=== PATIENT | male | born 1955 | race Caucasian/White ===

== ENCOUNTER → 2017-10-16 08:36 | Outpatient (CLI) | payer OTHER, SELFPAY ==
[2017-10-16 10:51] LABS: AST(SGOT) 18 U/L (15-37); Alanine Aminotransfer ALT/SGPT 38 U/L (16-61); Albumin, Serum 4.3 g/dL (3.2-5.0); Alkaline Phosphatase 69 U/L (45-117); Anion Gap 7 (5-15); BUN 21 mg/dL (7-18); BUN/Creat Ratio 19.6 RATIO (10-20); Bilirubin, Direct 0.14 mg/dL (0.00-0.30); Calcium,Total 9.3 mg/dL (8.5-10.1); Chloride 102 mmol/L (98-107); Cholesterol 148 mg/dL (200); Creatinine, Serum 1.07 mg/dL (0.70-1.30); EST Glomerular Filtration Rate 75 mL/min (>60); Est Glom Filt Rate - Afr Amer 90 mL/min (>60); Globulin 2.9 g/dL (2.2-4.2); Glucose 101 mg/dL (74-106); High Density Lipoprotein 40 mg/dL; Potassium 4.2 mmol/L (3.5-5.1); Protein, Total 7.2 g/dL (6.4-8.2); Sodium Level 139 mmol/L (136-145); Triglycerides 102 mg/dL; Very Low Density Lipoprotein 20 mg/dL (5-40)
== END ==
PROVIDERS: Family Provider Family Medicine; PCP Family Medicine; Visit Provider Family Medicine
DX: E78.5 Hyperlipidemia, unspecified (principal); I10 Essential (primary) hypertension
CPT/HCPCS: 36415; 80048; 80061; 80076

== ENCOUNTER → 2018-02-13 08:30 | Outpatient (CLI) | payer OTHER, SELFPAY ==
[2018-02-13 10:48] LABS: Cholesterol 166 mg/dL (200); Glucose 101 mg/dL (74-106); High Density Lipoprotein 39 mg/dL; Triglycerides 121 mg/dL; Very Low Density Lipoprotein 24 mg/dL (5-40)
== END ==
PROVIDERS: Family Provider Family Medicine; PCP Family Medicine; Visit Provider Family Medicine
DX: E78.5 Hyperlipidemia, unspecified (principal)
CPT/HCPCS: 36415; 80061; 82947

== ENCOUNTER 2018-07-17 07:29 | Observation (INO) | payer OTHER, SELFPAY ==
[2018-07-17] VITALS (9 sets, daily range): BP systolic 146–168; BP diastolic 81–101; PULSE 86–116; RESP 17–18; TEMP 36.6–36.8; O2SAT 96–99; BMI 29.0; BMI 29.2; BMI 29.3
--- NOTE | 2018-07-17 07:47 | CT_ITS ---
STUDY: CT ABDOMEN AND PELVIS WITH CONTRAST REASON FOR EXAM: Male, 63 years old. One week history of worsening right-sided abdominal pain. RADIATION DOSAGE (If Supplied By Facility): CTDIvol = ( 18.99 ) mGy, DLP = ( 2502.01 ) mGycm TECHNIQUE: Transaxial images were obtained from the dome of the diaphragm to the symphysis pubis with oral contrast. 75 ml of Isovue 300 contrast was administered. Sagittal and coronal images were reconstructed. Individualized dose optimization techniques were used for this CT. COMPARISON: None. FINDINGS: The visualized lung bases are unremarkable. The visualized portions of the heart are within normal limits. There are multiple small hypodense nodules scattered throughout the liver suggestive of small cysts. There is also evidence of a 2.5 cm x 2.5 cm inhomogeneously enhancing nodule in the medial aspect of the right lobe of the liver. This most likely represents an hemangioma. The smaller similar-appearing nodules also seen in the posterior dome of the right lobe of the liver. There are multiple small gallstones in the neck of the gallbladder. Normal spleen. Normal pancreas. Normal bilateral adrenal glands. Moderate degree of right hydronephrosis and mild right perinephric stranding. There is also evidence of a hydroureter on the right side down to the level of the bladder. Mild to moderate degree of left hydronephrosis and hydroureter down to the level of the bladder. Normal visualized stomach. Normal small intestine. Normal colon. The appendix is visualized and appears normal. There is diffuse atherosclerotic calcification of the abdominal aorta and its major visceral branches, without a demonstrated aneurysm. Normal inferior vena cava. There is borderline retroperitoneal lymphadenopathy with enlarged nodes no greater than 10mm in the short axis diameter. There is a marked distention of the urinary bladder. Findings suggestive of a 3.6 cm x 2.9 cm left-sided bladder diverticulum. The prostate is markedly enlarged measuring 9.2 cm x 6.5 cm x 5.9 cm. There is evidence of a 4.1 cm x 3.1 cm soft tissue density within the posterior aspect of the urinary bladder. This may represent either protrusion of the prostate into the base of the bladder versus a bladder polypoid mass. Correlation with cystoscopy is recommended. There is a small umbilical hernia containing fat. Normal osseous structures. CT/Abdomen/Pelvis WITH Contrast IMPRESSION: Findings suggestive of multiple hepatic cysts with possibly 2 small hemangiomas in the right lobe of the liver. Moderate degree of bilateral hydronephrosis and hydroureter down to the urinary bladder. Markedly distended urinary bladder. Marked enlargement of the prostate gland with indentation and protrusion into the bladder. A mass at the base of the bladder cannot be excluded. Findings suggestive of a left bladder diverticulum. Multiple small gallstones are seen within the neck of the gallbladder. Electronically Signed: Alfonso Kathleen MD at 10:07 EST Tel [phone], Service support ,
[2018-07-17 08:11] LABS: Bacteria 0 SEEN /hpf (None Seen); Mucous, Urine 0 SEEN /hpf (<or=2+); Squamous Epithelial Cells - UA 0 SEEN /hpf (0-5)
[2018-07-17 08:14] LABS: Color, Urine Yellow (Yellow); Glucose, Dipstick Normal (Normal); Ketone-Dipstick Negative (Negative); Leukocyte Esterase-Dipstick Negative /ul (Negative); Nitrite-Dipstick Negative (Negative); Occult Blood-Urine Negative /ul (Negative); Protein-Dipstick Negative (Negative); Specific Gravity, Urine 1.005 (1.002-1.030); Urine Bilirubin Dipstick Negative (Negative); Urine Clarity Clear (Clear); Urine Urobilinogen Normal (Normal); Urine pH 6.5 (5.0 - 8.0)
[2018-07-17] MEDS: 0.9% Normal Saline 1,000 ML 1000 ML IV (08:14)
[2018-07-17 08:18] LABS: Absolute Neutrophil Count 7.1 X10^3/uL (2.0-7.7); Basophil# 0.01 X10^3/uL; Basophil% 0.1 % (0-1); Eosinophil# 0.02 X10^3/uL; Eosinophils% 0.2 % (0-5); Hematocrit 41.7 % (40-54); Mean Corpuscular Hgb 31.1 pg (27.0-32.0); Mean Corpuscular Volume 86.5 fL (80-94); Monocyte# 0.89 X10^3/uL; Monocyte% 9.7 % (0-10); Neutrophil # 7.07 X10^3/uL (2.7-7.7); Neutrophil % 76.7 % (47-70); Platelet Count 201 K/mm3 (150-450); RBC Distribution Width CV 12.6 % (11.6-14.6); RBC Distribution Width SD 39.3 fl (35.1-43.9); Red Blood Count 4.82 M/mm3 (4.6-6.2); White Blood Count 9.2 K/mm3 (4.4-11.0)
[2018-07-17 08:19] LABS: POSITIVE COUNT NO; POSITIVE DIFFERENTIAL NO; POSITIVE MORPHOLOGY NO
--- NOTE | 2018-07-17 08:25 | ED.VISSUMM ---
- ER Visit Summary Date of Service: 07/17/18 Chief Complaint: Abdominal pain History of Present Illness: The patient is a 63 M with abdominal pain. The pain is in his right lower quadrant and does not migrate or radiate. He has had this intermittently over the past week. He came in today because it was constant over the last 24 hours. He said he had a lot of pain last night, worse when laying down. He has decreased appetite, decreased bowel movements, and last weekend he had nausea and vomiting. Denies any urinary symptoms or history of urinary pathology. Denies any bleeding. Denies any abdominal surgeries. He had a colonoscopy about 10 years ago which showed a polyp but was otherwise unremarkable. He has a history of GERD and gastric ulcer. Also history of hypertension and hyperlipidemia. Physical Examination: Blood pressure 168/101 and heart rate 116. Otherwise vital signs unremarkable. Afebrile. Alert and oriented. No acute distress. Heart regular. Lungs clear in all melgar. Abdomen is tender in the right lower quadrant. No guarding or rebound. Back is nontender. Skin appears normal. Test Results: Laboratory studies, urinalysis, and CT abdomen/pelvis pending. Emergency Department Course and Treatment: Patient was treated with IV fluids while awaiting results. He declined pain and nausea medicine. CT showed multiple gallstones but no sign of infection. His hepatic testing and lipase were normal. White count normal. He also has hepatic cysts, possibly hemangiomas. He has no right upper quadrant pain and liver testing normal. He has an enlarged prostate with bilateral hydronephrosis and hydroureter as well as distention of his bladder. His urine testing was unremarkable. Patient has a history of prostate but no history of cancer or prostatitis. He denies any pain to that area. Denies any urinary symptoms. Potassium was 2.9 and creatinine was 1.81. These are new findings for this patient. He was treated with fluids, potassium. He was also complaining of increasing pain and received a dose of morphine. Because of his potassium, I did order a monitor technician. I spoke with the hospitalist and he will be for further care. Treatment Plan: As above Disposition: Admission Impression: 1. Enlarged prostate with obstructive uropathy 2. Hypokalemia 3. Acute kidney injury This note was generated with [employer]comation software. It may contain incorrect words, spelling, and punctuation that were not noted in review of the chart prior to signing ED Disposition - Plan for ED Patient: Chief Complaint: Abd Pain Referrals: Govind Lerma MD [Primary Care Provider] -
[2018-07-17 08:31] LABS: Red Blood Cells-Urine 0-5 SEEN /hpf (0-5); White Blood Cells 0-5 SEEN /hpf (0-5)
[2018-07-17 08:32] LABS: ALB/GLOB Ratio 1.1 RATIO (0.9-2.4); AST(SGOT) 15 U/L (15-37); Alanine Aminotransfer ALT/SGPT 26 U/L (16-61); Albumin, Serum 3.9 g/dL (3.2-5.0); Alkaline Phosphatase 77 U/L (45-117); Anion Gap 10 (5-15); BUN 17 mg/dL (7-18); BUN/Creat Ratio 9.4 RATIO (10-20); Chloride 103 mmol/L (98-107); Creatinine, Serum 1.81 mg/dL (0.70-1.30); EST Glomerular Filtration Rate 41 mL/min (>60); Est Glom Filt Rate - Afr Amer 49 mL/min (>60); Estimated Creatinine Clearance 47.82 ml/min; Globulin 3.4 g/dL (2.2-4.2); Glucose 110 mg/dL (74-106); Lipase 93 U/L (73-393); Potassium 2.9 mmol/L (3.5-5.1); Protein, Total 7.3 g/dL (6.4-8.2); Sodium Level 141 mmol/L (136-145)
--- NOTE | 2018-07-17 10:36 | NURSING ---
MED SURG ACUTE KIDNEY INJURY, HYPOKALEMIA, ENLARGED PROSTATE PAINTSIL
--- NOTE | 2018-07-17 10:40 | HP.PCM_ITS ---
Problem List (1) Bladder mass Status: Acute (2) Abdominal pain Status: Acute Qualifiers: Abdominal location: right lower quadrant Qualified Code(s): R10.31 - Right lower quadrant pain (3) Hypokalemia Status: Acute (4) Hypertension Status: Chronic Qualifiers: Hypertension type: essential hypertension Qualified Code(s): I10 - Essential (primary) hypertension (5) Hyperlipidemia Status: Chronic Qualifiers: Hyperlipidemia type: unspecified Qualified Code(s): E78.5 - Hyperlipidemia, unspecified (6) GERD (gastroesophageal reflux disease) Status: Chronic Qualifiers: Esophagitis presence: esophagitis presence not specified Qualified Code(s): K21.9 - Gastro-esophageal reflux disease without esophagitis History of Present Illness Date of Admission: 07/17/18 Chief Complaint: Right lower quadrant pain The patient is a 63 year old M medical history of hypertension, hyperlipidemia, GERD, history of peptic ulcer presents with complaints of right lower quadrant pain ongoing for 1 week. Patient admits to having flulike symptoms ongoing for about 1 week. He had associated nausea and vomiting. He has had some diarrhea after he took some stool softeners. He admits to intermittent right lower quadrant stabbing pain that comes on with no aggravating or relieving factors. Seems to come on and off. No associated symptoms of fever or chills or dizziness or dysuria or bloody stool or bloody urine. He admits to some anorexia but no weight loss or night sweats. He could not sleep last night and decided to come to the ED. his vitals in the ED showed temperature of 90 8F, heart rate 116, blood pressure 168/101, respiratory rate 18, SPO2 90% on room air. Admitting blood work showed WBC count of 9.2, hemoglobin 15.2, platelet count 201, sodium was 141, potassium 2.9, chloride 103, bicarbonate 28, BUN 17, creatinine 1.81. Previous creatinine was 1.07. UA was unremarkable with 0-5 RBC, 0-[address]BC[address] pelvic [address] scan showed multiple small hypodense nodules scattered throughout the liver suggestive of small cysts, possible hemangioma, moderate right hydronephrosis with mild right perinephric stranding, hydroureter on the right side down to the level of the bladder, mild to moderate left hydr onephrosis and hydroureter ureter down to the level of the bladder. Urinary bladder was distended with 3.6 cm x 2.9 cm left-sided diverticula with also markedly enlarged prostate and a 4.1 cm x 3.1 cm soft tissue density within the posterior aspect of the urinary bladder. Past Medical History Past Medical History (Chronic Problems): Chronic Problems Hypertension (Chronic) Hyperlipidemia (Chronic) GERD (gastroesophageal reflux disease) (Chronic) Allergies No Known Allergies Allergy (Verified 07/17/18 07:31) Home Medications: Ambulatory Orders Medication Instructions Recorded Losartan/Hydrochlorothiazide 100 mg PO DAILY 07/17/18 [Losartan-Hctz 100-25 mg Tab] Mag-Ox 400 400 mg PO DAILY 07/17/18 Multiple Vitamins 1 cap PO DAILY 07/17/18 Simvastatin [Zocor] 20 mg PO DAILY 07/17/18 Surgical History: no surgical history Lives: Spouse/ Significant Other Smoking Status: Never smoker Tobacco Use: Non-smoker Alcohol: Occasional Drugs: None - *Family History Maternal History Items: No pertinent history Paternal History Items: Heart Disease Review of Systems Constitutional: Reports: Anorexia, Malaise, Weakness. Denies: Chills, Fever, Night Sweats, Weight Change Eyes: Denies: Blurred vision, Cataracts, Conjunctivae Inflammation, Pain, Redness HEENT: Denies: Difficulty Hearing, Difficulty Swallowing, Dysphasia, Head Aches, Hearing Changes, Nasal bleeding, Sinus Congestion, Sinus Drainage Cardiovascular: Denies: Chest Pain, Claudication, Chest Pressure, Chest Tightness, Orthopnea, Palpitations, Paroxysmal Noc. Dyspnea Respiratory: Denies: Cough, Hemoptysis, Pleuritic Pain, Shortness of breath at rest, Shortness of breath upon exertion, Sputum production Gastrointestinal: Reports: Diarrhea, Nausea, Vomiting. Denies: Abdominal Pain, Constipation, Hematemesis, Hematochezia Genitourinary: Denies: Dysuria, Frequency, Incontinence, Nocturia Musculoskeletal: Denies: Joint Pain, Joint stiffness, Joint swelling, Joint Tenderness Skin: Denies: Pruritis, Rash, Wounds Neurological: Denies: Difficulty swallowing, Focal weakness, Numbness, Tingling Psychiatric: Denies: Anxiety, Depression, Homicidal Ideations, Suicidal Ideation s Hematologic/ Lymphatic: Denies: Easy Bruising, Easy Bleeding VTE Information - Inpt Only VTE Present on Admission: No VTE Pharm Prophylaxis ordered?: Yes Patient Problems: Active and Suspected Problems Bladder mass (Acute) Abdominal pain (Acute) Hypokalemia (Acute) - Physical Exam General: Alert, Oriented x3, Cooperative, No apparent distress HEENT: Atraumatic, PERRLA, EOMI, Normocephalic Oral: Moist Mucosa Neck: Supple, No JVD, Negative Carotid Bruits Lungs: Clear to auscultation, Normal air movement Cardiovascular: Regular rate, Regular Rhythm, Normal S1, Normal S2, No murmurs Abdomen: Bowel Sounds Present, Soft, Non-Distended, No Hepato-splenomegaly, Tender - mild right lower quadrant tenderness, no guarding or RBT Extremities: No edema Skin: No rashes, No breakdown Musculoskeletal: No Tenderness to Palpation of Joints or Extremities Lymphatic: No Cervical, Supraclavicular, or Inguinal Adenopathy Neurological: Cranial nerves II-XII grossly intact, Neuro grossly intact Psych/Mental Status: Normal Affect, Appropriate Vital Signs Temp Pulse Resp BP Pulse Ox 98 F 116 H 18 168/101 H 98 07/17/18 07:29 07/17/18 07:29 07/17/18 07:29 07/17/18 07:29 07/17/18 07:29 Oxygen Delivery Method Room Air Weight: 99.79 kg Body Mass Index (BMI) 29.0 Laboratory Tests Past 24 Hrs 07/17/18 07/17/18 07/17/18 08:00 08:00 08:00 WBC 9.2 RBC 4.82 Hgb 15.0 Hct 41.7 MCV 86.5 MCH 31.1 MCHC 36.0 RDW 12.6 RDW Differential 39.3 Plt Count 201 MPV 10.0 Immature Gran % (Auto) 0.300 Neut % (Auto) 76.7 H Lymph % (Auto) 13.0 L [place] % (Auto) 9.7 Eos % (Auto) 0.2 Baso % (Auto) 0.1 Absolute Neuts (auto) 7.1 Absolute Lymphs (auto) 1.20 Total Counted Not Reportable Sodium 141 Potassium 2.9 L Chloride 103 Carbon Dioxide 28.0 Anion Gap 10 BUN 17 Creatinine 1.81 H Estim Creat Clear Calc 47.82 Est GFR (MDRD) Af Amer 49 L Est GFR (MDRD) Non-Af 41 L BUN/Creatinine Ratio 9.4 L Glucose 110 H Calcium 9.0 Total Bilirubin 0.80 AST 15 ALT 26 Alkaline Phosphatase 77 Total Protein 7.3 Albumin 3.9 Globulin 3.4 Albumin/Globulin Ratio 1.1 Lipase 93 Urine Color Yellow Urine Clarity Clear Urine pH 6.5 Ur Specific [place] 1.005 Urine Protein Negative Urine Glucose (UA) Normal Urine Ketones Negative Urine Occult Blood Negative Urine Nitrite Negative Urine Bilirubin Negative Urine Urobilinogen Normal Ur Leukocyte Esterase Negative Urine RBC 0-5 SEEN Urine WBC 0-5 SEEN Ur Squamous Epith Cells 0 SEEN Urine Bacteria 0 SEEN Urine Mucus 0 SEEN Assessment/Plan All Active Problems Bladder mass (Acute) Abdominal pain (Acute) Hypokalemia (Acute) 63 year old M with medical history of hypertension, hyperlipidemia, GERD, history of peptic ulcer presents with complaints of right lower quadrant pain ongoing for 1 week. Patient admits to having flulike symptoms ongoing for about 1 week. 1. Acute right lower quadrant pain, unclear etiology for now, could be related to right hydroureter/nephrosis/possible bladder mass Plan: Admit patient, monitor on telemetry, pain control with morphine prn 2. Hypokalemia, severe, related to vomiting and diarrhea, will replace IV, recheck at 5 PM and in a.m. 3. Hypomagnesemia, related to hypoglycemia, related to vomiting and diarrhea, replace, recheck in a.m. 4. ELINOR, likely prerenal and postrenal secondary to vomiting and diarrhea as well as bilateral hydronephrosis, will continue on IV fluids NS100 mls/hr, will check bladder scan, if high, will Place Hui catheter, urology consulted 5. Possible bladder mass, no history of weight loss, fever, night sweats, hematuria, urinalysis on admission is benign will get ultrasound of the bladder and kidneys stat, urology consulted Will start on ceftriaxone IV 1 g in anticipation of possible instrumentation by urology 6. Recent flulike illness, for about a week, improving, will treat symptomat icallru 7. Hypertension, uncontrolled, has missed his medication for 2 days, would prescribe losartan 100 mg p.o. daily, hold off hydrochlorothiazide for now 8. Hyperlipidemia, on statin 9. GERD, history of peptic ulcer, not on PPI, will add famotidine 20 twice daily 10. DVT PPx- Heparin SC Code Visit Inpatient E&M: 02744 Init Hosp L3
[2018-07-17] MEDS: Morphine 4 MG/ML Syringe IV (11:00)
[2018-07-17 12:16] LABS: Magnesium 1.9 mg/dL (1.6-2.6)
[2018-07-17] MEDS: Ceftriaxone 1 GM/50 ML BAG IV (13:04)
--- NOTE | 2018-07-17 13:31 | US_ITS ---
STUDY: RENAL ULTRASOUND - COMPLETE REASON FOR EXAM: Male, [address] scan. Bladder mass. TECHNIQUE: Ultrasound evaluation of the kidneys was performed with real-time and static cavazos-scale imaging. COMPARISON: Comparison is made with prior CT scan of abdomen done earlier today. FINDINGS: RIGHT KIDNEY: Normal location of the right kidney, which is normal in size. The right kidney measures 11.2 cm x 5.4 cm x 6.9 cm. There is a normal cortex of the right kidney. The renal cortex measures 1.7 cm. There is no right renal mass or cyst. There are no right renal calculi. There is moderate hydronephrosis of the right kidney. DISTAL RIGHT URETER: There is mild hydroureter of the distal right ureter. There is no demonstrated right ureterovesical junction calculus. There is no demonstrated right ureteral jet. LEFT KIDNEY: Normal location of the left kidney, which is normal in size. The left kidney measures 13.8 cm x 5.4 cm x 7.3 cm. There is a normal cortex of the left kidney. The renal cortex measures 2.6 cm. There is no left renal mass or cyst. There are no left renal calculi. There is moderate hydronephrosis of the left kidney. DISTAL LEFT URETER: There is mild hydroureter of the distal left ureter. There is no demonstrated left ureterovesical junction calculus. There is a visualized left ureteral jet. BLADDER: The distended urinary bladder has a volume of 1130 ml. There is a normal wall thickness of the distended urinary bladder. There is a 4.2 cm x 4.8 cm x 4.8 cm mass within the base of the urinary bladder most likely representing extension from an enlarged prostate. There are no demonstrated bladder calculi. US/Kidney and Bladder IMPRESSION: Bilateral hydronephrosis. Enlarged prostate with soft tissue mass at the base of the bladder most likely representing extension of the bladder. A bladder mass cannot be excluded. Correlation with endoscopy is recommended. Electronically Signed: Alfonso Kathleen MD at 16:00 EST Tel [phone], Service support ,
[2018-07-17] MEDS: 0.9% NaCl Peripheral Flush Adult/Peds IV (14:37)
[2018-07-17] MEDS: Morphine 2 MG/ML Syringe 1 MG IV (14:37)
[2018-07-17] MEDS: Losartan Potassium 100 MG Tablet PO (16:55)
[2018-07-17] MEDS: Magnesium Sulfate 1 GM in 0.9% Normal Saline 100 ML IV (18:08)
[2018-07-17 18:33] LABS: Anion Gap 8 (5-15); BUN 14 mg/dL (7-18); BUN/Creat Ratio 8.9 RATIO (10-20); Calcium,Total 8.2 mg/dL (8.5-10.1); Chloride 106 mmol/L (98-107); Creatinine, Serum 1.57 mg/dL (0.70-1.30); EST Glomerular Filtration Rate 48 mL/min (>60); Est Glom Filt Rate - Afr Amer 58 mL/min (>60); Estimated Creatinine Clearance 55.13 ml/min; Glucose 122 mg/dL (74-106); Sodium Level 140 mmol/L (136-145)
[2018-07-17] MEDS: Atorvastatin Calcium 10 MG Tablet PO (21:41)
[2018-07-17] MEDS: Famotidine 20 MG Tablet PO (21:41)
[2018-07-17] MEDS: Acetaminophen 325 MG Tablet 650 MG PO (21:41)
[2018-07-17] MEDS: Heparin Injection (Vial) 5,000 UNIT/ML VIAL 5000 UNIT SC (21:42)
[2018-07-17] MEDS: 0.9% Normal Saline 1,000 ML 100 ML IV (22:25)
[2018-07-18 03:59] VITALS: PULSE 80
[2018-07-18 04:44] VITALS: BP 142/93; PULSE 81; RESP 18; TEMP 36.7; O2SAT 97
[2018-07-18 06:27] LABS: Absolute Lymphocyte Count 1.19 X10^3/ul (0.83-4.51); Absolute Neutrophil Count 6.1 X10^3/uL (2.0-7.7); Basophil# 0.01 X10^3/uL; Basophil% 0.1 % (0-1); Eosinophil# 0.07 X10^3/uL; Eosinophils% 0.9 % (0-5); Hematocrit 37.2 % (40-54); Hemoglobin 13.3 g/dl (13.0-16.5); Lymphocyte # 1.19 X10^3/ul (4.0); Lymphocyte % 14.6 % (19-41); Mean Corp Hgb Conc 35.8 g/gl (32-36); Mean Corpuscular Hgb 31.2 pg (27.0-32.0); Mean Corpuscular Volume 87.3 fL (80-94); Mean Platelet Vol. 9.9 fl (6.2-12.0); Monocyte# 0.76 X10^3/uL; Monocyte% 9.3 % (0-10); Neutrophil # 6.09 X10^3/uL (2.7-7.7); Platelet Count 165 K/mm3 (150-450); RBC Distribution Width CV 12.8 % (11.6-14.6); RBC Distribution Width SD 40.9 fl (35.1-43.9); Red Blood Count 4.26 M/mm3 (4.6-6.2); White Blood Count 8.1 K/mm3 (4.4-11.0)
[2018-07-18 06:34] LABS: POSITIVE COUNT NO; POSITIVE DIFFERENTIAL NO; POSITIVE MORPHOLOGY NO
[2018-07-18 06:41] LABS: Anion Gap 9 (5-15); BUN 12 mg/dL (7-18); BUN/Creat Ratio 9.2 RATIO (10-20); Calcium,Total 8.1 mg/dL (8.5-10.1); Chloride 110 mmol/L (98-107); Creatinine, Serum 1.31 mg/dL (0.70-1.30); EST Glomerular Filtration Rate 59 mL/min (>60); Est Glom Filt Rate - Afr Amer 71 mL/min (>60); Estimated Creatinine Clearance 66.08 ml/min; Glucose 92 mg/dL (74-106); Potassium 3.7 mmol/L (3.5-5.1); Sodium Level 144 mmol/L (136-145)
[2018-07-18 07:59] VITALS: PULSE 90
--- NOTE | 2018-07-18 08:17 | PCM.PN.HOSP ---
Patient Problems: Active and Suspected Problems Bladder mass (Acute) Abdominal pain (Acute) Hypokalemia (Acute) Subjective: Patient was seen and examined. He feels improved. He was found on bladder scan yesterday to have urine retention. Insertion of Hui was difficult, hematuria was subsequently found overnight. His right lower quadrant pain is absent since Hui insertion. Denies any fever or chills. No nausea or diarrhea Objective: Physical exam: General: Alert, Oriented x3, Cooperative HEENT: Atraumatic, PERRLA, EOMI, Normocephalic Oral: Dry Mucosa Neck: Supple, No JVD, Negative Carotid Bruits Lungs: Clear to auscultation, Normal air movement, No rhonchi, No wheeze, No rales Cardiovascular: Regular rate, Regular Rhythm, Normal S1, Normal S2, No murmurs Abdomen: Bowel Sounds Present, Soft, Non-Distended, No Hepato-splenomegaly, no abdominal tenderness on palpation, Hui catheter in situ, hematuria(light pink) Extremities: No edema Skin: No rashes, No breakdown Musculoskeletal: No Tenderness to Palpation of Joints or Extremities Lymphatic: No Cervical, Supraclavicular, or Inguinal Adenopathy Neurological: Cranial nerves II-XII grossly intact, Neuro grossly intact, Motor Exam 5/5 strength throughout Psych/Mental Status: Normal Affect, Appropriate, Alert and oriented to time, place, person, mood and affect Vitals/I&O's: Vital Signs Temp Pulse Resp BP Pulse Ox 98.0 F 81 18 142/93 H 97 07/18/18 04:44 07/18/18 04:44 07/18/18 04:44 07/18/18 04:44 07/18/18 04:44 Oxygen Delivery Method Room Air Weight: 100.6 kg Body Mass Index (BMI) 29.2 Intake and Output for Last 24 Hours 07/16/18 07/17/18 07/18/18 23:59 23:59 23:59 Intake Total 3376 / 3376 1240 / 1240 Output Total 3350 / 3350 1150 / 1150 Balance 90 / 90 Laboratory Results 07/17/18 08:00: WBC 9.2, RBC 4.82, Hgb 15.0, Hct 41.7, MCV 86.5, MCH 31.1, MCHC 36.0, RDW 12.6, RDW Differential 39.3, Plt Count 201, MPV 10.0, Immature Gran % (Auto) 0.300, Neut % (Auto) 76.7 H, Lymph % (Auto) 13.0 L, [place] % (Auto) 9.7, Eos % (Auto) 0.2, Baso % (Auto) 0.1, Absolute Neuts (auto) 7.1, Absolute Lymphs (auto) 1.20, Total Counted Not Reportable 07/17/18 08:00: Sodium 141, Potassium 2.9 L, Chloride 103, Carbon Dioxide 28.0, Anion Gap 10, BUN 17, Creatinine 1.81 H, Estim Creat Clear Calc 47.82, Est GFR (MDRD) Af Amer 49 L, Est GFR (MDRD) Non-Af 41 L, BUN/Creatinine Ratio 9.4 L, Glucose 110 H, Calcium 9.0, Total Bilirubin 0.80, AST 15, ALT 26, Alkaline Phosphatase 77, Total Protein 7.3, Albumin 3.9, Globulin 3.4, Albumin/Globulin Ratio 1.1, Lipase 93 07/17/18 08:00: Urine Color Yellow, Urine Clarity Clear, Urine pH 6.5, Ur Specific [place] 1.005, Urine Protein Negative, Urine Glucose (UA) Normal, Urine Ketones Negative, Urine Occult Blood Negative, Urine Nitrite Negative, Urine Bilirubin Negative, Urine Urobilinogen Normal, Ur Leukocyte Esterase Negative, Urine RBC 0-5 SEEN, Urine WBC 0-5 SEEN, Ur Squamous Epith Cells 0 SEEN, Urine Bacteria 0 SEEN, Urine Mucus 0 SEEN 07/17/18 08:00: Magnesium 1.9 07/17/18 17:25: Sodium 140, Potassium 3.0 L, Chloride 106, Carbon Dioxide 26.0, Anion Gap 8, BUN 14, Creatinine 1.57 H, Estim Creat Clear Calc 55.13, Est GFR (MDRD) Af Amer 58 L, Est GFR (MDRD) Non-Af 48 L, BUN/Creatinine Ratio 8.9 L, Glucose 122 H, Calcium 8.2 L 07/18/18 05:54: WBC 8.1, RBC 4.26 L, Hgb 13.3, Hct 37.2 L, MCV 87.3, MCH 31.2, MCHC 35.8, RDW 12.8, RDW Differential 40.9, Plt Count 165, MPV 9.9, Immature Gran % (Auto) 0.100, Neut % (Auto) 75.0 H, Lymph % (Auto) 14.6 L, [place] % (Auto) 9.3, Eos % (Auto) 0.9, Baso % (Auto) 0.1, Absolute Neuts (auto) 6.1, Absolute Lymphs (auto) 1.19, Total Counted Not Reportable 07/18/18 05:54: Sodium 144, Potassium 3.7, Chloride 110 H, Carbon Dioxide 25.0, Anion Gap 9, BUN 12, Creatinine 1.31 H, Estim Creat Clear Calc 66.08, Est GFR (MDRD) Af Amer 71, Est GFR (MDRD) Non-Af 59 L, BUN/Creatinine Ratio 9.2 L, Glucose 92, Calcium 8.1 L Current Medications Acetaminophen (Tylenol) 650 mg PO Q6H PRN PRN PRN Reason: PAIN Last Admin: 07/17/18 21:41 Dose: 650 mg Atorvastatin Calcium (Lipitor) 10 mg PO QHS [facility] Last Admin: 07/17/18 21:41 Dose: 10 mg Bisacodyl (Dulcolax) 5 mg PO DAILY PRN PRN PRN Reason: Constipation Famotidine (Pepcid) 20 mg PO BID [facility] Last Admin: 07/17/18 21:41 Dose: 20 mg Sodium Chloride () 1,000 mls @ 100 mls/hr IV .Q10H [facility] Last Admin: 07/17/18 22:25 Dose: 100 mls/hr Influenza Virus Vaccine Quadrival (Fluarix/Fluzone) 0.5 ml IM .ONCE ONE Stop: 07/18/18 10:01 Losartan Potassium (Cozaar) 100 mg PO DAILY [facility] Last Admin: 07/17/18 16:55 Dose: 100 mg Magnesium Hydroxide (Milk Of Magnesia) 30 ml PO DAILY PRN PRN PRN Reason: Constipation Morphine Sulfate () 1 mg IV Q4H PRN PRN PRN Reason: SEVERE PAIN (6-10/10) Last Admin: 07/17/18 14:37 Dose: 1 mg Psyllium Hydrophilic Mucilloid (Metamucil) 1 packet PO DAILY PRN PRN PRN Reason: CONSTIPATION Sodium Chloride () 5 - 15 ml IV UD PRN PRN Reason: SALINE FLUSH Last Admin: 07/17/18 14:37 Dose: 10 ml Tamsulosin HCl (Flomax) 0.4 mg PO DAILY@1730 [facility] Medical Necessity - Tobacco Use Smoking Status: Never smoker Tobacco Use: Non-smoker Assessment/Plan All Active Problems Bladder mass (Acute) Abdominal pain (Acute) Hypokalemia (Acute) 63 year old M with medical history of hypertension, hyperlipidemia, GERD, history of peptic ulcer presents with complaints of right lower quadrant pain ongoing for 1 week. Patient admits to having flulike symptoms ongoing for about 1 week. 1. Acute right lower quadrant pain, likely related to right hydroureter/nephrosis/possible bladder mass, resolved 2. Hypokalemia, severe, related to vomiting and diarrhea, resolved 3. Hypomagnesemia, related to hypoglycemia, related to vomiting and diarrhea,resolved 4. ELINOR, likely prerenal and postrenal secondary to vomiting and diarrhea as well as bilateral hydronephrosis, improving, Cr is currently 1.31 from 1.81 5. Possible bladder mass, likely enlarged prostate,, seen on CT of the abdomen and pelvis and on ultrasound of the bladder and kidney no history of weight loss, fever, night sweats, hematuria, urinalysis on admission is benign Will wait for urology consultation, discontinue ceftriaxone, unclear if further workup will be done in this admission 6.BPH, status post Hui catheterization, hematuria present at the moment, will start Flomax 0.4 mg daily 7.Recent flulike illness, for about a week, resolved 8.Hypertension, fairly uncontrolled, continue on losartan 100 mg p.o. daily, continue to hold off hydrochlorothiazide for now 9.Hyperlipidemia, on statin 10.GERD, history of peptic ulcer, not on PPI, on famotidine 20 twice daily 11. DVT PPx-SCDs; DC heparin on account of hematuria Code Visit Inpatient E&M: 01364 Subs Hosp L2
[2018-07-18 08:42] VITALS: BP 154/99; PULSE 99; RESP 18; TEMP 37.1; O2SAT 98
[2018-07-18] MEDS: Losartan Potassium 100 MG Tablet PO (08:49)
[2018-07-18] MEDS: Famotidine 20 MG Tablet PO (08:49)
[2018-07-18] MEDS: 0.9% Normal Saline 1,000 ML 100 ML IV (08:49)
--- NOTE | 2018-07-18 11:13 | PCM.CONS.U ---
Reason for Consult Date of Consultation: 07/18/18 Reason for Consultation: urinary retention due to very large prostate History of Present Illness: The patient is a 63 year old male who presented to the hospital with abdominal pain CAT scan was done demonstrated a very large prostate and the very little distended bladder with bilateral hydronephrosis elevated creatinine catheter was placed had over a liter in his bladder now the urine is fairly clear the bladder is draining well on CAT scan is a very large protruding prostate into the bladder significant amount of obstruction Past Medical History Past Medical History (Chronic Problems): Chronic Problems Hypertension (Chronic) Hyperlipidemia (Chronic) GERD (gastroesophageal reflux disease) (Chronic) Allergies No Known Allergies Allergy (Verified 07/17/18 07:31) Home Medications: Ambulatory Orders Medication Instructions Recorded Losartan/Hydrochlorothiazide 100 mg PO DAILY 07/17/18 [Losartan-Hctz 100-25 mg Tab] Mag-Ox 400 400 mg PO DAILY 07/17/18 Multiple Vitamins 1 cap PO DAILY 07/17/18 Simvastatin [Zocor] 20 mg PO DAILY 07/17/18 Surgical History: no surgical history Lives: Spouse/ Significant Other Smoking Status: Never smoker Tobacco Use: Non-smoker Alcohol: Occasional Drugs: None - *Family History Maternal History Items: No pertinent history Paternal History Items: Heart Disease Review of Systems Constitutional: Denies: Chills, Fever, Weight Change HEENT: Denies: Head Aches, Sinus Congestion, Sinus Drainage Cardiovascular: Denies: Chest Pain, Palpitations Respiratory: Denies: Cough, Shortness of breath at rest, Sputum production Gastrointestinal: Denies: Abdominal Pain, Nausea, Vomiting Genitourinary: Reports: Hematuria, Retention. Denies: Dysuria Musculoskeletal: Denies: Joint Pain, Joint Tenderness Skin: Denies: Rash, Wounds Neurological: Denies: Numbness, Tingling, Focal weakness Psychiatric: Denies: Anxiety, Depression, Homicidal Ideations, Suicidal Ideations Hematologic/ Lymphatic: Denies: Easy Bruising, Easy Bleeding Physical Exam - Physical Exam Vital Signs Temp 98.7 F 07/18/18 08:42 Pulse 99 07/18/18 08:42 Resp 18 07/18/18 08:42 BP 154/99 H 07/18/18 08:42 Pulse Ox 98 07/18/18 08:42 Intake & Output 07/16/18 07/17/18 07/18/18 23:59 23:59 23:59 Intake Total 3376 / 3376 1240 / 1240 Output Total 3350 / 3350 1150 / 1150 Balance 90 / 90 Weight: 100.6 kg Intake: Oral 1600 / 1600 280 / 280 IV fluid/meds 1776 / 1776 960 / 960 Output: Urine 3350 / 3350 1150 / 1150 General: Alert, Oriented x3 HEENT: Atraumatic Oral: Moist Mucosa Neck: Supple Lungs: Normal air movement Cardiovascular: Regular rate, Regular Rhythm Abdomen: Bowel Sounds Present, Soft Rectal: Exam deferred Laboratory Tests Past 24 Hrs 07/17/18 07/17/18 07/18/18 08:00 17:25 05:54 WBC 8.1 RBC 4.26 L Hgb 13.3 Hct 37.2 L MCV 87.3 MCH 31.2 MCHC 35.8 RDW 12.8 RDW Differential 40.9 Plt Count 165 MPV 9.9 Immature Gran % (Auto) 0.100 Neut % (Auto) 75.0 H Lymph % (Auto) 14.6 L Bartholomew % (Auto) 9.3 Eos % (Auto) 0.9 Baso % (Auto) 0.1 Absolute Neuts (auto) 6.1 Absolute Lymphs (auto) 1.19 Total Counted Not Reportable Sodium 140 Potassium 3.0 L Chloride 106 Carbon Dioxide 26.0 Anion Gap 8 BUN 14 Creatinine 1.57 H Estim Creat Clear Calc 55.13 Est GFR (MDRD) Af Amer 58 L Est GFR (MDRD) Non-Af 48 L BUN/Creatinine Ratio 8.9 L Glucose 122 H Calcium 8.2 L Magnesium 1.9 07/18/18 05:54 WBC RBC Hgb Hct MCV MCH MCHC RDW RDW Differential Plt Count MPV Immature Gran % (Auto) Neut % (Auto) Lymph % (Auto) Bartholomew % (Auto) Eos % (Auto) Baso % (Auto) Absolute Neuts (auto) Absolute Lymphs (auto) Total Counted Sodium 144 Potassium 3.7 Chloride 110 H Carbon Dioxide 25.0 Anion Gap 9 BUN 12 Creatinine 1.31 H Estim Creat Clear Calc 66.08 Est GFR (MDRD) Af Amer 71 Est GFR (MDRD) Non-Af 59 L BUN/Creatinine Ratio 9.2 L Glucose 92 Calcium 8.1 L Magnesium Assessment/Plan All Active Problems Bladder mass (Acute) Abdominal pain (Acute) Hypokalemia (Acute) 63-year-old male presented with bilateral hydronephrosis distended bladder very large prostate very large median lobe protruding into the bladder, recommend the patient go home with a Hui catheter I have my office set him up for a robotic simple prostatectomy in a few weeks spoke to the patient regarding situation and proceeding with surgery he was agreeable with this given the extent of the obstruction I do not think medical therapy will be effective but we can continue with been prescribed. Call me with questions.
--- NOTE | 2018-07-18 11:45 | CASEMGMT ---
CHRISTOPHER VALLE Face to Face with patient for initial transition planning/care coordination assessment. RN CM introduced self and role at [facility]. Patient lying in bed, alert and oriented. Patient willing to participate in assessment and is able to answer all questions appropriately. Care providers, pharmacy, and demographics verified. Patient wishes to discharge home, denies need for home health at this time. Patient states he has no further needs or concerns at this time. CM to follow for discharge planning needs that may arise. Disposition Plan: Patient to discharge home with family support and follow-up plans in place. Regina ALSTON, RN, CM
--- NOTE | 2018-07-18 11:59 | DS.PCM_ITS ---
Discharge Date and Diagnosis - Problem List Patient Problems: Active and Suspected Problems Bladder mass (Acute) Abdominal pain (Acute) Hypokalemia (Acute) Date of Admission: 07/17/18 Date of Discharge: 07/18/18 - Primary Discharge Diagnosis Active and Suspected Problems BPH Suspected bladder mass (Acute) Abdominal pain (Acute) Hypokalemia (Acute) Hypomagnesemia ELINOR Uncontrolled hypertension Recent flulike illness - Secondary Discharge Diagnosis Chronic Problems Hypertension (Chronic) Hyperlipidemia (Chronic) GERD (gastroesophageal reflux disease) (Chronic) Hospital Course and Treatment Imaging Results: Clinical Impression(s) from Imaging Studies Abdomen/Pelvis CT 07/17/18 07:47 IMPRESSION: Findings suggestive of multiple hepatic cysts with possibly 2 small hemangiomas in the right lobe of the liver. Moderate degree of bilateral hydronephrosis and hydroureter down to the urinary bladder. Markedly distended urinary bladder. Marked enlargement of the prostate gland with indentation and protrusion into the bladder. A mass at the base of the bladder cannot be excluded. Findings suggestive of a left bladder diverticulum. Multiple small gallstones are seen within the neck of the gallbladder. Electronically Signed: Alfonso Kathleen MD at 10:07 EST Tel [phone], Service support , Renal Ultrasound 07/17/18 13:31 IMPRESSION: Bilateral hydronephrosis. Enlarged prostate with soft tissue mass at the base of the bladder most likely representing extension of the bladder. A bladder mass cannot be excluded. Correlation with endoscopy is recommended. Electronically Signed: Alfonso Kathleen MD at 16:00 EST Tel [phone], Service support , ADDENDUM: 07/18/18 1046 Urology Operations: None Procedures: None Summary of Care Provided: 63 year old M with medical history of hypertension, hyperlipidemia, GERD, history of peptic ulcer presents with complaints of right lower quadrant pain ongoing for 1 week. Patient admits to having flulike symptoms ongoing for about [address] of the abdomen and pelvis as well as abdominal ultrasound showed possible bladder mass, enlarged prostate, bilateral hydroureter, hydronephrosis. He was admitted to a monitored bed and managed with IV fluids, pain meds, electrolyte replacement His management was as follows: 1. Acute right lower quadrant pain, likely related to right hydroureter/nephrosis/possible bladder mass, resolved with pain medication, relief of bladder outlet obstruction. 2. Hypokalemia, severe, related to vomiting and diarrhea, replaced, resolved 3. Hypomagnesemia, related to hypoglycemia, related to vomiting and diarrhea, replace, resolved 4. ELINOR, likely prerenal and postrenal secondary to vomiting and diarrhea as well as bilateral hydronephrosis, admitted with a creatinine 1.81, improved with IV fluids and Hui catheter placement. 5. Possible bladder mass, likely enlarged prostate/BPH, seen on CT of the abdomen and pelvis and on ultrasound of the bladder and kidney no history of weight loss, fever, night sweats, hematuria, urinalysis on admission is benign Urology consulted, discharged with Hui catheter, follow-up in the outpatient for robotic prostatectomy 6.Recent flulike illness, for about a week, resolved 8.Hypertension, fairly uncontrolled, home losartan/hydrochlorothiazide held, managed on losartan 100 mg p.o. daily. Home blood pressure meds were resumed at discharge. Patient Problems: Active and Suspected Problems Bladder mass (Acute) Abdominal pain (Acute) Hypokalemia (Acute) Subjective: See progress note of the day Objective: See progress note on the day - Physical Exam Vital Signs Temp Pulse Resp BP Pulse Ox 98.7 F 99 18 154/99 H 98 07/18/18 08:42 07/18/18 08:42 07/18/18 08:42 07/18/18 08:42 07/18/18 08:42 Oxygen Delivery Method Room Air Weight: 100.6 kg Body Mass Index (BMI) 29.2 Intake and Output for Last 24 Hours 07/16/18 07/17/18 07/18/18 23:59 23:59 23:59 Intake Total 3376 / 3376 1240 / 1240 Output Total 3350 / 3350 1150 / 1150 Balance 90 / 90 Laboratory Tests Past 24 Hrs 07/17/18 07/17/18 07/18/18 08:00 17:25 05:54 WBC 8.1 RBC 4.26 L Hgb 13.3 Hct 37.2 L MCV 87.3 MCH 31.2 MCHC 35.8 RDW 12.8 RDW Differential 40.9 Plt Count 165 MPV 9.9 Immature Gran % (Auto) 0.100 Neut % (Auto) 75.0 H Lymph % (Auto) 14.6 L Hickman % (Auto) 9.3 Eos % (Auto) 0.9 Baso % (Auto) 0.1 Absolute Neuts (auto) 6.1 Absolute Lymphs (auto) 1.19 Total Counted Not Reportable Sodium 140 Potassium 3.0 L Chloride 106 Carbon Dioxide 26.0 Anion Gap 8 BUN 14 Creatinine 1.57 H Estim Creat Clear Calc 55.13 Est GFR (MDRD) Af Amer 58 L Est GFR (MDRD) Non-Af 48 L BUN/Creatinine Ratio 8.9 L Glucose 122 H Calcium 8.2 L Magnesium 1.9 07/18/18 05:54 WBC RBC Hgb Hct MCV MCH MCHC RDW RDW Differential Plt Count MPV Immature Gran % (Auto) Neut % (Auto) Lymph % (Auto) [place]ickman % (Auto) Eos % (Auto) Baso % (Auto) Absolute Neuts (auto) Absolute Lymphs (auto) Total Counted Sodium 144 Potassium 3.7 Chloride 110 H Carbon Dioxide 25.0 Anion Gap 9 BUN 12 Creatinine 1.31 H Estim Creat Clear Calc 66.08 Est GFR (MDRD) Af Amer 71 Est GFR (MDRD) Non-Af 59 L BUN/Creatinine Ratio 9.2 L Glucose 92 Calcium 8.1 L Magnesium Discharge Diet: Low fat/ Low Cholesterol, 2000 mg Sodium Diet Discharge Activity: Return to Normal Activity Home Medications: Medications to take at Discharge Losartan/Hydrochlorothiazide [Losartan-Hctz 100-25 mg Tab] 100 mg PO DAILY 07/17/18 Mag-Ox 400 400 mg PO DAILY 07/17/18 Multiple Vitamins 1 cap PO DAILY 07/17/18 Simvastatin [Zocor] 20 mg PO DAILY 07/17/18 Tamsulosin HCl [Flomax] 0.4 mg PO DAILY@1730 #30 capsule 07/18/18 Following Prescrptions Were Given to Patient: Tamsulosin HCl [Flomax] 0.4 mg PO DAILY@1730 #30 capsule Other Amb Orders: Basic Metabolic Profile (BMP) Time Frame: 3 Days, Location: Laboratory Primary Care Physician: Govind Lerma MD [Primary Care Provider] - Please follow up with your Primary Care Physician in: within 1 week Please Follow Up With: David Dunaway MD When: 2 weeks Disposition: Home Minutes spent on discharge:: 40 Patient Condition:: Stable Medical Necessity - Tobacco Use Smoking Status: Never smoker Tobacco Use: Non-smoker Meaningful Use Info Meaningful Use Diagnoses (Choose all that apply): None applicable Code Visit Inpatient E&M: 34748 Disch Hosp
--- NOTE | 2018-07-18 11:59 | DCINST_ITS ---
- Discharge Diagnoses Current Active Problems: Current Active and Chronic Problems Bladder mass (Acute) Abdominal pain (Acute) Hypokalemia (Acute) Hypertension (Chronic) Hyperlipidemia (Chronic) GERD (gastroesophageal reflux disease) (Chronic) Reason(s) for Visit for Discharge Instructions: Abdominal pain You will use the following diet at home:: Cardiac Your food should be the consistency of: Regular Your liquids should be the consistency of: Regular/Thin Discharge Activity: Return to Normal Activity Additional Instructions: Continue to hydrate your self. You will be discharged with Powell catheter and bag. Keep powell catheter bag below your wait at all times. Let your doctor know if you have fever, chills, cloudy urine. Follow-up with your PCP for blood work in 3 days. Follow-up with Dr. Dunaway as scheduled. Allergies/Adverse Reactions: Allergies No Known Allergies Allergy (Verified 07/17/18 07:31) Medications to take at Discharge Losartan/Hydrochlorothiazide [Losartan-Hctz 100-25 mg Tab] 100 mg PO DAILY 07/17/18 Mag-Ox 400 400 mg PO DAILY 07/17/18 Multiple Vitamins 1 cap PO DAILY 07/17/18 Simvastatin [Zocor] 20 mg PO DAILY 07/17/18 Tamsulosin HCl [Flomax] 0.4 mg PO DAILY@1730 #30 capsule 07/18/18 The following prescriptions were given: Tamsulosin HCl [Flomax] 0.4 mg PO DAILY@1730 #30 capsule Orders to be completed after discharge: Basic Metabolic Profile (BMP) Time Frame: 3 Days, Location: Laboratory Primary Care Physician: Govind Lerma MD [Primary Care Provider] - Please follow up with your Primary Care Physician in: within 1 week Test Results: Test results from this visit will be discussed in further detail at your follow- up appointment, if applicable. Please Follow Up With: David Dunaway MD When: 2 weeks Proposed Discharge Date: 07/18/18
--- OUTSIDE RECORDS SUMMARY | 2018-09-11 07:46 | XMS RPT_ITS ---
:1955 Author Organization OHIP Support Name Relationship Address Phone BEN GONZALEZ Unavailable [address] + [place] [address] [facility] Unavailable [address] + [place] [address] BEN GONZALEZ Unavailable [address] + [place] [address] [facility] Unavailable [address] + [place] [address] BEN GONZALEZ Unavailable [address] + [place], [place] [id number] [place] [address] + [place] [address] BEN GONZALEZ Unavailable [address] + [place] [address] [facility] Unavailable [address] + [place] [address] BEN GONZALEZ Unavailable [address] + [place] [address] [facility] Unavailable [address] + [place] [address] BEN GONZALEZ Unavailable [address] + [place] [address] [facility] Unavailable [address] + [place] [address] BEN GONZALEZ Unavailable [address] + [place] [address] [facility] Unavailable [address] + [place] [address] BEN GONZALEZ Unavailable [address] + [place] [address] [facility] Unavailable [address] + [place] [address] CONCETTA, BEN Unavailable [address] + [place] [address] [facility] Unavailable [address] + [place] [address] Care Team Providers Name Role Phone David Dunaway Attending Unavailable Gume, David Varma Referring Unavailable Caballero, Pk Primary Care Un[facility] Unavailable Caballero, Pk Attending Unavailable Ranney, Kyle Attending Unavailable Ranney, Allen Primary Care Unavailable Ranney, Allen Primary Care Unavailable Paintsil, Salineno Admitting Unavailable Paintsil, Salineno Attending Unavailable Gume, David Varma Consulting Unavailable Paintsil, Salineno Admitting Unavailable Paintsil, Salineno Attending Unavailable Ranney, Allen Primary Care Unavailable Gume, David Varma Consulting Unavailable Paintsil, Salineno Consulting Unavailable Paintsil, Salineno Admitting Unavailable Paintsil, Salineno Attending Unavailable Ranney, Allen Primary Care Unavailable Gume, David Varma Consulting Unavailable Paintsil, Salineno Consulting Unavailable Paintsil, Salineno Attending Unavailable Caballero, Pk Primary Care Unavailable Gume, David Varma Consulting Unavailable Caballero, Pk Attending Unavailable Caballero, Pk Referring Unavailable Caballero, Pk Primary Care Unavailable Gume, David Varma Admitting Unavailable Gume, David Varma Attending Unavailable Gume, David Varma Referring Unavailable Caballero, Pk Primary Care Unavailable PROBLEMS PROBLEMS No Problem Records FoundPROCEDURES PROCEDURES No Procedure Records FoundRESULTS RESULTS STRESS TEST ECHO W/ Observed: 08/04/2018 Status: F Source: [facility] 5:02 PM [facility] REPOSITORY [facility] Cardiovascular Services [address] [place] [address] Stress Test Echo W/Contrast MR#: [id number] Acct: [id number] Name: TOM GONZALEZ Rep #: [id number] : 1955 63 From: Jorge Gomez MD Primary Care: Pk Caballero MD Status: REG CLI Ordering Dr: David Dunaway MD Sex: M C Reason For Study: Pre-Op; Abnormal EKG Stress Results Protocol: Dmitriy Protocol Maximum Predicted HR: 158 bpm Target HR: 134 bpm % Maximum Predicted HR: 104 % DurationHeart Rate Stage (mm:ss) (bpm) BP Comment Baseline 96 118/86No Chest Pain; Diluted Definity 2 ML Given Dmitriy Protocol Stage I 3:00 137 144/72No Chest Pain Dmitriy Protocol Stage II 3:00 160 146/76No Chest Pain; Mild Dyspnea Dmitriy Protocol Stage III 0:15 164 / No Chest Pain; Moderate Dyspnea Recovery 116 120/72No Chest Pain Stress Duration: 6:15 mm:ss Maximum Stress HR: 164 bpm METS: 7 Baseline Echocardiogram Findings Stress Echo Wall motion Data Resting WM Intermediate WM Stress WM Stress Results Normal blood pressure response to exercise. Exercise was stopped due to fatigue. Interpretation Summary Exercise stress echocardiogram with and without definitive. 63-year-old man for preoperative evaluation. Stress protocol: Resting EKG demonstrates normal sinus rhythm with a rate of [address]-T wave changes are noted. Resting blood pressure 118/86 mmHg. The patient exercised according to regular Dmitriy protocol for total duration of 6 minutes and 15 seconds. Patient completed 15 seconds into stage III of the Dmitriy protocol. The maximum heart rate attained was 164 bpm which was 103% of maximum predicted heart rate the maximum workload was 7.7 metabolic equivalents. The patient maintained sinus rhythm throughout the recording with occasional premature ventricular complexes noted. At rest there were no ST or T wave changes noted suggest ischemia at peak exercise upsloping ST changes were noted with normally the criteria for ischemia. The resting blood pressure was 118/86 with a peak blood pressure 146/76 rate pressure product was 23,360. No clinical angina was noted no sustained arrhythmias were present. Stress echocardiographic images. The resting echocardiographic images performed with Definity enhancement demonstrated an ejection fraction of approximately 60%. At peak exercise there was thickening of all guillen and reduction in left ventricular cavity size with peaking of ejection fraction of 75%. No wall motion abnormalities were noted to suggest ischemia. Conclusion: Normal exercise stress echocardiographic images with no evidence of ischemia at a moderate workload. Good functional capacity Ordering Physician: David Dunaway Referring Physician: Jorge Gomez Performed By: Aleyda Chirinos, RDCS, RVT 08/04/18 170 Date Jorge Gomez MD CC: David Dunaway MD; Pk Caballero MD Date Dictated: 08/04/18 1400 Date Transcribed: 08/04/181700 Manager International: Signed 12 LEAD ELECTROCARDIOGRAM Observed: 08/01/2018 Status: F Source: [place] 10:51 AM [facility] REPOSITORY [facility] Cardiovascular Services [address] [place] [address] EKG - SDC 07/29/18 1517 MR#: [id number] Acct: [id number] Name: TOM GONZALEZ Rep #: [id number] : 1955 63 From: Pk Dorsey MD Attending Dr: Gume THOMAS,David Varma Status: PRE SDC Ordering Dr: Armando Anderson MD Date: 07/29/18 [place] [facility] [place] M C Admitted: Test Reason : Blood Pressure : / mmHG Vent. Rate : 104 BPM Atrial Rate : 104 BPM P-R Int : 158 ms QRS Dur : 086 ms QT Int : 344 ms P-R-T Axes : 040 000 105 degrees QTc Int : 452 ms Sinus tachycardia Minimal voltage criteria for LVH, may be normal variant ST AND T wave abnormality, consider lateral ischemia Abnormal ECG Confirmed by WILLIAN THOMAS, PK ([id number]), photographic editor PEMA WARD ([id number]) on 08/01/2018 10:50:55 AM Referred By: David Dunaway Confirmed By:PK DORSEY MD 08/01/18 1050 Date kP Dorsey MD CC: Armando Anderson MD; David Dunaway MD; Pk Caballero MD Date Dictated: 07/29/181516 Date Transcribed: 07/29/181516 Manager International: Signed ECHOCARDIOGRAM COMPLETE Observed: 07/31/2018 Status: F Source: [place] 4:53 PM [facility] REPOSITORY [facility] Cardiovascular Services [address] [place] [address] Echo Complete 07/31/18 1051 MR#: [id number] Acct: [id number] Name: TOM GONZALEZ Rep #: [id number] : 1955 63 From: Ángel Kapoor MD Attending Dr: Pk Caballero MD Status: REG CLI Ordering Dr: Pk Caballero MD Date: 07/31/18 Location: [facility] Sex: M C Admitted: Reason For Study: MURMUR Procedure This was a 2D Doppler, Color Flow transthoracic echocardiogram. The study was technically difficult. Exam performed in department. Left Ventricle Mild concentric left ventricular hypertrophy. The estimated ejection fraction is 65 %. Stage 1 diastolic dysfunction. No regional wall motion abnormalities noted. Right Ventricle Normal size and thickness. Normal systolic function. Atria Normal left atrium. Normal right atrium. Normal atrial septum. Mitral Valve The mitral valve is structurally normal. No prolapse or stenosis seen. Tricuspid Valve Normal tricuspid valve. Trivial tricuspid valve insufficiency. Right ventricular systolic pressure estimated to be 28 mmHg. Aortic Valve Trisinus/trileaflet aortic valve. Mild diffuse aortic valve thickening. Pulmonic Valve Normal pulmonic valve. Great Vessels Normal aortic root. Normal arch. Normal inferior vena cava. Inferior vena cava collapse with respiration. Pericardium/Pleural No pericardial effusion. MMode/2D Measurements AND Calculations LVIDd: 4.1 cm IVSd: 1.6 cm Ao root diam: 3.9 cm LVIDs: 2.8 cm LVPWd: 1.2 cm RVDd: 3.2 cm FS: 33.2 % LAV(MOD-bp): 30.3 ml LA A4 area: 11.9 cm2 LA dimension(2D): 3.0 cm LAV(MOD-bp) Indexed: 13.7 ml/m2 LAV(MOD-sp2): 32.4 ml LAV(MOD-sp4): 27.5 ml RA A4 area: 10.6 cm2 Doppler Measurements AND Calculations MV E max esdras: 58.1 cm/sec Lat Peak E' Esdras: 7.8 cm/sec Med Peak E' Esdras: 4.9 cm/sec MV A max esdras: 142.2 cm/sec E/E' lat: 7.4 E/E' med: 11.8 MV E/A: 0.41 Ao V2 max: 125.5 cm/sec LV V1 max: 101.3 cm/sec PA V2 max: 91.2 cm/sec Ao max P.3 mmHg LV V1 max P.1 mmHg TR max esdras: 236.3 cm/sec TR max P.4 mmHg Interpretation Summary The estimated ejection fraction is 65 %. Stage 1 diastolic dysfunction. Trivial tricuspid valve insufficiency. Right ventricular systolic pressure estimated to be 28 mmHg. There is no comparison study available. Ordering Physician: Pk Caballero Referring Physician: David Dunaway Performed By: Aleyda Chirinos, RENETTA, RVT 07/31/181652 Date Ángel Kapoor MD CC: Pk Caballero MD Date Dictated: 07/31/18 105 Date Transcribed: 07/31/181652 Manager International: Signed CBC-COMPLETE BLOOD CNT Collected: 07/29/2018 Status: F Source: [place] NO DIFF 3:25 PM [facility] REPOSITORY TYPE CODE TESTS RESULT OUT OF RANGE REFERENCE UNITS LAB L100.1000 4.4-11.0 K/mm3 Normal WBC 8.4 LAB L100.1200 4.6-6.2 M/mm3 Low RBC 4.57 LAB L100.1300 13.0-16.5 g/dl Normal HGB 14.3 LAB L100.1400 40-54 % Normal HCT 40.7 LAB L100.1500 80-94 fL Normal MCV 89.1 LAB L100.1600 27.0-32.0 pg Normal MCH 31.3 LAB L100.1700 32-36 g/gl Normal MCHC 35.1 LAB L100.1810 11.6-14.6 % Normal RDW CV 12.6 LAB L100.1820 35.1-43.9 fl Normal RDW SD 40.3 LAB L100.1900 150-450 K/mm3 Normal PLT 234 LAB L100.2000 6.2-12.0 fl Normal MPV 10.2 Performed By: #### L100.0500 #### [facility] [address] [place], [address] COMPREHENSIVE METABOLIC Collected: 07/29/2018 Status: F Source: [place] 3:25 PM [facility] REPOSITORY TYPE CODE TESTS RESULT OUT OF RANGE REFERENCE UNITS LAB L501.0100 74-106 mg/dL High GLU 115 Result Comment: Fasting Glucose result from 100 to 125 mg/dL suggests IMPAIRED HOMEOSTASIS per A.D.A. criteria. Please note revised GLUCOSE reference range effective 2017. LAB L501.1000 7-18 mg/dL Normal BUN 17 LAB L501.1100 0.70-1.30 mg/dL Normal CREAT,SERUM 1.22 Result Comment: The validity of the calculated GFR AND GFRAA in patients over 70 years has not been determined. Clinical correlation is essential. LAB L501.1110 >60 mL/min Normal EST GFR 64 Result Comment: Non- GFR Calc LAB L501.1115 >60 mL/min Normal EST GFR - AA 77 Result Comment: GFR Calc LAB L501.1255 ml/min Normal Estimated CRCL 70.95 LAB L501.1300 10-20 RATIO Normal BUN/CRE 13.9 LAB L501.1500 6.4-8. g/dL Normal 2 T PROT 7.2 LAB L501.1800 3.2-5. g/dL Normal 0 ALB 4.1 LAB L501.1950 2.2-4. g/dL Normal 2 GLOB 3.1 LAB L501.2000 0.9-2. RATIO Normal 4 A/G 1.3 LAB L501.2200 8.5-10 mg/dL Normal .1 CA 9.0 LAB L501.4100 15-37 U/L Normal AST 15 LAB L501.4305 45-117 U/L Normal ALK P 75 LAB L501.4405 16-61 U/L Normal ALT 30 LAB L501.4600 0.20-1 mg/dL Normal .00 T BILI 0.30 LAB L501.5300 136-14 mmol/L Normal 5 NA 139 LAB L501.5600 3.5-5. mmol/L Normal 1 K 3.9 LAB L501.5900 98-107 mmol/L Normal CL 105 LAB L501.6100 21.0-3 mmol/L Normal 2.0 CO2 28.0 LAB L501.6200 5-15 Normal GAP 6 Performed By: #### L500.4050 #### [facility] [address] [place], [address] TYPE AND SCREEN Collected: 07/29/2018 Status: P Source: [place] 3:25 PM [facility] REPOSITORY Order Comment: CMV NEG? N Comments: SIMPLE PROSTATECTOMY Reason for Ordering Blood: Acute Are the blood/blood products to be transfused? N Is the patient having/had surgery? Y Irradiated? N Leukodepleted? Y Surgery Date: 08/01/18 Type of Surgery: OTHER TYPE CODE TESTS RESULT OUT OF RANGE REFERENCE UNITS LAB B10.0800 A Normal BLOOD TYPE GEL NEGATIVE LAB B100.4000 Normal Antibody NEGATIVE Screen Performed By: #### B101.7450 #### [facility] [address] [place], [address] BASIC METABOLIC Collected: 07/21/2018 Status: F Source: [place] PROFILE (BMP) 2:12 PM [facility] REPOSITORY Order Comment: Send Results To: PCP Reason for Laboratory Test follow-up on ELINOR TYPE CODE TESTS RESULT OUT OF RANGE REFERENCE UNITS LAB L501.0100 74-106 mg/dL High GLU 134 Result Comment: Fasting Glucose result greater than or equal to 126 mg/dL suggests DIABETES MELLITUS per A.D.A. criteria. Please note revised GLUCOSE reference range effective 2017. LAB L501.1000 7-18 mg/dL Normal BUN 13 LAB L501.1100 0.70-1.30 mg/dL High CREAT,SERUM 1.35 Result Comment: The validity of the calculated GFR AND GFRAA in patients over 70 years has not been determined. Clinical correlation is essential. LAB L501.1110 >60 mL/min Low EST GFR 57 Result Comment: Non- GFR Calc LAB L501.1115 >60 mL/min Normal EST GFR - AA 69 Result Comment: GFR Calc LAB L501.1300 10-20 RATIO Low BUN/CRE 9.6 LAB L501.2200 8.5-10.1 mg/dL Normal CA 8.7 LAB L501.5300 136-145 mmol/L Normal NA 140 LAB L501.5600 3.5-5.1 mmol/L Low K 3.3 LAB L501.5900 98-107 mmol/L Normal CL 102 LAB L501.6100 21.0-32.0 mmol/L Normal CO2 26.0 LAB L501.6200 5-15 Normal GAP 12 Performed By: #### L500.2500 #### [facility] [address] [place], [address] DISCHARGE SUMMARY Observed: 07/18/2018 Status: F Source: [place] 12:24 PM [facility] REPOSITORY [facility] Medical Records Department [address] [place] [address] Discharge Summary 07/18/18 1159 MR#: [id number] Acct: [id number] Name: TOM GONZALEZ Rep #: [id number] : 1955 63 From: Yasmeen Bajwa MD PCP: Kyle Lerma MD Status: ADM IN Y Location: [place] [address] Discharge Date and Diagnosis - Problem List Patient Problems: Active and Suspected Problems Bladder mass (Acute) Abdominal pain (Acute) Hypokalemia (Acute) Date of Admission: 07/17/18 Date of Discharge: 07/18/18 - Primary Discharge Diagnosis Active and Suspected Problems BPH Suspected bladder mass (Acute) Abdominal pain (Acute) Hypokalemia (Acute) Hypomagnesemia ELINOR Uncontrolled hypertension Recent flulike illness - Secondary Discharge Diagnosis Chronic Problems Hypertension (Chronic) Hyperlipidemia (Chronic) GERD (gastroesophageal reflux disease) (Chronic) Hospital Course and Treatment Imaging Results: Clinical Impression(s) from Imaging Studies Abdomen/Pelvis CT 07/17/18 07:47 IMPRESSION: Findings suggestive of multiple hepatic cysts with possibly 2 small hemangiomas in the right lobe of the liver. Moderate degree of bilateral hydronephrosis and hydroureter down to the urinary bladder. Markedly distended urinary bladder. Marked enlargement of the prostate gland with indentation and protrusion into the bladder. A mass at the base of the bladder cannot be excluded. Findings suggestive of a left bladder diverticulum. Multiple small gallstones are seen within the neck of the gallbladder. Electronically Signed: Alfonso Kathleen MD at 10:07 EST Tel [phone], Service support , Renal Ultrasound 07/17/18 13:31 IMPRESSION: Bilateral hydronephrosis. Enlarged prostate with soft tissue mass at the base of the bladder most likely representing extension of the bladder. A bladder mass cannot be excluded. Correlation with endoscopy is recommended. Electronically Signed: Alfonso Kathleen MD at 16:00 EST Tel [phone], Service support , ADDENDUM: 07/18/18 1046 Urology Operations: None Procedures: None Summary of Care Provided: 63 year old M with medical history of hypertension, hyperlipidemia, GERD, history of peptic ulcer presents with complaints of right lower quadrant pain ongoing for 1 week. Patient admits to having flulike symptoms ongoing for about [address] of the abdomen and pelvis as well as abdominal ultrasound showed possible bladder mass, enlarged prostate, bilateral hydroureter, hydronephrosis. He was admitted to a monitored bed and managed with IV fluids, pain meds, electrolyte replacement His management was as follows: 1. Acute right lower quadrant pain, likely related to right hydroureter/nephrosis/possible bladder mass, resolved with pain medication, relief of bladder outlet obstruction. 2. Hypokalemia, severe, related to vomiting and diarrhea, replaced, resolved 3. Hypomagnesemia, related to hypoglycemia, related to vomiting and diarrhea, replace, resolved 4. ELINOR, likely prerenal and postrenal secondary to vomiting and diarrhea as well as bilateral hydronephrosis, admitted with a creatinine 1.81, improved with IV fluids and Powell catheter placement. 5. Possible bladder mass, likely enlarged prostate/BPH, seen on CT of the abdomen and pelvis and on ultrasound of the bladder and kidney no history of weight loss, fever, night sweats, hematuria, urinalysis on admission is benign Urology consulted, discharged with Powell catheter, follow- up in the outpatient for robotic prostatectomy 6.Recent flulike illness, for about a week, resolved 8.Hypertension, fairly uncontrolled, home losartan/hydrochlorothiazide held, managed on losartan 100 mg p.o. daily. Home blood pressure meds were resumed at discharge. Patient Problems: Active and Suspected Problems Bladder mass (Acute) Abdominal pain (Acute) Hypokalemia (Acute) Subjective: See progress note of the day Objective: See progress note on the day - Physical Exam Vital Signs Temp Pulse Resp BP Pulse Ox 98.7 F 99 18 154/99 H 98 07/18/18 08:42 07/18/18 08:42 07/18/18 08:42 07/18/18 08:42 07/18/18 08:42 Oxygen Delivery Method Room Air Weight: 100.6 kg Body Mass Index (BMI) 29.2 Intake and Output for Last 24 Hours Intake Total 3376 / 3376 1240 / 1240 Output Total 3350 / 3350 1150 / 1150 Balance 90 / 90 Laboratory Tests Past 24 Hrs WBC 8.1 RBC 4.26 L Hgb 13.3 Hct 37.2 L MCV 87.3 MCH 31.2 MCHC 35.8 RDW 12.8 RDW Differential 40.9 Plt Count 165 WBC RBC Hgb Hct MCV MCH MCHC RDW RDW Differential Plt Count MPV Immature Gran % (Auto) Neut % (Auto) Lymph % (Auto) [place] % (Auto) Discharge Diet: Low fat/ Low Cholesterol, 2000 mg Sodium Diet Discharge Activity: Return to Normal Activity Home Medications: Medications to take at Discharge Losartan/Hydrochlorothiazide [Losartan-Hctz 100-25 mg Tab] 100 mg PO DAILY 07/17/18 Mag-Ox 400 400 mg PO DAILY 07/17/18 Multiple Vitamins 1 cap PO DAILY 07/17/18 Simvastatin [Zocor] 20 mg PO DAILY 07/17/18 Tamsulosin HCl [Flomax] 0.4 mg PO DAILY@1730 #30 capsule 07/18/18 Following Prescrptions Were Given to Patient: Tamsulosin HCl [Flomax] 0.4 mg PO DAILY@1730 #30 capsule Other Amb Orders: Basic Metabolic Profile (BMP) Time Frame: 3 Days, Location: Laboratory Primary Care Physician: Govind Lerma MD [Primary Care Provider] - Please follow up with your Primary Care Physician in: within 1 week Please Follow Up With: David Dunaway MD When: 2 weeks Disposition: Home Minutes spent on discharge:: 40 Patient Condition:: Stable Medical Necessity - Tobacco Use Smoking Status: Never smoker Tobacco Use: Non-smoker Meaningful Use Info Meaningful Use Diagnoses (Choose all that apply): None applicable Code Visit Inpatient E AND M: 88519 Disch Hosp 07/18/18 1224 <Electronically signed by Yasmeen Bajwa MD> Date Yasmeen Nolandignluz Signature (if applicable): Date CC: Yasmeen Bajwa MD; Kyle Lerma MD Signed DISCHARGE INSTRUCTION Observed: 07/18/2018 Status: F Source: [place] 11:59 [facility] REPOSITORY [facility] Medical Records Department [address] [place] [address] Instructions for Home/Discharge Instructions 07/18/18 1155 MR#: [id number] Acct: [id number] Name: TOM GONZALEZ Rep #: [id number] : 1955 63 From: Yasmeen Bajwa MD PCP: Kyle Lerma MD Status: ADM IN - Discharge Diagnoses Current Active Problems: Current Active and Chronic Problems Bladder mass (Acute) Abdominal pain (Acute) Hypokalemia (Acute) Hypertension (Chronic) Hyperlipidemia (Chronic) GERD (gastroesophageal reflux disease) (Chronic) Reason(s) for Visit for Discharge Instructions: Abdominal pain You will use the following diet at home:: Cardiac Your food should be the consistency of: Regular Your liquids should be the consistency of: Regular/Thin Discharge Activity: Return to Normal Activity Additional Instructions: Continue to hydrate your self. You will be discharged with Powell catheter and bag. Keep powell catheter bag below your wait at all times. Let your doctor know if you have fever, chills, cloudy urine. Follow-up with your PCP for blood work in 3 days. Follow-up with Dr. Dunaway as scheduled. Allergies/Adverse Reactions: Allergies No Known Allergies Allergy (Verified 07/17/18 07:31) Medications to take at Discharge Losartan/Hydrochlorothiazide [Losartan-Hctz 100-25 mg Tab] 100 mg PO DAILY 07/17/18 Mag-Ox 400 400 mg PO DAILY 07/17/18 Multiple Vitamins 1 cap PO DAILY 07/17/18 Simvastatin [Zocor] 20 mg PO DAILY 07/17/18 Tamsulosin HCl [Flomax] 0.4 mg PO DAILY@1730 #30 capsule 07/18/18 The following prescriptions were given: Tamsulosin HCl [Flomax] 0.4 mg PO DAILY@1730 #30 capsule Orders to be completed after discharge: Basic Metabolic Profile (BMP) Time Frame: 3 Days, Location: Laboratory Primary Care Physician: Govind Lerma MD [Primary Care Provider] - Please follow up with your Primary Care Physician in: within 1 week Test Results: Test results from this visit will be discussed in further detail at your follow-up appointment, if applicable. Please Follow Up With: David Dunaway MD When: 2 weeks Proposed Discharge Date: 07/18/18 07/18/18 1159 <Electronically signed by Yasmeen Bajwa MD> Date Yasmeen Bajwa MD CC: Kyle Lerma MD; David Dunaway MD CONSULTATION Observed: 07/18/2018 Status: F Source: [place] 11:15 [facility] REPOSITORY [facility] Medical Records Department [address] [place] [address] Consultation 07/18/18 1113 MR#: [id number] Acct: [id number] Name: TOM GONZALEZ Rep #: [id number] : 1955 63 From: David Dunaway MD PCP: Kyle Lerma MD Status: ADM IN Location: [address] Reason for Consult Date of Consultation: 07/18/18 Reason for Consultation: urinary retention due to very large prostate History of Present Illness: The patient is a 63 year old male who presented to the hospital with abdominal pain CAT scan was done demonstrated a very large prostate and the very little distended bladder with bilateral hydronephrosis elevated creatinine catheter was placed had over a liter in his bladder now the urine is fairly clear the bladder is draining well on CAT scan is a very large protruding prostate into the bladder significant amount of obstruction Past Medical History Past Medical History (Chronic Problems): Chronic Problems Hypertension (Chronic) Hyperlipidemia (Chronic) GERD (gastroesophageal reflux disease) (Chronic) Allergies No Known Allergies Allergy (Verified 07/17/18 07:31) Home Medications: Ambulatory Orders Medication Instructions Recorded Losartan/Hydrochlorothiazide 100 mg PO DAILY 07/17/18 Surgical History: no surgical history Lives: Spouse/ Significant Other Smoking Status: Never smoker Tobacco Use: Non-smoker Alcohol: Occasional Drugs: None - *Family History Maternal History Items: No pertinent history Paternal History Items: Heart Disease Review of Systems Constitutional: Denies: Chills, Fever, Weight Change HEENT: Denies: Head Aches, Sinus Congestion, Sinus Drainage Cardiovascular: Denies: Chest Pain, Palpitations Respiratory: Denies: Cough, Shortness of breath at rest, Sputum production Gastrointestinal: Denies: Abdominal Pain, Nausea, Vomiting Genitourinary: Reports: Hematuria, Retention. Denies: Dysuria Musculoskeletal: Denies: Joint Pain, Joint Tenderness Skin: Denies: Rash, Wounds Neurological: Denies: Numbness, Tingling, Focal weakness Psychiatric: Denies: Anxiety, Depression, Homicidal Ideations, Suicidal Ideations Hematologic/ Lymphatic: Denies: Easy Bruising, Easy Bleeding Physical Exam - Physical Exam Vital Signs Temp 98.7 F 07/18/18 08:42 Pulse 99 07/18/18 08:42 Resp 18 07/18/18 08:42 BP 154/99 H 07/18/18 08:42 Pulse Ox 98 07/18/18 08:42 Intake AND Output Intake Total 3376 / 3376 1240 / 1240 Output Total 3350 / 3350 1150 / 1150 General: Alert, Oriented x3 HEENT: Atraumatic Oral: Moist Mucosa Neck: Supple Lungs: Normal air movement Cardiovascular: Regular rate, Regular Rhythm Abdomen: Bowel Sounds Present, Soft Rectal: Exam deferred Laboratory Tests Past 24 Hrs WBC 8.1 RBC 4.26 L Hgb 13.3 Hct 37.2 L MCV 87.3 MCH 31.2 MCHC 35.8 RDW 12.8 RDW Differential 40.9 Plt Count 165 WBC RBC Hgb Hct MCV MCH MCHC RDW RDW Differential Plt Count MPV Immature Gran % (Auto) Neut % (Auto) Lymph % (Auto) [place] % (Auto) Assessment/Plan All Active Problems Bladder mass (Acute) Abdominal pain (Acute) Hypokalemia (Acute) 63-year-old male presented with bilateral hydronephrosis distended bladder very large prostate very large median lobe protruding into the bladder, recommend the patient go home with a Powell catheter I have my office set him up for a robotic simple prostatectomy in a few weeks spoke to the patient regarding situation and proceeding with surgery he was agreeable with this given the extent of the obstruction I do not think medical therapy will be effective but we can continue with been prescribed. Call me with questions. 07/18/18 1115 <Electronically signed by David Dunaway MD> Date David Dunaway MD Cosigner Signature (if applicable): Date CC: Kyle Lerma MD; David Dunaway MD Signed CBC W/DIFF, AUTOMATED Collected: 07/18/2018 Status: F Source: ANKIT 5:54 AM [facility] REPOSITORY TYPE CODE TESTS RESULT OUT OF RANGE REFERENCE UNITS LAB L100.1000 4.4-11.0 K/mm3 Normal WBC 8.1 LAB L100.1200 4.6-6.2 M/mm3 Low RBC 4.26 LAB L100.1300 13.0-16.5 g/dl Normal HGB 13.3 LAB L100.1400 40-54 % Low HCT 37.2 LAB L100.1500 80-94 fL Normal MCV 87.3 LAB L100.1600 27.0-32.0 pg Normal MCH 31.2 LAB L100.1700 32-36 g/gl Normal MCHC 35.8 LAB L100.1810 11.6-14.6 % Normal RDW CV 12.8 LAB L100.1820 35.1-43.9 fl Normal RDW SD 40.9 LAB L100.1900 150-450 K/mm3 Normal PLT 165 LAB L100.2000 6.2-12.0 fl Normal MPV 9.9 LAB L100.2100 47-70 % High NEUT% 75.0 LAB L100.2200 19-41 % Low LY% 14.6 LAB L100.2300 0-10 % Normal MONO% 9.3 LAB L100.2400 0-5 % Normal EO% 0.9 LAB L100.2500 0-1 % Normal BASO% 0.1 LAB L100.2550 0.0-0.9 % Normal IM GRAN % 0.100 Result Comment: IG% - Immature Granulocytes (promyelocytes, myelocytes and metamyelocytes) > 1% indicates that a LEFT SHIFT is Present. LAB L100.2620 2.0-7.7 X10 3/uL Normal Absolute Neut 6.1 LAB L100.2720 0.83-4.51 X10 3/ul Normal Absolute Lymph 1.19 Performed By: #### L100.0100 #### [facility] [address] [place], [place], [id number] BASIC METABOLIC Collected: 07/18/2018 Status: F Source: [place] PROFILE (BMP) 5:54 AM [facility] REPOSITORY TYPE CODE TESTS RESULT OUT OF RANGE REFERENCE UNITS LAB L501.0100 74-106 mg/dL Normal GLU 92 Result Comment: Please note revised GLUCOSE reference range effective 2017. LAB L501.1000 7-18 mg/dL Normal BUN 12 LAB L501.1100 0.70-1.30 mg/dL High CREAT,SERUM 1.31 Result Comment: The validity of the calculated GFR AND GFRAA in patients over 70 years has not been determined. Clinical correlation is essential. LAB L501.1110 >60 mL/min Low EST GFR 59 Result Comment: Non- GFR Calc LAB L501.1115 >60 mL/min Normal EST GFR - AA 71 Result Comment: GFR Calc LAB L501.1255 ml/min Normal Estimated CRCL 66.08 LAB L501.1300 10-20 RATIO Low BUN/CRE 9.2 LAB L501.2200 8.5-10 mg/dL Low .1 CA 8.1 LAB L501.5300 136-14 mmol/L Normal 5 NA 144 LAB L501.5600 3.5-5. mmol/L Normal 1 K 3.7 LAB L501.5900 98-107 mmol/L High CL 110 LAB L501.6100 21.0-3 mmol/L Normal 2.0 CO2 25.0 LAB L501.6200 5-15 Normal GAP 9 Performed By: #### L500.2500 #### [facility] [address] [place], [address] BASIC METABOLIC Collected: 07/17/2018 Status: F Source: ANKIT PROFILE ([facility]) 5:25 PM [facility] REPOSITORY TYPE CODE TESTS RESULT OUT OF RANGE REFERENCE UNITS LAB L501.0100 74-106 mg/dL High GLU 122 Result Comment: Fasting Glucose result from 100 to 125 mg/dL suggests IMPAIRED HOMEOSTASIS per A.D.A. criteria. Please note revised GLUCOSE reference range effective 2017. LAB L501.1000 7-18 mg/dL Normal BUN 14 LAB L501.1100 0.70-1.30 mg/dL High CREAT,SERUM 1.57 Result Comment: The validity of the calculated GFR AND GFRAA in patients over 70 years has not been determined. Clinical correlation is essential. LAB L501.1110 >60 mL/min Low EST GFR 48 Result Comment: Non- GFR Calc LAB L501.1115 >60 mL/min Low EST GFR - AA 58 Result Comment: GFR Calc LAB L501.1255 ml/min Normal Estimated CRCL 55.13 LAB L501.1300 10-20 RATIO Low BUN/CRE 8.9 LAB L501.2200 8.5-10 mg/dL Low .1 CA 8.2 LAB L501.5300 136-14 mmol/L Normal 5 NA 140 LAB L501.5600 3.5-5. mmol/L Low 1 K 3.0 LAB L501.5900 98-107 mmol/L Normal CL 106 LAB L501.6100 21.0-3 mmol/L Normal 2.0 CO2 26.0 LAB L501.6200 5-15 Normal GAP 8 Performed By: #### L500.2500 #### [facility] [address] [place], [address] EMERGENCY DEPARTMENT Observed: 07/17/2018 Status: F Source: ANIKT SUMMARY 3:56 PM [facility] REPOSITORY [facility] Medical Records Department [address] [place] [address] Emergency Department Summary 07/17/18 0825 MR#: [id number] Acct: [id number] Name: TOM GONZALEZ Rep #: [id number] : 1955 63 From: Ángel Sue MD PCP: Kyle Lerma MD Status: ADM IN - ER Visit Summary Date of Service: 07/17/18 Chief Complaint: Abdominal pain History of Present Illness: The patient is a 63 M with abdominal pain. The pain is in his right lower quadrant and does not migrate or radiate. He has had this intermittently over the past week. He came in today because it was constant over the last 24 hours. He said he had a lot of pain last night, worse when laying down. He has decreased appetite, decreased bowel movements, and last weekend he had nausea and vomiting. Denies any urinary symptoms or history of urinary pathology. Denies any bleeding. Denies any abdominal surgeries. He had a colonoscopy about 10 years ago which showed a polyp but was otherwise unremarkable. He has a history of GERD and gastric ulcer. Also history of hypertension and hyperlipidemia. Physical Examination: Blood pressure 168/101 and heart rate 116. Otherwise vital signs unremarkable. Afebrile. Alert and oriented. No acute distress. Heart regular. Lungs clear in all melgar. Abdomen is tender in the right lower quadrant. No guarding or rebound. Back is nontender. Skin appears normal. Test Results: Laboratory studies, urinalysis, and CT abdomen/pelvis pending. Emergency Department Course and Treatment: Patient was treated with IV fluids while awaiting results. He declined pain and nausea medicine. CT showed multiple gallstones but no sign of infection. His hepatic testing and lipase were normal. White count normal. He also has hepatic cysts, possibly hemangiomas. He has no right upper quadrant pain and liver testing normal. He has an enlarged prostate with bilateral hydronephrosis and hydroureter as well as distention of his bladder. His urine testing was unremarkable. Patient has a history of prostate but no history of cancer or prostatitis. He denies any pain to that area. Denies any urinary symptoms. Potassium was 2.9 and creatinine was 1.81. These are new findings for this patient. He was treated with fluids, potassium. He was also complaining of increasing pain and received a dose of morphine. Because of his potassium, I did order a catering manager. I spoke with the hospitalist and he will be for further care. Treatment Plan: As above Disposition: Admission Impression: 1. Enlarged prostate with obstructive uropathy 2. Hypokalemia 3. Acute kidney injury This note was generated with [employer] dictation software. It may contain incorrect words, spelling, and punctuation that were not noted in review of the chart prior to signing ED Disposition - Plan for ED Patient: Chief Complaint: Abd Pain Referrals: Govind Lerma MD [Primary Care Provider] - What to do if you have Problems For any increased pain, shortness of breath, bleeding, nausea or vomiting, chest pain, or any unexpected problems, contact your Primary Care Provider. Call [facility] ([phone]) or report to the closest Emergency Room. Call 911 if necessary. 07/17/18 1556 <Electronically signed by Ángel Sue MD> Date Ángel Sue MD Cosigner Signature (If Indicated): Date CC: Kyle Lerma MD HISTORY AND PHYSICAL Observed: 07/17/2018 Status: F Source: [place] EXAM 2:31 PM [facility] REPOSITORY [facility] Medical Records Department [address] [place] [address] History and Physical 07/17/18 1040 MR#: [id number] Acct: [id number] Name: TOM GONZALEZ Rep #: [id number] : 1955 63 From: Yasmeen Bajwa MD PCP: Kyle Lerma MD Status: ADM IN Y Location: MS2 [id number] Problem List (1) Bladder mass Status: Acute (2) Abdominal pain Status: Acute Qualifiers: Abdominal location: right lower quadrant Qualified Code(s): R10.31 - Right lower quadrant pain (3) Hypokalemia Status: Acute (4) Hypertension Status: Chronic Qualifiers: Hypertension type: essential hypertension Qualified Code(s): I10 - Essential (primary) hypertension (5) Hyperlipidemia Status: Chronic Qualifiers: Hyperlipidemia type: unspecified Qualified Code(s): E78.5 - Hyperlipidemia, unspecified (6) GERD (gastroesophageal reflux disease) Status: Chronic Qualifiers: Esophagitis presence: esophagitis presence not specified Qualified Code(s): K21.9 - Gastro-esophageal reflux disease without esophagitis History of Present Illness Date of Admission: 07/17/18 Chief Complaint: Right lower quadrant pain The patient is a 63 year old M medical history of hypertension, hyperlipidemia, GERD, history of peptic ulcer presents with complaints of right lower quadrant pain ongoing for 1 week. Patient admits to having flulike symptoms ongoing for about 1 week. He had associated nausea and vomiting. He has had some diarrhea after he took some stool softeners. He admits to intermittent right lower quadrant stabbing pain that comes on with no aggravating or relieving factors. Seems to come on and off. No associated symptoms of fever or chills or dizziness or dysuria or bloody stool or bloody urine. He admits to some anorexia but no weight loss or night sweats. He could not sleep last night and decided to come to the ED. his vitals in the ED showed temperature of 90 8F, heart rate 116, blood pressure 168/101, respiratory rate 18, SPO2 90% on room air. Admitting blood work showed WBC count of 9.2, hemoglobin 15.2, platelet count 201, sodium was 141, potassium 2.9, chloride 103, bicarbonate 28, BUN 17, creatinine 1.81. Previous creatinine was 1.07. UA was unremarkable with 0-5 RBC, 0- 5 WBC. Abdomen and pelvic [address] scan showed multiple small hypodense nodules scattered throughout the liver suggestive of small cysts, possible hemangioma, moderate right hydronephrosis with mild right perinephric stranding, hydroureter on the right side down to the level of the bladder, mild to moderate left hydronephrosis and hydroureter ureter down to the level of the bladder. Urinary bladder was distended with 3.6 cm x 2.9 cm left-sided diverticula with also markedly enlarged prostate and a 4.1 cm x 3.1 cm soft tissue density within the posterior aspect of the urinary bladder. Past Medical History Past Medical History (Chronic Problems): Chronic Problems Hypertension (Chronic) Hyperlipidemia (Chronic) GERD (gastroesophageal reflux disease) (Chronic) Allergies No Known Allergies Allergy (Verified 07/17/18 07:31) Home Medications: Ambulatory Orders Medication Instructions Recorded Losartan/Hydrochlorothiazide 100 mg PO DAILY 07/17/18 Surgical History: no surgical history Lives: Spouse/ Significant Other Smoking Status: Never smoker Tobacco Use: Non-smoker Alcohol: Occasional Drugs: None - *Family History Maternal History Items: No pertinent history Paternal History Items: Heart Disease Review of Systems Constitutional: Reports: Anorexia, Malaise, Weakness. Denies: Chills, Fever, Night Sweats, Weight Change Eyes: Denies: Blurred vision, Cataracts, Conjunctivae Inflammation, Pain, Redness HEENT: Denies: Difficulty Hearing, Difficulty Swallowing, Dysphasia, Head Aches, Hearing Changes, Nasal bleeding, Sinus Congestion, Sinus Drainage Cardiovascular: Denies: Chest Pain, Claudication, Chest Pressure, Chest Tightness, Orthopnea, Palpitations, Paroxysmal Noc. Dyspnea Respiratory: Denies: Cough, Hemoptysis, Pleuritic Pain, Shortness of breath at rest, Shortness of breath upon exertion, Sputum production Gastrointestinal: Reports: Diarrhea, Nausea, Vomiting. Denies: Abdominal Pain, Constipation, Hematemesis, Hematochezia Genitourinary: Denies: Dysuria, Frequency, Incontinence, Nocturia Musculoskeletal: Denies: Joint Pain, Joint stiffness, Joint swelling, Joint Tenderness Skin: Denies: Pruritis, Rash, Wounds Neurological: Denies: Difficulty swallowing, Focal weakness, Numbness, Tingling Psychiatric: Denies: Anxiety, Depression, Homicidal Ideations, Suicidal Ideations Hematologic/ Lymphatic: Denies: Easy Bruising, Easy Bleeding VTE Information - Inpt Only VTE Present on Admission: No VTE Pharm Prophylaxis ordered?: Yes Patient Problems: Active and Suspected Problems Bladder mass (Acute) Abdominal pain (Acute) Hypokalemia (Acute) - Physical Exam General: Alert, Oriented x3, Cooperative, No apparent distress HEENT: Atraumatic, PERRLA, EOMI, Normocephalic Oral: Moist Mucosa Neck: Supple, No JVD, Negative Carotid Bruits Lungs: Clear to auscultation, Normal air movement Cardiovascular: Regular rate, Regular Rhythm, Normal S1, Normal S2, No murmurs Abdomen: Bowel Sounds Present, Soft, Non-Distended, No Hepato- splenomegaly, Tender - mild right lower quadrant tenderness, no guarding or RBT Extremities: No edema Skin: No rashes, No breakdown Musculoskeletal: No Tenderness to Palpation of Joints or Extremities Lymphatic: No Cervical, Supraclavicular, or Inguinal Adenopathy Neurological: Cranial nerves II-XII grossly intact, Neuro grossly intact Psych/Mental Status: Normal Affect, Appropriate Vital Signs Temp Pulse Resp BP Pulse Ox 98 F 116 H 18 168/101 H 98 07/17/18 07:29 07/17/18 07:29 07/17/18 07:29 07/17/18 07:29 07/17/18 07:29 Oxygen Delivery Method Room Air Weight: 99.79 kg Body Mass Index (BMI) 29.0 Laboratory Tests Past 24 Hrs Assessment/Plan All Active Problems Bladder mass (Acute) Abdominal pain (Acute) Hypokalemia (Acute) 63 year old M with medical history of hypertension, hyperlipidemia, GERD, history of peptic ulcer presents with complaints of right lower quadrant pain ongoing for 1 week. Patient admits to having flulike symptoms ongoing for about 1 week. 1. Acute right lower quadrant pain, unclear etiology for now, could be related to right hydroureter/nephrosis/possible bladder mass Plan: Admit patient, monitor on telemetry, pain control with morphine prn 2. Hypokalemia, severe, related to vomiting and diarrhea, will replace IV, recheck at 5 PM and in a.m. 3. Hypomagnesemia, related to hypoglycemia, related to vomiting and diarrhea, replace, recheck in a.m. 4. ELINOR, likely prerenal and postrenal secondary to vomiting and diarrhea as well as bilateral hydronephrosis, will continue on IV fluids NS100 mls/hr, will check bladder scan, if high, will Place Powell catheter, urology consulted 5. Possible bladder mass, no history of weight loss, fever, night sweats, hematuria, urinalysis on admission is benign will get ultrasound of the bladder and kidneys stat, urology consulted Will start on ceftriaxone IV 1 g in anticipation of possible instrumentation by urology 6. Recent flulike illness, for about a week, improving, will treat symptomatically 7. Hypertension, uncontrolled, has missed his medication for 2 days, would prescribe losartan 100 mg p.o. daily, hold off hydrochlorothiazide for now 8. Hyperlipidemia, on statin 9. GERD, history of peptic ulcer, not on PPI, will add famotidine 20 twice daily 10. DVT PPx- Heparin SC Code Visit Inpatient E AND M: 51863 Init Hosp L3 11/29/18 1431 <Electronically signed by Yasmeen Bajwa MD> Date Yasmeen Bajwa MD Nuzhatigner Signature: Date (if applicable) CC: Yasmeen Bajwa MD; Kyle Lerma MD Signed KIDNEY AND BLADDER Observed: 07/17/2018 Status: F Source: [place] 1:32 PM [facility] REPOSITORY [facility] Imaging Services [facility] [place] [address] Kidney and Bladder MR#: [id number] Acct: [id number] Name: TOM GONZALEZ Rep #: [id number] : 1955 M 63 From: Alfonso Kathleen MD PCP: Kyle Lerma MD Status: ADM IN Study: Kidney and Bladder Date of Exam: 07/17/18 Exam# [id number] Ordering Dr: Yasmeen Bajwa MD ADDENDUM by Alfonso Kathleen MD on 07/18/18 at 1040 ADDENDUM This is an addendum report. The impression should read that the prostate is enlarged with possible extension into the base of the bladder. Cystoscopy is recommended. Electronically Signed: Alfonso Kathleen MD at 10:40 EST Tel [phone], Service support , 07/18/18 1040 Date cc: Yasmeen Bajwa MD; Kyle Lerma MD * Signed ADDENDUM by Alfonso Kathleen MD on 07/18/18 at 1040 US/Kidney and Bladder 07/18/18 1046 Date cc: Yasmeen Bajwa MD; Kyle Lerma MD * Signed STUDY: RENAL ULTRASOUND - COMPLETE REASON FOR EXAM: Male, 63 [address] scan. Bladder mass. TECHNIQUE: Ultrasound evaluation of the kidneys was performed with real-time and static cavazos-scale imaging. COMPARISON: Comparison is made with prior CT scan of abdomen done earlier today. FINDINGS: RIGHT KIDNEY: Normal location of the right kidney, which is normal in size. The right kidney measures 11.2 cm x 5.4 cm x 6.9 cm. There is a normal cortex of the right kidney. The renal cortex measures 1.7 cm. There is no right renal mass or cyst. There are no right renal calculi. There is moderate hydronephrosis of the right kidney. DISTAL RIGHT URETER: There is mild hydroureter of the distal right ureter. There is no demonstrated right ureterovesical junction calculus. There is no demonstrated right ureteral jet. LEFT KIDNEY: Normal location of the left kidney, which is normal in size. The left kidney measures 13.8 cm x 5.4 cm x 7.3 cm. There is a normal cortex of the left kidney. The renal cortex measures 2.6 cm. There is no left renal mass or cyst. There are no left renal calculi. There is moderate hydronephrosis of the left kidney. DISTAL LEFT URETER: There is mild hydroureter of the distal left ureter. There is no demonstrated left ureterovesical junction calculus. There is a visualized left ureteral jet. BLADDER: The distended urinary bladder has a volume of 1130 ml. There is a normal wall thickness of the distended urinary bladder. There is a 4.2 cm x 4.8 cm x 4.8 cm mass within the base of the urinary bladder most likely representing extension from an enlarged prostate. There are no demonstrated bladder calculi. US/Kidney and Bladder IMPRESSION: Bilateral hydronephrosis. Enlarged prostate with soft tissue mass at the base of the bladder most likely representing extension of the bladder. A bladder mass cannot be excluded. Correlation with endoscopy is recommended. Electronically Signed: Alfonso Kathleen MD at 16:00 EST Tel [phone], Service support , CC: Yasmeen Bajwa MD; Kyle Lerma MD [employer]: Signed CBC W/DIFF, AUTOMATED Collected: 07/17/2018 Status: F Source: ANKIT 8:00 AM [facility] REPOSITORY TYPE CODE TESTS RESULT OUT OF RANGE REFERENCE UNITS LAB L100.1000 4.4-11.0 K/mm3 Normal WBC 9.2 LAB L100.1200 4.6-6.2 M/mm3 Normal RBC 4.82 LAB L100.1300 13.0-16.5 g/dl Normal HGB 15.0 LAB L100.1400 40-54 % Normal HCT 41.7 LAB L100.1500 80-94 fL Normal MCV 86.5 LAB L100.1600 27.0-32.0 pg Normal MCH 31.1 LAB L100.1700 32-36 g/gl Normal MCHC 36.0 LAB L100.1810 11.6-14.6 % Normal RDW CV 12.6 LAB L100.1820 35.1-43.9 fl Normal RDW SD 39.3 LAB L100.1900 150-450 K/mm3 Normal PLT 201 LAB L100.2000 6.2-12.0 fl Normal MPV 10.0 LAB L100.2100 47-70 % High NEUT% 76.7 LAB L100.2200 19-41 % Low LY% 13.0 LAB L100.2300 0-10 % Normal MONO% 9.7 LAB L100.2400 0-5 % Normal EO% 0.2 LAB L100.2500 0-1 % Normal BASO% 0.1 LAB L100.2550 0.0-0.9 % Normal IM GRAN % 0.300 Result Comment: IG% - Immature Granulocytes (promyelocytes, myelocytes and metamyelocytes) > 1% indicates that a LEFT SHIFT is Present. LAB L100.2620 2.0-7.7 X10 3/uL Normal Absolute Neut 7.1 LAB L100.2720 0.83-4.51 X10 3/ul Normal Absolute Lymph 1.20 Performed By: #### L100.0100 #### [facility] [address] [place], [place], [id number] URINALYSIS, COMPLETE Collected: 07/17/2018 Status: F Source: [place] 8:00 AM [facility] REPOSITORY Order Comment: How was Urine Obtained? CLEAN CATCH TYPE CODE TESTS RESULT OUT OF RANGE REFERENCE UNITS LAB L400.3000 Yellow COLOR Normal Yellow LAB L400.3050 Clear Normal CLARITY Clear LAB L400.3200 Normal mg/dl Normal GLUCOSE, UR Normal LAB L400.3300 Negative mg/dL Normal BILIRUBIN URINE Negative LAB L400.3400 Negative mg/dl Normal KETONE UR Negative LAB L400.3465 1.002-1.030 Normal SP.GR. DIPSTX 1.005 LAB L400.3550 5.0 - 8.0 pH UR Normal 6.5 LAB L400.3600 Negative mg/dl PROT Normal DIPSTX Negative LAB L400.3700 Normal mg/dl Normal UROBILI Normal LAB L400.3750 Negative Normal NITRITE UR Negative LAB L400.3780 Negative /ul Normal OCCULT BLOOD-UR Negative LAB L400.3800 Negative /ul LEUK Normal ESTERASE Negative LAB L400.4050 0-5 /hpf WBC Normal 0-5 SEEN LAB L400.4100 0-5 /hpf Normal RBC-UA 0-5 SEEN LAB L400.4150 0-5 /hpf SQUAM 0 Normal EPI SEEN LAB L400.4300 None Seen /hpf 0 Normal BACTERIA SEEN LAB L400.4350 <or=2+ /hpf 0 Normal MUCUS, URINE SEEN Performed By: #### L400.0001 #### [facility] [address] [place], [place], [id number] COMPREHENSIVE METABOLIC Collected: 07/17/2018 Status: F Source: [facility] 8:00 AM [facility] REPOSITORY TYPE CODE TESTS RESULT OUT OF RANGE REFERENCE UNITS LAB L501.0100 74-106 mg/dL High GLU 110 Result Comment: Fasting Glucose result from 100 to 125 mg/dL suggests IMPAIRED HOMEOSTASIS per A.D.A. criteria. Please note revised GLUCOSE reference range effective 2017. LAB L501.1000 7-18 mg/dL Normal BUN 17 LAB L501.1100 0.70-1.30 mg/dL High CREAT,SERUM 1.81 Result Comment: The validity of the calculated GFR AND GFRAA in patients over 70 years has not been determined. Clinical correlation is essential. LAB L501.1110 >60 mL/min Low EST GFR 41 Result Comment: Non- GFR Calc LAB L501.1115 >60 mL/min Low EST GFR - AA 49 Result Comment: GFR Calc LAB L501.1255 ml/min Normal Estimated CRCL 47.82 LAB L501.1300 10-20 RATIO Low BUN/CRE 9.4 LAB L501.1500 6.4-8. g/dL Normal 2 T PROT 7.3 LAB L501.1800 3.2-5. g/dL Normal 0 ALB 3.9 LAB L501.1950 2.2-4. g/dL Normal 2 GLOB 3.4 LAB L501.2000 0.9-2. RATIO Normal 4 A/G 1.1 LAB L501.2200 8.5-10 mg/dL Normal .1 CA 9.0 LAB L501.4100 15-37 U/L Normal AST 15 LAB L501.4305 45-117 U/L Normal ALK P 77 LAB L501.4405 16-61 U/L Normal ALT 26 LAB L501.4600 0.20-1 mg/dL Normal .00 T BILI 0.80 LAB L501.5300 136-14 mmol/L Normal 5 NA 141 LAB L501.5600 3.5-5. mmol/L Low 1 K 2.9 LAB L501.5900 98-107 mmol/L Normal CL 103 LAB L501.6100 21.0-3 mmol/L Normal 2.0 CO2 28.0 LAB L501.6200 5-15 Normal GAP 10 Performed By: #### L500.4050, L501.2450 #### [facility] [address] [place], [place], [id number] LIPASE Collected: 07/17/2018 Status: F Source: ANKIT 8:00 AM [facility] REPOSITORY TYPE CODE TESTS RESULT OUT OF RANGE REFERENCE UNITS LAB L501.2450 73-393 U/L Normal LIPASE 93 Performed By: #### L500.4050, L501.2450 #### [facility] [address] [place], [address] MAGNESIUM Collected: 07/17/2018 Status: F Source: ANKIT 8:00 AM [facility] REPOSITORY Order Comment: Comments: as add on test TYPE CODE TESTS RESULT OUT OF RANGE REFERENCE UNITS LAB L501.5200 1.6-2.6 mg/dL Normal MG 1.9 Performed By: #### L501.5200 #### [facility] [address] [place], [address] ABDOMEN/PELVIS WITH Observed: 07/17/2018 Status: F Source: ANKIT CONTRAST 7:48 AM [facility] REPOSITORY [facility] Imaging Services [address] [facility] [place] [address] Abdomen/Pelvis WITH Contrast MR#: [id number] Acct: [id number] Name: TOM GONZALEZ Rep #: [id number] : 1955 63 From: Alfonso Kathleen MD PCP: Kyle Lerma MD Status: REG ER Study: Abdomen/Pelvis WITH Contrast Date of Exam: 07/17/18 Exam# [id number] Ordering Dr: Ángel Sue MD STUDY: CT ABDOMEN AND PELVIS WITH CONTRAST REASON FOR EXAM: Male, 63 years old. One week history of worsening right-sided abdominal pain. RADIATION DOSAGE (If Supplied By Facility): CTDIvol = ( 18.99 ) mGy, DLP = ( 2502.01 ) mGycm TECHNIQUE: Transaxial images were obtained from the dome of the diaphragm to the symphysis pubis with oral contrast. 75 ml of Isovue 300 contrast was administered. Sagittal and coronal images were reconstructed. Individualized dose optimization techniques were used for this CT. COMPARISON: None. FINDINGS: The visualized lung bases are unremarkable. The visualized portions of the heart are within normal limits. There are multiple small hypodense nodules scattered throughout the liver suggestive of small cysts. There is also evidence of a 2.5 cm x 2.5 cm inhomogeneously enhancing nodule in the medial aspect of the right lobe of the liver. This most likely represents an hemangioma. The smaller similar-appearing nodules also seen in the posterior dome of the right lobe of the liver. There are multiple small gallstones in the neck of the gallbladder. Normal spleen. Normal pancreas. Normal bilateral adrenal glands. Moderate degree of right hydronephrosis and mild right perinephric stranding. There is also evidence of a hydroureter on the right side down to the level of the bladder. Mild to moderate degree of left hydronephrosis and hydroureter down to the level of the bladder. Normal visualized stomach. Normal small intestine. Normal colon. The appendix is visualized and appears normal. There is diffuse atherosclerotic calcification of the abdominal aorta and its major visceral branches, without a demonstrated aneurysm. Normal inferior vena cava. There is borderline retroperitoneal lymphadenopathy with enlarged nodes no greater than 10mm in the short axis diameter. There is a marked distention of the urinary bladder. Findings suggestive of a 3.6 cm x 2.9 cm left-sided bladder diverticulum. The prostate is markedly enlarged measuring 9.2 cm x 6.5 cm x 5.9 cm. There is evidence of a 4.1 cm x 3.1 cm soft tissue density within the posterior aspect of the urinary bladder. This may represent either protrusion of the prostate into the base of the bladder versus a bladder polypoid mass. Correlation with cystoscopy is recommended. There is a small umbilical hernia containing fat. Normal osseous structures. CT/Abdomen/Pelvis WITH Contrast IMPRESSION: Findings suggestive of multiple hepatic cysts with possibly 2 small hemangiomas in the right lobe of the liver. Moderate degree of bilateral hydronephrosis and hydroureter down to the urinary bladder. Markedly distended urinary bladder. Marked enlargement of the prostate gland with indentation and protrusion into the bladder. A mass at the base of the bladder cannot be excluded. Findings suggestive of a left bladder diverticulum. Multiple small gallstones are seen within the neck of the gallbladder. Electronically Signed: Alfonso Kathleen MD at 10:07 EST Tel [phone], Service support , CC: Kyle Lerma MD; Ángel Sue MD Manager International: Signed LIPID PROFILE Collected: 02/13/2018 Status: F Source: ANKIT 8:31 AM [facility] REPOSITORY TYPE CODE TESTS RESULT OUT OF RANGE REFERENCE UNITS LAB L501.4900 200 mg/dL Normal CHOL 166 Result Comment: <200 mg/dL Desirable 200-240 mg/dL Borderline >240 mg/dL High Risk LAB L501.5000 mg/dL Normal TRIG 121 Result Comment: The drugs N-Acetylcysteine and Metamizole may falsely depress this assay. Serum Triglycerides Reference Interval Normal <150 mg/dL Borderline high 150 - 199 mg/dL High 200 - 499 mg/dL Very High > or = 500 mg/dL LAB L501.6400 mg/dL Low HDL 39 Result Comment: The drugs N-Acetylcysteine and Metamizole may falsely depress this assay. Reference Range HDL <40 mg/dL Low HDL Cholesterol HDL >or= 60 mg/dL High HDL Cholesterol LAB L501.6500 0-130 mg/dL Normal LDL 103 LAB L501.6600 5-40 mg/dL Normal VLDL 24 Performed By: #### L500.4100, L501.0100 #### [facility] [address] [facility] [place], [place], [address] GLUCOSE Collected: 02/13/2018 Status: F Source: ANKIT 8:31 AM [facility] REPOSITORY TYPE CODE TESTS RESULT OUT OF RANGE REFERENCE UNITS LAB L501.0100 74-106 mg/dL Normal GLU 101 Result Comment: Fasting Glucose result from 100 to 125 mg/dL suggests IMPAIRED HOMEOSTASIS per A.D.A. criteria. Please note revised GLUCOSE reference range effective 2017. Performed By: #### L500.4100, L501.0100 #### [facility] [address] [facility] [place], [address] BASIC METABOLIC Collected: 10/16/2017 Status: F Source: LOS OLIVOS PROFILE (BMP) 8:38 AM [facility] REPOSITORY TYPE CODE TESTS RESULT OUT OF RANGE REFERENCE UNITS LAB L501.0100 74-106 mg/dL Normal GLU 101 Result Comment: Fasting Glucose result from 100 to 125 mg/dL suggests IMPAIRED HOMEOSTASIS per A.D.A. criteria. Please note revised GLUCOSE reference range effective 2017. LAB L501.1000 7-18 mg/dL High BUN 21 LAB L501.1100 0.70-1.30 mg/dL Normal CREAT,SERUM 1.07 Result Comment: The validity of the calculated GFR AND GFRAA in patients over 70 years has not been determined. Clinical correlation is essential. LAB L501.1110 >60 mL/min Normal EST GFR 75 Result Comment: Non- GFR Calc LAB L501.1115 >60 mL/min Normal EST GFR - AA 90 Result Comment: GFR Calc LAB L501.1300 10-20 RATIO Normal BUN/CRE 19.6 LAB L501.2200 8.5-10.1 mg/dL CA Normal 9.3 LAB L501.5300 136-145 mmol/L NA Normal 139 LAB L501.5600 3.5-5.1 mmol/L K Normal 4.2 LAB L501.5900 98-107 mmol/L CL Normal 102 LAB L501.6100 21.0-32.0 mmol/L Normal CO2 30.0 LAB L501.6200 5-15 Normal GAP 7 Performed By: #### L500.2500, L500.3400, L500.4100 #### [facility] [address] [facility] [place], [place], [address] LIVER PROFILE Collected: 10/16/2017 Status: F Source: ANKIT 8:38 AM [facility] REPOSITORY TYPE CODE TESTS RESULT OUT OF RANGE REFERENCE UNITS LAB L501.1500 6.4-8.2 g/dL Normal T PROT 7.2 LAB L501.1800 3.2-5.0 g/dL Normal ALB 4.3 LAB L501.1950 2.2-4.2 g/dL Normal GLOB 2.9 LAB L501.4100 15-37 U/L Normal AST 18 LAB L501.4305 45-117 U/L Normal ALK P 69 LAB L501.4405 16-61 U/L Normal ALT 38 Result Comment: Please note revised ALT reference range effective 2017. LAB L501.4600 0.20-1.00 mg/dL Normal T BILI 0.90 LAB L501.4700 0.00-0.30 mg/dL Normal D BILI 0.14 Performed By: #### L500.2500, L500.3400, L500.4100 #### [facility] [address] [place], [address] LIPID PROFILE Collected: 10/16/2017 Status: F Source: LOS OLIVOS 8:38 AM [facility] REPOSITORY TYPE CODE TESTS RESULT OUT OF RANGE REFERENCE UNITS LAB L501.4900 200 mg/dL Normal CHOL 148 Result Comment: <200 mg/dL Desirable 200-240 mg/dL Borderline >240 mg/dL High Risk LAB L501.5000 mg/dL Normal TRIG 102 Result Comment: The drugs N-Acetylcysteine and Metamizole may falsely depress this assay. Serum Triglycerides Reference Interval Normal <150 mg/dL Borderline high 150 - 199 mg/dL High 200 - 499 mg/dL Very High > or = 500 mg/dL LAB L501.6400 mg/dL Normal HDL 40 Result Comment: The drugs N-Acetylcysteine and Metamizole may falsely depress this assay. Reference Range HDL <40 mg/dL Low HDL Cholesterol HDL >or= 60 mg/dL High HDL Cholesterol LAB L501.6500 0-130 mg/dL Normal LDL 88 LAB L501.6600 5-40 mg/dL Normal VLDL 20 Performed By: #### L500.2500, L500.3400, L500.4100 #### [facility] [address] [place], [address] ALLERGIES ALLERGIES DATE TYPE / CODE NAME / CODE REACTION SEVERITY SOURCE 07/29/2018 Drug No Known Unknown [facility] Allergy/4160 Allergies/F00 Hospital 84478(SNOMED 4999334(RXNOR Repository CT) M) ENCOUNTERS ENCOUNTERS ADMIT/DISCHARGE ACCOUNT ADMITTING ENCOUNTER LOCATION SOURCE NUMBER CLASS 08/08/2018 [id number] [facility] [address] [place] [place] 08/04/2018 [id number] Ambulatory [address] ing:[facility] Repository 07/31/2018 [id number] Ambulatory [place] [address] [facility] ing:[facility] Repository 07/21/2018 [id number] Ambulatory [place]kit [place] 6 [facility] ing:MFPLAB Repository 07/17/2018/ [id number] [place] [place] [facility] [place] 5 [facility] ing:[id number]: Repository [id number]: 1 07/17/2018 [id number] [place] [place] Amb[facility] BMSBuilding:B [place] [address] [facility] Repository 07/17/2018 [id number] [place] [place] Ambulatory BMSBuilding:B [place] [address] [facility] Repository 02/13/2018 [id number] Ambulatory [place] 7 [facility] ing:MFPLAB Repository 10/16/2017 [id number] Ambulatory [place] 3 [facility] ing:MFPLAB Repository PAYERS PAYERS ENCOUNTER GUARANTOR PAYER SUBSCRIBER SOURCE 08/08/2018 TOM E Primary TOM E [place] [id number] Insurance:MEDICAL KINGDOB: [facility] [id number] Hospital [address]Fet: (330) Number: Repository [phone] () [id number] Date:1927-54-03AU [address] [address]ZD: 08/08/2018 Secondary NOT GIVENUNK [place] Insurance:SELF PAY [facility] Number: Effective Repository Date:2018-07-21 08/04/2018 TOM E Primary TOM E [place] [id number] Insurance:MEDICAL KINGDOB: [facility] [id number] Hospital [address]Iin: (330) Number: Repository [phone] () [id number] Date:9789-05-31UO [address] [address]OO: 08/04/2018 Secondary NOT GIVENUNK [place] Insurance:SELF PAY [facility] Number: Effective Repository Date:2018-07-31 07/31/2018 TOM E Primary TOM E [place] [id number] Insurance:MEDICAL TWENTYNINE PALMSDOB: [facility] [id number] Hospital [address]Iyi: (330) Number: Repository [phone] () [id number] Date:3666-37-42JL [address] [place] [address]LD: 07/31/2018 Secondary NOT GIVENUNK [place] Insurance:SELF PAY [facility] Number: Effective Repository Date:2018-07-24 07/21/2018 TOM E Primary NOT GIVENUNK [place] [id number] Insurance:SELF PAY [place] [address]Tel: (330) Number: Effective Repository [phone] () Date:2018-07-21 07/17/2018 TOM E Primary TOM E [place] [id number] [facility] [id number] [address]Tel: (330) Number: Repository [phone] () [id number] Date:0467-48-03[place] [address]WP: 07/17/2018 Secondary NOT GIVENUNK [place] Insurance:SELF PAY [facility] Number: Effective Repository Date:2018-07-17 07/17/2018 TOM E Primary TOM E [place] [id number] Insurance:MEDICAL KINGDOB: [facility] [id number] [address]Tel: (330) Number: Repository [phone] () [id number] Date:6152-96-49IT [address] [address]WN: 07/17/2018 Secondary NOT GIVENUNK [place] Insurance:SELF PAY [facility] Number: Effective Repository Date:2018-07-17 07/17/2018 TOM E Primary TOM E [place] [id number] Insurance:MEDICAL KINGDOB: [facility] [id number] Hospital [address]Vkf: (330) Number: Repository [phone] () [id number] Date:0590-12-02MW [address] [address]TN: 07/17/2018 Secondary NOT GIVENUNK [place] Insurance:SELF PAY [facility] Number: Effective Repository Date:2018-07-17 02/13/2018 Tommike Gonzalez191 Primary Tom KingDOB: [place] [address] Insurance:MEDICAL [id number] [address]Wfa: (330) Number: Repository [phone] () [id number] Date:0157-88-00WL [address] [address]XQ: 02/13/2018 Secondary NOT GIVENUNK [place] Insurance:SELF PAY [facility] Number: Effective Repository Date:2018-02-13 10/16/2017 Tommike Gonzalez191 Primary Tom KingDOB: [place] [address] Insurance:MEDICAL [id number] [facility] [address]Ioo: Number: Repository [phone] [id number] () Date:8142-58-12CO [address] [address]UJ: 10/16/2017 Secondary NOT GIVENUNK [place] Insurance:SELF PAY [facility] Number: Effective Repository Date:2017-10-16
== END 2018-07-18 13:04 | disposition home or self-care (01) ==
LOC: ED 08:00 → MS2 11:00
PROVIDERS: Admitting Provider Internal Medicine; Emergency Provider Emergency Medicine; Family Provider Family Medicine; PCP Family Medicine; Visit Provider Internal Medicine
DX: N32.9 Bladder disorder, unspecified (principal); E87.6 Hypokalemia; R10.31 Right lower quadrant pain; Z23 Encounter for immunization; K21.9 Gastro-esophageal reflux disease without esophagitis; I10 Essential (primary) hypertension; E78.5 Hyperlipidemia, unspecified; N40.1 Benign prostatic hyperplasia with lower urinary tract symptoms; N13.8 Other obstructive and reflux uropathy; N17.9 Acute kidney failure, unspecified; R19.7 Diarrhea, unspecified; N13.30 Unspecified hydronephrosis; E83.42 Hypomagnesemia; Z79.899 Other long term (current) drug therapy; Z87.11 Personal history of peptic ulcer disease; E16.2 Hypoglycemia, unspecified
CPT/HCPCS: 36415; 74177; 76770; 80048; 80053; 81001; 83690; 83735; 85025; 96361; 96374; 96375; 96376; 97165; 99218; 99285; J7030; J7050; Q9967; 90686; A4216; G0378

== ENCOUNTER → 2018-07-21 14:09 | Outpatient (CLI) | payer SELFPAY ==
[2018-07-17 11:39] VITALS: BMI 29.2
[2018-07-21 16:21] LABS: Anion Gap 12 (5-15); BUN 13 mg/dL (7-18); BUN/Creat Ratio 9.6 RATIO (10-20); Calcium,Total 8.7 mg/dL (8.5-10.1); Chloride 102 mmol/L (98-107); Creatinine, Serum 1.35 mg/dL (0.70-1.30); EST Glomerular Filtration Rate 57 mL/min (>60); Est Glom Filt Rate - Afr Amer 69 mL/min (>60); Glucose 134 mg/dL (74-106); Potassium 3.3 mmol/L (3.5-5.1); Sodium Level 140 mmol/L (136-145)
== END ==
PROVIDERS: Family Provider Family Medicine; PCP Family Medicine; Visit Provider Internal Medicine
DX: Z96.0 Presence of urogenital implants (principal)
CPT/HCPCS: 36415; 80048

== ENCOUNTER → 2018-07-31 10:36 | Outpatient (CLI) | payer OTHER, SELFPAY ==
[2018-07-17 11:39] VITALS: BMI 29.2
[2018-07-30 09:58] VITALS: BMI 29.2
--- NOTE | 2018-07-31 10:40 | ECHOD_ITS ---
Reason For Study: MURMUR Procedure This was a 2D Doppler, Color Flow transthoracic echocardiogram. The study was technically difficult. Exam performed in department. Left Ventricle Mild concentric left ventricular hypertrophy. The estimated ejection fraction is 65 %. Stage 1 diastolic dysfunction. No regional wall motion abnormalities noted. Right Ventricle Normal size and thickness. Normal systolic function. Atria Normal left atrium. Normal right atrium. Normal atrial septum. Mitral Valve The mitral valve is structurally normal. No prolapse or stenosis seen. Tricuspid Valve Normal tricuspid valve. Trivial tricuspid valve insufficiency. Right ventricular systolic pressure estimated to be 28 mmHg. Aortic Valve Trisinus/trileaflet aortic valve. Mild diffuse aortic valve thickening. Pulmonic Valve Normal pulmonic valve. Great Vessels Normal aortic root. Normal arch. Normal inferior vena cava. Inferior vena cava collapse with respiration. Pericardium/Pleural No pericardial effusion. MMode/2D Measurements & Calculations LVIDd: 4.1 cm IVSd: 1.6 cm Ao root diam: 3.9 cm LVIDs: 2.8 cm LVPWd: 1.2 cm RVDd: 3.2 cm FS: 33.2 % LAV(MOD-bp): 30.3 ml LA A4 area: 11.9 cm2 LA dimension(2D): 3.0 cm LAV(MOD-bp) Indexed: 13.7 ml/m2 LAV(MOD-sp2): 32.4 ml LAV(MOD-sp4): 27.5 ml RA A4 area: 10.6 cm2 Doppler Measurements & Calculations MV E max esdras: 58.1 cm/sec Lat Peak E' Esdras: 7.8 cm/sec Med Peak E' Esdras: 4.9 cm/sec MV A max esdras: 142.2 cm/sec E/E' lat: 7.4 E/E' med: 11.8 MV E/A: 0.41 Ao V2 max: 125.5 cm/sec LV V1 max: 101.3 cm/sec PA V2 max: 91.2 cm/sec Ao max P.3 mmHg LV V1 max P.1 mmHg TR max esdras: 236.3 cm/sec TR max P.4 mmHg Interpretation Summary The estimated ejection fraction is 65 %. Stage 1 diastolic dysfunction. Trivial tricuspid valve insufficiency. Right ventricular systolic pressure estimated to be 28 mmHg. There is no comparison study available. Ordering Physician: Pk Caballero Referring Physician: David Dunaway Performed By: Aleyda Chirinos RDCS, RVT
--- OUTSIDE RECORDS SUMMARY | 2018-09-16 05:28 | XMS RPT_ITS ---
:1955 Author Organization OHIP Support Name Relationship Address Phone BEN HYLTON Unavailable [address] + [place] [address] [facility] Unavailable [address] + [place] [address] BEN HYLTON Unavailable [address] + [place] [address] [facility] Unavailable [address] + [place] [address] BEN HYLTON Unavailable [address] + [place], [place] [id number] [place] [address] + [place] [address] BEN HYLTON Unavailable [address] + [place] [address] [facility] Unavailable [address] + [place] [address] BEN HYLTON Unavailable [address] + [place] [address] [facility] Unavailable [address] + [place] [address] BEN HYLTON Unavailable [address] + [place] [address] [facility] Unavailable [address] + [place] [address] BEN HYLTON Unavailable [address] + [place] [address] [facility] Unavailable [address] + [place] [address] BEN HYLTON Unavailable [address] + [place] [address] [facility] Unavailable [address] + [place] [address] CONCETTA, BEN Unavailable [address] + [place] [address] [facility] Unavailable [address] + [place] [address] BEN HYLTON Unavailable [address] + [place] [address] [facility] Unavailable [address] + [place] [address] BEN HYLTON Unavailable [address] + [place], [place] [id number] [place] [address] + [place] [address] BEN HYLTON Unavailable [address] + [place], [place] [id number] [place] [address] [address] + [place] [address] Care Team Providers Name Role Phone David Dunaway Attending Unavailable David Dunaway Referring Unavailable Pk Caballero Primary Care Unavailable Pk Dorsey Attending Unavailable Armando Anderson Referring Unavailable [facility] Unavailable Pk Caballero Attending Unavailable Kyle Lerma Attending Unavailable [facility] Primary Care Unavailable Ángel Kapoor Attending Unavailable Pk Caballero Referring Unavailable Jorge Gomez Attending Unavailable Gume, David Varma Referring Unavailable [facility] Care Unavailable [place], [place] Admitting Unavailable [place], [place] Attending Unavailable David Dunaway Consulting Unavailable [place], [place] Admitting Unavailable [place], [place] Attending Unavailable [facility] Unavailable GumeDavid Consulting Unavailable Paint[place], [place] Consulting Unavailable Paintsil, [place] Admitting Unavailable [place], [place] Attending Unavailable [facility] Care Unavailable Gume, David Varma Consulting Unavailable [place], [place] Consulting Unavailable [place], [place] Attending Unavailable Pk Caballero Primary Care Unavailable Gume, David Vrama Consulting Unavailable Gume, David Varma Admitting Unavailable David Dunaway Attending Unavailable David Dunaway Referring Unavailable Pk Caballero Primary Care Unavailable Pk Caballero Attending Unavailable Pk Caballero Referring Unavailable Pk Caballero Primary Care Unavailable PROBLEMS PROBLEMS DATE TYPE CONDITION / CODE ATTENDING STATUS SOURCE 08/10/2018 Unknown D29.1 - Benign Gume David Active Ankit neoplasm of prostate / [facility] D29.1(ICD-10) Hospital Repository 08/26/2018 Unknown R94.31 - Abnormal JasonJackie jonesl Active [place] electrocardiogram Community [ECG] [EKG] / Hospital R94.31(ICD-10) Repository 08/22/2018 Unknown R01.1 - Cardiac KapoorÁngel Active Ankit murmur, unspecified / Community R01.1(ICD-10) Hospital Repository 08/13/2018 Unknown R00.0 - Tachycardia, Moodispaw, Active Ankit unspecified / [facility] R00.0(ICD-10) Hospital Repository PROCEDURES PROCEDURES No Procedure Records FoundRESULTS RESULTS DISCHARGE SUMMARY Observed: 08/10/2018 Status: F Source: [place] 9:37 AM [facility] REPOSITORY [facility] Medical Records Department [address] [place] [place] [address] Discharge Summary 08/10/18 0936 MR#: [id number] Acct: [id number] Name: TOM HYLTON Rep #: [id number] : 1955 63 From: David Dunaway MD PCP: Pk Caballero MD Status: ADM BELLO Y Location: [place] [address] Discharge Date and Diagnosis Date of Admission: 08/08/18 Date of Discharge: 08/10/18 - Secondary Discharge Diagnosis Chronic Problems Hypertension (Chronic) Hyperlipidemia (Chronic) GERD (gastroesophageal reflux disease) (Chronic) Hospital Course and Treatment Operations: None Summary of Care Provided: The patient is a 63 year old male s/p robotic prostatectomy, home today with powell - Physical Exam General: Alert, Oriented x3, Cooperative HEENT: Atraumatic, PERRLA, EOMI, Normocephalic Neck: Supple, No JVD, Negative Carotid Bruits Lungs: Clear to auscultation, Normal air movement Cardiovascular: Regular rate, No murmurs Abdomen: Bowel Sounds Present, Soft, Non Tender Extremities: No edema, Capillary Refill Less than 3 Seconds Skin: No rashes, No breakdown Musculoskeletal: No Tenderness to Palpation of Joints or Extremities Neurological: Cranial nerves II-XII grossly intact Psych/Mental Status: Normal Affect, Appropriate Vital Signs Temp Pulse Resp BP Pulse Ox 98.2 F 98 18 131/71 H 94 08/10/18 08:01 08/10/18 08:01 08/10/18 08:01 08/10/18 08:01 08/10/18 08:01 Oxygen Delivery Method Room Air Weight: 97.6 kg Body Mass Index (BMI) 28.3 Intake and Output for Last 24 Hours Intake Total 4857 / 4857 4707 / 4707 3147 / 3147 Output Total 1890 / 1890 2100 / 2100 3000 / 3000 Balance 2967 / 2967 2607 / 2607 147 / 147 Discharge Diet: Light diet - advance as tolerated Discharge Activity: Return to Normal Activity Call your doctor if your incision/area has: Sudden Increased Bleeding Call your doctor if you observe: Fever of 101 or Higher Suture Line Care: Avoid Pulling/Pushing, Avoid Pinching/Bending Catheter: Powell to leg bag, Powell to large bag Drain: [place] Home Medications: Medications to take at Discharge Losartan/Hydrochlorothiazide [Losartan-Hctz 100-25 mg Tab] 1 tab PO DAILY 07/17/18 Mag-Ox 400 400 mg PO DAILY 07/17/18 Simvastatin [Zocor] 20 mg PO QHS 07/17/18 Multivitamins,Therapeutic [Multivitamin] 1 tablet PO DAILY 07/29/18 Omeprazole [Prilosec] 20 mg PO DAILY 07/29/18 Potassium Chloride [K-Dur] 20 meq PO DAILY 07/29/18 Tadalafil [Cialis] 20 mg PO DAILY PRN 07/29/18 Tamsulosin HCl [Flomax] 0.4 mg PO DAILY@1730 07/29/18 Ubidecarenone/Vit E Acet [Co Q-10 100 mg Softgel] 1 each PO DAILY 07/29/18 Ciprofloxacin [Cipro] 500 mg PO DAILY #14 tab 08/10/18 Docusate Sodium [Colace] 100 mg PO BID #20 cap 08/10/18 Hydrocodone/Acetaminophen [[place] 5-325 Tablet] 1 ea PO Q4H PRN PRN 5 Days #20 tab 08/10/18 Following Prescrptions Were Given to Patient: Hydrocodone/Acetaminophen [[place] 5-325 Tablet] 1 ea PO Q4H PRN PRN 5 Days #20 tab PRN Reason: Pain Ciprofloxacin [Cipro] 500 mg PO DAILY #14 tab Docusate Sodium [Colace] 100 mg PO BID #20 cap Primary Care Physician: Pk Caballero MD [Primary Care Provider] - Please Follow Up With: David Dunaway MD When: please call to make an appointment, 10 days to remove powell Medical Necessity - Tobacco Use Smoking Status: Never smoker Tobacco Use: Cigarettes Meaningful Use Info Meaningful Use Diagnoses (Choose all that apply): None applicable 08/10/1837 <Electronically signed by David Dunaway MD> Date David Dunaway MD Cosigner Signature (if applicable): Date CC: David Dunaway MD; Pk Caballero MD Signed DISCHARGE INSTRUCTION Observed: 08/10/2018 Status: F Source: [place] 9:34 AM [facility] REPOSITORY [facility] Medical Records Department [address] [place] [address] Instructions for Home/Discharge Instructions 08/10/18932 MR#: [id number] Acct: [id number] Name: TOM HYLTON Rep #: [id number] : 1955 63 From: David Dunaway MD PCP: Pk Caballero MD Status: ADM BELLO Discharge Diet: Light diet - advance as tolerated Discharge Activity: Return to Normal Activity Call your doctor if your incision/area has: Sudden Increased Bleeding Call your doctor if you observe: Fever of 101 or Higher Suture Line Care: Avoid Pulling/Pushing, Avoid Pinching/Bending Catheter: Powell to leg bag, Powell to large bag Drain: [place] Allergies/Adverse Reactions: Allergies No Known Allergies Allergy (Verified 07/29/18 14:41) Medications to take at Discharge Losartan/Hydrochlorothiazide [Losartan-Hctz 100-25 mg Tab] 1 tab PO DAILY 07/17/18 Mag-Ox 400 400 mg PO DAILY 07/17/18 Simvastatin [Zocor] 20 mg PO QHS 07/17/18 Multivitamins,Therapeutic [Multivitamin] 1 tablet PO DAILY 07/29/18 Omeprazole [Prilosec] 20 mg PO DAILY 07/29/18 Potassium Chloride [K-Dur] 20 meq PO DAILY 07/29/18 Tadalafil [Cialis] 20 mg PO DAILY PRN 07/29/18 Tamsulosin HCl [Flomax] 0.4 mg PO DAILY@1730 07/29/18 Ubidecarenone/Vit E Acet [Co Q-10 100 mg Softgel] 1 each PO DAILY 07/29/18 Primary Care Physician: Pk Caballero MD [Primary Care Provider] - Test Results: Test results from this visit will be discussed in further detail at your follow-up appointment, if applicable. Please Follow Up With: David Dunaway MD When: please call to make an appointment, 10 days to remove powell 08/10/18 0934 <Electronically signed by David Dunaway MD> Date David Dunaway MD CC: Pk Caballero MD Signed CBC-COMPLETE BLOOD CNT Collected: 08/09/2018 Status: F Source: [place] NO DIFF 6:57 AM [facility] REPOSITORY TYPE CODE TESTS RESULT OUT OF RANGE REFERENCE UNITS LAB L100.1000 4.4-11.0 K/mm3 Normal WBC 8.4 LAB L100.1200 4.6-6.2 M/mm3 Low RBC 3.19 LAB L100.1300 13.0-16.5 g/dl Low HGB 9.8 LAB L100.1400 40-54 % Low HCT 28.1 LAB L100.1500 80-94 fL Normal MCV 88.1 LAB L100.1600 27.0-32.0 pg Normal MCH 30.7 LAB L100.1700 32-36 g/gl Normal MCHC 34.9 LAB L100.1810 11.6-14.6 % Normal RDW CV 12.6 LAB L100.1820 35.1-43.9 fl Normal RDW SD 40.6 LAB L100.1900 150-450 K/mm3 Low PLT 141 LAB L100.2000 6.2-12.0 fl Normal MPV 9.4 Performed By: #### L100.0500 #### [facility] [address] [place], [address] BASIC METABOLIC Collected: 08/09/2018 Status: F Source: [place] PROFILE (BMP) 6:57 AM [facility] REPOSITORY TYPE CODE TESTS RESULT OUT OF RANGE REFERENCE UNITS LAB L501.0100 74-106 mg/dL Normal GLU 101 Result Comment: Fasting Glucose result from 100 to 125 mg/dL suggests IMPAIRED HOMEOSTASIS per A.D.A. criteria. Please note revised GLUCOSE reference range effective 2017. LAB L501.1000 7-18 mg/dL Normal BUN 11 LAB L501.1100 0.70-1.30 mg/dL Normal CREAT,SERUM 1.10 Result Comment: The validity of the calculated GFR AND GFRAA in patients over 70 years has not been determined. Clinical correlation is essential. LAB L501.1110 >60 mL/min Normal EST GFR 72 Result Comment: Non- GFR Calc LAB L501.1115 >60 mL/min Normal EST GFR - AA 87 Result Comment: GFR Calc LAB L501.1255 ml/min Normal Estimated CRCL 78.69 LAB L501.1300 10-20 RATIO Normal BUN/CRE 10.0 LAB L501.2200 8.5-10 mg/dL Low .1 CA 7.9 LAB L501.5300 136-14 mmol/L Normal 5 NA 136 LAB L501.5600 3.5-5. mmol/L Normal 1 K 3.6 LAB L501.5900 98-107 mmol/L Normal CL 100 LAB L501.6100 21.0-3 mmol/L Normal 2.0 CO2 26.0 LAB L501.6200 5-15 Normal GAP 10 Performed By: #### L500.2500 #### [facility] [address] 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 We will after smooth induction of anesthesia he was placed supine on the table, the abdomen was shaved prepped and draped in usual sterile fashion, placed a Veress needle into the umbilicus, made an incision in the skin, placed my first trocar after insufflating the peritoneal cavity CO2 gas placed my robotic trochars were then docked the robot. We dissected the sigmoid colon off the lateral wall, I then opened up the bladder in the midline and placed keep needles inside the abdomen to retract the bladder laterally. Immediately we saw extremely large median lobe growing into the bladder. We elevated the median lobe and then resected the tissue and incised circumferentially all the way around the prostate. We then followed the adenoma all the way deep into the prostate and slowly enucleated this from the prostate bed and finally the entire adenoma was was removed we then piecemeal the remaining adenoma pieces deep into the side of the prostate we then obtained hemostasis in the prostatic bed where the adenoma was enucleated. Placed FloSeal. After nucleated the large and the adenoma then we used stitches used a V lock stitch to run these mucosa and pushed down over the edges of the prostate resection down deep into the prostate to advance the mucosa. Was not able to get mucosa all the way down to the urinary sphincter. After advancing the mucosa with a with a running 30V lock stitch then a 20 Sami catheter was placed in the bladder we then closed the bladder with 2 layers of 3 oh layer and a 2 layer we tested the anastomosis is nice and watertight we then extracted the prostate adenoma through the umbilicus using Endo Catch bag and then closed the 1012 Michel Tadeo stitch and we closed the umbilical site. We flushed the catheter fact catheter was fairly clear the patient anesthetic was reversed he was extubated taken back to PACU in good condition. Type of Anesthesia:: General Drains: 20 fr powell - Admit VTE Documentation VTE Present on Admission: No VTE Mechan Device Prophylaxis: SCD's 08/08/18 1254 <Electronically signed by David Dunaway MD> Date David Dunaway MD CC: David Dunaway MD; Pk Caballero MD Signed CBC-COMPLETE BLOOD CNT Collected: 08/08/2018 Status: F Source: [place] NO DIFF 11:35 AM [facility] REPOSITORY Order Comment: Comments: To be done in PACU TYPE CODE TESTS RESULT OUT OF RANGE REFERENCE UNITS LAB L100.1000 4.4-11.0 K/mm3 High WBC 15.4 LAB L100.1200 4.6-6.2 M/mm3 Low RBC 4.06 LAB L100.1300 13.0-16.5 g/dl Low HGB 12.5 LAB L100.1400 40-54 % Low HCT 36.7 LAB L100.1500 80-94 fL Normal MCV 90.4 LAB L100.1600 27.0-32.0 pg Normal MCH 30.8 LAB L100.1700 32-36 g/gl Normal MCHC 34.1 LAB L100.1810 11.6-14.6 % Normal RDW CV 12.5 LAB L100.1820 35.1-43.9 fl Normal RDW SD 41.3 LAB L100.1900 150-450 K/mm3 Normal PLT 173 LAB L100.2000 6.2-12.0 fl Normal MPV 9.1 Performed By: #### L100.0500 #### [facility] [address] [place], [address] BASIC METABOLIC Collected: 08/08/2018 Status: F Source: [place] PROFILE (BMP) 11:35 AM [facility] REPOSITORY Order Comment: Comments: To be done in PACU TYPE CODE TESTS RESULT OUT OF RANGE REFERENCE UNITS LAB L501.0100 74-106 mg/dL High GLU 155 Result Comment: Fasting Glucose result greater than or equal to 126 mg/dL suggests DIABETES MELLITUS per A.D.A. criteria. Please note revised GLUCOSE reference range effective 2017. LAB L501.1000 7-18 mg/dL Normal BUN 11 LAB L501.1100 0.70-1.30 mg/dL Normal CREAT,SERUM 1.13 Result Comment: The validity of the calculated GFR AND GFRAA in patients over 70 years has not been determined. Clinical correlation is essential. LAB L501.1110 >60 mL/min Normal EST GFR 70 Result Comment: Non- GFR Calc LAB L501.1115 >60 mL/min Normal EST GFR - AA 84 Result Comment: GFR Calc LAB L501.1255 ml/min Normal Estimated CRCL 76.60 LAB L501.1300 10-20 RATIO Low BUN/CRE 9.7 LAB L501.2200 8.5-10 mg/dL Low .1 CA 8.2 LAB L501.5300 136-14 mmol/L Normal 5 NA 137 LAB L501.5600 3.5-5. mmol/L Normal 1 K 4.7 LAB L501.5900 98-107 mmol/L Normal CL 103 LAB L501.6100 21.0-3 mmol/L Normal 2.0 CO2 28.0 LAB L501.6200 5-15 Normal GAP 6 Performed By: #### L500.2500 #### [facility] [address] [place], [place], [address] PROSTATE RADICAL Observed: 08/08/2018 Status: F Source: [place] RESECTION 7:30 AM [facility] REPOSITORY Patient: TOM HYLTON : 1955 (63/M) Acct Num: [id number] Phys: Gume THOMAS,David Varma Unit Num: [id number] Loc: MS3 [id number] Specimen: [id number] Received: 08/08/18 - 1246 Spec Type: PROSTATE TISSUES 1 TISSUES: Prostate, NOS GROSS DESCRIPTION Received in fixative is one container labeled with the patient's name and designated prostate. The specimen consists of a simple prostatectomy specimen in multiple pieces weighing 76.4 gm. The largest piece measures 8 x 4 x 3 cm. Detached pieces of tissue measure in aggregate 7 x 6 x 2 cm. Sections do not reveal any mass lesion and reveal multinodular cut surfaces. Mandolin Repairer sections are submitted in ten cassettes as follows: 1-8 - largest piece of prostate tissue, 9 AND 10 - resources representative sections from the detached pieces of tissue. / SJ:king 08/08/18 TC:5 CPT: 34704 HEADER OPERATION: Laparoscopic robotic simple prostatectomy PRE-OP DIAGNOSIS: Benign prostatic hyperplasia with lower urinary tract symptoms TISSUE SUBMITTED: Prostate tissue MICROSCOPIC DESCRIPTION Slides are reviewed. MICROSCOPIC DIAGNOSIS Prostate tissue, simple prostatectomy: Benign prostatic hyperplasia, glandular and stromal type. Focal chronic inflammation and basal cell hyperplasia. SJ:king 08/11/18 Signed Nabil Caballero MD 08/11/18 <signature on file> Performed By: #### PPROST #### [facility] [address] [place] [address]. [place], [address] STRESS TEST ECHO W/ Observed: 08/04/2018 Status: F Source: [place] CONTRAST 5:02 PM [facility] REPOSITORY [facility] Cardiovascular Services [address] [place] [address] Stress Test Echo W/Contrast MR#: [id number] Acct: [id number] Name: TOM HYLTON Rep #: [id number] : 1955 63 From: Jorge Gomez MD [...] Performed By: Aleyda Chirinos, RDCS, RVT 08/04/18 1701 Date Jorge Gomez MD CC: David Dunaway MD; Pk Caballero MD Date Dictated: 08/04/18 1400 Date Transcribed: 08/04/18 1701 Plasterer Stucco: Signed 12 LEAD ELECTROCARDIOGRAM Observed: 08/01/2018 Status: F Source: [place] 10:51 AM [facility] REPOSITORY [facility] Cardiovascular Services [address] [place] [address] EKG - SDC 07/29/181516 MR#: [id number] Acct: [id number] Name: TOM HYLTON Rep #: [id number] : 1955 63 From: Pk Dorsey MD Attending Dr: Gume THOMAS,David Varma Status: PRE SDC Ordering Dr: Armando Anderson MD Date: 07/29/18 [place] [facility] [place] M C Admitted: Test Reason : [...] Abnormal ECG Confirmed by WILLIAN THOMAS, PK ([id number]), editor at large PEMA WARD ([id number]) on 08/01/2018 10:50:55 AM Referred By: David Dunaway Confirmed By:PK DORSEY MD 08/01/18 105 Date Pk Dorsey MD CC: Armando Anderson MD; David Dunaway MD; Pk Caballero MD Date Dictated: 07/29/181516 Date Transcribed: 07/29/181516 Plasterer Stucco: Signed ECHOCARDIOGRAM COMPLETE Observed: 07/31/2018 Status: F Source: [place] 4:53 PM [facility] REPOSITORY [facility] Cardiovascular Services [address] [place] [address] Echo Complete 07/31/18 105 MR#: [id number] Acct: [id number] Name: TOM HYLTON Rep #: [id number] : 1955 63 From: Ángel Kapoor MD Attending Dr: Pk Caballero MD Status: REG CLI Ordering Dr: Pk Caballero MD Date: 07/31/18 Location: [facility] Sex: M C Admitted: Reason For Study: [...] Referring Physician: David Dunaway Performed By: Aleyda Chirinos RDCS, RVT 07/31/181652 Date Ángel Kapoor MD CC: Pk Caballero MD Date Dictated: 07/31/18 1051 Date Transcribed: 07/31/181652 Plasterer Stucco: Signed CBC-COMPLETE BLOOD CNT Collected: 07/29/2018 Status: F Source: [place] NO DIFF 3:25 PM [facility] REPOSITORY TYPE CODE TESTS RESULT OUT OF [...] MPV 10.2 Performed By: #### L100.0500 #### [facility] [place], [address] COMPREHENSIVE METABOLIC Collected: 07/29/2018 Status: F Source: [place] PROFIL 3:25 PM [facility] REPOSITORY TYPE CODE TESTS RESULT OUT OF [...] GAP 6 Performed By: #### L500.4050 #### [facility] [address] [place], [address] TYPE AND SCREEN Collected: 07/29/2018 Status: F Source: [place] 3:25 PM [facility] REPOSITORY Order Comment: O.R. DATE CHANGED FROM 08/01/18 TO 08/08/18. CMV NEG? N Comments: SIMPLE PROSTATECTOMY Reason for Ordering Blood: Acute Are the blood/blood products to be transfused? N Is the patient having/had surgery? Y CMV NEG?* N Give When? Type AND Hold Irradiated? N Leukodepleted? Y Reason for Type AND Screen/Red Cells: SURGERY Surgery Date: 08/01/18 Time: 1500 Other - use comments: . Type of Surgery: OTHER TYPE CODE TESTS RESULT OUT OF RANGE REFERENCE UNITS LAB B10.0800 A Normal BLOOD TYPE GEL NEGATIVE LAB B100.4000 Normal Antibody NEGATIVE Screen Performed By: #### B101.7450 #### [facility] [address] [place], [address] BASIC METABOLIC Collected: 07/21/2018 Status: F Source: [place] PROFILE (BMP) 2:12 PM [facility] REPOSITORY Order Comment: Send Results To: PCP [...] GAP 12 Performed By: #### L500.2500 #### [facility] [address] [place], [address] DISCHARGE SUMMARY Observed: 07/18/2018 Status: F Source: [place] 12:24 PM [facility] REPOSITORY [facility] Medical Records Department [address] [place] [address] Discharge Summary 07/18/18 1159 MR#: [id number] Acct: [id number] Name: TOM HYLTON Rep #: [id number] : 1955 63 From: Yasmeen Bajwa MD PCP: Kyle Lerma MD Status: ADM IN Location: [place] [address] Discharge Date and Diagnosis - Problem List [...] Alfonso Kathleen MD at 10:07 EST Tel [phone], Service support , Renal Ultrasound 07/17/18 13:31 IMPRESSION: Bilateral hydronephrosis. Enlarged prostate with soft tissue mass at the base of the bladder most likely representing extension of the bladder. A bladder mass cannot be excluded. Correlation with endoscopy is recommended. Electronically Signed: Alfonso Kathleen MD at 16:00 EST Tel [phone], Service support , ADDENDUM: 07/18/18 1046 Urology [...] (Auto) Neut % (Auto) Lymph % (Auto) [place] % (Auto) Discharge Diet: Low fat/ Low [...] applicable Code Visit Inpatient E AND M: 13733 Disch Hosp 07/18/18 1224 <Electronically signed by Yasmeen Bajwa MD> Date Yasmeen Bajwa MD Cosigner Signature (if applicable): Date CC: Yasmeen Bajwa MD; Kyle Lerma MD Signed DISCHARGE INSTRUCTION Observed: 07/18/2018 Status: F Source: [place] 11:59 AM [facility] REPOSITORY [facility] Medical Records Department [address] [place] [address] Instructions for Home/Discharge Instructions 07/18/18 1155 MR#: [id number] Acct: [id number] Name: TOM HYLTON Rep #: [id number] : 1955 63 From: Yasmeen Bajwa MD [...] MD CONSULTATION Observed: 07/18/2018 Status: F Source: [place] 11:15 [facility] REPOSITORY [facility] Medical Records Department [address] [place] [address] Consultation 07/18/18 1113 MR#: [id number] Acct: [id number] Name: TOM HYLTON Rep #: [id number] : 1955 63 From: David Dunaway MD PCP: Kyle Lerma MD Status: ADM IN Location: [facility] [id number] Reason for Consult Date of Consultation: 07/18/18 [...] (Auto) Neut % (Auto) Lymph % (Auto) [place] % (Auto) Assessment/Plan All Active Problems Bladder [...] 07/18/2018 Status: F Source: [place] 5:54 AM [facility] REPOSITORY TYPE CODE TESTS RESULT OUT OF [...] Lymph 1.19 Performed By: #### L100.0100 #### [facility] [address] [place], [place], [id number] BASIC METABOLIC Collected: 07/18/2018 Status: F Source: [place] PROFILE ([facility]) 5:54 AM [facility] REPOSITORY TYPE CODE TESTS RESULT OUT OF [...] GAP 9 Performed By: #### L500.2500 #### [facility] [address] [facility] [address] [place], [place], [address] BASIC METABOLIC Collected: 07/17/2018 Status: F Source: [place] PROFILE (BMP) 5:25 PM [facility] REPOSITORY TYPE CODE TESTS RESULT OUT OF [...] GAP 8 Performed By: #### L500.2500 #### [facility] [address] [facility] [place], [address] EMERGENCY DEPARTMENT Observed: 07/17/2018 Status: F Source: [place] SUMMARY 3:56 PM [facility] REPOSITORY [facility] Medical Records Department [address] [place] [address] Emergency Department Summary 07/17/18 0825 MR#: [id number] Acct: [id number] Name: TOM HYLTON Rep #: [id number] : 1955 63 From: Ángel Sue MD [...] of his potassium, I did order a enologist. I spoke with the hospitalist and he will be for further care. Treatment Plan: As above Disposition: Admission Impression: 1. Enlarged prostate with obstructive uropathy 2. Hypokalemia 3. Acute kidney injury This note was generated with The [employer] software. It may contain incorrect words, spelling, [...] your Primary Care Provider. Call [facility] ([phone]) or report to the closest Emergency Room. Call 911 if necessary. 07/17/18 1556 <Electronically signed by Ángel Sue MD> Date Ángel Sue MD Cosigner Signature (If Indicated): Date CC: Kyle Lerma MD HISTORY AND PHYSICAL Observed: 07/17/2018 Status: F Source: [place] EXAM 2:31 PM [facility] REPOSITORY [facility] Medical Records Department [address] [place] [address] History and Physical 07/17/18 1040 MR#: [id number] Acct: [id number] Name: TOM HYLTON Rep #: [id number] : 1955 63 From: Yasmeen Bajwa MD PCP: Kyle Lerma MD Status: ADM IN Location: [facility] LD670-9 Problem List (1) Bladder mass Status: Acute [...] DVT PPx- Heparin SC Code Visit Inpatient Khloe GRIFFITH M: [id number] Init Hosp L3 07/17/18 1431 <Electronically signed by Yasmeen Bajwa MD> Date Yasmeen Bajwa MD Cosigner Signature: Date (if applicable) CC: Yasmeen Bajwa MD; Kyle Lerma MD Signed KIDNEY AND BLADDER Observed: 07/17/2018 Status: F Source: [place] 1:32 PM [facility] REPOSITORY [facility] Imaging Services [address] [place] [address] Kidney and Bladder MR#: [id number] Acct: [id number] Name: TOM HYLTON Rep #: [id number] : 1955 M 63 From: Alfonso Kathleen MD PCP: Kyle Lerma MD Status: ADM IN Study: Kidney and Bladder Date of Exam: 07/17/18 Exam# [id number] Ordering Dr: Yasmeen Bajwa MD ADDENDUM by Alfonso Kathleen MD on 07/18/18 at 1040 ADDENDUM This is an addendum report. The impression should read that the prostate is enlarged with possible extension into the base of the bladder. Cystoscopy is recommended. Electronically Signed: Alfonso Kathleen MD at 10:40 EST Tel [phone], Service support , 07/18/18 1040 Date cc: [...] Alfonso Kathleen MD at 16:00 EST Tel [phone], Service support , CC: Yasmeen Bajwa MD; Kyle Lerma MD Plasterer Stucco: Signed CBC W/DIFF, AUTOMATED Collected: 07/17/2018 Status: F Source: [place] 8:00 AM [facility] REPOSITORY TYPE CODE TESTS RESULT OUT OF [...] Lymph 1.20 Performed By: #### L100.0100 #### [facility] [address] [place], [place], [id number] URINALYSIS, COMPLETE Collected: 07/17/2018 Status: F Source: [place] 8:00 AM [facility] REPOSITORY Order Comment: How was Urine Obtained? [...] URINE SEEN Performed By: #### L400.0001 #### [facility] [address] [place], [address] COMPREHENSIVE METABOLIC Collected: 07/17/2018 Status: F Source: [facility] 8:00 AM [facility] REPOSITORY TYPE CODE TESTS RESULT OUT OF [...] 10 Performed By: #### L500.4050, L501.2450 #### [facility] [address] [place], [place], [address] LIPASE Collected: 07/17/2018 Status: F Source: [place] 8:00 AM [facility] REPOSITORY TYPE CODE TESTS RESULT OUT OF RANGE REFERENCE UNITS LAB L501.2450 73-393 U/L Normal LIPASE 93 Performed By: #### L500.4050, L501.2450 #### [facility] [address] [place], [address] MAGNESIUM Collected: 07/17/2018 Status: F Source: [place] 8:00 AM [facility] REPOSITORY Order Comment: Comments: as add on test TYPE CODE TESTS RESULT OUT OF RANGE REFERENCE UNITS LAB L501.5200 1.6-2.6 mg/dL Normal MG 1.9 Performed By: #### L501.5200 #### [facility] [address] [place], [address] ABDOMEN/PELVIS WITH Observed: 07/17/2018 Status: F Source: [place] CONTRAST 7:48 AM [facility] REPOSITORY [facility] Imaging Services [address] [place] [address] Abdomen/Pelvis WITH Contrast MR#: [id number] Acct: [id number] Name: TOM HYLTON Rep #: [id number] : 1955 M 63 From: Alfonso Kathleen MD PCP: Kyle Lerma MD Status: REG ER Study: Abdomen/Pelvis WITH Contrast Date of Exam: 07/17/18 Exam# [id number] Ordering Dr: Ángel Sue MD STUDY: CT [...] Alfonso Kathleen MD at 10:07 EST Tel [phone], Service support , CC: Kyle Lerma MD; Ángel Sue MD Plasterer Stucco: Signed LIPID PROFILE Collected: 02/13/2018 Status: F Source: [place] 8:31 AM [facility] REPOSITORY TYPE CODE TESTS RESULT OUT OF [...] 24 Performed By: #### L500.4100, L501.0100 #### [facility] [address] [facility] [place], [place], [address] GLUCOSE Collected: 02/13/2018 Status: F Source: [place] 8:31 AM [facility] REPOSITORY TYPE CODE TESTS RESULT OUT OF RANGE REFERENCE UNITS LAB L501.0100 74-106 mg/dL Normal GLU 101 Result Comment: Fasting Glucose result from 100 to 125 mg/dL suggests IMPAIRED HOMEOSTASIS per A.D.A. criteria. Please note revised GLUCOSE reference range effective 2017. Performed By: #### L500.4100, L501.0100 #### [facility] [address] [place], [address] BASIC METABOLIC Collected: 10/16/2017 Status: F Source: [place] PROFILE ([facility]) 8:38 AM [facility] REPOSITORY TYPE CODE TESTS RESULT OUT OF [...] Performed By: #### L500.2500, L500.3400, L500.4100 #### [facility] [address] [place], [place], [id number] LIVER PROFILE Collected: 10/16/2017 Status: F Source: [place] 8:38 AM [facility] REPOSITORY TYPE CODE TESTS RESULT OUT OF [...] Performed By: #### L500.2500, L500.3400, L500.4100 #### [facility] [address] [place], [address] LIPID PROFILE Collected: 10/16/2017 Status: F Source: [place] 8:38 AM [facility] REPOSITORY TYPE CODE TESTS RESULT OUT OF [...] Performed By: #### L500.2500, L500.3400, L500.4100 #### [facility] [address] [place], [address] ALLERGIES ALLERGIES DATE TYPE / CODE NAME / CODE REACTION SEVERITY SOURCE 07/29/2018 Drug No Known Unknown [facility] Allergy/4160 Allergies/F00 Hospital 79999(SNOMED 4315575(RXNOR Repository CT) M) ENCOUNTERS ENCOUNTERS ADMIT/DISCHARGE ACCOUNT ADMITTING ENCOUNTER LOCATION SOURCE NUMBER CLASS 08/08/2018/ [id number] [facility]ulatory [facility] 8 5 [facility] ing:RZ5Moku: Repository OD305Wus: 1 08/04/2018 [id number] Ambulatory [facility] 5 [facility] ing:CVS Repository 08/04/2018 [id number] Ambulatory BMSBuilding:W [place] 0 [facility] Repository 07/31/2018 [id number] Ambulatory BMSBuilding:W [place] 4 [facility] Repository 07/31/2018 [id number] Ambulatory [place] 1 [facility] ing:CVS Repository 07/29/2018 [id number] Ambulatory BMSBuilding:W [place] 4 [facility] Repository 07/21/2018 [id number] Ambulatory [place] 6 [facility] ing:MFPLAB Repository 07/17/2018/ [id number] [place], [place] Ambulatory [place] 8 5 [facility] ing:RL9Goaa: Repository [id number]: 1 07/17/2018 [id number] [place] Ambulatory BMSBuilding:B [place] 5 [facility] Repository 07/17/2018 [id number] [place] Ambulatory BMSBuilding:B [place] 7 [facility] Repository 02/13/2018 [id number] Ambulatory [place] 7 [facility] ing:MFPLAB Repository 10/16/2017 [id number] Ambulatory [place] 3 [facility] ing:MFPLAB Repository PAYERS PAYERS ENCOUNTER GUARANTOR PAYER SUBSCRIBER SOURCE 08/08/2018 TOM E Primary TOM E [place] [id number] Insurance:MEDICAL JULIANDOB: [facility] [id number] [id number]: (330) Number: Repository [phone] () [id number] Date:2730-21-67KG [address] [address]VB: 08/08/2018 Secondary NOT GIVENUNK [place] Insurance:SELF PAY [facility] Number: Effective Repository Date:2018-07-21 08/04/2018 TOM E Primary TOM E [place] [id number] Insurance:MEDICAL JULIANDOB: [facility] [id number] Hospital [address]Xbk: (330) Number: Repository [phone] () [id number] Date:6845-97-43AG[address] [address]KL: 08/04/2018 Secondary NOT GIVENUNK [place] Insurance:SELF PAY [facility] Number: Effective Repository Date:2018-07-31 08/04/2018 TOM E Primary TOM E [place] [id number] Insurance:MEDICAL JULIANDOB: [facility] [id number] Hospital [address]Wgg: (330) Number: Repository [phone] () [id number] Date:0481-47-29NA [place] [id number]: 08/04/2018 Secondary NOT GIVENUNK [place] Insurance:SELF PAY [facility] Number: Effective Repository Date:2018-08-04 07/31/2018 TOM E Primary TOM E [place] [id number] Insurance:MEDICAL JULIANDOB: [facility] [id number] Hospital [address]Hbm: (330) Number: Repository [phone] () [id number] Date:4911-12-14FZ [place] [id number]: 07/31/2018 Secondary NOT GIVENUNK [place] Insurance:SELF PAY [facility] Number: Effective Repository Date:2018-07-31 07/31/2018 TOM E Primary TOM E [place] [id number] [facility] [id number] Hospital [address]Pxc: (330) Number: Repository [phone] () [id number] Date:5388-17-70LD [address] [address]UU: 07/31/2018 Secondary NOT GIVENUNK [place] Insurance:SELF PAY [facility] Number: Effective Repository Date:2018-07-24 07/29/2018 TOM E Primary TOM E [place] [id number] Insurance:[facility] [id number] Hospital [address]Sxb: (330) Number: Repository [phone] () [id number] Date:6274-69-39VF [address] [place] [address]TO: 07/29/2018 Secondary NOT GIVENUNK [place] Insurance:SELF PAY [facility] Number: Effective Repository Date:2018-07-29 07/21/2018 TOM E Primary NOT GIVENUNK [place] [id number] Insurance:SELF PAY [facility] [address]Rwn: (330) Number: Effective Repository [phone] () Date:2018-07-21 07/17/2018 TOM E Primary TOM E [place] [id number] Insurance:[facility] [id number] Hospital [id number]: (330) Number: Repository [phone] () [id number] Date:1872-85-28DH [address] [place] [address]WS: 07/17/2018 Secondary NOT GIVENUNK [place] Insurance:SELF PAY [facility] Number: Effective Repository Date:2018-07-17 07/17/2018 TOM E Primary TOM E [place] [id number] Insurance:[facility] [id number] [address]Tel: (330) Number: Repository [phone] () [id number] Date:4259-20-71OI [address] [address]KB: 07/17/2018 Secondary NOT GIVENUNK [place] Insurance:SELF PAY [facility] Number: Effective Repository Date:2018-07-17 07/17/2018 TOM E Primary TOM E [place] [id number] Insurance:MEDICAL JULIANDOB: [facility] [id number] Hospital [address]Gif: (330) Number: Repository [phone] () [id number] Date:0145-61-59WD [address] [place] [address]NK: 07/17/2018 Secondary NOT GIVENUNK [place] Insurance:SELF PAY [facility] Number: Effective Repository Date:2018-07-17 02/13/2018 Tom [id number] Primary Tom KingDOB: [place] [address] Insurance:MEDICAL [id number] [facility] [address]Lge: (330) Number: Repository [phone] () [id number] Date:7750-08-19XO [address] [address]XI: 02/13/2018 Secondary NOT GIVENUNK [place] Insurance:SELF PAY [facility] Number: Effective Repository Date:2018-02-13 10/16/2017 Tom [id number] Primary Tom KingDOB: [place] [address] Insurance:MEDICAL [id number] [facility] [address]Yfe: Number: Repository [phone] [id number] (HP) Date:7239-29-26YY [address] [address]QO: 10/16/2017 Secondary NOT GIVENUNK [place] Insurance:SELF PAY [facility] Number: Effective Repository Date:2017-10-16
== END ==
PROVIDERS: Family Provider Family Medicine; PCP Family Medicine; Referring Provider Family Medicine; Visit Provider Family Medicine
DX: R01.1 Cardiac murmur, unspecified (principal)
CPT/HCPCS: 93306

== ENCOUNTER → 2018-08-04 13:32 | Outpatient (CLI) | payer OTHER, SELFPAY ==
[2018-07-30 09:58] VITALS: BMI 29.2
--- NOTE | 2018-08-04 13:36 | STEWCON_ITS ---
Reason For Study: Pre-Op; Abnormal EKG Stress Results Protocol: Dmitriy Protocol Maximum Predicted HR: 158 bpm Target HR: 134 bpm % Maximum Predicted HR: 104 % DurationHeart Rate Stage (mm:ss) (bpm) BP Comment Baseline 96 118/86No Chest Pain; Diluted Definity 2 ML Given Dmitriy Protocol Stage I 3:00 137 144/72No Chest Pain Dmitriy Protocol Stage II 3:00 160 146/76No Chest Pain; Mild Dyspnea Dmitriy Protocol Stage III 0:15 164 / No Chest Pain; Moderate Dyspnea Recovery 116 120/72No Chest Pain Stress Duration: 6:15 mm:ss Maximum Stress HR: 164 bpm METS: 7 Baseline Echocardiogram Findings Stress Echo Wall motion Data Resting WM Intermediate WM Stress WM Stress Results Normal blood pressure response to exercise. Exercise was stopped due to fatigue. Interpretation Summary Exercise stress echocardiogram with and without definitive. 63-year-old man for preoperative evaluation. Stress protocol: Resting EKG demonstrates normal sinus rhythm with a rate of [address]-T wave changes are noted. Resting blood pressure 118/86 mmHg. The patient exercised according to regular Dmitriy protocol for total duration of 6 minutes and 15 seconds. Patient completed 15 seconds into stage III of the Dmitriy protocol. The maximum heart rate attained was 164 bpm which was 103% of maximum predicted heart rate the maximum workload was 7.7 metabolic equivalents. The patient maintained sinus rhythm throughout the recording with occasional premature ventricular complexes noted. At rest there were no ST or T wave changes noted suggest ischemia at peak exercise upsloping ST changes were noted with normally the criteria for ischemia. The resting blood pressure was 118/86 with a peak blood pressure 146/76 rate pressure product was 23,360. No clinical angina was noted no sustained arrhythmias were present. Stress echocardiographic images. The resting echocardiographic images performed with Definity enhancement demonstrated an ejection fraction of approximately 60%. At peak exercise there was thickening of all guillen and reduction in left ventricular cavity size with peaking of ejection fraction of 75%. No wall motion abnormalities were noted to suggest ischemia. Conclusion: Normal exercise stress echocardiographic images with no evidence of ischemia at a moderate workload. Good functional capacity Ordering Physician: David Dunaway Referring Physician: Jorge Gomez Performed By: Aleyda Chirinos, RENETTA, RVT
--- OUTSIDE RECORDS SUMMARY | 2018-11-06 04:45 | XMS RPT_ITS ---
:1955 Author Organization OHIP Support Name Relationship Address Phone BEN HYLTON Unavailable [address] + [place] [address] [facility] Unavailable [address] + [place] [address] BEN HYLTON Unavailable [address] + [place] [address] [facility] Unavailable [address] + [place] [address] BEN HYLTON Unavailable [address] + [place], [place] [id number] [place] [address] + [place] [address] BEN HYLTON Unavailable [address] + [place] [address] [facility] Unavailable [address] + [place] [address] BEN HYLTON Unavailable [address] + [place] [address] [facility] Unavailable [address] + [place] [address] BEN HYLTON Unavailable [address] + [place] [address] [facility] Unavailable [address] + [place] [address] BEN HYLTON Unavailable [address] + [place] [address] [facility] Unavailable [address] + [place] [address] BEN HYLTON Unavailable [address] + [place] [address] [facility] Unavailable [address] + [place] [address] [facility], BEN Unavailable [address] + [place] [address] [facility] Unavailable [address] + [place] [address] BEN HYLTON Unavailable [address] + [place] [address] [facility] Unavailable [address] + [place] [address] BEN HYLTON Unavailable [address] + [place], [place] [id number] [place] [address] + [place] [address] BEN HYLTON Unavailable [address] + [place], [place] [id number] [place] [address] + [place] [address] Care Team Providers Name Role Phone David Dunaway Attending Unavailable David Dunaway Referring Unavailable Pk Caballero Primary Care Unavailable Pk Dorsey Attending Unavailable Armando Anderson Referring Unavailable [facility] Unavailable Pk Caballero Attending Unavailable Kyle Lerma Attending Unavailable [facility] Primary Care Unavailable Ángel Kapoor Attending Unavailable Pk Caballero Referring Unavailable Jorge Gomez Attending Unavailable Gume, David Varma Referring Unavailable [facility] Care Unavailable Paintsil, Bristow Admitting Unavailable Paintsil, Bristow Attending Unavailable David Dunaway Consulting Unavailable Paintsil, Bristow Admitting Unavailable Paintsil, [place]ow Attending Unavailable [facility] Care Unavailable GumeDavid Consulting Unavailable Paintsil, Bristow Consulting Unavailable Paintsil, Bristow Admitting Unavailable Paintsil, [place]ristow Attending Unavailable [facility] Care Unavailable Gume, David Varma Consulting Unavailable Paintsil, Bristow Consulting Unavailable Paintsil, Bristow Attending Unavailable Pk Caballero Primary Care Unavailable Gume, David Varma Consulting Unavailable Gume, David Varma Admitting Unavailable David Dunaway Attending Unavailable David Dunaway Referring Unavailable Pk Caballero Primary Care Unavailable Pk Caballero Attending Unavailable Pk Caballero Referring Unavailable Pk Caballero Primary Care Unavailable PROBLEMS PROBLEMS DATE TYPE CONDITION / CODE ATTENDING STATUS SOURCE 08/10/2018 Unknown D29.1 - Benign Gume David Active [place] neoplasm of prostate / [facility] D29.1(ICD-10) Hospital Repository 08/26/2018 Unknown R94.31 - Abnormal JasonJackie jonesl Active [place] electro[facility] [ECG] [EKG] / Hospital R94.31(ICD-10) Repository 08/22/2018 Unknown R01.1 - Cardiac KapoorÁngel Active [place] murmur, unspecified / Community R01.1(ICD-10) Hospital Repository 08/13/2018 Unknown R00.0 - Tachycardia, Moodispaw, Active [place] unspecified / [facility] R00.0(ICD-10) Hospital Repository PROCEDURES PROCEDURES No Procedure Records FoundRESULTS RESULTS DISCHARGE SUMMARY Observed: 08/10/2018 Status: F Source: [place] 9:37 AM [facility] REPOSITORY [facility] Medical Records Department [address] [facility] [place] [address] Discharge Summary 08/10/18 0936 MR#: [id number] Acct: [id number] Name: TOM HYLTON Rep #: [id number] : 1955 63 From: David Dunaway MD PCP: Pk Caballero MD Status: ADM BELLO Y Location: [place] [address] Discharge Date and Diagnosis Date of Admission: [...] leg bag, Powell to large bag Drain: [place] Home Medications: Medications to take at Discharge [...] mg PO BID #20 cap 08/10/18 Hydrocodone/Acetaminophen [[place] 5-325 Tablet] 1 ea PO Q4H PRN PRN 5 Days #20 tab 08/10/18 Following Prescrptions Were Given to Patient: Hydrocodone/Acetaminophen [[place] 5-325 Tablet] 1 ea PO Q4H PRN [...] DISCHARGE INSTRUCTION Observed: 08/10/2018 Status: F Source: [place] 9:34 AM [facility] Medical Records Department [address] [place] [address] Instructions for Home/Discharge Instructions 08/10/18932 MR#: [id number] Acct: [id number] Name: TOM HYLTON Rep #: [id number] : 1955 63 From: David Dunaway MD [...] leg bag, Powell to large bag Drain: [place] Allergies/Adverse Reactions: Allergies No Known Allergies Allergy [...] F Source: [place] NO DIFF 6:57 AM [facility] RE[facility]ORY TYPE CODE TESTS RESULT OUT OF [...] MPV 9.4 Performed By: #### L100.0500 #### [facility] [address] [place], [address] BASIC METABOLIC Collected: 08/09/2018 Status: F Source: [place] PROFILE (BMP) 6:57 AM [facility] TYPE CODE TESTS RESULT OUT OF [...] GAP 10 Performed By: #### L500.2500 #### [facility] [address] [place], [address] OPERATIVE REPORT Observed: 08/08/2018 Status: F Source: [place] 12:54 PM [facility] REPOSITORY [facility] Medical Records Department [address] [place] [address] Operative Report 08/08/18 1251 MR#: [id number] Acct: [id number] Name: TOM HYLTON Rep #: [id number] : 1955 63 From: David Dunaway MD PCP: Pk Caballero MD Status: ADM IN Y Location: [place]3 ML870-8 Report of Operation Date of Procedure: 08/08/18 [...] running 30V lock stitch then a 20 Malay catheter was placed in the bladder we [...] F Source: [place] NO DIFF 11:35 AM [facility] RE[facility] Order Comment: Comments: To be done [...] MPV 9.1 Performed By: #### L100.0500 #### [facility] [address] [place], [address] BASIC METABOLIC Collected: 08/08/2018 Status: F Source: [place] PROFILE (BMP) 11:35 AM [facility] REPOS[facility] Order Comment: Comments: To be done [...] GAP 6 Performed By: #### L500.2500 #### [facility] [address] [place], [place], [address] PROSTATE RADICAL Observed: 08/08/2018 Status: F Source: [place] RESECTION 7:30 AM [facility] RE[facility] Patient: TOM HYLTON : 1955 (63/M) Acct Num: [id number] Phys: Gume THOMAS,David Varma Unit Num: [id number] Loc: MS3 OH925-9 Specimen: [id number] Received: 08/08/18 - 1246 Spec Type: PROSTATE [...] mass lesion and reveal multinodular cut surfaces. Manual Lathe Machinist sections are submitted in ten cassettes as follows: 1-8 - largest piece of prostate tissue, 9 AND 10 - sales representative cash registers sections from the detached pieces of tissue. / SJ:king 08/08/18 TC:5 CPT: 69259 HEADER OPERATION: Laparoscopic robotic simple prostatectomy PRE-OP DIAGNOSIS: Benign prostatic hyperplasia with lower urinary tract symptoms TISSUE SUBMITTED: Prostate tissue MICROSCOPIC DESCRIPTION Slides are reviewed. MICROSCOPIC DIAGNOSIS Prostate tissue, simple prostatectomy: Benign prostatic hyperplasia, glandular and stromal type. Focal chronic inflammation and basal cell hyperplasia. SJ:king 08/11/18 Signed Nabil Caballero MD 08/11/18 <signature on file> Performed By: #### PPROST #### [facility] [address] [place] [address]. [place], [address] STRESS TEST ECHO W/ Observed: 08/04/2018 Status: F Source: [place] CONTRAST 5:02 PM [facility] RE[facility] Cardiovascular Services [address] [place] [address] Stress Test Echo W/Contrast MR#: [id number] Acct: [id number] Name: TOM HYLTON Rep #: [id number] : 1955 63 From: Jorge Gomez MD [...] Dictated: 08/04/18 1400 Date Transcribed: 08/04/18 1701 Practice Architect: Signed 12 LEAD ELECTROCARDIOGRAM Observed: 08/01/2018 Status: F Source: [place] 10:51 AM [facility] REPOSITORY [facility] Cardiovascular Services [address] [place] [address] EKG - SDC 07/29/181516 MR#: [id number] Acct: [id number] Name: TOM HYLTON Rep #: [id number] : 1955 63 From: Pk Dorsey MD Attending Dr: Gume THOMAS,David Varma Status: PRE SDC Ordering Dr: Armando Anderson MD Date: 07/29/18 [place] [facility] [place] M C Admitted: Test Reason : [...] ECG Confirmed by WILLIAN THOMAS, PK ([id number]), newspaper copy editor PEMA WARD ([id number]) on 08/01/2018 10:50:55 AM Referred By: David Dunaway Confirmed By:PK DORSEY MD 08/01/18 105 Date Pk Dorsey MD CC: Armando Anderson MD; David Dunaway MD; Pk Caballero MD Date Dictated: 07/29/181516 Date Transcribed: 07/29/181516 Practice Architect: Signed ECHOCARDIOGRAM COMPLETE Observed: 07/31/2018 Status: F Source: [place] 4:53 PM [facility] REPOSITORY [facility] Cardiovascular Services [address] [place] [address] Echo Complete 07/31/18 105 MR#: [id number] Acct: [id number] Name: TOM HYLTON Rep #: [id number] : 1955 63 From: Ángel Kapoor MD Attending Dr: Pk Caballero MD Status: REG CLI Ordering Dr: Pk Caballero MD Date: 07/31/18 Location: [facility] Sex: M C Admitted: Reason For Study: [...] Date Dictated: 07/31/18 1051 Date Transcribed: 07/31/181652 Practice Architect: Signed CBC-COMPLETE BLOOD CNT Collected: 07/29/2018 Status: F Source: [place] NO DIFF 3:25 PM [facility] TYPE CODE TESTS RESULT OUT OF [...] MPV 10.2 Performed By: #### L100.0500 #### [facility] [place], [address] COMPREHENSIVE METABOLIC Collected: 07/29/2018 Status: F Source: [place] PROFIL 3:25 PM [facility] TYPE CODE TESTS RESULT OUT OF [...] GAP 6 Performed By: #### L500.4050 #### [facility] [address] [place], [address] TYPE AND SCREEN Collected: 07/29/2018 Status: F Source: [place] 3:25 PM [facility] Order Comment: O.R. DATE CHANGED FROM [...] NEGATIVE Screen Performed By: #### B101.7450 #### [facility] [address] [place], [address] BASIC METABOLIC Collected: 07/21/2018 Status: F Source: [place] PROFILE (BMP) 2:12 PM [facility] Order Comment: Send Results To: PCP [...] GAP 12 Performed By: #### L500.2500 #### [facility] [address] [place], [address] DISCHARGE SUMMARY Observed: 07/18/2018 Status: F Source: [place] 12:24 PM [facility] Medical Records Department [address] [place] [address] Discharge Summary 07/18/18 1159 MR#: [id number] Acct: [id number] Name: TOM HYLTON Rep #: [id number] : 1955 63 From: Yasmeen Bajwa MD PCP: Kyle Lerma MD Status: ADM IN Location: [place] [address] Discharge Date and Diagnosis - Problem List [...] Alfonso Kathleen MD at 10:07 EST Tel [phone], Service support , Renal Ultrasound 07/17/18 13:31 IMPRESSION: Bilateral hydronephrosis. Enlarged prostate with soft tissue mass at the base of the bladder most likely representing extension of the bladder. A bladder mass cannot be excluded. Correlation with endoscopy is recommended. Electronically Signed: Alfonso Kathleen MD at 16:00 EST Tel [phone], Service support , ADDENDUM: 07/18/18 1046 Urology [...] (Auto) Neut % (Auto) Lymph % (Auto) [place] % (Auto) Discharge Diet: Low fat/ Low [...] applicable Code Visit Inpatient E AND M: 12192 Disch Hosp 07/18/18 1224 <Electronically signed by Yasmeen Bajwa MD> Date Yasmeen Bajwa MD Cosigner Signature (if applicable): Date CC: Yasmeen Bajwa MD; Kyle Lerma MD Signed DISCHARGE INSTRUCTION Observed: 07/18/2018 Status: F Source: [place] 11:59 AM [facility] RE[facility] Medical Records Department [address] [place] [address] Instructions for Home/Discharge Instructions 07/18/18 1155 MR#: [id number] Acct: [id number] Name: TOM HYLTON Rep #: [id number] : 1955 63 From: Yasmeen Bajwa MD [...] signed by Yasmeen Bajwa MD> Date Yasmeen Bawja MD CC: Kyle Lerma MD; David Dunaway MD CONSULTATION Observed: 07/18/2018 Status: F Source: [place] 11:15 [facility] Medical Records Department [address] [place] [address] Consultation 07/18/18 1113 MR#: [id number] Acct: [id number] Name: TOM HYLTON Rep #: [id number] : 1955 63 From: David Dunaway MD PCP: Kyle Lerma MD Status: ADM IN Location: [facility] OH493-2 Reason for Consult Date of Consultation: 07/18/18 [...] (Auto) Neut % (Auto) Lymph % (Auto) [place] % (Auto) Assessment/Plan All Active Problems Bladder [...] 07/18/2018 Status: F Source: [place] 5:54 AM [facility] TYPE CODE TESTS RESULT OUT OF [...] Lymph 1.19 Performed By: #### L100.0100 #### [facility] [address] [place], [place], [address] BASIC METABOLIC Collected: 07/18/2018 Status: F Source: [place] PROFILE ([facility]) 5:54 AM [facility] TYPE CODE TESTS RESULT OUT OF [...] GAP 9 Performed By: #### L500.2500 #### [facility] [address] [facility] [address] [place], [place], [address] BASIC METABOLIC Collected: 07/17/2018 Status: F Source: [place] PROFILE (BMP) 5:25 PM [facility] TYPE CODE TESTS RESULT OUT OF [...] GAP 8 Performed By: #### L500.2500 #### [facility] [address] [facility] [place], [address] EMERGENCY DEPARTMENT Observed: 07/17/2018 Status: F Source: [place] SUMMARY 3:56 PM [facility] Medical Records Department [address] [place] [address] Emergency Department Summary 07/17/18 0825 MR#: [id number] Acct: [id number] Name: TOM HYLTON Rep #: [id number] : 1955 63 From: Ángel Sue MD [...] of his potassium, I did order a network director. I spoke with the hospitalist and he will be for further care. Treatment Plan: As above Disposition: Admission Impression: 1. Enlarged prostate with obstructive uropathy 2. Hypokalemia 3. Acute kidney injury This note was generated with [employer], [employer] software. It may contain incorrect words, spelling, [...] your Primary Care Provider. Call [facility] ([phone]) or report to the closest Emergency Room. Call 911 if necessary. 07/17/18 1556 <Electronically signed by Ángel Sue MD> Date Ángel Sue MD Cosigner Signature (If Indicated): Date CC: Kyle Lerma MD HISTORY AND PHYSICAL Observed: 07/17/2018 Status: F Source: [place] EXAM 2:31 PM [facility] Medical Records Department [address] [place] [address] History and Physical 07/17/18 1040 MR#: [id number] Acct: [id number] Name: TOM HYLTON Rep #: [id number] : 1955 63 From: Yasmeen Bajwa MD PCP: Kyle Lerma MD Status: ADM IN Location: [facility] TK072-8 Problem List (1) Bladder mass Status: Acute [...] SC Code Visit Inpatient Khloe GRIFFITH M: [address] Init Hosp L3 07/17/18 1431 <Electronically signed by Yasmeen Bajwa MD> Date Yasmeen Bajwa MD Cosigner Signature: Date (if applicable) CC: Yasmeen Bajwa MD; Kyle Lerma MD Signed KIDNEY AND BLADDER Observed: 07/17/2018 Status: F Source: [place] 1:32 PM [facility] Imaging Services [address] [place] [address] Kidney and Bladder MR#: [id number] Acct: [id number] Name: TOM HYLTON Rep #: [id number] : 1955 M 63 From: Alfonso Kathleen MD PCP: Kyle Lerma MD Status: ADM IN Study: Kidney and Bladder Date of Exam: 07/17/18 Exam# [id number] Ordering Dr: Yasmeen Bajwa MD ADDENDUM by Alfonso Kathleen MD on 07/18/18 at 1040 ADDENDUM This is an addendum report. The impression should read that the prostate is enlarged with possible extension into the base of the bladder. Cystoscopy is recommended. Electronically Signed: Alfonso Kathleen MD at 10:40 EST Tel [phone], Service support , 07/18/18 1040 Date cc: [...] Alfonso Kathleen MD at 16:00 EST Tel [phone], Service support , CC: Yasmeen Bajwa MD; Kyle Lerma MD Practice Architect: Signed CBC W/DIFF, AUTOMATED Collected: 07/17/2018 Status: F Source: [place] 8:00 AM [facility] TYPE CODE TESTS RESULT OUT OF [...] Lymph 1.20 Performed By: #### L100.0100 #### [facility] [address] [place], [place], [address] URINALYSIS, COMPLETE Collected: 07/17/2018 Status: F Source: [place] 8:00 AM [facility] Order Comment: How was Urine Obtained? [...] URINE SEEN Performed By: #### L400.0001 #### [facility] [address] [place], [address] COMPREHENSIVE METABOLIC Collected: 07/17/2018 Status: F Source: [facility] 8:00 AM [facility] TYPE CODE TESTS RESULT OUT OF [...] 10 Performed By: #### L500.4050, L501.2450 #### [facility] [address] [place], [place], [address] LIPASE Collected: 07/17/2018 Status: F Source: [place] 8:00 AM [facility] TYPE CODE TESTS RESULT OUT OF RANGE REFERENCE UNITS LAB L501.2450 73-393 U/L Normal LIPASE 93 Performed By: #### L500.4050, L501.2450 #### [facility] [address] [place], [address] MAGNESIUM Collected: 07/17/2018 Status: F Source: [place] 8:00 AM [facility] Order Comment: Comments: as add on test TYPE CODE TESTS RESULT OUT OF RANGE REFERENCE UNITS LAB L501.5200 1.6-2.6 mg/dL Normal MG 1.9 Performed By: #### L501.5200 #### [facility] [address] [place], [address] ABDOMEN/PELVIS WITH Observed: 07/17/2018 Status: F Source: [place] CONTRAST 7:48 AM [facility] Imaging Services [address] [place] [address] Abdomen/Pelvis WITH Contrast MR#: [id number] Acct: [id number] Name: TOM HYLTON Rep #: [id number] : 1955 M 63 From: Alfonso Kathleen MD PCP: Kyle Lerma MD Status: REG ER Study: Abdomen/Pelvis WITH Contrast Date of Exam: 07/17/18 Exam# [id number] Ordering Dr: Ángel Sue MD STUDY: CT [...] Alfonso Kathleen MD at 10:07 EST Tel [phone], Service support , CC: Kyle Lerma MD; Ángel Sue MD Practice Architect: Signed LIPID PROFILE Collected: 02/13/2018 Status: F Source: [place] 8:31 AM [facility] TYPE CODE TESTS RESULT OUT OF [...] 24 Performed By: #### L500.4100, L501.0100 #### [facility] [address] [facility] [place], [place], [address] GLUCOSE Collected: 02/13/2018 Status: F Source: [place] 8:31 AM [facility] TYPE CODE TESTS RESULT OUT OF RANGE REFERENCE UNITS LAB L501.0100 74-106 mg/dL Normal GLU 101 Result Comment: Fasting Glucose result from 100 to 125 mg/dL suggests IMPAIRED HOMEOSTASIS per A.D.A. criteria. Please note revised GLUCOSE reference range effective 2017. Performed By: #### L500.4100, L501.0100 #### [facility] [address] [place], [address] BASIC METABOLIC Collected: 10/16/2017 Status: F Source: [place] PROFILE ([facility]) 8:38 AM [facility] TYPE CODE TESTS RESULT OUT OF [...] Performed By: #### L500.2500, L500.3400, L500.4100 #### [facility] [address] [place], [place], [address] LIVER PROFILE Collected: 10/16/2017 Status: F Source: [place] 8:38 AM [facility] TYPE CODE TESTS RESULT OUT OF [...] Performed By: #### L500.2500, L500.3400, L500.4100 #### [facility] [address] [place], [address] LIPID PROFILE Collected: 10/16/2017 Status: F Source: [place] 8:38 AM [facility] TYPE CODE TESTS RESULT OUT OF [...] Performed By: #### L500.2500, L500.3400, L500.4100 #### [facility] [address] [place], [address] ALLERGIES ALLERGIES DATE TYPE / CODE NAME / CODE REACTION SEVERITY SOURCE 07/29/2018 Drug No Known Unknown [facility] Allergy/4160 Allergies/F00 Hospital 40554(SNOMED 1601088(RXNOR Repository CT) M) ENCOUNTERS ENCOUNTERS ADMIT/DISCHARGE ACCOUNT ADMITTING ENCOUNTER LOCATION SOURCE NUMBER CLASS 08/08/2018/ [id number] Gume David Ambulatory [facility] [address] [facility] ing:NC0Llpu: Repository [id number]: 1 08/04/2018 [id number] Ambulatory [facility] 5 [facility] ing:[facility]S Repository 08/04/2018 [id number] Ambulatory BMSBuilding:W [place] 0 [facility] Repository 07/31/2018 [id number] Ambulatory BMSBuilding:W [place] 4 [facility] Repository 07/31/2018 [id number] [place] 1 [facility] ing:[facility]S Repository 07/29/2018 [id number] Ambulatory BMSBuilding:W [place] 4 [facility] Repository 07/21/2018 [id number] Ambulatory [place] 6 [facility] ing:MFPLAB Repository 07/17/2018/ [id number] [place], [place] Ambulatory [place] 8 5 [facility] ing:[id number]: Repository [id number]: 1 07/17/2018 [id number] Paint[place], [place] Ambulatory BMSBuilding:B [place] 5 [facility] Repository 07/17/2018 [id number] Paintsil, [place] Ambulatory BMSBuilding:B [place] 7 [facility] Repository 02/13/2018 [id number] Ambulatory [place] 7 [facility] ing:MFPLAB Repository 10/16/2017 [id number] [place] 3 [facility] ing:MFPLAB Repository PAYERS PAYERS ENCOUNTER GUARANTOR PAYER SUBSCRIBER SOURCE 08/08/2018 TOM E Primary TOM E [place] [id number] Insurance:MEDICAL DESOTODOB: [facility] [id number] [id number]: (330) Number: Repository [phone] () [id number] Date:3211-03-23FV [address] [address]IW: 08/08/2018 Secondary NOT GIVENUNK [place] Insurance:SELF PAY [facility] Number: Effective Repository Date:2018-07-21 08/04/2018 TOM E Primary TOM E [place] [id number] Insurance:MEDICAL DESOTODOB: [facility] [id number] [address]Asa: (330) Number: Repository [phone] () [id number] Date:1814-38-88[address] [address]FI: 08/04/2018 Secondary NOT GIVENUNK [place] Insurance:SELF PAY [facility] Number: Effective Repository Date:2018-07-31 08/04/2018 TOM E Primary TOM E [place] [id number] Insurance:MEDICAL DESOTODOB: [facility] [id number] [address]Cql: (330) Number: Repository [phone] () [id number] Date:2574-68-04UY [place] [id number]: 08/04/2018 Secondary NOT GIVENUNK [place] Insurance:SELF PAY [facility] Number: Effective Repository Date:2018-08-04 07/31/2018 TOM E Primary TOM E [place] [id number] Insurance:MEDICAL DESOTODOB: [facility] [id number] Hospital [address]Wgy: (330) Number: Repository [phone] () [id number] Date:7099-34-62RQ [place] [id number]: 07/31/2018 Secondary NOT GIVENUNK [place] Insurance:SELF PAY [facility] Number: Effective Repository Date:2018-07-31 07/31/2018 TOM E Primary TOM E [place] [id number] [facility] [id number] Hospital [address]Csm: [phone] Number: Repository [phone] () [id number] Date:1523-89-95DX [address] [address]DG: 07/31/2018 Secondary NOT GIVENUNK Ankit Insurance:SELF PAY [facility] Number: Effective Repository Date:2018-07-24 07/29/2018 TOM E Primary TOM E [place] [id number] [facility] [id number] Hospital [address]Tua: [phone]) Number: Repository [phone] () [id number] Date:4478-12-92QR [address] [place] [id number]: 07/29/2018 Secondary NOT GIVENUNK [place] Insurance:SELF PAY [facility] Number: Effective Repository Date:2018-07-29 07/21/2018 TOM E Primary NOT GIVENUNK Ankit [id number] Insurance:SELF PAY [facility] [address]Uww: [phone]) Number: Effective Repository [phone] () Date:2018-07-21 07/17/2018 TOM E Primary TOM E [place] [id number] [facility] [id number] Hospital [address]Wva: [phone]) Number: Repository [phone] () [id number] Date:6913-14-26DU [address] [place] [id number]: 07/17/2018 Secondary NOT GIVENUNK Ankit Insurance:SELF PAY [facility] Number: Effective Repository Date:2018-07-17 07/17/2018 TOM E Primary TOM E Ankit [id number] [facility] [id number] [address]Tel: [phone] Number: Repository [phone] () [id number] Date:0167-45-11HF [address] [address]JD: 07/17/2018 Secondary NOT GIVENUNK [place] Insurance:SELF PAY [facility] Number: Effective Repository Date:2018-07-17 07/17/2018 TOM E Primary TOM E [place] [id number] Insurance:MEDICAL DES[facility]OB: [facility] [id number] Hospital [address]Izc: [phone] Number: Repository [phone] () [id number] Date:2687-41-90SC [address] [place] [id number]: 07/17/2018 Secondary NOT GIVENUNK Ankit Insurance:SELF PAY [facility] Number: Effective Repository Date:2018-07-17 02/13/2018 Tom [id number] Primary Tom KingDOB: Ankit [address] Insurance:MEDICAL [id number] [address]Qje: [phone]) Number: Repository [phone] () [id number] Date:1480-26-40WW [address] [address]QS: 02/13/2018 Secondary NOT GIVENUNK Ankit Insurance:SELF PAY [facility] Number: Effective Repository Date:2018-02-13 10/16/2017 Tom [id number] Primary Tom KingDOB: Ankit [address] Insurance:MEDICAL [id number] [address]Yjl: Number: Repository [phone] [id number] (HP) Date:1720-29-70XK [address] [address]MY: 10/16/2017 Secondary NOT GIVENUNK Ankit Insurance:SELF PAY [facility] Number: Effective Repository Date:2017-10-16
== END ==
PROVIDERS: Family Provider Family Medicine; PCP Family Medicine; Referring Provider Urology; Visit Provider Urology
DX: Z01.818 Encounter for other preprocedural examination (principal); R94.31 Abnormal electrocardiogram [ECG] [EKG]
CPT/HCPCS: 93017; 93350; Q9957; A4216; C8928

== ENCOUNTER 2018-08-08 07:19 | Observation (INO) | payer OTHER, SELFPAY ==
[2018-07-17 11:39] VITALS: BMI 29.2
[2018-07-29 14:49] VITALS: BP 134/85; PULSE 106; RESP 16; TEMP 36.9; O2SAT 97; BMI 28.3
--- NOTE | 2018-07-29 15:11 | SDCEKG_ITS ---
Test Reason : Blood Pressure : / mmHG Vent. Rate : 104 BPM Atrial Rate : 104 BPM P-R Int : 158 ms QRS Dur : 086 ms QT Int : 344 ms P-R-T Axes : 040 000 105 degrees QTc Int : 452 ms Sinus tachycardia Minimal voltage criteria for LVH, may be normal variant ST & T wave abnormality, consider lateral ischemia Abnormal ECG Confirmed by WILLIAN THOMAS, ASHISH ([id number]), book or script editor PEMA WARD ([id number]) on 08/01/2018 10:50:55 AM Referred By: David Dunaway Confirmed By:ASHISH DORSEY MD
[2018-07-29 15:53] LABS: Hematocrit 40.7 % (40-54); Hemoglobin 14.3 g/dl (13.0-16.5); Mean Corp Hgb Conc 35.1 g/gl (32-36); Mean Corpuscular Hgb 31.3 pg (27.0-32.0); Mean Corpuscular Volume 89.1 fL (80-94); Mean Platelet Vol. 10.2 fl (6.2-12.0); Platelet Count 234 K/mm3 (150-450); RBC Distribution Width CV 12.6 % (11.6-14.6); RBC Distribution Width SD 40.3 fl (35.1-43.9); Red Blood Count 4.57 M/mm3 (4.6-6.2); White Blood Count 8.4 K/mm3 (4.4-11.0)
[2018-07-29 16:06] LABS: Scan Indicated on CBC? Y/N NO
[2018-07-29 16:35] LABS: ALB/GLOB Ratio 1.3 RATIO (0.9-2.4); AST(SGOT) 15 U/L (15-37); Alanine Aminotransfer ALT/SGPT 30 U/L (16-61); Albumin, Serum 4.1 g/dL (3.2-5.0); Alkaline Phosphatase 75 U/L (45-117); Anion Gap 6 (5-15); BUN 17 mg/dL (7-18); BUN/Creat Ratio 13.9 RATIO (10-20); Chloride 105 mmol/L (98-107); Creatinine, Serum 1.22 mg/dL (0.70-1.30); EST Glomerular Filtration Rate 64 mL/min (>60); Est Glom Filt Rate - Afr Amer 77 mL/min (>60); Estimated Creatinine Clearance 70.95 ml/min; Globulin 3.1 g/dL (2.2-4.2); Glucose 115 mg/dL (74-106); Potassium 3.9 mmol/L (3.5-5.1); Protein, Total 7.2 g/dL (6.4-8.2); Sodium Level 139 mmol/L (136-145)
[2018-07-30 09:58] VITALS: BMI 29.2
[2018-08-08] VITALS (13 sets, daily range): BP systolic 101–150; BP diastolic 51–95; PULSE 93–118; RESP 14–16; TEMP 36.2–37.4; O2SAT 93–135; BMI 28.3
--- NOTE | 2018-08-08 07:30 | PROST_PTH ---
PATIENT: TOM HYLTON LOC: [facility]3 U#:[id number] AGE/SX: 63/M ROOM: [facility]317 RE08/08/[address]: Dr. David Dunaway MD : [id number] BED: 1 DIS: 08/10/2018 SPEC #: [id number] RECD: 08/08/18 12:46 STATUS: DIMITRIS ARRIETA #: [id number] SANYA: 08/08/18 07:[address]: David Dunaway DEPT: SURGICAL PATHOLOGY RECD BY: Anoop Weston ENTERED: 08/08/18 13:31 SP TYPE: PROSTATE OTHR DR: Dr. Pk Caballero MD Tissues: Prostate, NOS Procedures: Surgery Specimen Level V HEADER OPERATION: Laparoscopic robotic simple prostatectomy PRE-OP DIAGNOSIS: Benign prostatic hyperplasia with lower urinary tract symptoms TISSUE SUBMITTED: Prostate tissue MICROSCOPIC DIAGNOSIS Prostate tissue, simple prostatectomy: Benign prostatic hyperplasia, glandular and stromal type. Focal chronic inflammation and basal cell hyperplasia. SJ:king 08/11/18 MICROSCOPIC DESCRIPTION Slides are reviewed. GROSS DESCRIPTION Received in fixative is one container labeled with the patient's name and designated prostate. The specimen consists of a simple prostatectomy specimen in multiple pieces weighing 76.4 gm. The largest piece measures 8 x 4 x 3 cm. Detached pieces of tissue measure in aggregate 7 x 6 x 2 cm. Sections do not reveal any mass lesion and reveal multinodular cut surfaces. Mine Environmental Engineer sections are submitted in ten cassettes as follows: 1-8 - largest piece of prostate tissue, 9 & 10 - telecommunications sales representative sections from the detached pieces of tissue. / TORI:king 08/08/18 TC:5 CPT: 09062
[2018-08-08] MEDS: Cefazolin 2 GM in 0.9% Normal Saline 100 ML IV (07:31)
[2018-08-08] MEDS: Lubricating Jelly 60 GM Tube 30 GM TOPICAL (07:56)
[2018-08-08] MEDS: Bupivacaine 0.25% 30 ML Vial (11:11)
[2018-08-08 11:48] LABS: Hematocrit 36.7 % (40-54); Hemoglobin 12.5 g/dl (13.0-16.5); Mean Corp Hgb Conc 34.1 g/gl (32-36); Mean Corpuscular Hgb 30.8 pg (27.0-32.0); Mean Corpuscular Volume 90.4 fL (80-94); Mean Platelet Vol. 9.1 fl (6.2-12.0); Platelet Count 173 K/mm3 (150-450); RBC Distribution Width CV 12.5 % (11.6-14.6); RBC Distribution Width SD 41.3 fl (35.1-43.9); Red Blood Count 4.06 M/mm3 (4.6-6.2); Scan Indicated on CBC? Y/N NO; White Blood Count 15.4 K/mm3 (4.4-11.0)
[2018-08-08 12:02] LABS: Anion Gap 6 (5-15); BUN 11 mg/dL (7-18); BUN/Creat Ratio 9.7 RATIO (10-20); Calcium,Total 8.2 mg/dL (8.5-10.1); Chloride 103 mmol/L (98-107); Creatinine, Serum 1.13 mg/dL (0.70-1.30); EST Glomerular Filtration Rate 70 mL/min (>60); Est Glom Filt Rate - Afr Amer 84 mL/min (>60); Glucose 155 mg/dL (74-106); Potassium 4.7 mmol/L (3.5-5.1); Sodium Level 137 mmol/L (136-145)
--- NOTE | 2018-08-08 12:51 | PCM.OPRPT ---
Report of Operation Date of Procedure: 08/08/18 Pre-Operative Diagnosis: BPH with obstruction and very large prostate Post-Operative Diagnosis: Same Surgery/Procedure Performed:: Laparoscopic robotic assisted simple prostatectomy Description of Surgical Findings:: 64-year-old male taken back. We will after smooth induction of anesthesia he was placed supine on the table, the abdomen was shaved prepped and draped in usual sterile fashion, placed a Veress needle into the umbilicus, made an incision in the skin, placed my first trocar after insufflating the peritoneal cavity CO2 gas placed my robotic trochars were then docked the robot. We dissected the sigmoid colon off the lateral wall, I then opened up the bladder in the midline and placed keep needles inside the abdomen to retract the bladder laterally. Immediately we saw extremely large median lobe growing into the bladder. We elevated the median lobe and then resected the tissue and incised circumferentially all the way around the prostate. We then followed the adenoma all the way deep into the prostate and slowly enucleated this from the prostate bed and finally the entire adenoma was was removed we then piecemeal the remaining adenoma pieces deep into the side of the prostate we then obtained hemostasis in the prostatic bed where the adenoma was enucleated. Placed FloSeal. After nucleated the large and the adenoma then we used stitches used a V lock stitch to run these mucosa and pushed down over the edges of the prostate resection down deep into the prostate to advance the mucosa. Was not able to get mucosa all the way down to the urinary sphincter. After advancing the mucosa with a with a running 30V lock stitch then a 20 [place] catheter was placed in the bladder we then closed the bladder with 2 layers of 3 oh layer and a 2 layer we tested the anastomosis is nice and watertight we then extracted the prostate adenoma through the umbilicus using Endo Catch bag and then closed the 1012 Michel Tadeo stitch and we closed the umbilical site. We flushed the catheter fact catheter was fairly clear the patient anesthetic was reversed he was extubated taken back to PACU in good condition. Type of Anesthesia:: General Drains: 20 fr powell - Admit VTE Documentation VTE Present on Admission: No VTE Mechan Device Prophylaxis: SCD's
[2018-08-08] MEDS: hydroCHLOROthiazide 25 MG Tablet PO (14:27)
[2018-08-08] MEDS: Losartan Potassium 100 MG Tablet PO (14:27)
[2018-08-08] MEDS: Ciprofloxacin 500 MG Tablet PO ×2 (14:30→22:27)
[2018-08-08] MEDS: Lactated Ringers 1,000 ML 125 ML IV ×2 (16:06→22:26)
[2018-08-08] MEDS: Ketorolac 15 MG/ML Vial IV ×2 (16:07→22:27)
[2018-08-08] MEDS: Docusate Sodium 100 MG Capsule 200 MG PO (22:27)
[2018-08-08] MEDS: Atorvastatin Calcium 10 MG Tablet PO (22:27)
[2018-08-08] MEDS: 0.9% NaCl Peripheral Flush Adult/Peds IV (22:28)
[2018-08-09 02:15] VITALS: BP 93/58; PULSE 90; RESP 16; TEMP 37.7; O2SAT 98
[2018-08-09] MEDS: Lactated Ringers 1,000 ML 125 ML IV ×3 (05:10→20:41)
[2018-08-09] MEDS: Ketorolac 15 MG/ML Vial IV ×4 (05:11→22:56)
[2018-08-09] MEDS: 0.9% NaCl Peripheral Flush Adult/Peds IV ×3 (05:11→16:42)
[2018-08-09 07:14] LABS: Hematocrit 28.1 % (40-54); Hemoglobin 9.8 g/dl (13.0-16.5); Mean Corp Hgb Conc 34.9 g/gl (32-36); Mean Corpuscular Hgb 30.7 pg (27.0-32.0); Mean Corpuscular Volume 88.1 fL (80-94); Mean Platelet Vol. 9.4 fl (6.2-12.0); Platelet Count 141 K/mm3 (150-450); RBC Distribution Width CV 12.6 % (11.6-14.6); RBC Distribution Width SD 40.6 fl (35.1-43.9); Red Blood Count 3.19 M/mm3 (4.6-6.2); White Blood Count 8.4 K/mm3 (4.4-11.0)
[2018-08-09 07:15] LABS: Scan Indicated on CBC? Y/N NO
[2018-08-09 07:34] VITALS: BP 96/52; PULSE 100; PULSE 92; RESP 18; TEMP 37.2; O2SAT 95
[2018-08-09 07:40] LABS: Anion Gap 10 (5-15); BUN 11 mg/dL (7-18); Calcium,Total 7.9 mg/dL (8.5-10.1); Chloride 100 mmol/L (98-107); EST Glomerular Filtration Rate 72 mL/min (>60); Est Glom Filt Rate - Afr Amer 87 mL/min (>60); Estimated Creatinine Clearance 78.69 ml/min; Glucose 101 mg/dL (74-106); Potassium 3.6 mmol/L (3.5-5.1); Sodium Level 136 mmol/L (136-145)
[2018-08-09] MEDS: Docusate Sodium 100 MG Capsule 200 MG PO ×2 (08:40→20:39)
[2018-08-09] MEDS: Multivitamins,Therapeutic Tablet 1 TABLET PO (08:41)
[2018-08-09] MEDS: Magnesium Oxide 400 MG Tablet PO (08:41)
[2018-08-09] MEDS: Ciprofloxacin 500 MG Tablet PO ×2 (08:41→20:39)
[2018-08-09] MEDS: Pantoprazole Sodium 20 MG Tablet PO (08:42)
--- NOTE | 2018-08-09 11:01 | PCM.PN.BLA ---
Progress Note post op day #1 doing well ambulating. Tolerating reg diet urine clear plan to d/c home tomorrow.
[2018-08-09 13:22] VITALS: BP 98/60; PULSE 103; RESP 18; TEMP 36.7; O2SAT 97
[2018-08-09 20:26] VITALS: BP 110/75; PULSE 81; RESP 18; TEMP 36.8; O2SAT 100
[2018-08-09] MEDS: Atorvastatin Calcium 10 MG Tablet PO (20:39)
[2018-08-09 20:46] VITALS: PULSE 81; RESP 18; O2SAT 100
[2018-08-10 02:50] VITALS: BP 114/67; PULSE 92; RESP 18; TEMP 36.8; O2SAT 94
[2018-08-10] MEDS: Lactated Ringers 1,000 ML 125 ML IV (04:59)
[2018-08-10 08:01] VITALS: BP 131/71; PULSE 98; RESP 18; TEMP 36.8; O2SAT 94
[2018-08-10] MEDS: Ciprofloxacin 500 MG Tablet PO (08:08)
[2018-08-10] MEDS: Magnesium Oxide 400 MG Tablet PO (08:08)
[2018-08-10] MEDS: Losartan Potassium 100 MG Tablet PO (08:08)
[2018-08-10] MEDS: Multivitamins,Therapeutic Tablet 1 TABLET PO (08:08)
[2018-08-10] MEDS: hydroCHLOROthiazide 25 MG Tablet PO (08:09)
[2018-08-10] MEDS: Pantoprazole Sodium 20 MG Tablet PO (08:09)
--- NOTE | 2018-08-10 09:34 | DCINST_ITS ---
Discharge Diet: Light diet - advance as tolerated Discharge Activity: Return to Normal Activity Call your doctor if your incision/area has: Sudden Increased Bleeding Call your doctor if you observe: Fever of 101 or Higher Suture Line Care: Avoid Pulling/Pushing, Avoid Pinching/Bending Catheter: Powell to leg bag, Powell to large bag Drain: [place] Allergies/Adverse Reactions: Allergies No Known Allergies Allergy (Verified 07/29/18 14:41) Medications to take at Discharge Losartan/Hydrochlorothiazide [Losartan-Hctz 100-25 mg Tab] 1 tab PO DAILY 07/17/18 Mag-Ox 400 400 mg PO DAILY 07/17/18 Simvastatin [Zocor] 20 mg PO QHS 07/17/18 Multivitamins,Therapeutic [Multivitamin] 1 tablet PO DAILY 07/29/18 Omeprazole [Prilosec] 20 mg PO DAILY 07/29/18 Potassium Chloride [K-Dur] 20 meq PO DAILY 07/29/18 Tadalafil [Cialis] 20 mg PO DAILY PRN 07/29/18 Tamsulosin HCl [Flomax] 0.4 mg PO DAILY@1730 07/29/18 Ubidecarenone/Vit E Acet [Co Q-10 100 mg Softgel] 1 each PO DAILY 07/29/18 Primary Care Physician: Pk Caballero MD [Primary Care Provider] - Test Results: Test results from this visit will be discussed in further detail at your follow- up appointment, if applicable. Please Follow Up With: David Dunaway MD When: please call to make an appointment, 10 days to remove powell
--- NOTE | 2018-08-10 09:37 | DS.PCM_ITS ---
Discharge Date and Diagnosis Date of Admission: 08/08/18 Date of Discharge: 08/10/18 - Secondary Discharge Diagnosis Chronic Problems Hypertension (Chronic) Hyperlipidemia (Chronic) GERD (gastroesophageal reflux disease) (Chronic) Hospital Course and Treatment Operations: None Summary of Care Provided: The patient is a 63 year old male s/p robotic prostatectomy, home today with powell - Physical Exam General: Alert, Oriented x3, Cooperative HEENT: Atraumatic, PERRLA, EOMI, Normocephalic Neck: Supple, No JVD, Negative Carotid Bruits Lungs: Clear to auscultation, Normal air movement Cardiovascular: Regular rate, No murmurs Abdomen: Bowel Sounds Present, Soft, Non Tender Extremities: No edema, Capillary Refill Less than 3 Seconds Skin: No rashes, No breakdown Musculoskeletal: No Tenderness to Palpation of Joints or Extremities Neurological: Cranial nerves II-XII grossly intact Psych/Mental Status: Normal Affect, Appropriate Vital Signs Temp Pulse Resp BP Pulse Ox 98.2 F 98 18 131/71 H 94 08/10/18 08:01 08/10/18 08:01 08/10/18 08:01 08/10/18 08:01 08/10/18 08:01 Oxygen Delivery Method Room Air Weight: 97.6 kg Body Mass Index (BMI) 28.3 Intake and Output for Last 24 Hours 08/08/18 08/09/18 08/10/18 23:59 23:59 23:59 Intake Total 4857 / 4857 4707 / 4707 3147 / 3147 Output Total 1890 / 1890 2100 / 2100 3000 / 3000 Balance 2967 / 2967 2607 / 2607 147 / 147 Discharge Diet: Light diet - advance as tolerated Discharge Activity: Return to Normal Activity Call your doctor if your incision/area has: Sudden Increased Bleeding Call your doctor if you observe: Fever of 101 or Higher Suture Line Care: Avoid Pulling/Pushing, Avoid Pinching/Bending Catheter: [place] to leg bag, [place] to large bag Drain: [place] Home Medications: Medications to take at Discharge Losartan/Hydrochlorothiazide [Losartan-Hctz 100-25 mg Tab] 1 tab PO DAILY 07/17/18 Mag-Ox 400 400 mg PO DAILY 07/17/18 Simvastatin [Zocor] 20 mg PO QHS 07/17/18 Multivitamins,Therapeutic [Multivitamin] 1 tablet PO DAILY 07/29/18 Omeprazole [Prilosec] 20 mg PO DAILY 07/29/18 Potassium Chloride [K-Dur] 20 meq PO DAILY 07/29/18 Tadalafil [Cialis] 20 mg PO DAILY PRN 07/29/18 Tamsulosin HCl [Flomax] 0.4 mg PO DAILY@1730 07/29/18 Ubidecarenone/Vit E Acet [Co Q-10 100 mg Softgel] 1 each PO DAILY 07/29/18 Ciprofloxacin [Cipro] 500 mg PO DAILY #14 tab 08/10/18 Docusate Sodium [Colace] 100 mg PO BID #20 cap 08/10/18 Hydrocodone/Acetaminophen [Hazel 5-325 Tablet] 1 ea PO Q4H PRN PRN 5 Days #20 tab 08/10/18 Following Prescrptions Were Given to Patient: Hydrocodone/Acetaminophen [Hazel 5-325 Tablet] 1 ea PO Q4H PRN PRN 5 Days #20 tab PRN Reason: Pain Ciprofloxacin [Cipro] 500 mg PO DAILY #14 tab Docusate Sodium [Colace] 100 mg PO BID #20 cap Primary Care Physician: Pk Caballero MD [Primary Care Provider] - Please Follow Up With: David Dunaway MD When: please call to make an appointment, 10 days to remove powell Medical Necessity - Tobacco Use Smoking Status: Never smoker Tobacco Use: Cigarettes Meaningful Use Info Meaningful Use Diagnoses (Choose all that apply): None applicable
[2018-08-10 12:21] VITALS: BP 118/78; PULSE 98; RESP 18; TEMP 36.8; O2SAT 96
== END 2018-08-10 12:38 | disposition home or self-care (01) ==
LOC: SDC 08:48 → MS3 14:36
PROVIDERS: Admitting Provider Urology; Family Provider Family Medicine; PCP Family Medicine; Referring Provider Urology; Visit Provider Urology
PROC: 0VT04ZZ Resection of Prostate, Percutaneous Endoscopic Approach (ICD-10-PCS; CPT 55867; principal; 2018-08-08 07:10)
DX: N40.1 Benign prostatic hyperplasia with lower urinary tract symptoms (principal); N13.8 Other obstructive and reflux uropathy; Z79.899 Other long term (current) drug therapy; K21.9 Gastro-esophageal reflux disease without esophagitis; E78.5 Hyperlipidemia, unspecified; I10 Essential (primary) hypertension
CPT/HCPCS: 00920; 55866; S2900; 36415; 80048; 80053; 85027; 86850; 86900; 86920; 86922; 88307; 88309; 93005; 96361; 96374; 96376; 99218; J7120; A4216; G0378; G0379; J2405

== ENCOUNTER → 2018-09-11 08:05 | Outpatient (CLI) | payer OTHER, SELFPAY ==
[2018-08-08 13:36] VITALS: BMI 28.3
[2018-09-11 10:33] LABS: Anion Gap 10 (5-15); BUN 16 mg/dL (7-18); BUN/Creat Ratio 13.8 RATIO (10-20); Calcium,Total 9.1 mg/dL (8.5-10.1); Chloride 104 mmol/L (98-107); Creatinine, Serum 1.16 mg/dL (0.70-1.30); EST Glomerular Filtration Rate 68 mL/min (>60); Est Glom Filt Rate - Afr Amer 82 mL/min (>60); Glucose 90 mg/dL (74-106); Potassium 4.1 mmol/L (3.5-5.1); Sodium Level 142 mmol/L (136-145)
== END ==
PROVIDERS: Family Provider Family Medicine; PCP Family Medicine; Visit Provider Family Medicine
DX: E87.6 Hypokalemia (principal)
CPT/HCPCS: 36415; 80048

== ENCOUNTER → 2019-03-18 07:39 | Outpatient (CLI) | payer OTHER, SELFPAY ==
[2018-08-08 13:36] VITALS: BMI 28.3
[2019-03-18 10:43] LABS: PSA,Total - Annual Screen 3.45 ng/mL (0.00-4.00)
== END ==
PROVIDERS: Family Provider Family Medicine; PCP Family Medicine; Referring Provider Urology; Visit Provider Urology
DX: Z12.5 Encounter for screening for malignant neoplasm of prostate (principal)
CPT/HCPCS: 36415; 84153; G0103

== ENCOUNTER → 2019-04-22 08:31 | Outpatient (CLI) | payer OTHER, SELFPAY ==
[2018-08-08 13:36] VITALS: BMI 28.3
[2019-04-22 10:40] LABS: Anion Gap 6 (5-15); BUN 16 mg/dL (7-18); BUN/Creat Ratio 13.6 RATIO (10-20); Chloride 107 mmol/L (98-107); Creatinine, Serum 1.18 mg/dL (0.70-1.30); EST Glomerular Filtration Rate 66 mL/min (>60); Est Glom Filt Rate - Afr Amer 80 mL/min (>60); Glucose 95 mg/dL (74-106); Potassium 4.4 mmol/L (3.5-5.1); Sodium Level 142 mmol/L (136-145)
== END ==
PROVIDERS: Family Provider Family Medicine; PCP Family Medicine; Referring Provider Family Medicine; Visit Provider Family Medicine
DX: I10 Essential (primary) hypertension (principal)
CPT/HCPCS: 36415; 80048

== ENCOUNTER → 2019-10-21 08:37 | Outpatient (CLI) | payer OTHER, SELFPAY ==
[2019-07-02 21:20] VITALS: BMI 28.3
[2019-10-21 10:16] LABS: Anion Gap 6 (5-15); BUN 25 mg/dL (7-18); BUN/Creat Ratio 20.8 RATIO (10-20); Calcium,Total 8.9 mg/dL (8.5-10.1); Chloride 107 mmol/L (98-107); EST Glomerular Filtration Rate 65 mL/min (>60); Est Glom Filt Rate - Afr Amer 79 mL/min (>60); Glucose 99 mg/dL (74-106); Potassium 4.3 mmol/L (3.5-5.1); Sodium Level 141 mmol/L (136-145)
== END ==
PROVIDERS: PCP Family Medicine; Referring Provider Family Medicine; Visit Provider Family Medicine
DX: I10 Essential (primary) hypertension (principal)
CPT/HCPCS: 36415; 80048

== ENCOUNTER 2020-04-17 20:28 | Inpatient (IN) | payer OTHER, SELFPAY ==
[2019-07-02 21:20] VITALS: BMI 28.3
[2020-04-17 20:29] VITALS: BP 158/97; PULSE 108; RESP 18; TEMP 36.9; O2SAT 99; BMI 30.1
--- NOTE | 2020-04-17 20:30 | ED.RN ---
CALLED FOR EKG PER DR REQUEST, PULLED OLD EKGS FOR
--- NOTE | 2020-04-17 20:44 | RAD_ITS ---
STUDY: X-RAY CHEST REASON FOR EXAM: Male, 65 years old. had CP after staining deck around 1900 this evening. some SOB and dizziness. TECHNIQUE: Frontal view of the chest COMPARISON: None. FINDINGS: The lungs are clear and expanded. There is no demonstrated pleural abnormality. Normal size heart. Normal mediastinum and ana. Normal visualized pulmonary arteries. Normal visualized aortic arch and descending thoracic aorta. Normal visualized thoracic spine. Normal visualized ribs, clavicles, and shoulders. There is no demonstrated abnormality of the visualized soft tissue structures of the upper abdomen. RAD/Chest 1 View (Portable) IMPRESSION: Normal x-ray examination of the chest. Electronically Signed: Bonifacio Ding, at 21:44 EDT Tel , Service support ,
--- NOTE | 2020-04-17 20:44 | EKG12_ITS ---
Test Reason : Blood Pressure : / mmHG Vent. Rate : 076 BPM Atrial Rate : 076 BPM P-R Int : 166 ms QRS Dur : 110 ms QT Int : 392 ms P-R-T Axes : 008 -12 141 degrees QTc Int : 441 ms Normal sinus rhythm Voltage criteria for left ventricular hypertrophy ST & T wave abnormality, consider anterolateral ischemia Abnormal ECG When compared with ECG of 18-APR-2020 00:15, MANUAL COMPARISON REQUIRED, DATA IS UNCONFIRMED Confirmed by FER THOMAS, OTONIEL ([id number]), newspaper photo editor АЛЕКСАНДР BARILLAS ([id number]) on 04/21/2020 11:04:37 AM Referred By: CHARMAINE Confirmed By:OTONIEL MONROE MD
[2020-04-17 21:01] LABS: Absolute Lymphocyte Count 1.24 X10^3/uL (0.83-4.51); Absolute Neutrophil Count 10.6 X10^3/uL (2.0-7.7); Basophil# 0.03 X10^3/uL; Basophil% 0.2 % (0-1); Eosinophil# 0.06 X10^3/uL; Eosinophils% 0.5 % (0-5); Hematocrit 45.2 % (40-54); Hemoglobin 15.4 g/dL (13.0-16.5); Lymphocyte # 1.24 X10^3/ul (4.0); Lymphocyte % 9.6 % (19-41); Mean Corp Hgb Conc 34.1 g/dL (32-36); Mean Corpuscular Hgb 30.6 pg (27.0-32.0); Mean Corpuscular Volume 89.9 fL (80-94); Monocyte# 0.85 X10^3/uL; Monocyte% 6.6 % (0-10); NRBC Flagged by Analyzer 0 % (0-5); Neutrophil # 10.63 X10^3/uL (2.7-7.7); Neutrophil % 82.7 % (47-70); Platelet Count 184 K/mm3 (150-450); RBC Distribution Width CV 12.3 % (11.6-14.6); Red Blood Count 5.03 M/mm3 (4.6-6.2); White Blood Count 12.9 K/mm3 (4.4-11.0)
[2020-04-17 21:04] LABS: Prothrombin Time (Protime)PT. 12.8 SECONDS (11.7-14.9)
[2020-04-17 21:05] LABS: Partial Thromboplast Time 30.3 Seconds (24.1-36.2)
[2020-04-17 21:12] LABS: D-Dimer Quantitative (DVT/PE) 2.27 FEU/ug/m (0.27-0.49)
[2020-04-17] MEDS: 0.9% Normal Saline 1,000 ML 1000 ML IV (21:13)
[2020-04-17 21:16] LABS: Anion Gap 7 (5-15); BUN 20 mg/dL (7-18); Calcium,Total 9.1 mg/dL (8.5-10.1); Chloride 108 mmol/L (98-107); Creatinine, Serum 1.25 mg/dL (0.70-1.30); EST Glomerular Filtration Rate 62 mL/min (>60); Est Glom Filt Rate - Afr Amer 75 mL/min (>60); Estimated Creatinine Clearance 67.47 ml/min; Glucose 163 mg/dL (74-106); Potassium 3.4 mmol/L (3.5-5.1); Sodium Level 140 mmol/L (136-145)
--- NOTE | 2020-04-17 21:24 | CT_ITS ---
STUDY: CTA CHEST REASON FOR EXAM: Male, 65 years old. Chest pain, shortness of breath dizziness elevated d-dimer RADIATION DOSAGE (If Supplied By Facility): CTDIvol = ( 12.15 ) mGy, DLP = ( 547.26 ) mGycm TECHNIQUE: The examination was performed with the intravenous administration of IV 100mL Isovue-370. Post-processing of the angiographic images was performed, with multiplanar reformation and 3D reconstruction. Individualized dose optimization techniques were used for this CT. COMPARISON: None. FINDINGS: Aorta is intact. Pulmonary artery is minimally evaluable with low contrast attenuation. Examination was performed in the aortic angiographic phase. Lungs are clear. There is no pneumothorax, pulmonary edema or pleural effusions. Mediastinal contents are normal. Coronary arteries are severely diseased. Osseous structures are intact. There are calcified gallstones. There are multiple hepatic cysts. CT/CTA Chest W/WO Contrast IMPRESSION: 1. Intact aorta. 2. Severe coronary artery disease. Electronically Signed: Bonifacio Ding, at 22:21 EDT Tel , Service support ,
[2020-04-17 21:31] VITALS: BP 111/71; PULSE 106; RESP 20; O2SAT 94
--- NOTE | 2020-04-17 22:35 | ED.VIS.GEN ---
History of Present Illness Chief Complaint: Chest Pain Informant: Patient Narrative: Patient was staining his deck and as he was finishing developed dyspnea and could not catch his breath despite rest. He also had a central chest discomfort. He states he was more sweaty than what he would anticipate. He had a stress test 2018 before prostate surgery which she states was fine. He frequents [employer] and last drove there about a month ago. No leg swelling or prior history of DVT PE. He denies any back or leg symptoms. Patient took 2 baby aspirin at home and was given tomorrow by EMS. Past Medical History - Allergies and Home Meds Allergies/Adverse Reactions: Allergies No Known Allergies Allergy (Verified 04/17/20 20:29) Surgical History: no surgical history Smoking Status: Never smoker - Family History Maternal Family History: Reports: No pertinent history Paternal Family History: Reports: Heart Disease Review of Systems General: Denies: Chills, Fever, Sweats Eyes: Denies: Visual changes - bilaterally, Diplopia ENT: Denies: Rhinorrhea, Sore throat Cardiovascular: Reports: Chest pain. Denies: Palpitations Respiratory: Reports: Dyspnea. Denies: Cough, Dyspnea on exertion Gastrointestinal: Denies: Abdominal pain, Nausea, Vomiting, Diarrhea, Melena, Hematochezia Genitourinary: Denies: Dysuria, Hematuria, Frequency Musculoskeletal: Denies: Back pain, Extremity Pain Skin: Denies: Rash, Wounds Neurological: Denies: Headache, Weakness, Numbness Physical Exam Vital Signs/Narrative: Vital Signs Temp Pulse Resp BP Pulse Ox 04/17/20 21:31 106 H 20 H 111/71 94 04/17/20 20:29 98.4 F 108 H 18 158/97 H 99 Inital Vital Signs reviewed: Yes General: Well nourished, Well developed, No Acute Distress Head: Normocephalic, Atraumatic Eyes: Perrl, EOMI ENT: Moist mucous membranes, No rhinorrhea Neck: Supple, Nontender Cardiovascular: Regular rate, Regular rhythm, No murmurs Respiratory: No distress, CTA bilaterally, Chest nontender Abdomen: Soft, Nontender, Nondistended, Normal bowel sounds Back: Nontender, Normal Inspection Extremities: Nontender, No edema Skin: Normal color, No rash Neurological: Alert, Oriented x3, Cranial nerves II-XII grossly intact, Normal Strength, Normal Sensation Psychological: Normal affect, Normal Mood Diagnostic/Tx/Re-eval Clinical Impression(s) from Imaging Studies Chest X-Ray 04/17/20 20:44 IMPRESSION: Normal x-ray examination of the chest. Electronically Signed: Bonifacio Landinjyothi, at 21:44 EDT Tel , Service support , Chest CTA 04/17/20 21:24 IMPRESSION: 1. Intact aorta. 2. Severe coronary artery disease. Electronically Signed: Bonifacio Toña, at 22:21 EDT Tel , Service support , Laboratory Last Values WBC 12.9 K/mm3 (4.4-11.0) H 04/17/20 20:46 RBC 5.03 M/mm3 (4.6-6.2) 04/17/20 20:46 Hgb 15.4 g/dL (13.0-16.5) 04/17/20 20:46 Hct 45.2 % (40-54) 04/17/20 20:46 MCV 89.9 fL (80-94) 04/17/20 20:46 MCH 30.6 pg (27.0-32.0) 04/17/20 20:46 MCHC 34.1 g/dL (32-36) 04/17/20 20:46 RDW Std Deviation 40.0 fl (35.1-43.9) 04/17/20 20:46 RDW Coeff of Pineda 12.3 % (11.6-14.6) 04/17/20 20:46 Plt Count 184 K/mm3 (150-450) 04/17/20 20:46 MPV 10.0 fl (6.2-12.0) 04/17/20 20:46 Immature Gran % (Auto) 0.400 % (0.0-0.9) 04/17/20 20:46 Neut % (Auto) 82.7 % (47-70) H 04/17/20 20:46 Lymph % (Auto) 9.6 % (19-41) L 04/17/20 20:46 [place] % (Auto) 6.6 % (0-10) 04/17/20 20:46 Eos % (Auto) 0.5 % (0-5) 04/17/20 20:46 Baso % (Auto) 0.2 % (0-1) 04/17/20 20:46 Absolute Neuts (auto) 10.6 X10^3/uL (2.0-7.7) H 04/17/20 20:46 Absolute Lymphs (auto) 1.24 X10^3/uL (0.83-4.51) 04/17/20 20:46 Nucleated RBC % 0 % (0-5) 04/17/20 20:46 PT 12.8 SECONDS (11.7-14.9) 04/17/20 20:46 INR 1.0 04/17/20 20:46 APTT 30.3 Seconds (24.1-36.2) 04/17/20 20:46 D-Dimer Quant (PE/DVT) 2.27 FEU/ug/m (0.27-0.49) H* 04/17/20 20:46 Sodium 140 mmol/L (136-145) 04/17/20 20:46 Potassium 3.4 mmol/L (3.5-5.1) L 04/17/20 20:46 Chloride 108 mmol/L (98-107) H 04/17/20 20:46 Carbon Dioxide 25.0 mmol/L (21.0-32.0) 04/17/20 20:46 Anion Gap 7 (5-15) 04/17/20 20:46 BUN 20 mg/dL (7-18) H 04/17/20 20:46 Creatinine 1.25 mg/dL (0.70-1.30) 04/17/20 20:46 Estim Creat Clear Calc 67.47 ml/min 04/17/20 20:46 Est GFR (MDRD) Af Amer 75 mL/min (>60) 04/17/20 20:46 Est GFR (MDRD) Non-Af 62 mL/min (>60) 04/17/20 20:46 BUN/Creatinine Ratio 16.0 RATIO (10-20) 04/17/20 20:46 Glucose 163 mg/dL (74-106) H 04/17/20 20:46 Calcium 9.1 mg/dL (8.5-10.1) 04/17/20 20:46 Magnesium 2.0 mg/dL (1.6-2.6) 04/17/20 20:46 Troponin I 0.041 ng/mL (<0.045) 04/17/20 20:46 - Rhythm Strip Rhythm Strip: Sinus Tach Rate: 109 - EKG Initial EKG Interpretation: Sinus Tachycardia - EKG demonstrates a sinus tachycardia at a rate of 109. There is no ectopy. - Medical Decision Making Prehospital EKG is a sinus tachycardia with some slight ST depression. His EKG here in the department is better. His troponin is still technically in the normal range. His d-dimer elevated and CTA was negative for PE or dissection. Radiology notes severely calcified coronary arteries on the CTA. Patient presents with exertional shortness of breath and chest pain with risk factors of hypertension hypercholesterolemia. I discussed with the patient and I am concerned for unstable angina and think it would be in his best interest to stay have his heart enzymes cycled. ED Disposition - Plan for ED Patient: Disposition: Acute Care [facility] Diagnosis: Chest pain
--- NOTE | 2020-04-17 22:41 | PCM.HP.STD ---
Problem List (1) Chest pain Status: Acute (2) Bladder mass Status: Acute (3) Hypokalemia Status: Acute (4) GERD (gastroesophageal reflux disease) Status: Chronic Qualifiers: Esophagitis presence: esophagitis presence not specified Qualified Code(s): K21.9 - Gastro-esophageal reflux disease without esophagitis (5) Hyperlipidemia Status: Chronic Qualifiers: Hyperlipidemia type: unspecified Qualified Code(s): E78.5 - Hyperlipidemia, unspecified (6) Hypertension Status: Chronic Qualifiers: Hypertension type: essential hypertension Qualified Code(s): I10 - Essential (primary) hypertension History of Present Illness Date of Admission: 04/17/20 Chief Complaint: Chest pain The patient is a 65 year old M with history of hypertension came to ED with chest pain and shortness of breath while he was working/rolling on the deck in the evening 1900 hrs. on the day of admission. He felt left-sided heaviness/tightness 1-2/10 intensity but shortness of breath was more pronounced. He felt like could not breathe with dizziness and dyspnea. Normally he does not have exercise limitation or anginal symptoms. Patient had a stress echo and echocardiogram in July 2018 prior to prostate surgery for BPH. Stress echo was reported normal with no evidence of ischemia at moderate workload. 2D echo EF 65% with stage I diastolic dysfunction. In ED, he was slight tachycardia, heart rate 100/min. Blood pressure 158/97, no tachypnea or hypoxia. Twelve-lead EKG shows sinus tach at 109 bpm, QTC [address]-T changes. No significant change compared to previous EKG of July 2018 at that time it was also sinus tachycardia 104 bpm. Significant abnormal labs are leukocytosis 13,000, neutrophil 82.7%. D-dimer 2.27, K3.4. Magnesium 2.0. First troponin negative. Patient had CTPA which did not show PE or thoracic aortic dissection but calcified coronary arteries, reportedly severe coronary artery disease. Past Medical History Past Medical History (Chronic Problems): Chronic Problems Hypertension (Chronic) Hyperlipidemia (Chronic) GERD (gastroesophageal reflux disease) (Chronic) Allergies No Known Allergies Allergy (Verified 04/17/20 20:29) Home Medications: Ambulatory Orders Medication Instructions Recorded Losartan/Hydrochlorothiazide 1 tab PO DAILY 07/17/18 [Losartan-Hctz 100-25 mg Tab] Simvastatin [Zocor] 20 mg PO QHS 07/17/18 Omeprazole [Prilosec] 20 mg PO DAILY 07/29/18 Magnesium Oxide [Magnesium] 400 mg PO DAILY 04/17/20 Multivitamins,Therapeutic 1 tab PO DAILY 04/17/20 [Multivitamin] Ubidecarenone [Coq-10] 100 mg PO DAILY 04/17/20 Surgical History: no surgical history Smoking Status: Never smoker - *Family History Maternal History Items: No pertinent history Paternal History Items: Heart Disease Review of Systems Constitutional: Denies: Chills, Fever, Weight Change HEENT: Denies: Head Aches, Sinus Congestion, Sinus Drainage Cardiovascular: Reports: Chest Pain, Chest Pressure. Denies: Palpitations Respiratory: Reports: Shortness of breath at rest. Denies: Cough, Sputum production Gastrointestinal: Denies: Abdominal Pain, Constipation, Diarrhea, Dyspepsia, Hematemesis, Hematochezia, Nausea, Melena, Vomiting Genitourinary: Denies: Dysuria, Frequency, Hematuria Musculoskeletal: Denies: Joint Pain, Joint Tenderness Skin: Denies: Rash, Wounds Neurological: Denies: Numbness, Tingling, Focal weakness Psychiatric: Denies: Anxiety, Depression, Homicidal Ideations, Suicidal Ideations Hematologic/ Lymphatic: Denies: Easy Bruising, Easy Bleeding VTE Information - Inpt Only VTE Present on Admission: No VTE Mechan Device Prophylaxis: None VTE Pharm Prophylaxis ordered?: Yes Patient Problems: Active and Suspected Problems Chest pain (Acute) - Physical Exam Vitals/I&O's: Vital Signs Temp Pulse Resp BP Pulse Ox 98.4 F 106 H 20 H 111/71 94 04/17/20 20:29 04/17/20 21:31 04/17/20 21:31 04/17/20 21:31 04/17/20 21:31 Oxygen Delivery Method Room Air Weight: 228 lb 6.382 oz Body Mass Index (BMI) 30.1 Intake and Output for Last 24 Hours 04/15/20 04/16/20 04/17/20 23:59 23:59 23:59 Intake Total 1000 / 1000 Balance 1000 / 1000 General: Alert, Oriented x3, Cooperative HEENT: Atraumatic, PERRLA, EOMI, Normocephalic Neck: Supple, No JVD, Negative Carotid Bruits Lungs: Clear to auscultation, Normal air movement Cardiovascular: Regular rate, Regular Rhythm, Normal S1, Normal S2, No murmurs Abdomen: Bowel Sounds Present, Soft, Non Tender, Non-Distended Extremities: No edema, Capillary Refill Less than 3 Seconds Skin: No rashes, No breakdown Musculoskeletal: No Tenderness to Palpation of Joints or Extremities Lymphatic: No Cervical, Supraclavicular, or Inguinal Adenopathy Neurological: Cranial nerves II-XII grossly intact, Deep Tendon Reflexes 2+/4 and Symmetrical, Neuro grossly intact, Motor Exam 5/5 strength throughout Psych/Mental Status: Normal Affect, Appropriate Laboratory Results 04/17/20 20:46: WBC 12.9 H, RBC 5.03, Hgb 15.4, Hct 45.2, MCV 89.9, MCH 30.6, MCHC 34.1, RDW Std Deviation 40.0, RDW Coeff of Pineda 12.3, Plt Count 184, MPV 10.0, Immature Gran % (Auto) 0.400, Neut % (Auto) 82.7 H, Lymph % (Auto) 9.6 L, [place] % (Auto) 6.6, Eos % (Auto) 0.5, Baso % (Auto) 0.2, Absolute Neuts (auto) 10.6 H, Absolute Lymphs (auto) 1.24, Nucleated RBC % 0 04/17/20 20:46: PT 12.8, INR 1.0, APTT 30.3, D-Dimer Quant (PE/DVT) 2.27 H* 04/17/20 20:46: Sodium 140, Potassium 3.4 L, Chloride 108 H, Carbon Dioxide 25.0, Anion Gap 7, BUN 20 H, Creatinine 1.25, Estim Creat Clear Calc 67.47, Est GFR (MDRD) Af Amer 75, Est GFR (MDRD) Non-Af 62, BUN/Creatinine Ratio 16.0, Glucose 163 H, Calcium 9.1, Magnesium 2.0, Troponin I 0.041 Assessment/Plan All Active Problems Bladder mass (Acute) Hypokalemia (Acute) Chest pain (Acute) The patient is a 65 year old M with history of hypertension came to ED with with chest pain or shortness of breath, symptoms concerning for unstable angina. Twelve-lead EKG shows sinus tach at 109 bpm, QTC [address]-T changes. No significant change compared to previous EKG of July 2018 at that time it was also sinus tachycardia 104 bpm. Significant abnormal labs are leukocytosis 13,000, neutrophil 82.7%. D-dimer 2.27, K3.4. Magnesium 2.0. First troponin negative. Patient had CTPA which did not show PE or thoracic aortic dissection but calcified coronary arteries, reportedly severe coronary artery disease. 1. Atypical chest pain with shortness of breath, high priority of unstable angina: Patient is being admitted in PCU. Serial troponin enzymes. Treadmill nuclear stress test if troponins are negative. If troponins are elevated, will consult cardiology. Fasting profile tomorrow a.m. 2. Mild chronic diastolic heart failure as per echo: 2D echo done in July 2018 reported as EF 65% with stage I diastolic dysfunction. Currently patient does not have leg edema or pulmonary edema. 3 Hypertension: Patient is on losartan?HCTZ 100-25 mg 1 tablet daily. Blood pressure is normal and medicine continued. Mild hypokalemia, potassium being replaced. Magnesium normal. Repeat BMP tomorrow a.m. 4. Mild sinus tachycardia, probably chronic as it is present previous EKG. Will hold beta-fredrick as patient most probably will go for stress test tomorrow a.m. 5.. BPH status post laparoscopic robotic assisted simple prostatectomy: Patient does not have lower in tract symptoms. 6.. Dyslipidemia: On simvastatin at home, changed to atorvastatin during hospital stay. VTE prophylaxis: Lovenox 40 mg subcu daily. Clinical Impression(s) from Imaging Studies Chest X-Ray 04/17/20 20:44 IMPRESSION: Normal x-ray examination of the chest. Chest CTA 04/17/20 21:24 IMPRESSION: 1. Intact aorta. 2. Severe coronary artery disease. Clinical Impression(s) from Imaging Studies Chest X-Ray 04/17/20 20:44 IMPRESSION: Normal x-ray examination of the chest. Chest CTA 04/17/20 21:24 IMPRESSION: 1. Intact aorta. 2. Severe coronary artery disease. OBSV E&M: [id number] Initial observation care L3
[2020-04-17 22:47] VITALS: BP 124/85; PULSE 101; RESP 16; TEMP 36.8; O2SAT 95
[2020-04-17 23:38] VITALS: BMI 29.5
[2020-04-17 23:47] VITALS: BMI 29.5
[2020-04-17 23:59] VITALS: BP 129/79; PULSE 93; RESP 16; TEMP 36.9; O2SAT 94
[2020-04-18] VITALS (27 sets, daily range): BP systolic 109–128; BP diastolic 68–85; PULSE 64–88; RESP 14–17; TEMP 36.6–36.9; O2SAT 95–98
--- NOTE | 2020-04-18 00:02 | EKG12_ITS ---
Test Reason : CP ADMISSION Blood Pressure : / mmHG Vent. Rate : 090 BPM Atrial Rate : 090 BPM P-R Int : 178 ms QRS Dur : 094 ms QT Int : 384 ms P-R-T Axes : 032 -11 135 degrees QTc Int : 469 ms Normal sinus rhythm Left ventricular hypertrophy with repolarization abnormality Abnormal ECG When compared with ECG of 29-JUL-2018 15:17, T wave inversion now evident in Anterior leads Confirmed by FER THOMAS, OTONIEL ([id number]), supervising film or videotape editor АЛЕКСАНДР BARILLAS ([id number]) on 04/21/2020 11:06:31 AM Referred By: GABRIELLE Confirmed By:OTONIEL MONROE MD
[2020-04-18] MEDS: 0.9% Normal Saline 1,000 ML 100 ML IV (00:35)
[2020-04-18] MEDS: Enoxaparin 40 MG/0.4 ML Syringe SC (00:35)
[2020-04-18] MEDS: TICAGRELOR 90 MG TABLET 180 MG PO (01:31)
[2020-04-18] MEDS: Metoprolol Tartrate 25 MG Tablet 12.5 MG PO ×2 (01:31→11:31)
[2020-04-18] MEDS: Nitroglycerin Oint 1 INCH PACKET TRANSDERM. ×2 (01:32→05:28)
[2020-04-18] MEDS: Heparin Injection (Vial) 5,000 UNIT/ML VIAL 7500 UNIT IV (01:38)
[2020-04-18 02:55] LABS: Absolute Lymphocyte Count 1.32 X10^3/uL (0.83-4.51); Basophil# 0.02 X10^3/uL; Basophil% 0.2 % (0-1); Eosinophil# 0.01 X10^3/uL; Eosinophils% 0.1 % (0-5); Hematocrit 42.9 % (40-54); Hemoglobin 14.7 g/dL (13.0-16.5); Lymphocyte # 1.32 X10^3/ul (4.0); Lymphocyte % 11.8 % (19-41); Mean Corp Hgb Conc 34.3 g/dL (32-36); Mean Corpuscular Hgb 30.9 pg (27.0-32.0); Mean Corpuscular Volume 90.3 fL (80-94); Mean Platelet Vol. 9.9 fl (6.2-12.0); Monocyte% 7.2 % (0-10); NRBC Flagged by Analyzer 0 % (0-5); Neutrophil # 9.01 X10^3/uL (2.7-7.7); Neutrophil % 80.5 % (47-70); Platelet Count 176 K/mm3 (150-450); RBC Distribution Width CV 12.2 % (11.6-14.6); Red Blood Count 4.75 M/mm3 (4.6-6.2); White Blood Count 11.2 K/mm3 (4.4-11.0)
[2020-04-18 03:44] LABS: Anion Gap 6 (5-15); BUN 17 mg/dL (7-18); BUN/Creat Ratio 15.9 RATIO (10-20); Calcium,Total 8.4 mg/dL (8.5-10.1); Chloride 107 mmol/L (98-107); Cholesterol 153 mg/dL (200); Creatinine, Serum 1.07 mg/dL (0.70-1.30); EST Glomerular Filtration Rate 74 mL/min (>60); Est Glom Filt Rate - Afr Amer 89 mL/min (>60); Estimated Creatinine Clearance 78.82 ml/min; Glucose 113 mg/dL (74-106); High Density Lipoprotein 37 mg/dL; Potassium 4.1 mmol/L (3.5-5.1); Sodium Level 138 mmol/L (136-145); Triglycerides 42 mg/dL; Very Low Density Lipoprotein 8 mg/dL (5-40)
--- NOTE | 2020-04-18 06:07 | NURSING ---
removed nitrobid and put heparin gtt on hold at this time
--- NOTE | 2020-04-18 07:38 | PCM.CONS.C ---
Problem List (1) NSTEMI (non-ST elevated myocardial infarction) Status: Acute (2) Hyperlipidemia Status: Chronic Qualifiers: Hyperlipidemia type: unspecified Qualified Code(s): E78.5 - Hyperlipidemia, unspecified (3) Hypertension Status: Chronic Qualifiers: Hypertension type: essential hypertension Qualified Code(s): I10 - Essential (primary) hypertension (4) GERD (gastroesophageal reflux disease) Status: Chronic Qualifiers: Esophagitis presence: esophagitis presence not specified Qualified Code(s): K21.9 - Gastro-esophageal reflux disease without esophagitis Reason for Consult Date of Consultation: 04/18/20 History of Present Illness: The patient is a 65 year oldgva-irhg-bnj white male with a past cardiovascular history which is included hyperlipidemia and hypertension who was referred for findings compatible with an acute non-ST segment elevation OH. To the best of his knowledge has no cardiovascular disease history. He notes yesterday evening after sustaining his patio/DAC he developed precordial and left axillary chest discomfort which radiated to the left upper extremity associated with shortness of breath/dyspnea and diaphoresis. He states he took aspirin and antacid therapy with no relief. He summoned the EMS system. He was given additional aspirin therapy. By the time he arrived at the hospital he states he felt better. He has had no recurrence of his discomfort since that time. He has denied similar discomforts in the past and has had no orthopnea or PND or peripheral pitting edema. There is been no history of palpitations, near-syncope, or syncope. Since he has been in the hospital his troponin I levels have turned positive and have trended upward and his ECG patterns have changed from sinus rhythm with T wave changes suggestive of inferior ischemia to sinus rhythm with T wave changes suggestive of anterolateral ischemia. He has undergone previous transthoracic echocardiogram and stress echocardiogram. The results are as noted below. During his hospitalization he also underwent a chest CT scan which demonstrated no great vessel disease but was reported as demonstrating severe coronary artery disease. The report is noted below. He has been treated medically with aspirin, antiplatelets, beta-blockers, and anticoagulant therapy in addition to his other medications. He has been recommended for cardiology consultation and cardiac catheterization. [] Past Medical History Allergies/Adverse Reactions: Allergies No Known Allergies Allergy (Verified 04/17/20 20:29) Home Medications: Ambulatory Orders Medication Instructions Recorded Losartan/Hydrochlorothiazide 1 tab PO DAILY 07/17/18 [Losartan-Hctz 100-25 mg Tab] Simvastatin [Zocor] 20 mg PO QHS 07/17/18 Omeprazole [Prilosec] 20 mg PO DAILY 07/29/18 Magnesium Oxide [Magnesium] 400 mg PO DAILY 04/17/20 Multivitamins,Therapeutic 1 tab PO DAILY 04/17/20 [Multivitamin] Ubidecarenone [Coq-10] 100 mg PO DAILY 04/17/20 Past Medical History (Chronic Problems): Chronic Problems Hypertension (Chronic) Hyperlipidemia (Chronic) GERD (gastroesophageal reflux disease) (Chronic) Surgical History: no surgical history - *Family History Maternal History Items: No pertinent history Paternal History Items: Heart Disease Lives: Spouse/ Significant Other Smoking Status: Never smoker Alcohol: None Drugs: None Subjectve: This is a 65-year-old white male appears to be resting comfortably at the moment in no acute distress. Objective: Vital Signs Temp Pulse Resp BP Pulse Ox 97.9 F 80 16 119/82 H 98 04/18/20 05:25 04/18/20 05:25 04/18/20 05:25 04/18/20 05:25 04/18/20 05:25 Oxygen Delivery Method Room Air Weight: 223 lb 5.252 oz Body Mass Index (BMI) 29.5 Intake and Output for Last 24 Hours 04/16/20 04/17/20 04/18/20 23:59 23:59 23:59 Intake Total 1000 / 1000 62.53 / 62.53 Output Total 0 / 0 Balance 1000 / 1000 62.53 / 62.53 General: Awake, Alert, Oriented x 3, Cooperative, No Acute Distress HEENT: Atraumatic, Normocephalic, PERRL, EOMI, Sclera Non Icteric Neck: Supple, Good ROM, No JVD Lungs: Clear to auscultation Cardiovascular: Regular Rhythm, Normal S1, Normal S2 Vascular: No Carotid Bruits Abdomen: Bowel Sounds Present, Soft, Non Tender Extremities: No Cyanosis, No Clubbing, No edema Neurological: No Focal Motor or Sensory Deficit Psych/Mental Status: Appropriate 04/17/20 20:46: WBC 12.9 H, RBC 5.03, Hgb 15.4, Hct 45.2, MCV 89.9, MCH 30.6, MCHC 34.1, Plt Count 184, MPV 10.0, Immature Gran % (Auto) 0.400, Neut % (Auto) 82.7 H, Lymph % (Auto) 9.6 L, [place] % (Auto) 6.6, Eos % (Auto) 0.5, Baso % (Auto) 0.2, Absolute Neuts (auto) 10.6 H, Nucleated RBC % 0 04/17/20 20:46: PT 12.8, INR 1.0, APTT 30.3, D-Dimer Quant (PE/DVT) 2.27 H* 04/17/20 20:46: Sodium 140, Potassium 3.4 L, Chloride 108 H, Carbon Dioxide 25.0, Anion Gap 7, BUN 20 H, Creatinine 1.25, Est GFR (MDRD) Af Amer 75, Est GFR (MDRD) Non-Af 62, BUN/Creatinine Ratio 16.0, Glucose 163 H, Calcium 9.1, Magnesium 2.0, Troponin I 0.041 04/18/20 00:20: Troponin I 1.540 H* 04/18/20 02:50: WBC 11.2 H, RBC 4.75, Hgb 14.7, Hct 42.9, MCV 90.3, MCH 30.9, MCHC 34.3, Plt Count 176, MPV 9.9, Immature Gran % (Auto) 0.200, Neut % (Auto) 80.5 H, Lymph % (Auto) 11.8 L, [place] % (Auto) 7.2, Eos % (Auto) 0.1, Baso % (Auto) 0.2, Absolute Neuts (auto) 9.0 H, Nucleated RBC % 0 04/18/20 02:50: Sodium 138, Potassium 4.1, Chloride 107, Carbon Dioxide 25.0, Anion Gap 6, BUN 17, Creatinine 1.07, Est GFR (MDRD) Af Amer 89, Est GFR (MDRD) Non-Af 74, BUN/Creatinine Ratio 15.9, Glucose 113 H, Calcium 8.4 L, Troponin I 3.750 H*, Triglycerides 42, Cholesterol 153, LDL Cholesterol 108, VLDL Cholesterol 8, HDL Cholesterol 37 L 04/18/20 06:22: Troponin I 6.460 H* Rhythm: Sinus rhythm EKG: As noted above ECHO: 07-31-18 Interpretation Summary The estimated ejection fraction is 65 %. Stage 1 diastolic dysfunction. Trivial tricuspid valve insufficiency. Right ventricular systolic pressure estimated to be 28 mmHg. There is no comparison study available. Stress Test: 08-04-18 Conclusion: Normal exercise stress echocardiographic images with no evidence of ischemia at a moderate workload. Good functional capacity Chest CT Scan: 04-17-2020 FINDINGS: Aorta is intact. Pulmonary artery is minimally evaluable with low contrast attenuation. Examination was performed in the aortic angiographic phase. Lungs are clear. There is no pneumothorax, pulmonary edema or pleural effusions. Mediastinal contents are normal. Coronary arteries are severely diseased. Osseous structures are intact. There are calcified gallstones. There are multiple hepatic cysts. CT/CTA Chest W/WO Contrast IMPRESSION: 1. Intact aorta. 2. Severe coronary artery disease. Assessment/Plan 1. Non-ST segment elevation OH The patient presents with findings compatible with an acute non-ST segment elevation OH. He is undergoing evaluation noninvasively described. He has been treated medically. He has been recommended for further evaluation with diagnostic cardiac catheterization. The procedure and risks have been discussed with him and he is agreeable to this approach. 2. Hyperlipidemia He will continue medical management. 3. Hypertension His blood pressure be monitored and he will continue medical therapy as needed. 4. GERD The patient states that he originally thought his symptoms may be as GERD. However they did not dissipate with antacid use. He will continue evaluation of his GERD as needed. Comment: The patient's case was discussed and reviewed with patient and Dr. Valencia. This note was generated using a voice recognition system and there may be incorrect words, spelling or punctuation that were not noted when reviewing the office note prior to saving. Procedure Criteria Procedure Type: Elective COVID Risk Discussion: The surgeon/proceduralist and patient have discussed in detail the risk of exposure to and/or potential harm posed by the COVID-19 virus with having a surgery/procedure at this time versus the risk of delaying the surgery/procedure. It is not possible to know either the risk of delaying the surgery or procedure or chance of getting an infection with perfect accuracy, but a joint decision was made between the patient and the surgeon/proceduralist to proceed at this time with the scheduled surgery/procedure as indicated on the consent form.
--- NOTE | 2020-04-18 07:57 | NURSING ---
Patient taken down to laboratory phlebotomist
--- NOTE | 2020-04-18 07:58 | NURSING ---
Report called to Osiris WHITE in [facility] laboratory director is on her way in
--- NOTE | 2020-04-18 08:11 | PCM.PN.HOSP ---
Patient Problems: Active and Suspected Problems (Last Updated 04/18/20 @ 12:13 by Noelle Yoder) Chest pain (Acute) NSTEMI (non-ST elevated myocardial infarction) (Acute) Reason for Visit: Follow-up on NSTEMI Subjective: Patient was seen and examined, he had a cardiac cath done today. Status post 2 stents to the LAD. Denies any chest pain or dizziness or palpitations. Objective: Physical exam: General: Alert, Oriented x3, Cooperative HEENT: Atraumatic, PERRLA, EOMI, Normocephalic Neck: Supple, No JVD, Negative Carotid Bruits Lungs: Clear to auscultation, Normal air movement Cardiovascular: Regular rate, Regular Rhythm, Normal S1, Normal S2, No murmurs Abdomen: Bowel Sounds Present, Soft, Non Tender, Non-Distended Extremities: No edema, Capillary Refill Less than 3 Seconds Skin: No rashes, No breakdown Musculoskeletal: No Tenderness to Palpation of Joints or Extremities Lymphatic: No Cervical, Supraclavicular, or Inguinal Adenopathy Neurological: Cranial nerves II-XII grossly intact, Deep Tendon Reflexes 2+/4 and Symmetrical, Neuro grossly intact, Motor Exam 5/5 strength throughout Psych/Mental Status: Normal Affect, Appropriate Vitals/I&O's: Vital Signs Temp Pulse Resp BP Pulse Ox 97.9 F 80 16 119/82 H 98 04/18/20 05:25 04/18/20 05:25 04/18/20 05:25 04/18/20 05:25 04/18/20 05:25 Oxygen Delivery Method Room Air Weight: 101.3 kg Body Mass Index (BMI) 29.5 Intake and Output for Last 24 Hours 04/16/20 04/17/20 04/18/20 23:59 23:59 23:59 Intake Total 1000 / 1000 62.53 / 62.53 Output Total 0 / 0 Balance 1000 / 1000 62.53 / 62.53 Laboratory Results 04/17/20 20:46: WBC 12.9 H, RBC 5.03, Hgb 15.4, Hct 45.2, MCV 89.9, MCH 30.6, MCHC 34.1, RDW Std Deviation 40.0, RDW Coeff of Pineda 12.3, Plt Count 184, MPV 10.0, Immature Gran % (Auto) 0.400, Neut % (Auto) 82.7 H, Lymph % (Auto) 9.6 L, [place] % (Auto) 6.6, Eos % (Auto) 0.5, Baso % (Auto) 0.2, Absolute Neuts (auto) 10.6 H, Absolute Lymphs (auto) 1.24, Nucleated RBC % 0 04/17/20 20:46: PT 12.8, INR 1.0, APTT 30.3, D-Dimer Quant (PE/DVT) 2.27 H* 04/17/20 20:46: Sodium 140, Potassium 3.4 L, Chloride 108 H, Carbon Dioxide 25.0, Anion Gap 7, BUN 20 H, Creatinine 1.25, Estim Creat Clear Calc 67.47, Est GFR (MDRD) Af Amer 75, Est GFR (MDRD) Non-Af 62, BUN/Creatinine Ratio 16.0, Glucose 163 H, Calcium 9.1, Magnesium 2.0, Troponin I 0.041 04/18/20 00:20: Troponin I 1.540 H* 04/18/20 02:50: WBC 11.2 H, RBC 4.75, Hgb 14.7, Hct 42.9, MCV 90.3, MCH 30.9, MCHC 34.3, RDW Std Deviation 40.0, RDW Coeff of [place]ined[place] 12.2, Plt Count 176, MPV 9.9, Immature Gran % (Auto) 0.200, Neut % (Auto) 80.5 H, Lymph % (Auto) 11.8 L, [place] % (Auto) 7.2, Eos % (Auto) 0.1, Baso % (Auto) 0.2, Absolute Neuts (auto) 9.0 H, Absolute Lymphs (auto) 1.32, Nucleated RBC % 0 04/18/20 02:50: Sodium 138, Potassium 4.1, Chloride 107, Carbon Dioxide 25.0, Anion Gap 6, BUN 17, Creatinine 1.07, Estim Creat Clear Calc 78.82, Est GFR (MDRD) Af Amer 89, Est GFR (MDRD) Non-Af 74, BUN/Creatinine Ratio 15.9, Glucose 113 H, Calcium 8.4 L, Troponin I 3.750 H*, Triglycerides 42, Cholesterol 153, LDL Cholesterol 108, VLDL Cholesterol 8, HDL Cholesterol 37 L 04/18/20 06:22: Troponin I 6.460 H* Current Medications Acetaminophen (Tylenol) 650 mg PO Q6H PRN PRN PRN Reason: Pain Score 1-10/Temp > 100.7 F Al Hydroxide/Mg Hydroxide (Mylanta Ii) 30 ml PO Q6H PRN PRN PRN Reason: Gastric Burning Albuterol Sulfate (Ventolin Aerosols) 2.5 mg INHALATION Q2H PRN PRN PRN Reason: SOB/Wheezing Aspirin (Ecotrin) 81 mg PO DAILY@0800 [facility] Atorvastatin Calcium (Lipitor) 40 mg PO QHS [facility] Heparin Sodium (Porcine) (Heparin Na) 0 unit IV UD PRN; Protocol PRN Reason: NOMOGRAM Hydrochlorothiazide (Hctz) 25 mg PO DAILY [facility] Sodium Chloride () 250 mls @ 15 mls/hr IV .[id number] PRN PRN Reason: Saline Flush Sodium Chloride () 250 mls @ 15 mls/hr IV .[id number] PRN PRN Reason: Additional IVPB Infusion Sodium Chloride () 1,000 mls @ 100 mls/hr IV .Q10H [facility] Stop: 04/18/20 10:01 Last Admin: 04/18/20 00:35 Dose: 100 mls/hr Documented by: Sodium Chloride () 1,000 mls @ 0 mls/hr IV .Q0M [facility] Losartan Potassium (Cozaar) 100 mg PO DAILY [facility] Magnesium Oxide (Mag-Ox 400) 400 mg PO DAILY [facility] Melatonin (Melatonin) 3 mg PO QHS PRN PRN PRN Reason: INSOMNIA Metoprolol Tartrate (Lopressor (Beta Tomas)) 12.5 mg PO BID [facility] Last Admin: 04/18/20 01:31 Dose: 12.5 mg Documented by: Morphine Sulfate () 2 mg IV Q3H PRN PRN PRN Reason: Pain Score 6-10/10 [facility]it[facility] ([facility]itamin) [facility] Nitroglycerin (Nitrobid) 1 inch TRANSDERM. Q6 [facility] Last Admin: 04/18/20 05:28 Dose: 1 inch Documented by: Oxycodone HCl (Oxyir) 5 mg PO Q4H PRN PRN PRN Reason: Pain Score 4-5/10 Pantoprazole Sodium (Protonix) 20 mg PO DAILY [facility] Prochlorperazine Edisylate (Compazine Iv) 5 mg IV Q4H PRN PRN PRN Reason: Breakthrough Nausea/Vomiting Senna/Docusate Sodium (Senokot-S, Claudette-Colace) 2 tablet PO BID PRN PRN PRN Reason: Constipation Sodium Chloride () 10 - 40 ml IV UD PRN PRN Reason: SALINE FLUSH Ticagrelor (Brilinta) 90 mg PO BID [facility] Vital Signs/Narrative: Vital Signs Temp Pulse Resp BP Pulse Ox 04/18/20 05:25 97.9 F 80 16 119/82 H 98 Medical Necessity - Tobacco Use Smoking Status: Never smoker Assessment/Plan All Active Problems (Last Updated 04/18/20 @ 12:13 by Noelle Yoder) Bladder mass (Acute) Hypokalemia (Acute) Chest pain (Acute) NSTEMI (non-ST elevated myocardial infarction) (Acute) 1. NSTEMI, status post cardiac cath, s/p 2 stents to LAD Continue on aspirin, statin, metoprolol, Ticagrelor 2. Hypokalemia, resolved 3. Hypertension, controlled, continue on hydrochlorothiazide, Losartan, metoprolol 4. Chronic diastolic CHF, EF 65%, stage I diastolic dysfunction, not in acute exacerbation 5. Hyperlipidemia, continue on statin 6. BPH status post para scopic robotic assisted simple prostatectomy 7. DVT prophylaxis on Lovenox subcu Inpatient E&M: 52903 Subs Hosp L2
--- NOTE | 2020-04-18 09:30 | EKG12_ITS ---
Test Reason : CP Blood Pressure : / mmHG Vent. Rate : 109 BPM Atrial Rate : 109 BPM P-R Int : 180 ms QRS Dur : 096 ms QT Int : 342 ms P-R-T Axes : 013 068 -57 degrees QTc Int : 460 ms Sinus tachycardia Septal infarct , age undetermined , cannot be excluded ST & T wave abnormality, consider inferior ischemia Abnormal ECG Confirmed by WILLIAN THOMAS, ASHISH (1991), mapping editor АЛЕКСАНДР BARILLAS ([id number]) on 04/21/2020 11:22:29 AM Referred By: REBEKAH/ESE Confirmed By:ASHISH DORSEY MD
--- NOTE | 2020-04-18 09:45 | CL.I_ITS ---
Patient Name: TOM HYLTON Study Date: 04/18/2020 Performing: Robert Najera MD Ht: 72.83 inches 185 cm : 1955 Wt: 222.67 lbs 101 kg Age: 65 Gender: male BSA: 2.25 PROCEDURE(S) PERFORMED QD31-OCT W OR WO PTCA, SINGLE CORONARY ARTERY CLINICAL PROFILE AND CO-MORBIDITIES Indications: ACS <= 24 hrs, Suspected CAD Heart Failure: None Stress/Imaging Stress/Image Study Performed: No Angina Classification Anginal Classification w/in 2 Weeks: CCS III CAD Presentations: Non-STEMI. CONCLUSIONS Successful PTCA/JENNIFER to mLAD RECOMMENDATIONS ASA Indefinisonia Romota for at least 12 months Follow up with primary electrical power station technician DESCRIPTION OF PROCEDURE The patient arrived to the procedure lab. The risks and benefits of the procedure as well as a full d escription of our services here and current unavailability of surgical backup were fully explained to the patient and/or their significant other prior to the catheterization. The Timeout was completed, verifying the correct patient and procedure. The patient's procedural site was prepped and draped in the usual fashion. Local anesthetic was given subcutaneously to right radial region with Lidocaine 2% Using a modified Seldinger technique,arterial access was obtained via the right radial artery, a 6Fr sheath was inserted. Right Coronary Artery selective angiography was then performed in multiple view s using a 5 Fr. 4.0 [place] catheter. Left Coronary Artery selective angiography was performed in multi ple views using a 5 Fr. JL3.5 catheter. Left Ventriculography was performed in PENG projection using a 5 Fr. Pigtail catheter. LV to AO pullback pressures were then recorded.The images were reviewed and options discussed. A decision was then made to proceed with an Intervention, IVUS or oth er adjunct procedure. XB 3.0 Guide catheter was inserted and engaged into the LCA. BMW Stryker Guide wire was advance d to the LAD. Euphora 3.0 x 12 Balloon catheter was inserted. Balloon catheter was advanced across le alvarez in the LAD, mid. PTCA balloon inflated at 8 atms for 10 secs. PTCA balloon inflated at 8 atms fo r 21 secs. Angiogram performed post balloon dilatation. Synergy 4.0 x 16 Drug Eluting stent was inser jeremi. Drug Eluting stent was advanced across the lesion in the LAD, mid. Angiogram performed post sten t deployment. Multiple views taken. Synergy 4.0 x 12 Drug Eluting stent was inserted. Drug Eluting st ent was advanced across the lesion in the LAD, mid. Angiogram performed post stent deployment. The arterial sheath was pulled and a TR Band was applied for hemostasis INTERVENTION INFORMATION LESION SITE: LAD (Mid) Lesion Complexity: High/C, chronic total occlusion: No, lesion at bifurcation: Yes, thrombus present: No, lesion length: 28 mm, culprit lesion: Yes, Previously treated lesion: No Pre Stenosis: 90 % Pre intervention RODNEY flow: 3 PROCEDURE: Drug Eluting Stent with pre dilatation. Post Stenosis: 0 % Post intervention RODNEY flow: 3 Lesion Devices: Cardinal 6 Fr XB3.0 100cm Guide Catheter Sanders .014 BMW Stryker Straight 190cm Medtronic SC EUPHORA RX 3.0x12 BALLOON Compa Sci Synergy MR JENNIFER 4.00x16 Compa Sci Synergy MR JENNIFER 4.00x12 COMPLICATIONS No Complications PROCEDURE MEDICATIONS Fentanyl 50 mcg IV Versed 1 mg IV Oxygen: 2 L/min via nasal cannula Baby Aspirin (81mg) 1 Tabs PO @ 04/18/2020 08:08:57 Heparin diluted in 23cc Heparinized saline. Patient given 10cc IA of this solution. 04/18/2020 08:30: 21 Heparin 6000 unit(s) IV 04/18/2020 08:56:40 Nitro 200 mcg IC 04/18/2020 09:12:52 Verapamil 2.5mg, Ntg 100mcgs, 2000 units of Heparin diluted in 23cc Heparinized saline. Patient give n 10cc IA of this solution. 04/18/2020 08:30:21 SUMMARY OF HEMODYNAMIC DATA Time AIR REST ECG 08:06:38 AO 113/85 (100) SA 08:33:11 LV 142/1, 30 08:45:37 LV 143/-1, 30 08:45:43 LV 136/10, 37 08:46:25 LV 135/4, 34 08:46:32 LVp 136/3, 33 08:46:37 AOp 132/78 (101) 08:46:42 Signed By Robert Najera MD On 04/18/2020 09:44:40 Robert Najera MD
[2020-04-18] MEDS: 0.9% Normal Saline 1,000 ML 60 ML IV (11:30)
[2020-04-18] MEDS: Multivitamins,Therapeutic Tablet 1 TABLET PO (11:30)
[2020-04-18] MEDS: Magnesium Oxide 400 MG Tablet PO (11:30)
[2020-04-18] MEDS: Pantoprazole Sodium 20 MG Tablet PO (11:31)
[2020-04-18] MEDS: Losartan Potassium 100 MG Tablet PO (11:37)
[2020-04-18] MEDS: hydroCHLOROthiazide 25 MG Tablet PO (11:37)
[2020-04-18] MEDS: Acetaminophen 325 MG Tablet 650 MG PO (12:17)
--- NOTE | 2020-04-18 13:50 | CRPHASE1 ---
Patient Communication PHII Cardiac Rehab Discussed with Patient:: Yes Guide to Cardiac Rehab Given to Patient:: Yes Cardiac Rehab Facility Choice List Given to Patient:: Yes Choice Program [facility] CR PHII:: Communication Given to CR Benefits Administrator:: Jorge Najera Phase II Cardiac Rehab:: Yes Sessions:: 36 sessions - 3 days/wk, 12 weeks Risk Factors/Lifestyle Smoking Status: Former smoker Hx Hypertension: Yes Hx Diabetes Mellitus Type 1: No Hx Diabetes Mellitus Type 2: No Hx Dyslipidemia: Yes Hx Obesity: No Laboratory Values: Cardiac Rehab Phase I Labs Triglycerides 42 mg/dL (-199) 04/18/20 02:50 Cholesterol 153 mg/dL (200) 04/18/20 02:50 LDL Cholesterol 108 mg/dL (0-130) 04/18/20 02:50 HDL Cholesterol 37 mg/dL (40-) L 04/18/20 02:50 Cardiac Rehabilitation Info Cardiac Rehabilitation Program Information: Cardiac Rehabilitation is important for patients like you who are recovering from a heart problem. Cardiac rehabilitation programs are recognized as integral to the continued care of the patient with coronary heart disease. The cardiac rehabilitation program is designed to optimize a patient's physical, psychological, and social functioning. Health caregivers homecare work in cardiac rehabilitation programs and assist you with getting the treatments you need to get stronger and healthier - like exercise, healthy eating habits, and medications. Cardiac rehabilitation has been show to help people with heart problems live longer and have better life enjoyment than people who do not go to cardiac rehabilitation. Please contact the Cardiac Rehabilitation Program at [facility] at in two weeks if you have not heard from them.
--- NOTE | 2020-04-18 13:53 | CRPH1.INSTRU ---
General Education CAD and cardiac anatomy and function:: Patient communicates acknowledgment Explanation of diagnoses and procedures:: Patient communicates acknowledgment Sign/Symptoms of NC:: Patient communicates acknowledgment Antiplatelet therapy: Patient communicates acknowledgment Proper use of NTG-SL: Patient communicates acknowledgment Emergency procedures and activation of EMS: Patient communicates acknowledgment Compliance of all prescribed medications: Patient communicates acknowledgment Smoking Recommendations Include:: Previous smoker; encourage continued cessation Nicotine/Smoking Response Code:: Patient communicates acknowledgment Dyslipidemia Patient Dyslipidemia Risk Factors Are:: Total Cholesterol, Triglycerides, HDL, LDL Recommendations Include:: Lipid profile provided, Reviewed NCEP/ATP guidelines, Therapeutic Lifestyle Change dietary guidelines Dyslipidemia Response Code:: Patient communicates acknowledgment Overweight/Obesity Patient Overweight/Obesity Risk Factors Are:: Overweight = 26-29 Recommendations Include:: Weight loss of 5-10%, Reduced calorie diet, Exercise 5-7 times/week Overweight/Obesity:: Patient communicates acknowledgment Hypertension Recommendations Include:: Maintain BP <130/85, DASH dietary guidelines, Decrease/maintain normal body weight, Moderation of ETOH Hypertension:: Patient communicates acknowledgment Sedentary Patient Sedentary Risk Factors Are:: Lack of regular exercise Recommendations Include:: Aerobic exercise 5-7 times/week for 20-30 minutes continuously, Benefits of regular exercise, Discussed home walking program, Monitored Outpatient Cardiac Rehab Sedentary Response Code:: Patient communicates acknowledgment Stress Patient Stress Risk Factors Are:: Patient denies stress as a risk factor
[2020-04-18] MEDS: TICAGRELOR 90 MG TABLET PO (15:58)
--- NOTE | 2020-04-18 17:19 | CL.D_ITS ---
Patient Name: TOM HYLTON Study Date: 04/18/2020 Performing: Pk Villela MD Ht: 73 inches 185 cm : 1955 Wt: 223 lbs 101 kg Age: 65 Gender: male BSA: 2.25 PROCEDURE(S) PERFORMED FQ84-LVB/COR/LV BV15-LUP W OR WO PTCA, SINGLE CORONARY ARTERY CLINICAL PROFILE AND INDICATIONS Indications: ACS <= 24 hrs, Suspected CAD Heart Failure: None Stress/Imaging Stress/Image Study Performed: No Angina Classification Anginal Classification w/in 2 Weeks: CCS III CAD Presentations: Non-STEMI. CONCLUSIONS Elevated Left Ventricular End Diastolic Pressure Normal LV size, wall motion,and systolic function LVEF: by LV gram 60 % [place] Multivessel CAD Left to right collateral flow RECOMMENDATIONS Risk factor modification Medical therapy Referred for immediate PCI DESCRIPTION OF PROCEDURE The patient arrived to the procedure lab. The risks and benefits of the procedure as well as a full d escription of our services here and current unavailability of surgical backup were fully explained to the patient and/or their significant other prior to the catheterization. The Timeout was completed, verifying the correct patient and procedure. The patient's procedural site was prepped and draped in the usual fashion. Local anesthetic was given subcutaneously to right radial region with Lidocaine 2% . Using a modified Seldinger technique, arterial access was obtained via the right radial artery, a 6 Fr sheath was inserted. Right Coronary Artery selective angiography was then performed in multiple v iews using a 5 Fr. 4.0 [place] catheter. Left Coronary Artery selective angiography was performed in mu ltiple views using a 5 Fr. JL3.5 catheter. Left Ventriculography was performed in PENG projection usin g a 5 Fr. [place] catheter. LV to AO pullback pressures were then recorded.The arterial sheath was pulled and a TR Band was applied for hemostasis CORONARY ANGIOGRAPHY DOMINANCE: Right Dominant LEFT HEART ASSESSMENT Left Ventricular Ejection Fraction: by LV Gram 60 % Normal LV wall motion Elevated Left Ventricular End Diastolic Pressure LVEDP: 30 mmHg LEFT MAIN: large bifurcating vessel with no angiographically significant appearing disease LEFT ANTERIOR DESCENDING ARTERY: PROX LAD: Severe calcification, Mild luminal irregularities MID LAD: 90 % Stenosis CIRCUMFLEX ARTERY: PROX CIRC: eccentric: hazy: 25 - 50 % Stenosis OM 1: Proximal - eccentric: hazy: 25 - 50 % Stenosis RIGHT CORONARY ARTERY: MID RCA: is occluded DISTAL RCA: filling from left to right collateral flow COLLATERAL FLOW: Collateral flow from Left to Right AORTIC ROOT: Angiographically normal COMPLICATIONS No Complications PROCEDURE MEDICATIONS Fentanyl 50 mcg IV Versed 1 mg IV Oxygen: 2 L/min via nasal cannula Baby Aspirin (81mg) 1 Tabs PO @ 04/18/2020 08:08:57 Heparin diluted in 23cc Heparinized saline. Patient given 10cc IA of this solution. 04/18/2020 08:30: 21 Heparin 6000 unit(s) IV 04/18/2020 08:56:40 Nitro 200 mcg IC 04/18/2020 09:12:52 Verapamil 2.5mg, Ntg 100mcgs, 2000 units of Heparin diluted in 23cc Heparinized saline. Patient give n 10cc IA of this solution. 04/18/2020 08:30:21 SUMMARY OF HEMODYNAMIC DATA Time AIR REST ECG 08:06:38 AO 113/85 (100) SA 08:33:11 LV 142/1, 30 08:45:37 LV 143/-1, 30 08:45:43 LV 136/10, 37 08:46:25 LV 135/4, 34 08:46:32 LVp 136/3, 33 08:46:37 AOp 132/78 (101) 08:46:42 Signed By Pk Villela MD On 04/18/2020 17:19:09 Pk Villela MD
--- NOTE | 2020-04-18 17:58 | ECHOCS_ITS ---
Reason For Study: S/P AR Procedure This was a 2D Doppler, Color Flow transthoracic echocardiogram. The study was technically difficult. Contrast injection was performed. Exam performed portable in patient room. Left Ventricle Normal LV size. Segmental dysfunction with preserved ejection fraction (see wall motion). The estimated ejection fraction is 65 %. Diastolic function is indeterminate. Mid-Anterior : Hypokinetic. Anterior [place] : Hypokinetic. Right Ventricle Normal RV size. Normal systolic function. Atria Normal left atrium. Normal right atrium. No doppler evidence for ASD. Mitral Valve There is no mitral annular calcification. Mild diffuse mitral valve thickening. Mild (1+) mitral valve insufficiency. Tricuspid Valve Normal tricuspid valve. Trivial tricuspid valve insufficiency. Right ventricular systolic pressure estimated to be 25 mmHg. Aortic Valve Trisinus/trileaflet aortic valve. Mild focal aortic valve calcification. Pulmonic Valve The pulmonic valve is not well visualized. Great Vessels Normal sized aortic root. Pericardium/Pleural No pericardial effusion. Medication Diluted definity 3.0ml given slow IV push to enhance endocardial definition. MMode/2D Measurements & Calculations LVIDd: 4.5 cm IVSd: 1.1 cm Ao root diam: 3.7 cm LVIDs: 3.2 cm LVPWd: 0.89 cm RVDd: 3.3 cm FS: 30.3 % LAV(MOD-bp): 61.4 ml LVAd ap4: 27.0 cm2 SV(MOD-sp4): 50.5 ml LAV(MOD-bp) Indexed: 26.7 ml/m2 EDV(MOD-sp4): 68.7 ml LAV(MOD-sp2): 67.9 ml EDV(sp4-el): 71.8 ml LAV(MOD-sp4): 51.2 ml LVAs ap4: 11.4 cm2 ESV(MOD-sp4): 18.2 ml ESV(sp4-el): 18.1 ml EF(MOD-sp4): 73.5 % EF(sp4-el): 74.8 % SV(sp4-el): 53.7 ml LA A4 area: 19.3 cm2 LA dimension(2D): 4.0 cm RA A4 area: 13.6 cm2 Time Measurements MV dec time: 0.23 sec Doppler Measurements & Calculations MV E max esdras: 105.5 cm/sec Lat Peak E' Esdras: 9.1 cm/sec Med Peak E' Esdras: 5.2 cm/sec MV A max esdras: 85.4 cm/sec E/E' lat: 11.6 E/E' med: 20.2 MV E/A: 1.2 Ao V2 max: 113.0 cm/sec LV V1 max: 91.5 cm/sec PA V2 max: 77.8 cm/sec Ao max P.1 mmHg LV V1 max P.3 mmHg TR max esdras: 233.8 cm/sec TR max P.9 mmHg Interpretation Summary The study was technically difficult. Contrast injection was performed. Segmental dysfunction with preserved ejection fraction (see wall motion). The estimated ejection fraction is 65 %. Mild diffuse mitral valve thickening. Mild (1+) mitral valve insufficiency. Trivial tricuspid valve insufficiency. Mild focal aortic valve calcification. Right ventricular systolic pressure estimated to be 25 mmHg. Diastolic function is indeterminate. Ordering Physician: Pk Villela Referring Physician: PK WHITAKER Performed By: Olivia Calderon, RDCS, RVT
[2020-04-18] MEDS: Atorvastatin Calcium 40 MG Tablet PO (21:41)
[2020-04-18] MEDS: Metoprolol Tartrate 25 MG Tablet PO (21:41)
[2020-04-19 02:55] VITALS: PULSE 69
[2020-04-19 03:40] VITALS: BP 123/80; PULSE 73; RESP 12; TEMP 36.9; O2SAT 100
[2020-04-19 05:55] LABS: Hematocrit 44.5 % (40-54); Hemoglobin 15.2 g/dL (13.0-16.5); Mean Corp Hgb Conc 34.2 g/dL (32-36); Mean Corpuscular Hgb 30.8 pg (27.0-32.0); Mean Corpuscular Volume 90.3 fL (80-94); Mean Platelet Vol. 9.9 fl (6.2-12.0); Platelet Count 172 K/mm3 (150-450); RBC Distribution Width CV 12.6 % (11.6-14.6); RBC Distribution Width SD 41.4 fl (35.1-43.9); Red Blood Count 4.93 M/mm3 (4.6-6.2); White Blood Count 8.7 K/mm3 (4.4-11.0)
[2020-04-19 06:32] LABS: ALB/GLOB Ratio 1.3 RATIO (0.9-2.4); AST(SGOT) 25 U/L (15-37); Alanine Aminotransfer ALT/SGPT 29 U/L (16-61); Albumin, Serum 3.7 g/dL (3.2-5.0); Alkaline Phosphatase 57 U/L (45-117); Anion Gap 7 (5-15); BUN 13 mg/dL (7-18); BUN/Creat Ratio 12.3 RATIO (10-20); Calcium,Total 8.5 mg/dL (8.5-10.1); Chloride 106 mmol/L (98-107); Creatinine, Serum 1.06 mg/dL (0.70-1.30); EST Glomerular Filtration Rate 75 mL/min (>60); Est Glom Filt Rate - Afr Amer 90 mL/min (>60); Estimated Creatinine Clearance 79.56 ml/min; Globulin 2.8 g/dL (2.2-4.2); Glucose 98 mg/dL (74-106); Potassium 3.9 mmol/L (3.5-5.1); Protein, Total 6.5 g/dL (6.4-8.2); Sodium Level 138 mmol/L (136-145)
[2020-04-19 07:00] VITALS: PULSE 73
[2020-04-19 08:26] VITALS: BP 115/81; PULSE 81; RESP 16; TEMP 36.7; O2SAT 99
[2020-04-19] MEDS: TICAGRELOR 90 MG TABLET PO (08:36)
[2020-04-19 08:37] VITALS: PULSE 81
[2020-04-19] MEDS: Metoprolol Tartrate 25 MG Tablet PO (08:37)
[2020-04-19] MEDS: Aspirin E.C. 81 MG Tablet PO (08:37)
[2020-04-19] MEDS: Pantoprazole Sodium 20 MG Tablet PO (08:37)
[2020-04-19] MEDS: Multivitamins,Therapeutic Tablet 1 TABLET PO (08:37)
[2020-04-19] MEDS: Losartan Potassium 100 MG Tablet PO (08:37)
[2020-04-19] MEDS: hydroCHLOROthiazide 25 MG Tablet PO (08:37)
[2020-04-19] MEDS: Magnesium Oxide 400 MG Tablet PO (08:38)
--- NOTE | 2020-04-19 09:22 | PCM.PN.CARD ---
Subjectve: The patient is awake and alert. He has been up in the chair and up and ambulating. He denies any worsening chest discomfort. There is been no acute shortness of breath/dyspnea. He states overall he feels better now than when he presented to the hospital. Objective: Vital Signs Temp Pulse Resp BP Pulse Ox 98.0 F 81 16 115/81 H 99 04/19/20 08:26 04/19/20 08:37 04/19/20 08:26 04/19/20 08:26 04/19/20 08:26 Oxygen Delivery Method Room Air Weight: 223 lb 5.252 oz Body Mass Index (BMI) 29.5 Intake and Output for Last 24 Hours 04/17/20 04/18/20 04/19/20 23:59 23:59 23:59 Intake Total 1000 / 1000 2910.53 / 2910.53 240 / 240 Output Total 0 / 0 Balance 1000 / 1000 2910.53 / 2910.53 240 / 240 General: Awake, Alert, Oriented x 3, Cooperative, No Acute Distress HEENT: Atraumatic, Normocephalic, PERRL, EOMI, Sclera Non Icteric Neck: No JVD Lungs: Clear to auscultation Cardiovascular: Regular Rhythm, Normal S1, Normal S2 Vascular: Normal Radial Pulses Abdomen: Bowel Sounds Present, Soft Extremities: No edema Neurological: No Focal Motor or Sensory Deficit Psych/Mental Status: Appropriate 04/19/20 05:16: WBC 8.7, RBC 4.93, Hgb 15.2, Hct 44.5, MCV 90.3, MCH 30.8, MCHC 34.2, Plt Count 172, MPV 9.9 04/19/20 05:16: Sodium 138, Potassium 3.9, Chloride 106, Carbon Dioxide 25.0, Anion Gap 7, BUN 13, Creatinine 1.06, Est GFR (MDRD) Af Amer 90, Est GFR (MDRD) Non-Af 75, BUN/Creatinine Ratio 12.3, Glucose 98, Calcium 8.5, Total Bilirubin 0.70, Troponin I 2.650 H* Rhythm: Sinus rhythm; ventricular triplet ECHO: Pending Medical Necessity - Tobacco Use Smoking Status: Former smoker Assessment/Plan 1. Non-ST segment elevation NM The patient presents with findings compatible with an acute non-ST segment elevation NM. He has undergone medical management. He is undergone diagnostic cardiac catheterization and subsequent PCI. He is pending echocardiogram evaluation of his left ventricular wall motion systolic function. 2. Hyperlipidemia He will continue medical management. 3. Hypertension His blood pressure be monitored and he will continue medical therapy as needed. 4. GERD The patient states that he originally thought his symptoms may be as GERD. However they did not dissipate with antacid use. He will continue evaluation of his GERD as needed. Overall, at the present time, the patient does appear to be symptomatically improved. He will continue medical management. He will complete his echocardiogram. Depending upon his clinical course, findings, etc. consideration can be given as to when the patient will be able to be released home for continued outpatient follow-up and outpatient cardiac rehabilitation. This note was generated using a voice recognition system and there may be incorrect words, spelling or punctuation that were not noted when reviewing the office note prior to saving.
--- NOTE | 2020-04-19 10:00 | EKG12_ITS ---
Test Reason : AM EKG Blood Pressure : / mmHG Vent. Rate : 072 BPM Atrial Rate : 072 BPM P-R Int : 176 ms QRS Dur : 090 ms QT Int : 412 ms P-R-T Axes : 021 -14 150 degrees QTc Int : 451 ms Normal sinus rhythm Voltage criteria for left ventricular hypertrophy T wave abnormality, consider anterolateral ischemia Abnormal ECG When compared with ECG of 18-APR-2020 09:47, MANUAL COMPARISON REQUIRED, DATA IS UNCONFIRMED Confirmed by CHARMAINE THOMAS, MARJAN ([id number]), mapping editor АЛЕКСАНДР BARILLAS ([id number]) on 04/29/2020 1:32:12 PM Referred By: DR ANTHONY Confirmed By:YAIR MONTANO MD
--- NOTE | 2020-04-19 11:13 | DCINST_ITS ---
- Discharge Diagnoses Current Active Problems: Current Active and Chronic Problems (Last Updated 04/18/20 @ 12:13 by Noelle Yoder) Presence of stent in coronary artery (Chronic ~04/18/20) Successful PTCA/JENNIFER to mLAD 04/18/20 Atherosclerotic heart disease of [place] coronary artery without angina pectoris (Chronic) Chest pain (Acute) NSTEMI (non-ST elevated myocardial infarction) (Acute) Reason(s) for Visit for Discharge Instructions: Chest pain You will use the following diet at home:: Cardiac Your food should be the consistency of: Regular Your liquids should be the consistency of: Regular/Thin Discharge Activity: Return to Normal Activity Instructions: Coronary Stents, Lifestyle Management After Percutaneous Coronary Intervention (PCI) Additional Instructions: Take note of changes to your medications. Continue on a low-salt low-fat diet. Follow-up with cardiology as scheduled. Follow-up with your primary doctor within 2 weeks. Allergies/Adverse Reactions: Allergies No Known Allergies Allergy (Verified 04/17/20 20:29) Medications to take at Discharge Losartan/Hydrochlorothiazide [Losartan-Hctz 100-25 mg Tab] 1 tab PO DAILY 07/17/18 Omeprazole [Prilosec] 20 mg PO DAILY 07/29/18 Magnesium Oxide [Magnesium] 400 mg PO DAILY 04/17/20 Multivitamins,Therapeutic [Multivitamin] 1 tab PO DAILY 04/17/20 Ubidecarenone [Coq-10] 100 mg PO DAILY 04/17/20 Aspirin E.C. [Ecotrin] 81 mg PO DAILY@0800 30 Days #30 tab 04/19/20 Atorvastatin Calcium [Lipitor] 40 mg PO QHS 30 Days #30 tab 04/19/20 Metoprolol Tartrate [Lopressor (beta fredrick)] 25 mg PO BID 30 Days #60 tab 04/19/20 Ticagrelor [Brilinta] 90 mg PO BID 30 Days #60 tab 04/19/20 The following prescriptions were given: Ticagrelor [Brilinta] 90 mg PO BID 30 Days #60 tab Transmission Status: Pending to [facility] Aspirin E.C. [Ecotrin] 81 mg PO DAILY@0800 30 Days #30 tab Transmission Status: Sent to [facility] Atorvastatin Calcium [Lipitor] 40 mg PO QHS 30 Days #30 tab Transmission Status: Sent to [facility] Metoprolol Tartrate [Lopressor (beta fredrick)] 25 mg PO BID 30 Days #60 tab Transmission Status: Pending to [facility] Orders to be completed after discharge: Phase II, Outpatient Cardiac Rehab Location: None Selected Primary Care Physician: Pk Caballero MD [Primary Care Provider] - Please follow up with your Primary Care Physician in: within 2 weeks Test Results: Test results from this visit will be discussed in further detail at your follow- up appointment, if applicable. Please Follow Up With: Pk Villela MD When: as scheduled as well as cardiac rehab Proposed Discharge Date: 04/19/20
--- NOTE | 2020-04-19 11:15 | PCM.DC.SUM ---
Discharge Date and Diagnosis Date of Admission: 04/17/20 Date of Discharge: 04/19/20 - Primary Discharge Diagnosis Acute Problems: Active Problems (Last Updated 04/18/20 @ 12:13 by Noelle Yoder) NSTEMI (non-ST elevated myocardial infarction) (Acute) Hypokalemia - Secondary Discharge Diagnosis Chronic Problems: Chronic Problems (Last Updated 04/18/20 @ 12:13 by Noelle Yoder) Presence of stent in coronary artery (Chronic ~04/18/20) Successful PTCA/JENNIFER to mLAD 04/18/20 Atherosclerotic heart disease of [place] coronary artery without angina pectoris (Chronic) Hypertension (Chronic) Hyperlipidemia (Chronic) GERD (gastroesophageal reflux disease) (Chronic) Hospital Course and Treatment Imaging Results: Clinical Impression(s) from Imaging Studies Chest X-Ray 04/17/20 20:44 IMPRESSION: Normal x-ray examination of the chest. Electronically Signed: Bonifacio Ding, at 21:44 EDT Tel , Service support , Chest CTA 04/17/20 21:24 IMPRESSION: 1. Intact aorta. 2. Severe coronary artery disease. Electronically Signed: Bonifacio Ding, at 22:21 EDT Tel , Service support , Cardiology Operations: None Procedures: 2-D Echocardiogram, Cardiac catheterization - 04/18/20 Summary of Care Provided: The patient is a 65 year old M with PMHx of hypertension, hyperlipidemia, GERD who comes in with chest pain and shortness of breath was working on his deck on the day of admission. He had described the chest pain as left-sided, with pronounced shortness of breath and dizziness. Patient denies any history of heart problems. His work-up in the emergency department showed elevated blood pressure 158/97. There was no acute ST-T changes. He has sinus tachycardia. His D-dimer was elevated at 2.27. He had leukocytosis. His potassium was 3.4. Magnesium was 2.0. CTA of the chest was negative for acute PE. It however showed severe coronary artery disease. His initial troponin was 0.041, and later peaked at 6.46. Patient was admitted to the telemetry floor. Cardiology was consulted. Patient was started on IV heparin, aspirin, Brilinta, statin. He underwent cardiac catheterization on 04/18/20 with findings of severe calcification of proximal LAD, mid LAD 90% stenosis, proximal circumflex 2550% stenosis, obtuse marginal proximal 25 to 50%. Mid RCA was occluded. Distal RCA had filling from [id number] collateral flow. He subsequently underwent PCI with balloon dilatation with 2 stents placed across the LAD. Postprocedure, patient continued to do well. He had 2D echo that showed EF of 65%, hypokinetic anterior apex and mid anterior he will follow-up with the cardiology team and with cardiac rehab as scheduled. Subjective: On the day of discharge, patient was seen and examined. Denied any new complains. No acute events. Objective: Physical exam: General: Alert, Oriented x3, Cooperative HEENT: Atraumatic, PERRLA, EOMI, Normocephalic Neck: Supple, No JVD, Negative Carotid Bruits Lungs: Clear to auscultation, Normal air movement Cardiovascular: Regular rate, Regular Rhythm, Normal S1, Normal S2, No murmurs Abdomen: Bowel Sounds Present, Soft, Non Tender, Non-Distended Extremities: No edema, Capillary Refill Less than 3 Seconds,. dressing over right radial artery region, intact, soft, no hematoma Skin: No rashes, No breakdown Musculoskeletal: No Tenderness to Palpation of Joints or Extremities Lymphatic: No Cervical, Supraclavicular, or Inguinal Adenopathy Neurological: Cranial nerves II-XII grossly intact, Deep Tendon Reflexes 2+/4 and Symmetrical, Neuro grossly intact, Motor Exam 5/5 strength throughout Psych/Mental Status: Normal Affect, Appropriate - Physical Exam Vitals/I&O's: Vital Signs Temp Pulse Resp BP Pulse Ox 98.0 F 81 16 115/81 H 99 04/19/20 08:26 04/19/20 08:37 04/19/20 08:26 04/19/20 08:26 04/19/20 08:26 Oxygen Delivery Method Room Air Weight: 101.3 kg Body Mass Index (BMI) 29.5 Intake and Output for Last 24 Hours 04/17/20 04/18/20 04/19/20 23:59 23:59 23:59 Intake Total 1000 / 1000 2910.53 / 2910.53 240 / 240 Output Total 0 / 0 Balance 1000 / 1000 2910.53 / 2910.53 240 / 240 Laboratory Results 04/19/20 05:16: WBC 8.7, RBC 4.93, Hgb 15.2, Hct 44.5, MCV 90.3, MCH 30.8, MCHC 34.2, RDW Std Deviation 41.4, RDW Coeff of Pineda 12.6, Plt Count 172, MPV 9.9 04/19/20 05:16: Sodium 138, Potassium 3.9, Chloride 106, Carbon Dioxide 25.0, Anion Gap 7, BUN 13, Creatinine 1.06, Estim Creat Clear Calc 79.56, Est GFR (MDRD) Af Amer 90, Est GFR (MDRD) Non-Af 75, BUN/Creatinine Ratio 12.3, Glucose 98, Calcium 8.5, Total Bilirubin 0.70, AST 25, ALT 29, Alkaline Phosphatase 57, Troponin I 2.650 H*, Total Protein 6.5, Albumin 3.7, Globulin 2.8, Albumin/Globulin Ratio 1.3 Current Medications Acetaminophen (Tylenol) 650 mg PO Q6H PRN PRN PRN Reason: Pain Score 1-10/Temp > 100.7 F Last Admin: 04/18/20 12:17 Dose: 650 mg Documented by: Al Hydroxide/Mg Hydroxide (Mylanta Ii) 30 ml PO Q6H PRN PRN PRN Reason: Gastric Burning Albuterol Sulfate (Ventolin Aerosols) 2.5 mg INHALATION Q2H PRN PRN PRN Reason: SOB/Wheezing Aspirin (Ecotrin) 81 mg PO DAILY@0800 [facility] Last Admin: 04/19/20 08:37 Dose: 81 mg Documented by: Atorvastatin Calcium (Lipitor) 40 mg PO QHS [facility] Last Admin: 04/18/20 21:41 Dose: 40 mg Documented by: Atropine Sulfate () 0.5 mg IV UD PRN PRN Reason: HR <50 bpm Heparin Sodium (Porcine) (Heparin Na) 0 unit IV UD PRN; Protocol PRN Reason: NOMOGRAM Hydrochlorothiazide (Hctz) 25 mg PO DAILY [facility] Last Admin: 04/19/20 08:37 Dose: 25 mg Documented by: Sodium Chloride () 250 mls @ 15 mls/hr IV .[id number] PRN PRN Reason: Saline Flush Sodium Chloride () 250 mls @ 15 mls/hr IV .[id number] PRN PRN Reason: Additional IVPB Infusion Sodium Chloride () 1,000 mls @ 15 mls/hr IV .Q48H [facility] Last Admin: 04/18/20 11:38 Dose: Not Given Documented by: Labetalol HCl (Trandate) 5 mg IV X1 PRN PRN Reason: SBP > 160 when pulling sheath Stop: 04/20/20 09:31 Losartan Potassium (Cozaar) 100 mg PO DAILY [facility] Last Admin: 04/19/20 08:37 Dose: 100 mg Documented by: Magnesium Oxide (Mag-Ox 400) 400 mg PO DAILY [facility] Last Admin: 04/19/20 08:38 Dose: 400 mg Documented by: Melatonin (Melatonin) 3 mg PO QHS PRN PRN PRN Reason: INSOMNIA Metoprolol Tartrate (Lopressor (Beta Tomas)) 25 mg PO BID [facility] Last Admin: 04/19/20 08:37 Dose: 25 mg Documented by: Morphine Sulfate () 2 mg IV Q3H PRN PRN PRN Reason: Pain Score 6-10/10 [facility] ([facility]amin) [facility] Last Admin: 04/19/20 08:37 Dose: 1 tablet Documented by: Oxycodone HCl (Oxyir) 5 mg PO Q4H PRN PRN PRN Reason: Pain Score 4-5/10 Pantoprazole Sodium (Protonix) 20 mg PO DAILY [facility] Last Admin: 04/19/20 08:37 Dose: 20 mg Documented by: Prochlorperazine Edisylate (Compazine Iv) 5 mg IV Q4H PRN PRN PRN Reason: Breakthrough Nausea/Vomiting Senna/Docusate Sodium (Senokot-S, Claudette-Colace) 2 tablet PO BID PRN PRN PRN Reason: Constipation Sodium Chloride () 10 - 40 ml IV UD PRN PRN Reason: SALINE FLUSH Sodium Chloride () 500 ml IV BOLUS PRN PRN Reason: VASO-VAGAL PROTOCOL Ticagrelor (Brilinta) 90 mg PO BID [facility] Last Admin: 04/19/20 08:36 Dose: 90 mg Documented by: Discharge Diet: Low fat/ Low Cholesterol, 2000 mg Sodium Diet Discharge Activity: Return to Normal Activity Home Medications: Medications to take at Discharge Losartan/Hydrochlorothiazide [Losartan-Hctz 100-25 mg Tab] 1 tab PO DAILY 07/17/18 Omeprazole [Prilosec] 20 mg PO DAILY 07/29/18 Magnesium Oxide [Magnesium] 400 mg PO DAILY 04/17/20 Multivitamins,Therapeutic [Multivitamin] 1 tab PO DAILY 04/17/20 Ubidecarenone [Coq-10] 100 mg PO DAILY 04/17/20 Aspirin E.C. [Ecotrin] 81 mg PO DAILY@0800 30 Days #30 tab 04/19/20 Atorvastatin Calcium [Lipitor] 40 mg PO QHS 30 Days #30 tab 04/19/20 Metoprolol Tartrate [Lopressor (beta tomas)] 25 mg PO BID 30 Days #60 tab 04/19/20 Ticagrelor [Brilinta] 90 mg PO BID 30 Days #60 tab 04/19/20 Following Prescriptions Were Given to Patient: Ticagrelor [Brilinta] 90 mg PO BID 30 Days #60 tab Transmission Status: Received by [facility] Aspirin E.C. [Ecotrin] 81 mg PO DAILY@0800 30 Days #30 tab Transmission Status: Received by [facility] Atorvastatin Calcium [Lipitor] 40 mg PO QHS 30 Days #30 tab Transmission Status: Received by [facility] Metoprolol Tartrate [Lopressor (beta tomas)] 25 mg PO BID 30 Days #60 tab Transmission Status: Received by [facility] Other Amb Orders: Phase II, Outpatient Cardiac Rehab Location: None Selected Primary Care Physician: Pk Caballero MD [Primary Care Provider] - Please follow up with your Primary Care Physician in: within 2 weeks Please Follow Up With: Pk Villela MD When: as scheduled as well as cardiac rehab Patient Instructions: Coronary Stents, Lifestyle Management After Percutaneous Coronary Intervention (PCI) Disposition: Home Minutes spent on discharge:: 40 Patient Condition:: Stable Medical Necessity - Tobacco Use Smoking Status: Former smoker Tobacco Use: Non-smoker Meaningful Use Info Meaningful Use Diagnoses (Choose all that apply): AMI - AMI/Post PCI/Angioplasty Aspirin given w/in 24hrs of arrival?: Yes ASA at discharge?: Yes Antiplatelet Therapy at Discharge:: Yes Statins at discharge?: Yes Chance/ARB at discharge?: No Reason Chance/ARB not ordered:: Not indicated Beta Tomas at discharge?: Yes Done w/ Acute NM measure.: Yes Documented LVEF (%): 65 Inpatient E&M: [id number] Disch Hosp
--- NOTE | 2020-04-19 11:21 | CASEMGMT ---
CHRISTOPHER VALLE assessment: Face to Face with patient for initial transition planning/care coordination assessment. CHRISTOPHER VALLE introduced self and role at [facility], pt voices understanding and consents to assessment at this time. Pt is sitting up in chair in no distress at this time. Pt is A/Ox4 at this time and answers all questions appropriately at this time. Care providers, pharmacy, and demographics verified at this time. Presentation: CP after staining deck around 1900 this evening, some SOB/dizziness Admitting dx: CP PCP: Federico Specialists: mahesh Dunaway Preferred Pharmacy: [facility] Insurance: MMO Prescription Benefit: MMO Living Will/HPOA: Pt states does have LW/HPOA and is aware that they are not on file at [facility] at this time. Pt states his , Roger Gonzalez, is HPOA. LNOK: Roger Gonzalez, /HPOA Living Arrangements: Pt states lives with in 2 story home and states no concerns at home at this time. Pt states is independent with ADL's. Transportation: Pt states drives self and states no transportation concerns at this time. DME/HHC: Pt states no current DME or need for any at this time. Pt states no hx of HHC or SNF in the past. Pt to be sent home on Brilinta at discharge and pt provided with Brilinta savings card at this time, voices understanding. Pt states no concerns with going home at time of discharge. 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 Pt states does not smoke cigarettes but does drink ETOH occasionally. Pt voices no further concerns/needs at this time. CM to follow for any further discharge planning/needs. Advised pt to ask for CM if any further questions/concerns/needs arise, voices understanding. Pt Goal: Home [place] CHRISTOPHER VALLE
--- NOTE | 2020-04-19 13:55 | PHA.DC.MC ---
Pharmacy Service has performed discharge medication reconciliation and counseling for this patient. The patient was counseled on the following discharge medications and changes in medications for homegoing were reviewed. 1. ASPIRIN 2. BRILINTA 3. LOPRESSOR 4. LIPITOR The Reason for Use, instructions for use, and potential side effects were reviewed for all new medications. The patient's questions regarding all of their medications were answered. The patient was able to verbally demonstrate an understanding of their discharge medications. Home Medications Losartan/Hydrochlorothiazide [Losartan-Hctz 100-25 mg Tab] 1 tab PO DAILY 07/17/18 Omeprazole [Prilosec] 20 mg PO DAILY 07/29/18 Magnesium Oxide [Magnesium] 400 mg PO DAILY 04/17/20 Multivitamins,Therapeutic [Multivitamin] 1 tab PO DAILY 04/17/20 Ubidecarenone [Coq-10] 100 mg PO DAILY 04/17/20 Aspirin E.C. [Ecotrin] 81 mg PO DAILY@0800 30 Days #30 tab 04/19/20 Atorvastatin Calcium [Lipitor] 40 mg PO QHS 30 Days #30 tab 04/19/20 Metoprolol Tartrate [Lopressor (beta fredrick)] 25 mg PO BID 30 Days #60 tab 04/19/20 Ticagrelor [Brilinta] 90 mg PO BID 30 Days #60 tab 04/19/20 The patient's discharge medication list was reviewed for discrepancies and discrepancies were resolved.
== END 2020-04-19 12:26 | disposition home or self-care (01) | DRG 247 ==
LOC: ED 22:37 → PCU 23:05
PROVIDERS: Specialist; Admitting Provider Internal Medicine; Emergency Provider Emergency Medicine; PCP Family Medicine; Visit Provider Internal Medicine
DX: I21.4 Non-ST elevation (NSTEMI) myocardial infarction (principal); I50.32 Chronic diastolic (congestive) heart failure; E87.6 Hypokalemia; E78.5 Hyperlipidemia, unspecified; I11.0 Hypertensive heart disease with heart failure; K21.9 Gastro-esophageal reflux disease without esophagitis; I25.10 Atherosclerotic heart disease of native coronary artery without angina pectoris; N40.0 Benign prostatic hyperplasia without lower urinary tract symptoms; Z87.891 Personal history of nicotine dependence; Z79.899 Other long term (current) drug therapy; Z79.82 Long term (current) use of aspirin
CPT/HCPCS: 36415; 71045; 71275; 80048; 80053; 80061; 83735; 84484; 85025; 85027; 85379; 85610; 85730; 92928; 93005; 93306; 93458; 99152; 99153; 99285; J7030; Q9957; Q9967; A4216; C1725; C1769; C1874; C1887; C1894; C8929; C9600

== ENCOUNTER → 2020-04-22 11:45 | Outpatient (CLI) | payer OTHER, SELFPAY ==
[2020-04-17 23:38] VITALS: BMI 29.5
[2020-04-22 15:44] LABS: PSA,Total- Diagnostic 3.81 ng/mL (0.0-4.0)
== END ==
PROVIDERS: PCP Family Medicine; Referring Provider Family Medicine; Visit Provider Urology
DX: R97.20 Elevated prostate specific antigen [PSA] (principal)
CPT/HCPCS: 36415; 84153

== ENCOUNTER 2020-04-25 07:33 | Emergency (ER) | payer OTHER, SELFPAY ==
[2020-04-25] VITALS (7 sets, daily range): BP systolic 125–153; BP diastolic 88–96; PULSE 65–73; RESP 10–12; TEMP 36.6; O2SAT 97–100; BMI 23.8
--- NOTE | 2020-04-25 07:44 | EKG12_ITS ---
Test Reason : CP Blood Pressure : / mmHG Vent. Rate : 078 BPM Atrial Rate : 078 BPM P-R Int : 176 ms QRS Dur : 098 ms QT Int : 360 ms P-R-T Axes : 028 -12 131 degrees QTc Int : 410 ms Normal sinus rhythm Left ventricular hypertrophy with repolarization abnormality Cannot rule out Septal infarct , age undetermined Nonspecific T-wave Abnormality Abnormal ECG Confirmed by WILLIAN THOMAS, ASHISH ([id number]), photographic editor DEACON AGUILAR ([id number]) on 04/27/2020 9:34:06 AM Referred By: Confirmed By:ASHISH DORSEY MD
--- NOTE | 2020-04-25 07:47 | ED.DCSUM_ITS ---
- ER Visit Summary Date of Service: 04/25/20 Chief Complaint: Chest pain History of Present Illness: The patient is a 65 M presenting with chest pain. Patient states approximately 1 hour prior to arrival he had 5 to 10 minutes of midsternal chest burning. States it was 2 out of 10. He had associated shor tness of breath and lightheadedness. This lasted 5 to 10 minutes. He states he had tingling of his left arm. He took aspirin prior to arrival. He had an NSTEMI 1 week ago with 2 stents placed. He has a history of hypertension, hypercholesterolemia. He is not a smoker. Physical Examination: Vitals are stable. Patient is afebrile. Alert no acute distress. HEENT exam is unremarkable. Neck is supple. Lungs are clear and equal bilaterally. Heart is regular rate and rhythm. Abdomen is soft nontender nondistended. Extremities are unremarkable. Skin is warm and dry. No focal neurologic deficit. Remainder of exam is unremarkable. Emergency Department Course and Treatment: Patient was took aspirin just prior to arrival. EKG is normal sinus rhythm rate of 78, unchanged from previous. Chest x-ray shows normal x-ray examination of the chest and unchanged when compared to 04/17/2020. CBC, chemistries unremarkable. Troponin is negative. Discussed with Dr. Gomez, He will have a delta troponin. If this is negative he will be discharged with isosorbide, increase metoprolol to 50 mg twice daily and advised to follow-up with Dr. Villela. Delta troponin is negative. Patient continues to be chest pain-free in the emergency department. He will follow-up with cardiology. Advised return to the ED for worsening complaints. Disposition: Discharge home Impression: Chest pain This note was generated with [employer] dictation software. It may contain incorrect words, spelling, and punctuation that were not noted in review of the chart prior to signing ED Disposition - Plan for ED Patient: Instructions: ED Chest Pain Atypical Unkn Cause Prescriptions: Isosorbide Mononitrate [Imdur] 30 mg PO DAILY #30 tab Prescription Printed Metoprolol Tartrate 50 mg PO BID #60 tab Prescription Printed Referrals: Pk Villela MD [STAFF PHYSICIAN] - Pk Caballero MD [Primary Care Provider] -
--- NOTE | 2020-04-25 07:52 | RAD_ITS ---
STUDY: X-RAY CHEST REASON FOR EXAM: Male, 65 years old. cp with n/t down left arm, resolved prior to arrival. Recent mi and 2 stents placed 8 days ago TECHNIQUE: AP upright portable view. COMPARISON: 04/17/2020. FINDINGS: The lungs are clear and expanded. There is no demonstrated pleural abnormality. Normal size heart. Normal mediastinum and ana. Normal visualized pulmonary arteries. Normal visualized aortic arch and descending thoracic aorta. Normal visualized thoracic spine. Normal visualized ribs, clavicles, and shoulders. There is no demonstrated abnormality of the visualized soft tissue structures of the upper abdomen. RAD/Chest 1 View (Portable) IMPRESSION: Normal x-ray examination of the chest and unchanged when compared to 04/17/2020. Electronically Signed: Saeed Dexter MD at 8:06 EDT , Service support ,
[2020-04-25 08:01] LABS: Absolute Lymphocyte Count 1.74 X10^3/uL (0.83-4.51); Absolute Neutrophil Count 4.4 X10^3/uL (2.0-7.7); Basophil# 0.02 X10^3/uL; Basophil% 0.3 % (0-1); Eosinophil# 0.14 X10^3/uL; Eosinophils% 1.9 % (0-5); Hematocrit 46.3 % (40-54); Hemoglobin 16.4 g/dL (13.0-16.5); Lymphocyte # 1.74 X10^3/ul (4.0); Mean Corp Hgb Conc 35.4 g/dL (32-36); Mean Corpuscular Hgb 31.8 pg (27.0-32.0); Mean Corpuscular Volume 89.9 fL (80-94); Mean Platelet Vol. 10.1 fl (6.2-12.0); Monocyte# 0.86 X10^3/uL; Monocyte% 11.9 % (0-10); NRBC Flagged by Analyzer 0 % (0-5); Neutrophil # 4.44 X10^3/uL (2.7-7.7); Neutrophil % 61.3 % (47-70); Platelet Count 205 K/mm3 (150-450); RBC Distribution Width CV 12.1 % (11.6-14.6); Red Blood Count 5.15 M/mm3 (4.6-6.2); White Blood Count 7.2 K/mm3 (4.4-11.0)
[2020-04-25 08:19] LABS: Anion Gap 8 (5-15); BUN 21 mg/dL (7-18); BUN/Creat Ratio 17.2 RATIO (10-20); Calcium,Total 9.3 mg/dL (8.5-10.1); Chloride 104 mmol/L (98-107); Creatinine, Serum 1.22 mg/dL (0.70-1.30); EST Glomerular Filtration Rate 64 mL/min (>60); Est Glom Filt Rate - Afr Amer 77 mL/min (>60); Estimated Creatinine Clearance 85.05 ml/min; Glucose 106 mg/dL (74-106); Potassium 3.2 mmol/L (3.5-5.1); Sodium Level 138 mmol/L (136-145)
--- NOTE | 2020-04-25 11:09 | ED.DEP ---
ED Disposition - Plan for ED Patient: Instructions: ED Chest Pain Atypical Unkn Cause Prescriptions: Isosorbide Mononitrate [Imdur] 30 mg PO DAILY #30 tab Prescription Printed Metoprolol Tartrate 50 mg PO BID #60 tab Prescription Printed Referrals: Pk Caballero MD [Primary Care Provider] - Pk Villela MD [STAFF PHYSICIAN] -
== END 2020-04-25 11:23 | disposition home or self-care (01) ==
LOC: ED 08:04
PROVIDERS: Emergency Provider Emergency Medicine; PCP Family Medicine
DX: R07.9 Chest pain, unspecified (principal); I25.10 Atherosclerotic heart disease of native coronary artery without angina pectoris; K21.9 Gastro-esophageal reflux disease without esophagitis; E78.00 Pure hypercholesterolemia, unspecified; I10 Essential (primary) hypertension; Z79.82 Long term (current) use of aspirin; Z79.899 Other long term (current) drug therapy
CPT/HCPCS: 71045; 80048; 84484; 85025; 93005; 99285; A4216

== ENCOUNTER → 2020-05-09 12:38 | Outpatient (CLI) | payer OTHER, SELFPAY ==
[2020-04-25 07:34] VITALS: BMI 23.8
--- NOTE | 2020-05-09 12:50 | PCM.CR.HP2 ---
CR - History & Physical - General Arrival date:: 05/09/20 Arrival time:: 12:51 Date of Referral:: 04/18/20 Date of CR Evaluation:: 05/09/20 Referring Physician: Dr. Pk Villela Primary Diagnosis: Z95.5 PCI with cornary stent - History of Present Cardiac Event Onset Date: Enter Onset Date of cardiac illnesses in Comment field below PTCA or coronary stenting:: Yes - 04/18/2020 - Medications Home Medications: Ambulatory Orders Medication Instructions Recorded Losartan/Hydrochlorothiazide 1 tab PO DAILY 07/17/18 [Losartan-Hctz 100-25 mg Tab] Omeprazole [Prilosec] 20 mg PO DAILY 07/29/18 Magnesium Oxide [Magnesium] 400 mg PO DAILY 04/17/20 Multivitamins,Therapeutic 1 tab PO DAILY 04/17/20 [Multivitamin] Ubidecarenone [Coq-10] 100 mg PO DAILY 04/17/20 Aspirin E.C. [Ecotrin] 81 mg PO DAILY@0800 30 Days #30 tab 04/19/20 Atorvastatin Calcium [Lipitor] 40 mg PO QHS 30 Days #30 tab 04/19/20 Metoprolol Tartrate [Lopressor 25 mg PO BID 30 Days #60 tab 04/19/20 (beta fredrick)] Ticagrelor [Brilinta] 90 mg PO BID 30 Days #60 tab 04/19/20 Isosorbide Mononitrate [Imdur] 30 mg PO DAILY #30 tab 04/25/20 Metoprolol Tartrate 50 mg PO BID #60 tab 04/25/20 - Allergies Allergies/Adverse Reactions: Allergies No Known Allergies Allergy (Verified 04/25/20 09:08) - Sleep Disorder Evaluation Hx of Sleep Apnea: No Do you snore loudly (louder than talking or can be heard through closed doors)?: No Do you often feel tired/ fatigued/ sleepy during daytime?: No Has anyone observed you stop breathing during sleep?: No History of Hypertension (for STOP score): Yes STOP Results: Negative Advanced Directives - Advanced Directives Power of Maintenance Mechanic Telephone: Yes Living Will: Yes Advance Directives Information Provided: Yes Advance Directives on File: No DNR Order?:: No Past Medical History - Covid-19 Screening Fever: No Unexplained muscle aches: No Current respiratory symptoms: No Upper respiratory infections symptoms: No Gastro-intestinal symptoms: No Rae-Tfad-Lkodwt symptoms: No Has tested positive for COVID-19 in last 30 days: No Had contact w/person w/symptoms or Covid-19 (+) last 14 days: No Has High Risk Exposures ID'd by Health dept/Inf Control team: No 65 years or older:: No Lives in Assisted Living facility:: No Has a chronic lung disease or moderate to severe asthma:: No Has a serious heart condition:: Yes Immunocompromised:: No Severely obese (Body Mass Index of 40 or higher):: No Diabetic:: No Has chronic kidney disease undergoing dialysis:: No Has liver disease:: No - Past Medical Illness Medical History: Past Medical History (Last Updated 04/18/20 @ 12:13 by Noelle Yoder) Presence of stent in coronary artery (Chronic) Onset Date: ~04/18/20 Z95.5 Successful PTCA/JENNIFER to mLAD 04/18/20 Atherosclerotic heart disease of [place] coronary artery without angina pectoris (Chronic) I25.10 Bladder mass (Acute) N32.89 Hypokalemia (Acute) E87.6 Hypertension (Chronic) I10 Hyperlipidemia (Chronic) E78.5 GERD (gastroesophageal reflux disease) (Chronic) K21.9 Chest pain (Acute) R07.9 NSTEMI (non-ST elevated myocardial infarction) (Acute) I21.4 - Past Surgical History Surgical History: no surgical history Social History - Smoking History Smoking Status: Former smoker Years Smokin Packs Smoked per Day: 1 Hx Smoking Cessation Date: 08/19/94 Hx Tobacco Use: Yes Hx Smoking Exposure: Yes - Alcohol Use Alcohol Usage: Yes - socially - Substance Abuse Hx Substance Use: No - Occupation Occupation (List type of work in comments):: Employed Hours worked per day:: 8 - Hobbies, Recreation, Social Activities Hobbies: Sports, Walking Recreational Activities: I am able to engage in all my recreational activities Social Environment - Status Marital Status: - Current Living Arrangements Living Environment:: Spouse - Children How many children do you have?: 2 Do any of your children live nearby?: Yes - Safety Do you feel safe in your surroundings?: Yes - Assistance Do you need any assistance at home?: none Review of Systems - Review of Systems Hints: Right click = Denies ([place]ash). Left click = Reports ([place]) Review of Present Symptoms: Reports: Shortness of Breath with Exertion, Appetite - Normal, Appetite - Special Diet, Sleep - Normal. Denies: Shortness of Breath at Rest, PVD, Operative Discomfort, Angina, Wound Healing, Dizziness/Lightheadedness, Fatigue, Heart Arrhythmia/Irregularities, Sexual Changes - Pain Is Patient Pain Free?: Yes Risk Factor Assessment - Chief Complaint Chief Complaint: PCI with stent - Vital Signs Pulse Ox: 98 - Pulse Pulse Rate: 61 Pulse Rhythm: Regular - Hypertension Blood Pressure Sitting - Left Arm: 100/68 - For Smoking Smoking Risk Guidelines: Smoking Low Risk: None or quit greater than 6 months ago. Smoking Moderate Risk: Smoker or quit 6 months or less ago. Smoking High Risk: Smoker - For Dyslipidemia Dyslipidemia Risk Guidelines: Low Risk: Moderate Risk: High Risk: 15-25% fat 25.1-29% fat >/= 30% fat. <7% sat fat 7-9% sat fat >9% sat fat. <150 mg chol 150-299 mg chol >/= 300 mg chol. LDL <100 LDL 100-129 LDL >/= 130. Chol/HDL ratio <5.0 Chol/HDL ratio 5.0-6.0 Chol/HDL ratio >6.0. Triglycerides <100 Triglycerides 100-149 Triglycerides >/= 150 - For Diabetes Mellitus Diabetes Risk Guidelines: Diabetes Low Risk: HgA1c <6.5% and/or FBG <120. Diabetes Moderate Risk: HgA1c 6.6-7.9% and/or FBG 120-180. Diabetes High Risk: HgA1c >/= 8% and/or FBG >180 - For Obesity/Overweight Obesity/Overweight Risk Guidelines: Obesity Low Risk: BMI <25.0. Obesity Moderate Risk: BMI 25-29.9. Obesity High Risk: BMI >/= 30.0 - For Hypertension Hypertension Risk Guidelines: Hypertension Low Risk: Systolic <120 and Diastolic <80. Hypertension Moderate Risk: Systolic 120-139 and Diastolic 80-89. Hypertension High Risk: Systolic >/= 140 and Diastolic >/= 90 - For Sedentary Lifestyle Sedentary Lifestyle Risk Guidelines: Sedentary Lifestyle Low Risk: >/= 1,500 kcal/week. Sedentary Lifestyle Moderate Risk: 700-1,499 kcal/week. Sedentary Lifestyle High Risk: < 700 kcal/week - For Depression Depression Risk Guidelines: Depression Low Risk: Not clinically depressed. Depression Moderate Risk: Mildly depressed. Depression High Risk: Clinically depressed Motivation - Motivation to Participate On a scale of 1 to 10, how prepared are you to commit to attending program?: 7 What do you see as barriers to successfully being able to complete the program?: insurance changing What do you see as the benefits of succesfully completing the program? In other words, what do you hope to get out of participating in the program?: improved stamina Are there issues you are dealing with that will interfere with completing the program?: retiring Do you have a spouse or signficant other, family or friends who will help support you to complete the program?: spouse
--- NOTE | 2020-05-09 12:51 | CR.ITP_ITS ---
Diagnosis - General Information Admitting Diagnosis: Z95.5 PCI with coronary stent Stage of change r/t lifestyle modifications:: Contemplation - Education/Goals Cardiac Rehabilitation Goals: 1. Maintain the individual as the primary focus of care. 2. To improve the patient's quality of life. 3. Identification of cardiac risk factors and provide cardiac risk factor management. 4. Enhance the psychosocial status of the patient. 5. Reconditioning enough to allow the patient to resume customary activities. 6. Control symptoms of cardiac disease Personal Goals: Initial Assessment: Improve energy level, Get back to work, or t o resume activities faster, Improve diet and eating habits (eat healthier), Control risk factors (learn risk factor modification) Scale for measuring improvement of personal goals: Enter appropriate number in Comments. 2 = Unchanged. 3 = Slightly Better. 4 = Moderate Improvement. 5 = Met my Goal - Diagnosis & Disease Process Outcomes/Goals: Pt IDs own risk factors & lifestyle modifications by Session 10, Verbalizes symptoms of angina & response by session 3., Pt independently manages, Other Additional Outcomes/Goals: Plan/Interventions: Assist Pt to ID & engage in lifestyle modification to reduce CVD risk, Instruct on individual risk factors, Review symptoms of angina & emergency actions, Review secondary diagnosis & identify educational needs., Other see comment 30 day Reassessments:: Not Met 30 day Reassessments:: Not Met 30 day Reassessments:: Not Met 30 day Reassessments:: Not Met Final Reassessments:: Not Met - Safety Referral to Physical Therapy: No Referral to [facility] Case Management: No Fall Risk Assessed:: Yes Assistive Devices:: None Exercise - Initial Assessment - Visit Date of Eval: 05/09/20 - initial eval Mets: Pre-: >7 METS for 30 minutes by discharge - Physician Prescribed Exercise Modalities: Treadmill, Biodyne, Rower, Airdyne, NuStep, SciFit Frequency: 3x/week for 12 weeks [36 sessions] Intensity: 60-80% of age predicted maximum heart rate reserve Current METSs:: 3.5 Target Heart Rate:: 101-132 Resting Blood Pressure: 100/68 - Outcomes & Goals Goals:: Verbalizes understanding of THR, RPE & goal METS by session 6, Documents in home exercise log/reports 30 min aerobic 5 day/wk by DC, Demonstrates accurate pulse taking by DC, Other additional outcome/goals: see below - Intervention & Plan Exercise Program Goals: Instruct on personal THR & RPE, Instruct on MET level & personal MET goal, Show patient to take own pulse /validate performance until accurate, Instruct on home exercise, Other additional plan/int - Physical Activity Home Exercise Physical Activity - Home Exercise: Safe Exercise, Warm-up, Self-monitoring, Cool-Down, Home Exercise > 30 min Daily, Sitting Time <3 hours/daily Nutrition - Initial Assessment - Program Goals Nutrition Program Goals: LDL <100 optimal. 100 - 129 Near optimal. 130 - 159 Borderline High. 160 - 189 High. Total Cholesterol <200 desirable. 200 - 239 Borderline High. >/= 240 High. HDL < 40 Low >/=60 High. Triglycerides <150 desirable. <199 optimal. VlDL 5 - 40. HgbA1C <7%. BMI <25 Patient has diagnosis of Hyperlipidemia (ICD E78)?: Yes - Visit Date of Assessment:: 05/09/20 - initial eval - Cholesterol/Lipids Determine presence & major risk factors that modify LDL goal: Cigarette smoking, Hypertension or hypertensive medication, Low HDL cholesterol <40 mg/dL*, Family history of premature CHD in Male < 55 years: female <65 yearsFa, Age men > 45 years; women >/= 55 years Outcomes/Goals: Pt IDs own risk factors & lifestyle modifications by Session 10, Verbalizes symptoms of angina & response by session 3., Pt independently manages, Other Additional Outcomes/Goals: Intervention/Plan: Advocate for lipid panel cholesterol medication if applicable, Instruct on personal lipid levels & lipid goals/NCEP guidelines, Instruct on cholesterol, Other additional plan/int Referral to dietitian:: Yes - Diabetes (Other Core Measures) Diabetes Type: Not Applicable - Weight Mgt (Other Care) Height: 6 ft 0.8 in Weight:: 100.97 kg BMI: 29.5 Outcomes/Goals: Pt sets, maintains & shows weight loss goal & trend during rehab, Other additional outcomes/goals Intervention/Plan: Instruct on ideal BMI & set weight loss goal w/patient, Assist pt to ID & incorporate diet changes for weight loss by S9, Refer to Structured Weight Loss program as appropriate, Encourage goal of using 250- 300dcal per session for weight loss, Other additional plan/interventions - Healthy Eating Habits Will attend diet classes:: Yes Outcomes/Goals:: Consume diet rich in vegs,fruits,whole grain/high fiber,fish,lean meat, Limit sat/trans fats,cholesterol & added salts & sugars, Other additional outcome/goals: Intervention/Plan:: Assess current eating habits, Other Additional plan/interventions - Education Gave educational materials for:: Signs & symptoms of hypoglycemia, Signs & symptoms of hyperglycemia, Relate diabetes to coronary artery disease, Healthy eating Medical - Initial Assessment - Visit Date of Eval: 05/09/20 - initial eval - Medication Compliance Preventative Medication(s):: Aspirin, Beta fredrick H/O mental health issues: depression, anxiety, or addiction?: No Doesn?t believe in the benefits of treatment?: No Believes medications are unnecessary or harmful?: No Has a concern about medication side effects?: No Expresses concern over the cost of medications?: No Outcomes/Goals: Verbalizes medications,desired effect & common side effects @ DC, Pt self-reports following medication regimen, Keeps card in wallet w/medications listed by DC, Other additional outcome/goals: Interventions/plans: Instruct on medication effects & side effects, Review medication list w/patient every two weeks, Instruct importance of taking meds as ordered & assist problem solving, Other additional - Tobacco Use Tobacco Use: Non-smoker How long ago did you quit using tobacco products?: Greater than or equal to 6 months ago Do you use smokeless tobacco?: No - Hypertension Hypertension Diagnosis:: Hypertension ICD-10 I10 Resting Blood Pressure:: 100/68 [place] [employer] Hypertension Guidelines: [place] [employer] Hypertension Guidelines. Normal BP Less than 120/80. Elevated BP 120/80. Hypertension Stage 1: BP 130-139/80-89. Hypertesnion Stage 2: BP 140 or higher/90 or higher. Hypertension Crisis: BP higher than 180/120 Outcomes/Goals: Able to verbalize/achieve optimal blood pressure <130/80, Incorporates diet changes & exercise for blood pressure control by DC, Other additional outcomes/goals Interventions/plan: Instruct on optimal blood pressure, hypertension & medications, Instruct on effects of sodium, alcohol, stress, exercise &hypertension, Other additional plan/interventions - Tobacco Cessation Referral Smoking Cessation Referral:: No Individual Education/Counseling:: No Education Schedule Given:: Yes Psychosocial - Initial Assess - VIsit Date of Eval: 05/09/20 - initial eval History of previous Mental disease:: No - Target Goals Target Goals: Assess presence or absence of depression. Using a valid screening tool, maximizes coping skills. Positive support system - Psychosocial Test Tool Used:: Lala Haynes QOL Cardiac, PHQ-9 Questionnaire phq-9 Severity: Severity. 1-4 Minimal Depression. 5-9 Mild Depression. 10-14 Moderate Depression. 15-19 Moderately Sever Depression. 20-27 Severe Depression. Rule: - Referral to Behavioral Health PS - Interventions: Yes Referral to Behavioral Health if PHQ-9 score >9:, Yes Referral to Physician if PHQ-9 if score is 5-9:, Yes Attend Stress Management Classes, No Referral to [facility] - Outcomes/Goals: See list Psychosocial Outcomes/Goals:: ID's personal stressors & 2 strategies to manage stress by discharge, Other Additional outcome/goals: - Intervention/Plan: See List Interventions/Plan:: Assess stressors,coping strategies & signs of derpression on admission, Instruct/assist pt to develop coping & personal stress Mgt strategies, Refer to Behavioral Health if appropriate, Refer to Physician if appropriate, Instruct patient to recognize signs & symptoms of depression, Instruct patient to recog, Other additional plan/intervention Patient Health Questionnaire Initial Assessment 1. Little interest or pleasure in doing things: Not at all 2. Feeling down, depressed, or hopeless: Not at all 3. Trouble falling or staying asleep, or sleeping too much: Several days 4. Feeling tired or having little energy: Several days 5. Poor appetite or overeating: Several days 6. Feeling bad about yourself -- or that you are a failure or have let yourself or your family down: Not at all 7. Trouble concentrating on things, such as reading the newspaper or watching television: Not at all 8. Moving or speaking so slowly that other people could have noticed. Or the opposite - being so fidgety or restless that you have been moving around a lot more than usual: Not at all 9. Thoughts that you would be better off , or of hurting yourself in some way: Not at all How difficult have these problems made it for you to do your work, take care of things at home, or get along with other people?: Not difficult at all Total Score: 3 RADHA-Q SV Test - Statements CAD is a disease of the arteries in the heart: False Examples of risk factors for heart disease: True Angina is chest pain or discomfort: True The benefits of resistance training include: True Eating more meat and dairy products: False Anti-platelet medications such as aspirin are important: I Don't Know The only effective way to manage stress: False An exercise warm-up slowly increases heart rate: True Prepared, processed foods usually have high sodium: I Don't Know Depression is common after a heart attack: I Don't Know The statin medications lower cholesterol: True To control blood pressure, lower the amount of sodium: I Don't Know If someone gets chest discomfort during walking: False Transfats are partially hydrogenated vegetable oils: I Don't Know Sleep apnea that is not treated increases the risk: I Don't Know To control cholesterol, one should become a vegetarian: False Someone knows if he/she is exercising at the right level: True Diabetes cannot be prevented with exercise & health eating: I Don't Know Stress is a large risk for heart attack: True A diet that can help lower blood pressure is rich in: True - Total Score Total Correct Responses: 13 Self-Efficacy Initial Assessment We would like to know how confident you are in doing certain activities. Please select your confidence level for:: Select your confidence level for the following using the scale 1-10 where 1 is not at all confident and 10 is totally confident. Your score is the average of all 6 responses. Fatigue: How confident are you that you can keep the fatigue caused by your disease from interfering with the things you want to do? Select Number: 7 Physical Discomfort or Pain: How confident are you that you can keep the physical discomfort or pain of your disease from interfering with the things you want to do? Select Number: 7 Emotional Distress: How confident are you that you can keep the emotional distress caused by your disease from interfering with the things you want to do? Select Number: 8 Other Symptoms or Health Problems: How confident are you that you can keep other symptoms or health problems from interfering with the things you want to do? Select Number: 8 Different Tasks and Activities: How confident are you that you can do the different tasks and activities needed to manage your health condition so as to reduce your need to see a doctor? Select Number: 7 Medication: How confident are you that you can do things other than just taking medication to reduce how much your illness affects your everyday life? Select Number: 8 Total Score:: 7 Nutrition Survey - Nutrition Survey Instructions Scoring Instructions: Scoring is as follows: Yes = 1 points. No = 0 point. Patient score that is >/=12 is considered to be at potential nutritional risk and could benefit from a referral to a registered dietitian. - Nutrition Survey Initial Have you lost >10 lbs over the past 2 months without trying?: No Are you following a special diet at home for diabetes, low fat, or low salt?: Yes Are you interested in meeting with a dietitian for help understanding your diet?: Yes Do you eat less than 3 meals a day?: No Do you eat fatty meats (foote, sausage, ribs, etc), fried foods, desserts, large amounts of salad dressings, margarine, butter, or cheese most days?: No Do you have food allergies? [Enter types in comment field]: No Do you eat in restaurants more than 3 times a week?: No Do you season food with salt, seasoning salt, or garlic salt?: Yes Do you used canned, boxed, frozen meals, or soups, seasoning packets?: Yes Total Score:: 4
[2020-05-09 13:38] VITALS: BP 100/68; PULSE 61; O2SAT 98; BMI 29.5
== END ==
PROVIDERS: PCP Family Medicine; Referring Provider Internal Medicine Cardiovascular Disease; Visit Provider Internal Medicine Cardiovascular Disease
DX: Z95.5 Presence of coronary angioplasty implant and graft (principal)

== ENCOUNTER 2020-05-18 08:00 | Outpatient (RCR) | payer OTHER, SELFPAY ==
[2020-04-25 07:34] VITALS: BMI 23.8
== END 2020-05-18 23:59 ==
LOC: CR 08:00
PROVIDERS: PCP Family Medicine; Referring Provider Internal Medicine Cardiovascular Disease; Visit Provider Internal Medicine Cardiovascular Disease
DX: I25.10 Atherosclerotic heart disease of native coronary artery without angina pectoris (principal); Z95.5 Presence of coronary angioplasty implant and graft
CPT/HCPCS: 93798

== ENCOUNTER 2020-06-06 08:48 | Emergency (ER) | payer OTHER, SELFPAY ==
[2020-05-17 12:19] VITALS: BMI 23.8
[2020-06-06 07:04] VITALS: BMI 29.0
--- NOTE | 2020-06-06 08:28 | EKG12_ITS ---
Test Reason : R/O ECTOPY Blood Pressure : / mmHG Vent. Rate : 096 BPM Atrial Rate : 096 BPM P-R Int : 192 ms QRS Dur : 088 ms QT Int : 380 ms P-R-T Axes : 059 -10 049 degrees QTc Int : 480 ms Sinus rhythm with short run of atrial tachycardia Moderate voltage criteria for LVH, may be normal variant Cannot rule out Septal infarct , age undetermined Abnormal ECG Reconfirmed by CHARMAINE THOMAS, MARJAN ([id number]), editor map PEMA WARD ([id number]) on 06/14/2020 8:42:46 AM Referred By: Pk Villela Confirmed By:YAIR MONTANO MD
--- NOTE | 2020-06-06 08:29 | EKG12_ITS ---
Test Reason : R/O ECTOPY Blood Pressure : / mmHG Vent. Rate : 105 BPM Atrial Rate : 105 BPM P-R Int : 192 ms QRS Dur : 092 ms QT Int : 382 ms P-R-T Axes : 056 000 116 degrees QTc Int : 504 ms Sinus Rhythm with short run of a tach Left ventricular hypertrophy with repolarization abnormality Cannot rule out Septal infarct , age undetermined Abnormal ECG Confirmed by CHARMAINE THOMAS, MARJAN ([id number]), pictures editor PEMA WARD ([id number]) on 06/17/2020 12:47:03 PM Referred By: Pk Villela Confirmed By:YAIR MONTANO MD
[2020-06-06 08:49] VITALS: BP 131/100; PULSE 98; RESP 12; TEMP 36.1; O2SAT 98; BMI 28.5
--- NOTE | 2020-06-06 08:58 | EKG12_ITS ---
Test Reason : Blood Pressure : / mmHG Vent. Rate : 132 BPM Atrial Rate : 258 BPM P-R Int : 000 ms QRS Dur : 088 ms QT Int : 344 ms P-R-T Axes : 000 -10 163 degrees QTc Int : 509 ms Atrial flutter with variable A-V block Left ventricular hypertrophy Cannot rule out Septal infarct , age undetermined Nonspecific ST and T wave abnormality Abnormal ECG Confirmed by WILLIAN THOMAS, ASHISH ([id number]), editor index АЛЕКСАНДР BARILLAS ([id number]) on 06/07/2020 8:23:30 AM Referred By: SINCERE Confirmed By:ASHISH DORSEY MD
[2020-06-06 09:04] VITALS: O2SAT 98
--- NOTE | 2020-06-06 09:06 | EKG12_ITS ---
Test Reason : Blood Pressure : / mmHG Vent. Rate : 104 BPM Atrial Rate : 080 BPM P-R Int : 186 ms QRS Dur : 098 ms QT Int : 390 ms P-R-T Axes : 025 -16 099 degrees QTc Int : 512 ms Sinus rhythm with Premature supraventricular complexes Left ventricular hypertrophy with repolarization abnormality Abnormal ECG When compared with ECG of 06-JUN-2020 08:54, MANUAL COMPARISON REQUIRED, DATA IS UNCONFIRMED Confirmed by FER THOMAS, OTONIEL ([id number]), business editor PEMA WARD ([id number]) on 06/23/2020 2:35:27 PM Referred By: Pk Villela Confirmed By:OTONIEL MONROE MD
[2020-06-06 09:09] LABS: Absolute Lymphocyte Count 1.18 X10^3/uL (0.83-4.51); Absolute Neutrophil Count 4.5 X10^3/uL (2.0-7.7); Basophil# 0.02 X10^3/uL; Basophil% 0.3 % (0-1); Eosinophil# 0.11 X10^3/uL; Eosinophils% 1.7 % (0-5); Hematocrit 45.2 % (40-54); Hemoglobin 15.3 g/dL (13.0-16.5); Lymphocyte # 1.18 X10^3/ul (4.0); Lymphocyte % 18.1 % (19-41); Mean Corp Hgb Conc 33.8 g/dL (32-36); Mean Corpuscular Hgb 31.4 pg (27.0-32.0); Mean Corpuscular Volume 92.6 fL (80-94); Mean Platelet Vol. 10.6 fl (6.2-12.0); Monocyte# 0.69 X10^3/uL; Monocyte% 10.6 % (0-10); NRBC Flagged by Analyzer 0 % (0-5); Neutrophil # 4.49 X10^3/uL (2.7-7.7); Platelet Count 163 K/mm3 (150-450); RBC Distribution Width CV 13.2 % (11.6-14.6); RBC Distribution Width SD 44.6 fl (35.1-43.9); Red Blood Count 4.88 M/mm3 (4.6-6.2); White Blood Count 6.5 K/mm3 (4.4-11.0)
[2020-06-06 09:11] VITALS: BP 146/87; PULSE 82; RESP 14; O2SAT 99
[2020-06-06] MEDS: Metoprolol Tartrate 5 MG/5 ML Vial IV ×2 (09:11→09:27)
[2020-06-06 09:23] VITALS: BP 135/88; PULSE 89; RESP 10; O2SAT 99
[2020-06-06 09:26] LABS: Anion Gap 8 (5-15); BUN 16 mg/dL (7-18); BUN/Creat Ratio 12.1 RATIO (10-20); Calcium,Total 8.9 mg/dL (8.5-10.1); Chloride 105 mmol/L (98-107); Creatinine, Serum 1.32 mg/dL (0.70-1.30); EST Glomerular Filtration Rate 58 mL/min (>60); Est Glom Filt Rate - Afr Amer 70 mL/min (>60); Estimated Creatinine Clearance 63.89 ml/min; Glucose 97 mg/dL (74-106); Potassium 3.6 mmol/L (3.5-5.1); Sodium Level 140 mmol/L (136-145)
--- NOTE | 2020-06-06 10:11 | ED.DCSUM_ITS ---
History of Present Illness Chief Complaint: Chest Other Informant: Patient Narrative: Patient presenting secondary to abnormal heart rhythm. Patient has a history of a NSTEMI in the end of March that resulted in PCI. He has been going to cardiac rehab. While in cardiac rehab today he was noted to have a abnormal heart rhythm. He states that while this was happening he felt slightly lightheaded but denies feelings of palpitations chest pain shortness of breath. He denies any recent titrations of his medications, he is supposed to be on metoprolol 100 mg twice a day and had not yet taken it this morning prior to going to cardiac rehab. No recent infectious signs or symptoms. Review of systems otherwise negative. Past Medical History - Allergies and Home Meds Allergies/Adverse Reactions: Allergies No Known Allergies Allergy (Verified 06/06/20 08:52) Primary Care Physician: Lachelle Garcia MD [Primary Care Provider] - Prior records reviewed: Yes Past Medical History: - - Coronary artery disease Surgical History: no surgical history Smoking Status: Former smoker - Family History Maternal Family History: Family History (Last Updated 05/12/20 @ 15:02 by Nas Chaudhary NP, SENIOR SALES CONSULTANT-C) Father Congestive heart failure (CHF) Grandfather CAD (coronary artery disease) Brother Cancer Family History: Reports: No pertinent history Paternal Family History: Family History (Last Updated 05/12/20 @ 15:02 by Nas Chaudhary NP, SENIOR SALES CONSULTANT-C) Father Congestive heart failure (CHF) Grandfather CAD (coronary artery disease) Brother Cancer Family History: Reports: Heart Disease Review of Systems All systems negative except as indicated General: Denies: Chills, Fever, Sweats Eyes: Denies: Visual changes - bilaterally, Diplopia ENT: Denies: Rhinorrhea, Sore throat Cardiovascular: Reports: - - Lightheadedness Respiratory: Denies: Dyspnea, Cough, Dyspnea on exertion Gastrointestinal: Denies: Abdominal pain, Nausea, Vomiting, Diarrhea, Melena, Hematochezia Genitourinary: Denies: Dysuria, Hematuria, Frequency Musculoskeletal: Denies: Back pain, Extremity Pain Skin: Denies: Rash, Wounds Neurological: Denies: Headache, Weakness, Numbness Physical Exam Vital Signs/Narrative: Vital Signs Temp Pulse Resp BP Pulse Ox 06/06/20 09:52 71 12 133/88 H 95 06/06/20 09:23 89 10 L 135/88 H 99 06/06/20 09:11 82 14 146/87 H 99 06/06/20 09:04 98 06/06/20 08:49 97 F L 98 12 131/100 H 98 Inital Vital Signs reviewed: Yes General: Well nourished, Well developed, No Acute Distress Head: Normocephalic, Atraumatic Eyes: Perrl, EOMI ENT: Moist mucous membranes, No rhinorrhea Neck: Supple, Nontender Cardiovascular: No murmurs, Irregular, Tachycardia Respiratory: No distress, CTA bilaterally, Chest nontender Abdomen: Soft, Nontender, Nondistended, Normal bowel sounds Back: Nontender, Normal Inspection Extremities: Nontender, No edema Skin: Normal color, No rash Neurological: Alert, Oriented x3, Cranial nerves II-XII grossly intact, Normal Strength, Normal Sensation Psychological: Normal affect, Normal Mood Diagnostic/Tx/Re-eval Laboratory Data 06/06/20 06/06/20 09:01 09:01 WBC 6.5 RBC 4.88 Hgb 15.3 Hct 45.2 MCV 92.6 MCH 31.4 MCHC 33.8 RDW Std Deviation 44.6 H RDW Coeff of Pineda 13.2 Plt Count 163 MPV 10.6 Immature Gran % (Auto) 0.300 Neut % (Auto) 69.0 Lymph % (Auto) 18.1 L Robertson % (Auto) 10.6 H Eos % (Auto) 1.7 Baso % (Auto) 0.3 Absolute Neuts (auto) 4.5 Absolute Lymphs (auto) 1.18 Nucleated RBC % 0 Sodium 140 Potassium 3.6 Chloride 105 Carbon Dioxide 27.0 Anion Gap 8 BUN 16 Creatinine 1.32 H Estim Creat Clear Calc 63.89 Est GFR (MDRD) Af Amer 70 Est GFR (MDRD) Non-Af 58 L BUN/Creatinine Ratio 12.1 Glucose 97 Calcium 8.9 Troponin I < 0.015 - EKG Initial EKG Interpretation: - - Atrial flutter with a variable block, ventricular rate is 132. No ST or T changes that appear acute. - Medical Decision Making Patient presented secondary to an abnormal heart rhythm. Upon arrival the patient was flipping in and out of atrial flutter with a variable block. Hansa ent was given 2 doses of IV Lopressor and ultimately was cardioverted back into a normal sinus rhythm. CBC chemistry troponin found to be unremarkable. I discussed patient's case with cardiology on-call Dr. Najera, and we are in agreement that given the fact that the patient is currently rhythm controlled and had not taken his medications prior to rehab that he does not require admission. He has a negative enzyme and is asymptomatic. Patient will be discharged with outpatient follow-up with Dr. Villela. He understands signs and symptoms which to return. Critical care time (excluding procedures): 30-74 minutes ED Disposition - Plan for ED Patient: Disposition: Home or Assisted Living Diagnosis: Atrial flutter Instructions: ED Paroxysmal Atrial Flutter Referrals: Pk Villela MD [STAFF PHYSICIAN] - As soon as possible
== END 2020-06-06 10:26 | disposition home or self-care (01) ==
PROVIDERS: Emergency Provider Emergency Medicine; PCP Obstetrics & Gynecology
DX: I48.92 Unspecified atrial flutter (principal); I25.10 Atherosclerotic heart disease of native coronary artery without angina pectoris; Z87.891 Personal history of nicotine dependence
CPT/HCPCS: 80048; 84484; 85025; 93005; 96374; 96376; 99284; A4216

== ENCOUNTER → 2020-06-08 08:34 | Outpatient (CLI) | payer OTHER, SELFPAY ==
[2020-06-06 07:04] VITALS: BMI 29.0
[2020-06-06 08:49] VITALS: BMI 28.5
== END ==
PROVIDERS: PCP Obstetrics & Gynecology; Referring Provider Internal Medicine Cardiovascular Disease; Visit Provider Internal Medicine Cardiovascular Disease
DX: I48.92 Unspecified atrial flutter (principal); I25.10 Atherosclerotic heart disease of native coronary artery without angina pectoris
CPT/HCPCS: 93225; 93226

== ENCOUNTER 2020-06-17 08:00 | Outpatient (RCR) | payer OTHER, SELFPAY ==
[2020-05-09 13:38] VITALS: BMI 29.5
[2020-05-17 12:19] VITALS: BMI 23.8
--- NOTE | 2020-06-06 06:58 | CR.ITP_ITS ---
Exercise - 30-day Assessment - Visit Date of Eval: 06/06/20 Session #:: 8 - MISSED 4 SCHEDULED SESSIONS D/T VACATION - Physician Prescribed Exercise Modalities: Treadmill, Rower, NuStep Frequency: 3x/week for 12 weeks [36 sessions] Intensity: 60-80% of age predicted maximum heart rate reserve Current METSs:: 5.5 INCREASE FROM 3.5 Target Heart Rate:: 101-132 Current RPE:: 11-12 Maximum Excercise HR:: 135 Resting Blood Pressure: 120/62 - CONTROLLED ON MEDICATION Maximum Exercise Blood Pressure: 144/84 EKG Type: NSR TO SINUS TACHYCARDIA WITHOUT ECTOPY. - Outcomes & Goals Goals:: Verbalizes understanding of THR, RPE & goal METS by session 6, Documents in home exercise log/reports 30 min aerobic 5 day/wk by DC, Demonstrates accurate pulse taking by DC - Intervention & Plan Exercise Program Goals: Instruct on personal THR & RPE, Instruct on MET level & personal MET goal, Show patient to take own pulse /validate performance until accurate, Instruct on home exercise - 30-day Reassessments 30 day Reassessments:: Progressing - Physical Activity Home Exercise Physical Activity - Home Exercise: Safe Exercise, Warm-up, Self-monitoring, Cool-Down, Home Exercise > 30 min Daily, Sitting Time <3 hours/daily - Outcomes & Goals Outcomes/Goals: Demonstrates correct Warm-up/exercise Cool-Down (S3) if = 2.5 METs, Verbalizes symptoms of exercise intolerance by Session 3 (S3), Demonstrate safe equipment use (S3) & follows exercise prescrition (6) - Intervention & Plan Plan/Intervention: Instruct warm-up & cool-down if exercising at > 2 METs, Instruct on symptoms of exercise intolerance & actions to take, Instruct & monitor on saf, Assess intial functional capacity & safety risk - 30-day Reassessments 30 day Reassessments:: Progressing Nutrition - 30-Day Assessment - Program Goals Nutrition Program Goals: LDL <100 optimal. 100 - 129 Near optimal. 130 - 159 Borderline High. 160 - 189 High. Total Cholesterol <200 desirable. 200 - 239 Borderline High. >/= 240 High. HDL < 40 Low >/=60 High. Triglycerides <150 desirable. <199 optimal. VlDL 5 - 40. HgbA1C <7%. BMI <25 Patient has diagnosis of Hyperlipidemia (ICD E78)?: Yes - Visit Date of Assessment:: 06/06/20 Session #:: 8 - NO REPEAT LABS AVAILABLE - Cholesterol/Lipids Determine presence & major risk factors that modify LDL goal: Hypertension or hypertensive medication, Family history of premature CHD in Male < 55 years: female <65 yearsFa, Age men > 45 years; women >/= 55 years Outcomes/Goals: Pt IDs own risk factors & lifestyle modifications by Session 10, Verbalizes symptoms of angina & response by session 3., Pt independently manages Intervention/Plan: Instruct on personal lipid levels & lipid goals/NCEP guidelines, Instruct on cholesterol Referral to dietitian:: No - PATIENT DECLINED SERVICES 30-day Reassessments:: Progressing - Diabetes (Other Core Measures) Diabetes Type: Not Applicable - Weight Mgt (Other Care) Not Applicable: Yes Height: 6 ft 0.8 in Weight:: 218 lb 8 oz BMI: 29.0 Diagnosis Overweight/Obesity BMI> 30% ICD-10 E66: No Diagnosis High BMI/Morbid Obesity BMI> 35% ICD-10 Z68: No Outcomes/Goals: Pt sets, maintains & shows weight loss goal & trend during rehab Intervention/Plan: Instruct on ideal BMI & set weight loss goal w/patient, Assist pt to ID & incorporate diet changes for weight loss by S9, Encourage goal of using 250-300dcal per session for weight loss 30 day Reassessments:: Progressing - Healthy Eating Habits Will attend diet classes:: Yes Outcomes/Goals:: Consume diet rich in vegs,fruits,whole grain/high fiber,fish,lean meat, Limit sat/trans fats,cholesterol & added salts & sugars Intervention/Plan:: Assess current eating habits 30-day Reassessments:: Progressing - Education Gave educational materials for:: Healthy eating Medical- 30-Day Assessment - Visit Date of Eval: 06/06/20 Session #:: 8 - Medication Compliance Preventative Medication(s):: Aspirin, Ticagrelor/P2Y12 inhibitor, Statin/lipid, Beta fredrick H/O mental health issues: depression, anxiety, or addiction?: No Doesn?t believe in the benefits of treatment?: No Believes medications are unnecessary or harmful?: No Has a concern about medication side effects?: No Expresses concern over the cost of medications?: No Outcomes/Goals: Verbalizes medications,desired effect & common side effects @ DC, Pt self-reports following medication regimen, Keeps card in wallet w/medications listed by DC Interventions/plans: Instruct on medication effects & side effects, Review medication list w/patient every two weeks, Instruct importance of taking meds as ordered & assist problem solving 30-day Reassessments:: Progressing - Tobacco Use Tobacco Use: Non-smoker - Hypertension Hypertension Diagnosis:: Hypertension ICD-10 I10 Resting Blood Pressure:: 120/62 [place] [employer] Hypertension Guidelines: [place] [employer] Hypertension Guidelines. Normal BP Less than 120/80. Elevated BP 120/80. Hypertension Stage 1: BP 130-139/80-89. Hypertesnion Stage 2: BP 140 or h igher/90 or higher. Hypertension Crisis: BP higher than 180/120 Peak Exercise Blood Pressure:: 144/84 Outcomes/Goals: Able to verbalize/achieve optimal blood pressure <130/80, Incorporates diet changes & exercise for blood pressure control by DC Interventions/plan: Instruct on optimal blood pressure, hypertension & medicat ions, Instruct on effects of sodium, alcohol, stress, exercise &hypertension 30 day Reassessments:: Progressing - Tobacco Cessation Referral Smoking Cessation Referral:: No Individual Education/Counseling:: No Education Schedule Given:: Yes Psychosocial - 30-Day Assess - VIsit Date of Eval: 06/06/20 Session #:: 8 Not Applicable: Yes History of previous Mental disease:: No - Target Goals Target Goals: Assess presence or absence of depression. Using a valid screening tool, maximizes coping skills. Positive support system - Psychosocial Test Tool Used:: PHQ-9 Questionnaire phq-9 Severity: Severity. 1-4 Minimal Depression. 5-9 Mild Depression. 10-14 Moderate Depression. 15-19 Moderately Sever Depression. 20-27 Severe Depression. Rule: - Referral to Behavioral Health PS - Interventions: Yes Attend Stress Management Classes, No Referral to Behavioral Health if PHQ-9 score >9:, No Referral to [facility], No Referral to Physician if PHQ-9 if score is 5-9: - Outcomes/Goals: See list Psychosocial Outcomes/Goals:: ID's personal stressors & 2 strategies to manage stress by discharge - Intervention/Plan: See List Interventions/Plan:: Assess stressors,coping strategies & signs of derpression on admission, Instruct/assist pt to develop coping & personal stress Mgt strategies, Instruct patient to recognize signs & symptoms of depression, Instruct patient to recog - 30-day Reassessments: 30 day Reassessments:: Progressing Patient Health Questionnaire 30-Day Re-eval Assessment 1. Little interest or pleasure in doing things: Not at all 2. Feeling down, depressed, or hopeless: Not at all 3. Trouble falling or staying asleep, or sleeping too much: Several days 4. Feeling tired or having little energy: Not at all 5. Poor appetite or overeating: Not at all 6. Feeling bad about yourself -- or that you are a failure or have let yourself or your family down: Not at all 7. Trouble concentrating on things, such as reading the newspaper or watching television: Not at all 8. Moving or speaking so slowly that other people could have noticed. Or the opposite - being so fidgety or restless that you have been moving around a lot more than usual: Not at all 9. Thoughts that you would be better off , or of hurting yourself in some way: Not at all How difficult have these problems made it for you to do your work, take care of things at home, or get along with other people?: Not difficult at all Total Score: 1 Self-Efficacy 30-Day Re-eval Assessment We would like to know how confident you are in doing certain activities. Please select your confidence level for:: Select your confidence level for the following using the scale 1-10 where 1 is not at all confident and 10 is totally confident. Your score is the average of all 6 responses. Fatigue: How confident are you that you can keep the fatigue caused by your disease from interfering with the things you want to do? Select Number: 8 Physical Discomfort or Pain: How confident are you that you can keep the physical discomfort or pain of your disease from interfering with the things you want to do? Select Number: 9 Emotional Distress: How confident are you that you can keep the emotional distress caused by your disease from interfering with the things you want to do? Select Number: 9 Other Symptoms or Health Problems: How confident are you that you can keep other symptoms or health problems from interfering with the things you want to do? Select Number: 9 Different Tasks and Activities: How confident are you that you can do the different tasks and activities needed to manage your health condition so as to reduce your need to see a doctor? Select Number: 9 Medication: How confident are you that you can do things other than just taking medication to reduce how much your illness affects your everyday life? Select Number: 9 Total Score:: 8
[2020-06-06 07:04] VITALS: BP 120/62; BP 144/84
--- NOTE | 2020-06-06 11:41 | EKG12_ITS ---
Test Reason : Blood Pressure : / mmHG Vent. Rate : 130 BPM Atrial Rate : 130 BPM P-R Int : 000 ms QRS Dur : 088 ms QT Int : 336 ms P-R-T Axes : 000 -13 155 degrees QTc Int : 494 ms Atrial Flutter Septal ME, age undetermined, cannot be excluded Nonspecific ST and T wave abnormality Left ventricular hypertrophy Abnormal ECG Confirmed by WILLIAN THOMAS, PK ([id number]), medical transcription editor АЛЕКСАНДР BARILLAS ([id number]) on 06/07/2020 8:24:23 AM Referred By: Pk Dorsey Confirmed By:PK DORSEY MD
--- NOTE | 2020-06-06 11:42 | EKG12_ITS ---
Test Reason : R/O ECTOPY Blood Pressure : / mmHG Vent. Rate : 088 BPM Atrial Rate : 088 BPM P-R Int : 166 ms QRS Dur : 080 ms QT Int : 382 ms P-R-T Axes : 028 -10 088 degrees QTc Int : 462 ms Normal sinus rhythm Moderate voltage criteria for LVH, may be normal variant Cannot rule out Septal infarct , age undetermined Abnormal ECG Confirmed by CHARMAINE THOMAS, MARJAN ([id number]), food editor АЛЕКСАНДР BARILLAS ([id number]) on 06/08/2020 1:19:32 P M Referred By: Pk Villela Confirmed By:YAIR MONTANO MD
== END 2020-06-18 23:59 ==
LOC: CR 08:00
PROVIDERS: PCP Family Medicine; Referring Provider Internal Medicine Cardiovascular Disease; Visit Provider Internal Medicine Cardiovascular Disease
DX: I25.10 Atherosclerotic heart disease of native coronary artery without angina pectoris (principal); Z95.5 Presence of coronary angioplasty implant and graft
CPT/HCPCS: 93005; 93798

== ENCOUNTER → 2020-06-28 06:46 | Outpatient (CLI) | payer OTHER, SELFPAY ==
[2020-06-06 07:04] VITALS: BMI 29.0
[2020-06-06 08:49] VITALS: BMI 28.5
[2020-06-28 08:33] LABS: Anion Gap 6 (5-15); BUN 17 mg/dL (7-18); Calcium,Total 9.1 mg/dL (8.5-10.1); Chloride 107 mmol/L (98-107); Creatinine, Serum 1.13 mg/dL (0.70-1.30); EST Glomerular Filtration Rate 69 mL/min (>60); Est Glom Filt Rate - Afr Amer 84 mL/min (>60); Glucose 99 mg/dL (74-106); Magnesium 2.4 mg/dL (1.6-2.6); Potassium 3.8 mmol/L (3.5-5.1); Sodium Level 142 mmol/L (136-145)
== END ==
PROVIDERS: PCP Family Medicine; Referring Provider Internal Medicine Cardiovascular Disease; Visit Provider Internal Medicine Cardiovascular Disease
DX: I25.10 Atherosclerotic heart disease of native coronary artery without angina pectoris (principal); I49.3 Ventricular premature depolarization; E87.6 Hypokalemia; I10 Essential (primary) hypertension
CPT/HCPCS: 36415; 80048; 83735

== ENCOUNTER 2020-07-18 08:00 | Outpatient (RCR) | payer OTHER, SELFPAY ==
[2020-06-19 00:35] VITALS: BP 120/62; BP 144/84
--- NOTE | 2020-07-08 06:53 | CR.ITP_ITS ---
Exercise - 60-day Assessment - Visit Date of Eval: 07/08/20 Session #:: 23 - Physician Prescribed Exercise Modalities: Treadmill, Rower, Airdyne Frequency: 3x/week for 12 weeks [36 sessions] Intensity: 60-80% of age predicted maximum heart rate reserve Current METSs:: 7.0 Target Heart Rate:: 101-132 Current RPE:: 13-14 Maximum Excercise HR:: 147 Resting Blood Pressure: 108/60 Maximum Exercise Blood Pressure: 150/80 EKG Type: NSR to sinus tach with rare PAC. Sustained episode of PAT vs A-Fib. - Outcomes & Goals Goals:: Verbalizes understanding of THR, RPE & goal METS by session 6, Documents in home exercise log/reports 30 min aerobic 5 day/wk by DC, Demonstrates accurate pulse taking by DC - Intervention & Plan Exercise Program Goals: Instruct on personal THR & RPE, Instruct on MET level & personal MET goal, Show patient to take own pulse /validate performance until accurate, Instruct on home exercise - 30-day Reassessments 30 day Reassessments:: Progressing - Physical Activity Home Exercise Physical Activity - Home Exercise: Safe Exercise, Warm-up, Self-monitoring, Cool-Down, Home Exercise > 30 min Daily, Sitting Time <3 hours/daily - Outcomes & Goals Outcomes/Goals: Demonstrates correct Warm-up/exercise Cool-Down (S3) if = 2.5 METs, Verbalizes symptoms of exercise intolerance by Session 3 (S3), Demonstrate safe equipment use (S3) & follows exercise prescrition (6) - Intervention & Plan Plan/Intervention: Instruct warm-up & cool-down if exercising at > 2 METs, Instruct on symptoms of exercise intolerance & actions to take, Instruct & monitor on saf, Assess intial functional capacity & safety risk - 30-day Reassessments 30 day Reassessments:: Progressing Nutrition - 60-Day Assessment - Program Goals Nutrition Program Goals: LDL <100 optimal. 100 - 129 Near optimal. 130 - 159 Borderline High. 160 - 189 High. Total Cholesterol <200 desirable. 200 - 239 Borderline High. >/= 240 High. HDL < 40 Low >/=60 High. Triglycerides <150 desirable. <199 optimal. VlDL 5 - 40. HgbA1C <7%. BMI <25 Patient has diagnosis of Hyperlipidemia (ICD E78)?: Yes - Visit Date of Assessment:: 07/08/20 Session #:: 23 - no recent labs available - Cholesterol/Lipids Determine presence & major risk factors that modify LDL goal: Hypertension or hypertensive medication, Family history of premature CHD in Male < 55 years: female <65 yearsFa, Age men > 45 years; women >/= 55 years Outcomes/Goals: Pt IDs own risk factors & lifestyle modifications by Session 10, Verbalizes symptoms of angina & response by session 3., Pt independently manages Intervention/Plan: Advocate for lipid panel cholesterol medication if applicable, Instruct on cholesterol Referral to dietitian:: No - Patient declined services 30-day Reassessments:: Progressing - Diabetes (Other Core Measures) Diabetes Type: Not Applicable - Weight Mgt (Other Care) Not Applicable: Yes Height: 6 ft 0.8 in Weight:: 216 lb BMI: 28.6 Diagnosis Overweight/Obesity BMI> 30% ICD-10 E66: No Diagnosis High BMI/Morbid Obesity BMI> 35% ICD-10 Z68: No Outcomes/Goals: Pt sets, maintains & shows weight loss goal & trend during rehab Intervention/Plan: Instruct on ideal BMI & set weight loss goal w/patient 30 day Reassessments:: Progressing - Healthy Eating Habits Will attend diet classes:: Yes Outcomes/Goals:: Consume diet rich in vegs,fruits,whole grain/high fiber,fish,lean meat, Limit sat/trans fats,cholesterol & added salts & sugars Intervention/Plan:: Assess current eating habits 30-day Reassessments:: Progressing Medical- 60-Day Assessment - Visit Date of Eval: 07/08/20 Session #:: 23 - Medication Compliance Preventative Medication(s):: Aspirin, Ticagrelor/P2Y12 inhibitor, Statin/lipid, Beta fredrick H/O mental health issues: depression, anxiety, or addiction?: No Doesn?t believe in the benefits of treatment?: No Believes medications are unnecessary or harmful?: No Has a concern about medication side effects?: No Expresses concern over the cost of medications?: No Outcomes/Goals: Verbalizes medications,desired effect & common side effects @ DC, Pt self-reports following medication regimen, Keeps card in wallet w/medications listed by DC Interventions/plans: Instruct on medication effects & side effects, Review medication list w/patient every two weeks, Instruct importance of taking meds as ordered & assist problem solving 30-day Reassessments:: Progressing - Tobacco Use Tobacco Use: Non-smoker - Hypertension Hypertension Diagnosis:: Hypertension ICD-10 I10 Resting Blood Pressure:: 108/60 - well controlled with medications [place] [employer] Hypertension Guidelines: [place] [employer] Hypertension Guidelines. Normal BP Less than 120/80. Elevated BP 120/80. Hypertension Stage 1: BP 130-139/80-89. Hypertesnion Stage 2: BP 140 or higher/90 or higher. Hypertension Crisis: BP higher than 180/120 Peak Exercise Blood Pressure:: 150/80 - normal exercise response Outcomes/Goals: Able to verbalize/achieve optimal blood pressure <130/80, Inco rporates diet changes & exercise for blood pressure control by DC Interventions/plan: Instruct on optimal blood pressure, hypertension & medications, Instruct on effects of sodium, alcohol, stress, exercise &hypertension 30 day Reassessments:: Progressing - Tobacco Cessation Referral Smoking Cessation Referral:: No Individual Education/Counseling:: No Education Schedule Given:: Yes Psychosocial - 60-Day Assess - VIsit Date of Eval: 07/08/20 Session #:: 23 Not Applicable: Yes History of previous Mental disease:: No History of Emotional Disorders: Anxious Self-reported stressors: Other - become a little more anxious with recent EKG changes and not understanding why this is occurring. - Target Goals Target Goals: Assess presence or absence of depression. Using a valid screening tool, maximizes coping skills. Positive support system - Psychosocial Test Tool Used:: PHQ-9 Questionnaire phq-9 Severity: Severity. 1-4 Minimal Depression. 5-9 Mild Depression. 10-14 Moderate Depression. 15-19 Moderately Sever Depression. 20-27 Severe Depression. Rule: - Referral to Behavioral Health PS - Interventions: Yes Attend Stress Management Classes, No Referral to Behavioral Health if PHQ-9 score >9:, No Referral to [facility], No Referral to Physician if PHQ-9 if score is 5-9: - Outcomes/Goals: See list Psychosocial Outcomes/Goals:: ID's personal stressors & 2 strategies to manage stress by discharge - Intervention/Plan: See List Interventions/Plan:: Assess stressors,coping strategies & signs of derpression on admission, Instruct/assist pt to develop coping & personal stress Mgt strategies, Instruct patient to recognize signs & symptoms of depression, Instruct patient to recog - 30-day Reassessments: 30 day Reassessments:: Progressing Patient Health Questionnaire 60-Day Re-eval Assessment 1. Little interest or pleasure in doing things: Not at all 2. Feeling down, depressed, or hopeless: Several days 3. Trouble falling or staying asleep, or sleeping too much: Several days 4. Feeling tired or having little energy: Not at all 5. Poor appetite or overeating: Not at all 6. Feeling bad about yourself -- or that you are a failure or have let yourself or your family down: Not at all 7. Trouble concentrating on things, such as reading the newspaper or watching television: Not at all 8. Moving or speaking so slowly that other people could have noticed. Or the opposite - being so fidgety or restless that you have been moving around a lot more than usual: Not at all 9. Thoughts that you would be better off , or of hurting yourself in some way: Not at all How difficult have these problems made it for you to do your work, take care of things at home, or get along with other people?: Not difficult at all Total Score: 2 Self-Efficacy 60-Day Re-eval Assessment We would like to know how confident you are in doing certain activities. Please select your confidence level for:: Select your confidence level for the following using the scale 1-10 where 1 is not at all confident and 10 is totally confident. Your score is the average of all 6 responses. Fatigue: How confident are you that you can keep the fatigue caused by your disease from interfering with the things you want to do? Select Number: 10 Physical Discomfort or Pain: How confident are you that you can keep the physical discomfort or pain of your disease from interfering with the things you want to do? Select Number: 10 Emotional Distress: How confident are you that you can keep the emotional distress caused by your disease from interfering with the things you want to do? Select Number: 10 Other Symptoms or Health Problems: How confident are you that you can keep other symptoms or health problems from interfering with the things you want to do? Select Number: 10 Different Tasks and Activities: How confident are you that you can do the different tasks and activities needed to manage your health condition so as to reduce your need to see a doctor? Select Number: 10 Medication: How confident are you that you can do things other than just taking medication to reduce how much your illness affects your everyday life? Select Number: 10 Total Score:: 10
[2020-07-08 07:00] VITALS: BP 108/60; BP 150/80; BMI 28.6
== END 2020-07-18 23:59 ==
LOC: CR 08:00
PROVIDERS: Referring Provider Internal Medicine Cardiovascular Disease; Visit Provider Internal Medicine Cardiovascular Disease
DX: I25.10 Atherosclerotic heart disease of native coronary artery without angina pectoris (principal); Z95.5 Presence of coronary angioplasty implant and graft
CPT/HCPCS: 93798

== ENCOUNTER 2020-08-05 08:00 | Outpatient (RCR) | payer OTHER, SELFPAY ==
[2020-07-08 07:00] VITALS: BMI 28.6
[2020-07-19 00:33] VITALS: BP 108/60; BP 150/80
== END 2020-08-18 23:59 ==
LOC: CR 08:00
PROVIDERS: PCP Family Medicine; Referring Provider Internal Medicine Cardiovascular Disease; Visit Provider Internal Medicine Cardiovascular Disease
DX: I25.10 Atherosclerotic heart disease of native coronary artery without angina pectoris (principal); Z95.5 Presence of coronary angioplasty implant and graft
CPT/HCPCS: 93798

== ENCOUNTER 2020-08-08 00:38 | Observation (INO) | payer OTHER, SELFPAY ==
[2020-07-08 07:00] VITALS: BMI 28.6
[2020-08-05 15:22] VITALS: BMI 28.2
[2020-08-08] VITALS (9 sets, daily range): BP systolic 133–152; BP diastolic 81–98; PULSE 56–87; RESP 16–18; TEMP 36.5–36.8; O2SAT 97–100; BMI 28.8; BMI 28.3
--- NOTE | 2020-08-08 00:53 | EKG12_ITS ---
Test Reason : PALPITATIONS Blood Pressure : / mmHG Vent. Rate : 058 BPM Atrial Rate : 058 BPM P-R Int : 192 ms QRS Dur : 090 ms QT Int : 464 ms P-R-T Axes : 016 002 126 degrees QTc Int : 455 ms Sinus bradycardia Septal infarct , age undetermined ST & T wave abnormality, consider anterolateral ischemia Abnormal ECG Confirmed by WILLIAN THOMAS, ASHISH ([id number]), makeup editor DEACON AGUILAR ([id number]) on 08/11/2020 9:06:45 AM Referred By: DR PARTIDA Confirmed By:ASHISH DORSEY MD
--- NOTE | 2020-08-08 00:57 | EKG12_ITS ---
Test Reason : AFIB Blood Pressure : / mmHG Vent. Rate : 088 BPM Atrial Rate : 088 BPM P-R Int : 190 ms QRS Dur : 096 ms QT Int : 386 ms P-R-T Axes : 040 007 105 degrees QTc Int : 467 ms Sinus rhythm with Premature supraventricular complexes and Premature ventricular complexes or Fusion complexes Minimal voltage criteria for LVH, may be normal variant Septal infarct , age undetermined Abnormal ECG When compared with ECG of 04-JUL-2020 09:33, MANUAL COMPARISON REQUIRED, DATA IS UNCONFIRMED Confirmed by CHARMAINE THOMAS, MARJAN ([id number]), development editor АЛЕКСАНДР BARILLAS ([id number]) on 08/10/2020 10:34:35 AM Referred By: ASHISH DORSEY Confirmed By:YAIR MONTANO MD
--- NOTE | 2020-08-08 00:57 | EKG12_ITS ---
Test Reason : AFIB Blood Pressure : / mmHG Vent. Rate : 080 BPM Atrial Rate : 080 BPM P-R Int : 194 ms QRS Dur : 096 ms QT Int : 366 ms P-R-T Axes : 034 007 106 degrees QTc Int : 422 ms Normal sinus rhythm Minimal voltage criteria for LVH, may be normal variant Septal infarct , age undetermined Abnormal ECG When compared with ECG of 06-JUN-2020 09:06, Premature supraventricular complexes are no longer Present QT has shortened Confirmed by CHARMAINE THOMAS, MARJAN ([id number]), information systems coordinator АЛЕКСАНДР BARILLAS ([id number]) on 08/10/2020 10:34:16 AM Referred By: ASHISH DORSEY Confirmed By:YAIR MONTANO MD
[2020-08-08] MEDS: Aspirin 81 MG TAB.CHEW 324 MG PO (01:00)
--- NOTE | 2020-08-08 01:02 | ED.VISSUMM ---
- ER Visit Summary Date of Service: 08/08/20 Chief Complaint: Palpitations History of Present Illness: The patient is a [address] Villela on Dr. Scruggs. He reports that approximately 2 hours ago while in bed he had the onset of palpitations. Last approximately 30 minutes. He describes it as a racing, irregular heartbeat that was off and on. Is now resolved. He denies any chest pain with this. Does report that he is mildly short of breath. He denies any associated nausea, vomiting, or diaphoresis. Patient reports he had similar symptoms previously with atrial fibrillation. Patient has a history of a heart catheterization with a stent to the mid LAD in March 2020. He is on amiodarone, Eliquis, metoprolol, and Brilinta. He is taking these as scheduled. His last dose of Eliquis and metoprolol was at 8 PM. Physical Examination: Vitals: Stable. Afebrile. General: Well-nourished and well-developed. Head: Normocephalic atraumatic. Neck: Supple, no lymphadenopathy. No JVD. Nontender. Cardiovascular: Bradycardic regular rhythm. No murmurs. Respiratory: No respiratory distress. Clear to auscultation bilaterally. Abdominal: Soft, nontender, nondistended, normal bowel sounds. No guarding, rebound, or peritoneal signs. Back: Nontender. Extremities: Nontender, no edema. Skin: Normal color, no rash. Neurologic: Alert and oriented ?3. Cranial nerves II through XII are intact. Normal strength and sensation. Psych: Normal affect. Test Results: EKG shows sinus bradycardia rate of 58. There are Q waves in leads V1 and V2. He has biphasic T wave in lead V3 and T wave inversions in leads V4 to V6. There are nonspecific ST changes. This is similar to an EKG he had post cath on April 192019. However, the lateral T wave inversions are new from his last EKG on June 06. Repeat EKG is unchanged. CBC shows lymphocytes 17. Chem-7 shows a chloride of 110. Initial troponin is negative. TSH is 5.65. Clinical Impression(s) from Imaging Studies Chest X-Ray 08/08/20 01:08 IMPRESSION: Degenerative changes, as described above. No demonstrated acute cardiopulmonary process. Electronically Signed: Elizabet Nunez MD at 1:42 EST Tel , Service support , Emergency Department Course and Treatment: Patient was given aspirin p.o. He is resting comfortably. He had no chest pain while here. I did review his heart catheterization from April 182019. It showed a mid LAD lesion of 90%. He had a circumflex and OM1 lesion of 25 to 50% hazy stenosis. The mid RCA was occluded. There was distal RCA filling with [id number] collateral flow. Treatment Plan: The patient was discussed with Dr. Najera. He feels that admitting to the hospital to rule him out and have him on a monitor is the best course of action. I agree with this. The patient was then discussed with Dr. Kinsey and will be admitted for further evaluation and treatment. He is on Eliquis and his last dose was 6 hours ago. No further anticoagulation is needed at this time. Disposition: Admitted in stable condition. Impression: 1. Palpitations. 2. New lateral T wave inversions. 3. Coagulopathy on Eliquis. This note was generated with [employer] dictation software. It may contain incorrect words, spelling, and punctuation that were not noted in review of the chart prior to signing ED Disposition - Plan for ED Patient: Referrals: Pk Caballero MD [Primary Care Provider] -
[2020-08-08 01:04] LABS: Absolute Lymphocyte Count 1.54 X10^3/uL (0.83-4.51); Absolute Neutrophil Count 6.3 X10^3/uL (2.0-7.7); Basophil# 0.02 X10^3/uL; Basophil% 0.2 % (0-1); Eosinophil# 0.18 X10^3/uL; Hematocrit 46.9 % (40-54); Hemoglobin 15.6 g/dL (13.0-16.5); Lymphocyte # 1.54 X10^3/ul (4.0); Lymphocyte % 17.1 % (19-41); Mean Corp Hgb Conc 33.3 g/dL (32-36); Mean Corpuscular Hgb 31.1 pg (27.0-32.0); Mean Corpuscular Volume 93.6 fL (80-94); Mean Platelet Vol. 10.4 fl (6.2-12.0); Monocyte# 0.91 X10^3/uL; Monocyte% 10.1 % (0-10); NRBC Flagged by Analyzer 0 % (0-5); Neutrophil # 6.32 X10^3/uL (2.7-7.7); Neutrophil % 70.2 % (47-70); Platelet Count 161 K/mm3 (150-450); RBC Distribution Width CV 13.1 % (11.6-14.6); RBC Distribution Width SD 44.6 fl (35.1-43.9); Red Blood Count 5.01 M/mm3 (4.6-6.2)
--- NOTE | 2020-08-08 01:08 | RAD_ITS ---
STUDY: X-RAY CHEST REASON FOR EXAM: Male, 65 years old. Chest pain and irregular heart rate beginning at 2200 last night. Hx of afib with stent placements. pt states elevated bp tonight at home. TECHNIQUE: Single PA view of the chest. COMPARISON: July 25, 2020 chest x-ray FINDINGS: The lungs are clear and expanded. There is no demonstrated pleural abnormality. Normal size heart. Normal mediastinum and ana. Normal visualized pulmonary arteries. There is atherosclerotic tortuosity of the aortic arch and descending thoracic aorta. There are diffuse degenerative changes of the visualized thoracic spine. Normal visualized ribs, clavicles, and shoulders. There is no demonstrated abnormality of the visualized soft tissue structures of the upper abdomen. RAD/Chest 1 View (Portable) IMPRESSION: Degenerative changes, as described above. No demonstrated acute cardiopulmonary process. Electronically Signed: Elizabet Nunez MD at 1:42 EST Tel , Service support ,
[2020-08-08 01:34] LABS: Anion Gap 3 (5-15); BUN 17 mg/dL (7-18); BUN/Creat Ratio 14.2 RATIO (10-20); Calcium,Total 8.9 mg/dL (8.5-10.1); Chloride 110 mmol/L (98-107); EST Glomerular Filtration Rate 65 mL/min (>60); Est Glom Filt Rate - Afr Amer 78 mL/min (>60); Estimated Creatinine Clearance 70.28 ml/min; Glucose 104 mg/dL (74-106); Potassium 3.9 mmol/L (3.5-5.1); Sodium Level 143 mmol/L (136-145); Thyroid Stim Hormone (TSH) 5.65 uIU/mL (0.358-3.74)
--- NOTE | 2020-08-08 02:26 | HP.PCM_ITS ---
Problem List (1) Palpitations Status: Acute (2) Paroxysmal atrial fibrillation Status: Chronic (3) Presence of stent in coronary artery Status: Chronic Comment: Successful PTCA/JENNIFER to mLAD 04/18/20 (4) Atherosclerotic heart disease of [place] coronary artery without angina pectoris Status: Chronic Qualifiers: [place] vs. transplanted heart: [place] heart Qualified Code(s): I25.10 - Atherosclerotic heart disease of [place] coronary artery without angina pectoris (5) Hypertension Status: Chronic Qualifiers: Hypertension type: essential hypertension Qualified Code(s): I10 - Essential (primary) hypertension (6) Hyperlipidemia Status: Chronic Qualifiers: Hyperlipidemia type: unspecified Qualified Code(s): E78.5 - Hyperlipidemia, unspecified (7) GERD (gastroesophageal reflux disease) Status: Chronic Qualifiers: Esophagitis presence: esophagitis presence not specified Qualified Code(s): K21.9 - Gastro-esophageal reflux disease without esophagitis (8) Abnormal EKG Status: Acute History of Present Illness Date of Admission: 08/08/20 Chief Complaint: Palpitations The patient is a 65 year old M with a significant history of paroxysmal A. fib; hypertension; CAD status post stent 04/18/2020 who presents to the emergency department with palpitations that started at 10 PM while he was sleeping. At that time he checked his blood pressure and his blood pressure was 180/100. Associated with his symptoms is shortness of breath. He denies any chest pain. Past Medical History Past Medical History (Chronic Problems): Chronic Problems (Last Reviewed 08/08/20 @ 02:[address] Jaswant Kinsey MD) Paroxysmal atrial fibrillation (Chronic) Presence of stent in coronary artery (Chronic ~04/18/20) Successful PTCA/JENNIFER to mLAD 04/18/20 Atherosclerotic heart disease of [place] coronary artery without angina pectoris (Chronic) Hypertension (Chronic) Hyperlipidemia (Chronic) GERD (gastroesophageal reflux disease) (Chronic) Medical History: Medical History (Last Reviewed 08/08/20 @ 02:[address] Jaswant Kinsey MD) Paroxysmal atrial fibrillation (Chronic) I48.0 Ventricular ectopy (Inactive) I49.3 Presence of stent in coronary artery (Chronic) Onset Date: ~04/18/20 Z95.5 Successful PTCA/JENNIFER to mLAD 04/18/20 Atherosclerotic heart disease of [place] coronary artery without angina pectoris (Chronic) I25.10 Bladder mass (Inactive) N32.89 Hypokalemia (Inactive) E87.6 Hypertension (Chronic) I10 Hyperlipidemia (Chronic) E78.5 GERD (gastroesophageal reflux disease) (Chronic) K21.9 Chest pain (Inactive) R07.9 NSTEMI (non-ST elevated myocardial infarction) (Inactive) I21.4 Allergies No Known Allergies Allergy (Verified 08/08/20 00:43) Home Medications: Ambulatory Orders Medication Instructions Recorded Omeprazole [Prilosec] 20 mg PO DAILY 07/29/18 Magnesium Oxide [Magnesium] 400 mg PO DAILY 04/17/20 Multivitamins,Therapeutic 1 tab PO DAILY 04/17/20 [Multivitamin] Ubidecarenone [Coq-10] 100 mg PO DAILY 04/17/20 atorvastatin 40 mg tablet 40 mg PO QHS 30 Days #90 tab 05/12/20 isosorbide mononitrate 30 mg 30 mg PO DAILY #90 tab 05/12/20 tablet,extended release 24 hr losartan 100 mg tablet 100 mg PO DAILY #90 tab 05/12/20 flu vac qs 2017(4 yr up)CD(PF) 60 mcg IM ONCE #1 ml 05/16/20 metoprolol tartrate 100 mg tablet 100 mg PO BID #180 tab 06/10/20 aspirin 81 mg tablet,delayed 81 mg PO DAILY 07/04/20 release apixaban 5 mg tablet 5 mg PO BID #180 tab 07/22/20 ticagrelor 90 mg tablet 90 mg PO BID 90 Days #180 tab 07/26/20 amiodarone 200 mg tablet 200 mg PO DAILY #90 tab 08/01/20 Surgical History: Surgical History (Last Reviewed 08/08/20 @ 02:[address] Jaswant Kinsey MD) Enlarged prostate N40.0 non-cancer Smoking Status: Former smoker - *Family History Maternal Family History: Family History (Last Reviewed 08/08/20 @ 02:[address] Jaswant Kinsey MD) Father Congestive heart failure (CHF) Grandfather CAD (coronary artery disease) Brother Cancer Paternal Family History: Family History (Last Reviewed 08/08/20 @ 02:[address] Jaswant Kinsey MD) Father Congestive heart failure (CHF) Grandfather CAD (coronary artery disease) Brother Cancer History Items: Heart Disease Review of Systems Constitutional: Denies: Chills, Fever, Weight Change HEENT: Denies: Head Aches, Sinus Congestion, Sinus Drainage Cardiovascular: Reports: Palpitations. Denies: Chest Pain Respiratory: Denies: Cough, Shortness of breath at rest, Sputum production Gastrointestinal: Denies: Abdominal Pain, Nausea, Vomiting Genitourinary: Denies: Dysuria Musculoskeletal: Denies: Joint Pain, Joint Tenderness Skin: Denies: Rash, Wounds Neurological: Denies: Numbness, Tingling, Focal weakness Psychiatric: Reports: Anxiety. Denies: Depression, Homicidal Ideations, Suicidal Ideations Hematologic/ Lymphatic: Denies: Easy Bruising, Easy Bleeding VTE Information - Inpt Only VTE Present on Admission: No VTE Mechan Device Prophylaxis: SCD's VTE Pharm Prophylaxis ordered?: No Patient Problems: Active and Suspected Problems (Last Reviewed 08/08/20 @ 02:[address] Jaswant Kinsey MD) Palpitations (Acute) Abnormal EKG (Acute) - Physical Exam Vitals/I&O's: Vital Signs Temp Pulse Resp BP Pulse Ox 98.2 F 58 L 18 133/90 H 97 08/08/20 02:14 08/08/20 02:14 08/08/20 02:14 08/08/20 02:14 08/08/20 02:14 Oxygen Delivery Method Room Air Weight: 98.9 kg Body Mass Index (BMI) 28.8 General: Alert, Oriented x3, Cooperative HEENT: Atraumatic, PERRLA, EOMI, Normocephalic Neck: Supple, No JVD, Negative Carotid Bruits Lungs: Clear to auscultation, Normal air movement Cardiovascular: Normal S1, Normal S2, No murmurs, Bradycardic Abdomen: Bowel Sounds Present, Soft, Non Tender Extremities: No edema, Capillary Refill Less than 3 Seconds Skin: No rashes, No breakdown Musculoskeletal: No Tenderness to Palpation of Joints or Extremities Neurological: Cranial nerves II-XII grossly intact Psych/Mental Status: Normal Affect, Appropriate Laboratory Results 08/08/20 00:45: WBC 9.0, RBC 5.01, Hgb 15.6, Hct 46.9, MCV 93.6, MCH 31.1, MCHC 33.3, RDW Std Deviation 44.6 H, RDW Coeff of [place] 13.1, Plt Count 161, MPV 10.4, Immature Gran % (Auto) 0.400, Neut % (Auto) 70.2 H, Lymph % (Auto) 17.1 L, [place] % (Auto) 10.1 H, Eos % (Auto) 2.0, Baso % (Auto) 0.2, Absolute Neuts (auto) 6.3, Absolute Lymphs (auto) 1.54, Nucleated RBC % 0 08/08/20 00:45: Sodium 143, Potassium 3.9, Chloride 110 H, Carbon Dioxide 30.0, Anion Gap 3 L, BUN 17, Creatinine 1.20, Estim Creat Clear Calc 70.28, Est GFR (MDRD) Af Amer 78, Est GFR (MDRD) Non-Af 65, BUN/Creatinine Ratio 14.2, Glucose 104, Calcium 8.9, Troponin I < 0.015, TSH 5.65 H Assessment/Plan All Active Problems (Last Reviewed 08/08/20 @ 02:[address] Jaswant Kinsey MD) Palpitations (Acute) Abnormal EKG (Acute) Palpitations and abnormal EKG EKG showed Q waves in V1 and V2; biphasic T waves in V3; and T wave inversions in V4 to V6. This EKG looks similar in appearance to his EKG on April 19, 2020 a day after coronary stent was placed in his LAD. On June 06, 2020 days EKG morphology was not present. Troponin was negative. Emergency part of the discussed the case with cardiology who wanted patient to stay over at the hospital. Supplement potassium and check magnesium. We will keep patient n.p.o. except meds. Discussed with cardiology and will hold patient's Eliquis. Will consult cardiology. Received aspirin 324 mg in emergency department. Home aspirin continued. Elevated TSH. We will check free T4. History of CAD Review of old records shows that drug-eluting stent was placed in LAD on 04/18/2020 because of non-STEMI. Cardiac catheterization also showed that his mid RCA at a time was occluded. He had distal RCA collateral flows. Patient has been going to cardiac rehabilitation. Aspirin; losartan; Imdur; metoprolol and ticagrelor continued. History of A. fib Metoprolol continued. Eliquis held at this time. Amiodarone continued. Hypertension Blood pressure is not within goal Losartan; Imdur; metoprolol continued Trend blood pressure and adjust blood pressure medications. DVT prophylaxis SCD ordered. OBSV E&M: [id number] Initial observation care L2
--- NOTE | 2020-08-08 02:37 | EKG12_ITS ---
Test Reason : PALPITATIONS Blood Pressure : / mmHG Vent. Rate : 056 BPM Atrial Rate : 056 BPM P-R Int : 194 ms QRS Dur : 090 ms QT Int : 442 ms P-R-T Axes : 023 -03 143 degrees QTc Int : 426 ms Sinus bradycardia Anteroseptal infarct , age undetermined T wave abnormality, consider lateral ischemia Abnormal ECG Confirmed by WILLIAN THOMAS, ASHISH ([id number]), editor department [facility] ([id number]) on 08/10/2020 11:11:20 AM Referred By: CHERYL Confirmed By:ASHISH DORSEY MD
--- NOTE | 2020-08-08 03:03 | PCS.PANDOC ---
PANDEMIC DOCUMENTATION INITIATED: Date: 08/08/20 Time: 02:36
[2020-08-08 04:40] LABS: Magnesium 2.2 mg/dL (1.6-2.6); T4 Free Direct 1.21 ng/dL (0.76-1.46)
--- NOTE | 2020-08-08 10:46 | STRESSREP_ITS ---
Stress Test Report Date: 08-08-2020 Procedure: Exercise tolerance test/imaging study Indications: Palpitations; chest pain; CAD; PCI Consent: Per the patient Procedure: The patient exercised on a Dmitriy protocol for 7 minutes and 31 seconds completing Stage II and 1 minute and 31 seconds of Stage III achieving a peak heart rate of 107 bpm (68% predicted maximal heart rate) with a peak blood pressure 164/78 mmHg and a peak MET capacity of 9 METs. The baseline ECG demonstrated sinus rhythm; septal AK of indeterminate age cannot be excluded; nonspecific ST/T wave abnormality. The peak exercise ECG demonstrated approximately 1 mm of horizontal/upsloping ST segment depression in leads II, III, and aVF with resolution towards baseline beginning by 1 minute in recovery. There were no cardiac dysrhythmias pretest, during exercise, or recovery. The functional capacity was considered good. There was [no complaint of chest discomfort during exercise or recovery]. The examination was discontinued secondary to dyspnea. Impression: 1. Technically adequate (percent predicted maximal heart rate greater than 85%) exercise tolerance test 2. Peak exercise ECG demonstrated approximately 1 mm of horizontal/upsloping ST segment depression in leads II, III, and aVF with resolution towards baseline beginning by 1 minute in recovery 3. There were no cardiac dysrhythmias pretest, during exercise, or recovery 4. Pharmacologic (regadenoson) evaluation pending Procedure: Pharmacologic stress nuclear imaging study Consent: Per the patient Procedure: The patient underwent pharmacologic (Regadenoson) evaluation with a peak heart rate of 86 beats per minute (55%predicted maximal heart rate) and a peak blood pressure of 132/74 mmHg. The baseline ECG demonstrated sinus rhythm; septal AK of indeterminate age cannot be excluded; nonspecific ST/T wave abnormality. The peak pharmacologic ECG demonstrated no obvious ECG changes. There were no cardiac dysrhythmias pretest, during pharmacologic infusion, or recovery. There was no complaint of chest discomfort during pharmacologic infusion or recovery. The examination was discontinued secondary to completion of protocol. Impression: 1. Pharmacologic (Regadenoson) evaluation 2. Peak pharmacologic ECG with no obvious ECG changes. 3. There were no cardiac dysrhythmias pretest, during pharmacologic infusion, or recovery. 4. Nuclear images pending Myocardial perfusion imaging study: Technique: The patient was injected with 13.8 millicuries of technetium 99m Cardiolite and subsequently rest SPECT Cardiolite nuclear imaging was obtained in the horizontal long, vertical long, and short axis views. The patient exercised on a Dmitriy protocol for 7 minutes and 31 seconds completing Stage II and 1 minute and 31 seconds of Stage III achieving a peak heart rate of 107 bpm (68% predicted maximal heart rate) with a peak blood pressure 164/78 mmHg and a peak MET capacity of 9 METs. The patient underwent pharmacologic (Regadenoson) evaluation with a peak heart rate of 86 beats per minute (55% percent predicted maximal heart rate) and a peak blood pressure of 132/74 mmHg. The patient was injected with 41.3 millicuries of technetium 99m Cardiolite and subsequently stress SPECT Cardiolite nuclear imaging was obtained in the horizontal long, vertical long, and short axis views. A gated Cardiolite study at peak stress was obtained. Interpretation: Rest and stress SPECT Cardiolite nuclear imaging status post realignment, normalization, and attenuation correction demonstrate relative uniform tracer uptake and myocardial perfusion appearing within normal limits. There is end systolic thickening and brightening. The gated Cardiolite study demonstrates myocardial thickening and inward wall motion. The reported LVEF is 76%. Impression: 1. Rest and stress SPECT Cardiolite nuclear imaging demonstrate relative uniform tracer uptake and myocardial perfusion appearing within normal limits. 2. The gated Cardiolite study reports an LVEF of 76%. This note was generated with [employer] software. It may contain incorrect words, spelling, and punctuation that were not noted in checking the note before signing.
[2020-08-08] MEDS: Aspirin E.C. 81 MG Tablet PO (12:08)
[2020-08-08] MEDS: TICAGRELOR 90 MG TABLET PO (12:08)
[2020-08-08] MEDS: Amiodarone 200 MG Tablet PO (12:08)
[2020-08-08] MEDS: Losartan Potassium 100 MG Tablet PO (12:08)
[2020-08-08] MEDS: Multivitamins,Therapeutic Tablet 1 TABLET PO (12:09)
[2020-08-08] MEDS: Metoprolol Tartrate 100 MG Tablet PO (12:09)
[2020-08-08] MEDS: Pantoprazole Sodium 20 MG Tablet PO (12:09)
[2020-08-08] MEDS: Isosorbide Mononitrate 30 MG Tablet PO (12:09)
--- NOTE | 2020-08-08 17:10 | PCM.CONS.C ---
Problem List (1) Palpitations Status: Acute (2) Paroxysmal atrial fibrillation Status: Chronic (3) Atherosclerotic heart disease of [place] coronary artery without angina pectoris Status: Chronic Qualifiers: [place] vs. transplanted heart: [place] heart Qualified Code(s): I25.10 - Atherosclerotic heart disease of [place] coronary artery without angina pectoris (4) Presence of stent in coronary artery Status: Chronic Comment: Successful PTCA/JENNIFER to mLAD 04/18/20 (5) Hyperlipidemia Status: Chronic Qualifiers: Hyperlipidemia type: unspecified Qualified Code(s): E78.5 - Hyperlipidemia, unspecified (6) Hypertension Status: Chronic Qualifiers: Hypertension type: essential hypertension Qualified Code(s): I10 - Essential (primary) hypertension Reason for Consult Date of Consultation: 08/08/20 History of Present Illness: The patient is a 65 year old old white male with a past cardiovascular history which is included underlying CAD, status post PCI, paroxysmal atrial fibrillation, hyperlipidemia, and hypertension who presented for evaluation of palpitations. He states he felt a jitteriness in his left chest. He was concerned he may be having recurrent atrial fibrillation. He presented to the emergency department for further evaluation. He states he does not recall having ongoing chest discomfort or worsening shortness of breath/dyspnea or associated nausea, emesis, or diaphoresis. He has had no orthopnea or PND or worsening peripheral pitting edema. There is been no near syncope or syncope. He was evaluated in the emergency department. He had a negative troponin I level. His ECG demonstrated sinus rhythm with an anteroseptal OR pattern of indeterminate age and a T wave pattern potentially compatible with myocardial ischemia in the lateral distribution. His cardiac enzymes have been followed with no significant change. His ECG has been repeated with no significant change. He has undergone an exercise tolerance test/imaging study that did not appear to demonstrate myocardial perfusion changes suggestive of stress-induced myocardial ischemia. He has remained in sinus rhythm. He states overall the present time he feels well again. [] Past Medical History Allergies/Adverse Reactions: Allergies No Known Allergies Allergy (Verified 08/08/20 00:43) Home Medications: Ambulatory Orders Medication Instructions Recorded Omeprazole [Prilosec] 20 mg PO DAILY 07/29/18 Magnesium Oxide [Magnesium] 400 mg PO DAILY 04/17/20 Multivitamins,Therapeutic 1 tab PO DAILY 04/17/20 [Multivitamin] Ubidecarenone [Coq-10] 100 mg PO DAILY 04/17/20 atorvastatin 40 mg tablet 40 mg PO QHS 30 Days #90 tab 05/12/20 isosorbide mononitrate 30 mg 30 mg PO DAILY #90 tab 05/12/20 tablet,extended release 24 hr losartan 100 mg tablet 100 mg PO DAILY #90 tab 05/12/20 metoprolol tartrate 100 mg tablet 100 mg PO BID #180 tab 06/10/20 aspirin 81 mg tablet,delayed 81 mg PO DAILY 07/04/20 release apixaban 5 mg tablet 5 mg PO BID #180 tab 07/22/20 ticagrelor 90 mg tablet 90 mg PO BID 90 Days #180 tab 07/26/20 amiodarone 200 mg tablet 200 mg PO DAILY #90 tab 08/01/20 Past Medical History (Chronic Problems): Chronic Problems (Last Reviewed 08/08/20 @ 02:[address] Jaswant Kinsey MD) Paroxysmal atrial fibrillation (Chronic) Presence of stent in coronary artery (Chronic ~04/18/20) Successful PTCA/JENNIFER to mLAD 04/18/20 Atherosclerotic heart disease of [place] coronary artery without angina pectoris (Chronic) Hypertension (Chronic) Hyperlipidemia (Chronic) GERD (gastroesophageal reflux disease) (Chronic) Surgical History: no surgical history - *Family History Maternal Family History: Family History (Last Reviewed 08/08/20 @ 02:[address] Jaswant Kinsey MD) Father Congestive heart failure (CHF) Grandfather CAD (coronary artery disease) Brother Cancer History Items: No pertinent history Paternal Family History: Family History (Last Reviewed 08/08/20 @ 02:[address] Jaswant Kinsey MD) Father Congestive heart failure (CHF) Grandfather CAD (coronary artery disease) Brother Cancer History Items: Heart Disease Smoking Status: Former smoker Review of Systems - Review of Systems General: Denies: Fever, Night Sweats, Fatigue Cardiovascular: Reports: Palpitations. Denies: Chest Discomfort, Shortness of Breath, Orthopnea, PND, Peripheral Edema, Lightheadedness, Dizziness, Near Syncope, Syncope Respiratory: Denies: Cough, Sputum Production, Hemoptysis Gastrointestinal: Denies: Hematemesis, Hematochezia, Melena Genitourinary: Denies: Dysuria, Hematuria Skin: Denies: Rash Subjectve: This is a 65-year-old white male who appears to be resting comfortably at the moment in no acute distress. Objective: Vital Signs Temp Pulse Resp BP Pulse Ox 98.0 F 87 16 134/81 H 98 08/08/20 13:05 08/08/20 13:05 08/08/20 13:05 08/08/20 13:05 08/08/20 13:05 Oxygen Delivery Method Room Air Weight: 214 lb 4.8 oz Body Mass Index (BMI) 28.3 Intake and Output for Last 24 Hours 08/06/20 08/07/20 08/08/20 23:59 23:59 23:59 Intake Total 0 / 0 Balance 0 / 0 General: Awake, Alert, Oriented x 3, Cooperative, No Acute Distress HEENT: Atraumatic, Normocephalic, PERRL, EOMI, Sclera Non Icteric Neck: Supple, Good ROM, No JVD Lungs: Clear to auscultation Cardiovascular: Regular Rhythm, Normal S1, Normal S2 Vascular: No Carotid Bruits Abdomen: Bowel Sounds Present, Soft, Non Tender Extremities: No edema Neurological: No Focal Motor or Sensory Deficit Psych/Mental Status: Appropriate 08/08/20 00:45: WBC 9.0, RBC 5.01, Hgb 15.6, Hct 46.9, MCV 93.6, MCH 31.1, MCHC 33.3, Plt Count 161, MPV 10.4, Immature Gran % (Auto) 0.400, Neut % (Auto) 70.2 H, Lymph % (Auto) 17.1 L, [place] % (Auto) 10.1 H, Eos % (Auto) 2.0, Baso % (Auto) 0.2, Absolute Neuts (auto) 6.3, Nucleated RBC % 0 08/08/20 00:45: Sodium 143, Potassium 3.9, Chloride 110 H, Carbon Dioxide 30.0, Anion Gap 3 L, BUN 17, Creatinine 1.20, Est GFR (MDRD) Af Amer 78, Est GFR (MDRD) Non-Af 65, BUN/Creatinine Ratio 14.2, Glucose 104, Calcium 8.9, Troponin I < 0.015 08/08/20 03:59: Magnesium 2.2 08/08/20 03:59: Troponin I < 0.015 08/08/20 06:44: Troponin I < 0.015 Rhythm: Sinus rhythm EKG: As noted above ECHO: 04-18-2020 Interpretation Summary The study was technically difficult. Contrast injection was performed. Segmental dysfunction with preserved ejection fraction (see wall motion). The estimated ejection fraction is 65 %. Mild diffuse mitral valve thickening. Mild (1+) mitral valve insufficiency. Trivial tricuspid valve insufficiency. Mild focal aortic valve calcification. Right ventricular systolic pressure estimated to be 25 mmHg. Diastolic function is indeterminate. Stress Test Report Date: 08-08-2020 Procedure: Exercise tolerance test/imaging study Indications: Palpitations; chest pain; CAD; PCI Consent: Per the patient Procedure: The patient exercised on a Dmitriy protocol for 7 minutes and 31 seconds completing Stage II and 1 minute and 31 seconds of Stage III achieving a peak heart rate of 107 bpm (68% predicted maximal heart rate) with a peak blood pressure 164/78 mmHg and a peak MET capacity of 9 METs. The baseline ECG demonstrated sinus rhythm; septal OR of indeterminate age cannot be excluded; nonspecific ST/T wave abnormality. The peak exercise ECG demonstrated approximately 1 mm of horizontal/upsloping ST segment depression in leads II, III, and aVF with resolution towards baseline beginning by 1 minute in recovery. There were no cardiac dysrhythmias pretest, during exercise, or recovery. The functional capacity was considered good. There was [no complaint of chest discomfort during exercise or recovery]. The examination was discontinued secondary to dyspnea. Impression: 1. Technically adequate (percent predicted maximal heart rate greater than 85%) exercise tolerance test 2. Peak exercise ECG demonstrated approximately 1 mm of horizontal/upsloping ST segment depression in leads II, III, and aVF with resolution towards baseline beginning by 1 minute in recovery 3. There were no cardiac dysrhythmias pretest, during exercise, or recovery 4. Pharmacologic (regadenoson) evaluation pending Procedure: Pharmacologic stress nuclear imaging study Consent: Per the patient Procedure: The patient underwent pharmacologic (Regadenoson) evaluation with a peak heart rate of 86 beats per minute (55%predicted maximal heart rate) and a peak blood pressure of 132/74 mmHg. The baseline ECG demonstrated sinus rhythm; septal OR of indeterminate age cannot be excluded; nonspecific ST/T wave abnormality. The peak pharmacologic ECG demonstrated no obvious ECG changes. There were no cardiac dysrhythmias pretest, during pharmacologic infusion, or recovery. There was no complaint of chest discomfort during pharmacologic infusion or recovery. The examination was discontinued secondary to completion of protocol. Impression: 1. Pharmacologic (Regadenoson) evaluation 2. Peak pharmacologic ECG with no obvious ECG changes. 3. There were no cardiac dysrhythmias pretest, during pharmacologic infusion, or recovery. 4. Nuclear images pending Myocardial perfusion imaging study: Technique: The patient was injected with 13.8 millicuries of technetium 99m Cardiolite and subsequently rest SPECT Cardiolite nuclear imaging was obtained in the horizontal long, vertical long, and short axis views. The patient exercised on a Dmitriy protocol for 7 minutes and 31 seconds completing Stage II and 1 minute and 31 seconds of Stage III achieving a peak heart rate of 107 bpm (68% predicted maximal heart rate) with a peak blood pressure 164/78 mmHg and a peak MET capacity of 9 METs. The patient underwent pharmacologic (Regadenoson) evaluation with a peak heart rate of 86 beats per minute (55% percent predicted maximal heart rate) and a peak blood pressure of 132/74 mmHg. The patient was injected with 41.3 millicuries of technetium 99m Cardiolite and subsequently stress SPECT Cardiolite nuclear imaging was obtained in the horizontal long, vertical long, and short axis views. A gated Cardiolite study at peak stress was obtained. Interpretation: Rest and stress SPECT Cardiolite nuclear imaging status post realignment, normalization, and attenuation correction demonstrate relative uniform tracer uptake and myocardial perfusion appearing within normal limits. There is end systolic thickening and brightening. The gated Cardiolite study demonstrates myocardial thickening and inward wall motion. The reported LVEF is 76%. Impression: 1. Rest and stress SPECT Cardiolite nuclear imaging demonstrate relative uniform tracer uptake and myocardial perfusion appearing within normal limits. 2. The gated Cardiolite study reports an LVEF of 76%. Cardiac Cath: 04-18-2020 CONCLUSIONS Elevated Left Ventricular End Diastolic Pressure Normal LV size, wall motion,and systolic function LVEF: by LV gram 60 % [place] Multivessel CAD Left to right collateral flow RECOMMENDATIONS Risk factor modification Medical therapy Referred for immediate PCI DESCRIPTION OF PROCEDURE The patient arrived to the procedure lab. The risks and benefits of the procedure as well as a full description of our services here and current unavailability of surgical backup were fully explained to the patient and/or their significant other prior to the catheterization. The Timeout was completed, verifying the correct patient and procedure. The patient's procedural site was prepped and draped in the usual fashion. Local anesthetic was given subcutaneously to right radial region with Lidocaine 2%. Using a modified Seldinger technique, arterial access was obtained via the right radial artery, a 6Fr sheath was inserted. Right Coronary Artery selective angiography was then performed in multiple views using a 5 Fr. 4.0 [place] catheter. Left Coronary Artery selective angiography was performed in multiple views using a 5 Fr. JL3.5 catheter. Left Ventriculography was performed in PENG projection using a 5 Fr. [place] catheter. LV to AO pullback pressures were then recorded.The arterial sheath was pulled and a TR Band was applied for hemostasis CORONARY ANGIOGRAPHY DOMINANCE: Right Dominant LEFT HEART ASSESSMENT Left Ventricular Ejection Fraction: by LV Gram 60 % Normal LV wall motion Elevated Left Ventricular End Diastolic Pressure LVEDP: 30 mmHg LEFT MAIN: large bifurcating vessel with no angiographically significant appearing disease LEFT ANTERIOR DESCENDING ARTERY: PROX LAD: Severe calcification, Mild luminal irregularities MID LAD: 90 % Stenosis CIRCUMFLEX ARTERY: PROX CIRC: eccentric: hazy: 25 - 50 % Stenosis OM 1: Proximal - eccentric: hazy: 25 - 50 % Stenosis RIGHT CORONARY ARTERY: MID RCA: is occluded DISTAL RCA: filling from left to right collateral flow COLLATERAL FLOW: Collateral flow from Left to Right AORTIC ROOT: Angiographically normal PCI: 04-18-2020 CONCLUSIONS Successful PTCA/JENNIFER to mLAD CXR: Preliminary evaluation: No acute cardiopulmonary disease process appreciated: Please see official report Assessment/Plan 1. Palpitations The patient appeared to experience palpitations. Thus far his cardiac rhythm has remained sinus rhythm. At the moment he has undergone noninvasive valuation with cardiac enzymes, ECG follow-up, and an exercise tolerance test/imaging study as noted. Based upon his results he has had no evidence of acute coronary syndrome or ongoing myocardial ischemia. At the present time he will continue his medications which include rate control therapy and antiarrhythmic therapy, and his anticoagulant therapy. In the interim if he has recurrent symptoms then he may need to be considered for long-term outpatient ambulatory event monitor in attempt to correlate his symptoms with any evidence of recurrence of his atrial fibrillation or other cardiac dysrhythmias. 2. Paroxysmal atrial fibrillation He did have a previous episode of paroxysmal atrial fibrillation. The present time he appears to be remaining in sinus rhythm. He will continue his antiplatelet therapy, his rate limiting therapy, his antiarrhythmic therapy, and anticoagulant therapy. 3. CAD status post LAD PCI At the moment he appears without any acute coronary syndrome symptoms, negative cardiac enzymes, no dynamic changes on his ECG during his hospitalization, and an exercise tolerance test/nuclear imaging study suggesting no stress-induced myocardial perfusion changes. Thus at the moment he should continue risk factor evaluation medical therapy. It was not felt he needed to return to the cardiac catheterization laboratory at this time. 4. Hyperlipidemia He should continue medical therapy to minimize his cardiovascular risks. 5. Hypertension His blood pressure will need to be followed over time. He may need adjustment of medications to assist with blood pressure control. Overall, the present time, it is felt the patient would continue conservative medical management. If he has recurrent discerning symptoms then he should notify the office and/or present back to the hospital for reassessment as deemed appropriate. The patient's case was discussed and reviewed with the patient as well as Dr. Fortune. This note was generated using a voice recognition system and there may be incorrect words, spelling or punctuation that were not noted when reviewing the office note prior to saving.
--- NOTE | 2020-08-08 17:25 | DCINST_ITS ---
- Discharge Diagnoses Current Active Problems: Current Active and Chronic Problems (Last Reviewed 08/08/20 @ 02:[address] Jaswant Kinsey MD) Palpitations (Acute) Abnormal EKG (Acute) Paroxysmal atrial fibrillation (Chronic) Presence of stent in coronary artery (Chronic ~04/18/20) Successful PTCA/JENNIFER to mLAD 04/18/20 Atherosclerotic heart disease of [place] coronary artery without angina pectoris (Chronic) Hypertension (Chronic) Hyperlipidemia (Chronic) GERD (gastroesophageal reflux disease) (Chronic) You will use the following diet at home:: No restrictions Your food should be the consistency of: Regular Your liquids should be the consistency of: Regular/Thin Discharge Activity: Return to Normal Activity Weight Bearing Status: Full weight bearing Allergies/Adverse Reactions: Allergies No Known Allergies Allergy (Verified 08/08/20 00:43) Medications to take at Discharge Omeprazole [Prilosec] 20 mg PO DAILY 07/29/18 Magnesium Oxide [Magnesium] 400 mg PO DAILY 04/17/20 Multivitamins,Therapeutic [Multivitamin] 1 tab PO DAILY 04/17/20 Ubidecarenone [Coq-10] 100 mg PO DAILY 04/17/20 atorvastatin 40 mg tablet 40 mg PO QHS 30 Days #90 tab 05/12/20 isosorbide mononitrate 30 mg tablet,extended release 24 hr 30 mg PO DAILY #90 tab 05/12/20 losartan 100 mg tablet 100 mg PO DAILY #90 tab 05/12/20 metoprolol tartrate 100 mg tablet 100 mg PO BID #180 tab 06/10/20 aspirin 81 mg tablet,delayed release 81 mg PO DAILY 07/04/20 apixaban 5 mg tablet 5 mg PO BID #180 tab 07/22/20 ticagrelor 90 mg tablet 90 mg PO BID 90 Days #180 tab 07/26/20 amiodarone 200 mg tablet 200 mg PO DAILY #90 tab 08/01/20 Primary Care Physician: Pk Caballero MD [Primary Care Provider] - Please follow up with your Primary Care Physician in: at next scheduled visit Test Results: Test results from this visit will be discussed in further detail at your follow- up appointment, if applicable. Please Follow Up With: Pk Villela MD When: at next office visit
--- NOTE | 2020-08-11 17:48 | PCM.DC.SUM ---
Discharge Date and Diagnosis - Problem List Patient Problems: Active and Suspected Problems (Last Reviewed 08/08/20 @ 02:[address] Jaswant Kinsey MD) Palpitations (Acute) Abnormal EKG (Acute) Date of Admission: 08/08/20 Date of Discharge: 08/08/20 - Primary Discharge Diagnosis Acute Problems: Active Problems (Last Reviewed 08/08/20 @ 02:[address] Jaswant Kinsey MD) #1 palpitations-type unknown #2 paroxysmal atrial fibrillation #3 coronary artery disease #4 hyperlipidemia #5 essential hypertension - Secondary Discharge Diagnosis Chronic Problems: Chronic Problems (Last Reviewed 08/08/20 @ 02:[address] Jaswant Kinsey MD) Paroxysmal atrial fibrillation (Chronic) Presence of stent in coronary artery (Chronic ~04/18/20) Successful PTCA/JENNIFER to mLAD 04/18/20 Atherosclerotic heart disease of [place] coronary artery without angina pectoris (Chronic) Hypertension (Chronic) Hyperlipidemia (Chronic) GERD (gastroesophageal reflux disease) (Chronic) Hospital Course and Treatment Operations: None Procedures: Nuclear stress test Summary of Care Provided: The patient is a 65 year old M who was seen in the emergency room at [facility] with a chief complaint of palpitations that lasted approximately 30 minutes at home. It was resolved by the time patient came to the emergency room. Work-up in the emergency room included labs which revealed a normal troponin, patient's TSH was slightly elevated at 5.65, EKG showed some lateral T wave inversions which appear to be new from his last EKG on June 06, 2020, patient was also in normal sinus rhythm. Chest x-ray was unremarkable. Patient was placed into observation status on PCU, repeat cardiac enzymes remain normal, he was seen in consultation by cardiology and underwent an exercise nuclear stress test which was negative for reversible ischemia. Cardiology did not recommend further work-up in the etiology of the patient's palpitations were unknown. On 08/08/2020, patient was seen and examined: On examination he appeared in good health and spirits. Vital signs as documented. Skin warm and dry and without overt rashes. Neck without JVD, neck was supple, trachea midline, thyroid was normal. Lungs clear bilaterally, normal air movement was noted. Heart exam notable for regular rhythm, normal sounds and absence of murmurs, rubs or gallops. Abdomen unremarkable and without evidence of organomegaly, masses, or abdominal aortic enlargement. Bowel sounds are present, abdomen is not distended. Extremities nonedematous, no cyanosis was noted, no clubbing was noted. Neuro: Cranial nerves II through XII are grossly intact, no focal motor deficits were noted, sensation to light touch and pinprick intact, motor exam 5/5 throughout. Psych: Patient is alert and oriented x3, he does not appear anxious or depressed, he does not appear agitated. Patient was discharged home in stable condition on 08/08/2020. Patient Problems: Active and Suspected Problems (Last Reviewed 08/08/20 @ 02:[address] Jaswant Kinsey MD) Palpitations (Acute) Abnormal EKG (Acute) - Physical Exam Vitals/I&O's: Vital Signs Temp Pulse Resp BP Pulse Ox 98.0 F 87 16 134/81 H 98 08/08/20 13:05 08/08/20 13:05 08/08/20 13:05 08/08/20 13:05 08/08/20 13:05 Oxygen Delivery Method Room Air Weight: 97.205 kg Body Mass Index (BMI) 28.3 Discharge Activity: Return to Normal Activity Weight Bearing Status: Full weight bearing Home Medications: Medications to take at Discharge Omeprazole [Prilosec] 20 mg PO DAILY 07/29/18 Magnesium Oxide [Magnesium] 400 mg PO DAILY 04/17/20 Multivitamins,Therapeutic [Multivitamin] 1 tab PO DAILY 04/17/20 Ubidecarenone [Coq-10] 100 mg PO DAILY 04/17/20 atorvastatin 40 mg tablet 40 mg PO QHS 30 Days #90 tab 05/12/20 isosorbide mononitrate 30 mg tablet,extended release 24 hr 30 mg PO DAILY #90 tab 05/12/20 losartan 100 mg tablet 100 mg PO DAILY #90 tab 05/12/20 metoprolol tartrate 100 mg tablet 100 mg PO BID #180 tab 06/10/20 aspirin 81 mg tablet,delayed release 81 mg PO DAILY 07/04/20 apixaban 5 mg tablet 5 mg PO BID #180 tab 07/22/20 ticagrelor 90 mg tablet 90 mg PO BID 90 Days #180 tab 07/26/20 amiodarone 200 mg tablet 200 mg PO DAILY #90 tab 08/01/20 Primary Care Physician: kP Caballero MD [Primary Care Provider] - Please follow up with your Primary Care Physician in: at next scheduled visit Please Follow Up With: Pk Villela MD When: at next office visit Please Follow Up With: Pk Caballero MD Disposition: Home Minutes spent on discharge:: 30 Patient Condition:: Stable Medical Necessity - Tobacco Use Smoking Status: Former smoker Meaningful Use Info Meaningful Use Diagnoses (Choose all that apply): None applicable OBSV E&M: 48354 Observ/hosp same date L3
== END 2020-08-08 17:29 | disposition home or self-care (01) ==
LOC: ED 01:15 → PCU 02:19
PROVIDERS: Admitting Provider Hospitalist; Emergency Provider Emergency Medicine; PCP Family Medicine; Visit Provider Internal Medicine
DX: I48.0 Paroxysmal atrial fibrillation (principal); I25.10 Atherosclerotic heart disease of native coronary artery without angina pectoris; E78.5 Hyperlipidemia, unspecified; I10 Essential (primary) hypertension; D68.9 Coagulation defect, unspecified; R94.6 Abnormal results of thyroid function studies; R94.31 Abnormal electrocardiogram [ECG] [EKG]; K21.9 Gastro-esophageal reflux disease without esophagitis; I49.1 Atrial premature depolarization; I25.2 Old myocardial infarction; Z95.5 Presence of coronary angioplasty implant and graft; Z79.899 Other long term (current) drug therapy; Z79.01 Long term (current) use of anticoagulants; Z79.82 Long term (current) use of aspirin; Z87.891 Personal history of nicotine dependence
CPT/HCPCS: 36415; 71045; 78452; 80048; 83735; 84439; 84443; 84484; 85025; 93005; 93017; 99218; 99285; A9500; A4216; G0378; J2785

== ENCOUNTER → 2020-11-01 06:59 | Outpatient (CLI) | payer OTHER, SELFPAY ==
[2020-07-08 07:00] VITALS: BMI 28.6
[2020-08-08 02:39] VITALS: BMI 28.3
[2020-11-01 11:04] LABS: ALB/GLOB Ratio 1.7 RATIO (0.9-2.4); AST(SGOT) 19 U/L (15-37); Alanine Aminotransfer ALT/SGPT 48 U/L (16-61); Albumin, Serum 4.3 g/dL (3.2-5.0); Alkaline Phosphatase 77 U/L (45-117); Anion Gap 5 (5-15); BUN 20 mg/dL (7-18); BUN/Creat Ratio 15.3 RATIO (10-20); Calcium,Total 9.2 mg/dL (8.5-10.1); Chloride 108 mmol/L (98-107); Cholesterol 150 mg/dL (200); Creatinine, Serum 1.31 mg/dL (0.70-1.30); EST Glomerular Filtration Rate 58 mL/min (>60); Est Glom Filt Rate - Afr Amer 71 mL/min (>60); Globulin 2.6 g/dL (2.2-4.2); Glucose 88 mg/dL (74-106); High Density Lipoprotein 46 mg/dL; Potassium 4.3 mmol/L (3.5-5.1); Protein, Total 6.9 g/dL (6.4-8.2); Sodium Level 143 mmol/L (136-145); T4 Free Direct 1.22 ng/dL (0.76-1.46); Thyroid Stim Hormone (TSH) 3.65 uIU/mL (0.358-3.74); Triglycerides 129 mg/dL; Very Low Density Lipoprotein 26 mg/dL (5-40)
== END ==
PROVIDERS: PCP Family Medicine; Referring Provider Nurse Practitioner Family; Visit Provider Nurse Practitioner Family
DX: I25.10 Atherosclerotic heart disease of native coronary artery without angina pectoris (principal); Z79.899 Other long term (current) drug therapy
CPT/HCPCS: 36415; 80053; 80061; 84439; 84443

== ENCOUNTER → 2021-05-17 09:44 | Outpatient (CLI) | payer MEDICARE, BC, SELFPAY ==
[2020-07-08 07:00] VITALS: BMI 28.6
[2021-05-17 12:43] LABS: Anion Gap 7 (5-15); BUN 16 mg/dL (7-18); BUN/Creat Ratio 12.7 RATIO (10-20); Calcium,Total 8.8 mg/dL (8.5-10.1); Chloride 107 mmol/L (98-107); Cholesterol 147 mg/dL (200); Creatinine, Serum 1.26 mg/dL (0.70-1.30); EST Glomerular Filtration Rate 61 mL/min (>60); Est Glom Filt Rate - Afr Amer 74 mL/min (>60); Glucose 97 mg/dL (74-106); High Density Lipoprotein 45 mg/dL; Potassium 4.5 mmol/L (3.5-5.1); Sodium Level 142 mmol/L (136-145); Triglycerides 130 mg/dL; Very Low Density Lipoprotein 26 mg/dL (5-40)
== END ==
PROVIDERS: PCP Family Medicine; Referring Provider Family Medicine; Visit Provider Family Medicine
DX: I25.10 Atherosclerotic heart disease of native coronary artery without angina pectoris (principal)
CPT/HCPCS: 36415; 80048; 80061

== ENCOUNTER → 2021-05-23 13:23 | Outpatient (CLI) | payer MEDICARE, BC, SELFPAY ==
[2020-07-08 07:00] VITALS: BMI 28.6
[2021-05-23 14:11] LABS: PSA,Total- Diagnostic 2.77 ng/mL (0.0-4.0)
== END ==
PROVIDERS: PCP Family Medicine; Referring Provider Urology; Visit Provider Urology
DX: N40.1 Benign prostatic hyperplasia with lower urinary tract symptoms (principal)
CPT/HCPCS: 36415; 84153

== ENCOUNTER 2021-10-26 07:54 | Outpatient (CLI) | payer MEDICARE, BC, SELFPAY ==
[2020-07-08 07:00] VITALS: BMI 28.6
--- NOTE | 2021-10-27 13:23 | PFT ---
INTRODUCTION: The patient is a 66-year-old male that presents for pulmonary function studies secondary to a diagnosis of high risk medication use. Respiratory therapy reported good patient effort. Bronchodilators were used during testing. INTERPRETATION: Forced expiration spirometry demonstrates no evidence of a large airways obstructive ventilatory defect. There was no significant response to aerosolized bronchodilators. Spirograms are of good quality and plateau normally. Body plethysmography was performed and reveals lung volumes to be within normal limits. Diffusing capacity by single breath CO is likewise within normal limits. IMPRESSION: Grossly normal pulmonary function study.
== END 2021-10-26 23:59 | disposition home or self-care (01) ==
LOC: PSN 07:55
PROVIDERS: PCP Family Medicine; Referring Provider Physician Assistant Medical; Visit Provider Physician Assistant Medical
DX: Z79.899 Other long term (current) drug therapy (principal)
CPT/HCPCS: 94060; 94726; 94729

== ENCOUNTER 2021-11-13 08:56 | Outpatient (CLI) | payer MEDICARE, BC, SELFPAY ==
[2020-07-08 07:00] VITALS: BMI 28.6
[2021-11-13 10:29] LABS: AST(SGOT) 19 U/L (15-37); Alanine Aminotransfer ALT/SGPT 36 U/L (16-61); Albumin, Serum 3.9 g/dL (3.2-5.0); Alkaline Phosphatase 66 U/L (45-117); Anion Gap 5 (5-15); BUN 19 mg/dL (7-18); BUN/Creat Ratio 15.2 RATIO (10-20); Bilirubin, Direct 0.16 mg/dL (0.00-0.30); Calcium,Total 9.1 mg/dL (8.5-10.1); Chloride 108 mmol/L (98-107); Cholesterol 148 mg/dL (200); Creatinine, Serum 1.25 mg/dL (0.70-1.30); EST Glomerular Filtration Rate 62 mL/min (>60); Est Glom Filt Rate - Afr Amer 74 mL/min (>60); Globulin 3.2 g/dL (2.2-4.2); Glucose 96 mg/dL (74-106); High Density Lipoprotein 38 mg/dL; Potassium 4.4 mmol/L (3.5-5.1); Protein, Total 7.1 g/dL (6.4-8.2); Sodium Level 141 mmol/L (136-145); Thyroid Stim Hormone (TSH) 3.04 uIU/mL (0.358-3.74); Triglycerides 175 mg/dL; Very Low Density Lipoprotein 35 mg/dL (5-40)
== END 2021-11-13 23:59 | disposition home or self-care (01) ==
LOC: MFPLAB 08:59
PROVIDERS: Physician Assistant Medical; PCP Family Medicine; Visit Provider Family Medicine
DX: I10 Essential (primary) hypertension (principal); E78.5 Hyperlipidemia, unspecified; Z79.899 Other long term (current) drug therapy
CPT/HCPCS: 36415; 80048; 80061; 80076; 84443

== ENCOUNTER 2022-01-11 13:07 | Emergency (ER) | payer MEDICARE, BC, SELFPAY ==
[2020-07-08 07:00] VITALS: BMI 28.6
[2022-01-11 13:08] VITALS: BP 181/97; PULSE 59; RESP 16; TEMP 36.6; O2SAT 100; BMI 29.0
[2022-01-11 13:54] VITALS: BP 151/97; PULSE 58; RESP 12; O2SAT 98
--- NOTE | 2022-01-11 14:20 | EKG12_ITS ---
Test Reason : PALPS Blood Pressure : / mmHG Vent. Rate : 055 BPM Atrial Rate : 055 BPM P-R Int : 188 ms QRS Dur : 092 ms QT Int : 482 ms P-R-T Axes : 000 -11 078 degrees QTc Int : 461 ms Sinus bradycardia Septal infarct (cited on or before 04-JUL-2020) ST & T wave abnormality, consider lateral ischemia Abnormal ECG Confirmed by FER THOMAS, OTONIEL ([id number]), technical writer and editor LYLY OLIVER ([id number]) on 01/12/2022 10:18:37 AM Referred By: GM Confirmed By:OTONIEL MONROE MD
--- NOTE | 2022-01-11 14:27 | EX.ED.DYSGE1 ---
HPI History of Present Illness Chief Complaint: Palpitations Narrative Narrative: 66-year-old male presenting with palpitations. Patient has a history of NSTEMI, hyperlipidemia, CAD, paroxysmal A. fib on Eliquis. Patient denies any chest pain or shortness of breath. He is not near syncopal or lightheaded. Patient states that his episodes of palpitations last for seconds. He has been having these for about a week. He has been taking all of his medications at home. There have been no recent medication changes. [facility] Medical History Atherosclerotic heart disease of [place] coronary artery without angina pectoris Bladder mass Chest pain Essential hypertension GERD (gastroesophageal reflux disease) Hyperlipidemia Hypokalemia NSTEMI (non-ST elevated myocardial infarction) Paroxysmal atrial fibrillation Presence of stent in coronary artery (~04/18/20) Ventricular ectopy Home Medications omeprazole 20 mg PO DAILY 07/29/18 [History Last Taken 08/07/20 08:00] coenzyme Q10 100 mg PO DAILY 04/17/20 [History Last Taken 08/07/20 08:00] magnesium oxide 400 mg PO DAILY 04/17/20 [History Last Taken 08/07/20 08:00] multivitamin with folic acid 1 tab PO DAILY 04/17/20 [History Last Taken 08/07/20 08:00] losartan 100 mg tablet 100 mg PO DAILY #90 tab 05/12/20 [Rx Last Taken 08/07/20 08:00] aspirin 81 mg tablet,delayed release 81 mg PO DAILY 07/04/20 [History Last Taken 08/07/20 20:00] atorvastatin 40 mg tablet 40 mg PO QHS 30 Days #90 tab 09/08/20 [Rx Last Taken Unknown] amlodipine 2.5 mg tablet 2.5 mg PO DAILY #90 tab 03/31/21 [Rx Last Taken Unknown] apixaban 5 mg tablet 5 mg PO BID #180 tab 05/04/21 [Rx Last Taken Unknown] metoprolol tartrate 100 mg tablet 100 mg PO BID #180 tab 05/23/21 [Rx Last Taken Unknown] amiodarone 200 mg tablet 100 mg PO DAILY #90 tab 07/05/21 [Rx Last Taken Unknown] Allergy/AdvReac Type Severity Reaction Status Date / Time No Known Allergies Allergy Verified 01/11/22 13:08 Family History Father Congestive heart failure (CHF) Grandfather CAD (coronary artery disease) Brother Cancer esophageal Surgical History Enlarged prostate Social History Smoking Status: Former smoker pack-years: 20 Tobacco: How many years used: 20 ROS ROS ED Constitutional Constitutional ED: Denies chills or fever(s) Eyes Eyes: Denies blurry vision or diplopia ENT ENT ED: Denies rhinorrhea or sore throat Cardiovascular Cardiovascular: Reports palpitations; Denies chest pain Respiratory/Chest Respiratory/Chest: Denies cough or dyspnea Gastrointestinal Gastrointestinal: Denies abdominal pain, nausea or vomiting Genitourinary Genitourinary ED: Denies dysuria or hematuria Musculoskeletal Musculoskeletal: Denies arthralgias or myalgias Integumentary Denies rash Neurologic Neurologic: Denies headache(s) or weakness Psychiatric Psychiatric: Denies anxiety or depression EXAM Physical Exam Const Vital Signs: 01/11/22 13:08 01/11/22 13:54 01/11/22 14:20 Temperature 97.8 F Temperature Source Temporal Pulse Rate 59 L 58 L Respiratory Rate 16 12 Respiratory Pattern Normal Blood Pressure 181/97 H 151/97 H Blood Pressure Mean 125 115 Pulse Ox 100 98 Oxygen Delivery Method Room Air Room Air Room Air Positive well nourished General Appearance ED: NAD; Negative for pallor HEENT Reports moist mucous membranes Negative for trauma Eyes PERRL and EOMs intact bilaterally Resp normal respiratory effort and clear to auscultation bilaterally Cardio regular rate and regular rhythm Neuro oriented x3, CN's II-XII intact bilaterally and no sensory deficits noted Sensorium / Orientation: alert Motor Exam: strength 5/5 throughout Psych mental status grossly normal Skin no rashes or lesions noted General Skin Exam: Negative for jaundice or pallor MDM MDM MDM Narrative Medical decision making narrative: Patient presenting with palpitations which have been ongoing for about a week. He is also concerned that his blood pressure is a little bit high. After letting his rest his blood pressure did come down to 151/97. Heart rate 58. Respiratory 12, O2 sat 98% on room air. CBC and BMP unremarkable. High-sensitivity troponin is 7. Chest x-ray on my interpretation shows no acute cardiopulmonary process and radiologist agree. EKG on my interpretation shows a sinus bradycardia with a ventricular rate of 55 bpm without sign of ischemic change or dysrhythmia. Given patient's work-up is ultimately negative and did not find a source for his palpitations I feel he is stable for discharge at this time. He will follow-up with cardiology. Impression: 1. Palpitations Lab Data Attestation: I reviewed the patient's lab results. Labs: Laboratory Results - last 24 hr 01/11/22 01/11/22 13:30 13:30 WBC 6.8 RBC 4.85 Hgb 15.5 Hct 45.1 MCV 93.0 MCH 32.0 MCHC 34.4 RDW Std Deviation 42.2 RDW Coeff of [place] 12.3 Plt Count 154 MPV 10.9 Immature Gran % (Auto) 0.300 Neut % (Auto) 66.2 Lymph % (Auto) 21.6 [place] % (Auto) 9.7 Eos % (Auto) 1.9 Baso % (Auto) 0.3 Absolute Neuts (auto) 4.5 Absolute Lymphs (auto) 1.47 Nucleated RBC % 0 Sodium 141 Potassium 4.0 Chloride 105 Carbon Dioxide 29.0 Anion Gap 7 BUN 16 Creatinine 1.32 H Estim Creat Clear Calc 63.05 Est GFR (MDRD) Af Amer 70 Est GFR (MDRD) Non-Af 58 L BUN/Creatinine Ratio 12.1 Glucose 98 Calcium 9.2 Magnesium 2.6 Troponin I High Sens 7 Radiography Diagnostic Testing: Clinical Impression(s) from Imaging Studies Chest X-Ray 01/11/22 14:45 IMPRESSION: Nonacute portable x-ray examination of the chest. Electronically Signed: Poncho Dhaliwal MD ([place]) at 15:08 EDT , Discharge Plan Triage Chief Complaint: Palpitations ED Provider: Moris Hernández Dx/Rx/DC Orders Instructions: ED Palpitations Prescriptions: No Action losartan 100 mg tablet 100 mg PO DAILY Qty: 90 RF: 3 amiodarone 200 mg tablet 100 mg PO DAILY Qty: 90 RF: 4 omeprazole 20 MG capsule 20 mg PO DAILY RF: 0 coenzyme Q10 100 MG capsule 100 mg PO DAILY RF: 0 magnesium oxide 400 MG tablet 400 mg PO DAILY RF: 0 multivitamin with folic acid 1 TABLET tablet 1 tab PO DAILY RF: 0 aspirin [Adult Low Dose Aspirin] 81 mg tablet,delayed release (DR/EC) 81 mg PO DAILY RF: 0 atorvastatin 40 mg tablet 40 mg PO QHS 30 Days Qty: 90 RF: 3 amlodipine 2.5 mg tablet 2.5 mg PO DAILY Qty: 90 RF: 3 Eliquis 5 mg tablet 5 mg PO BID Qty: 180 RF: 4 metoprolol tartrate 100 mg tablet 100 mg PO BID Qty: 180 RF: 4 Primary Care Provider: Pk Caballero Referrals: Pk Villela MD [STAFF PHYSICIAN] - As soon as possible Pk Caballero MD [Primary Care Provider] - Disposition Disposition: Home, Self Care
[2022-01-11 14:42] LABS: Absolute Lymphocyte Count 1.47 X10^3/uL (0.83-4.51); Absolute Neutrophil Count 4.5 X10^3/uL (2.0-7.7); Basophil# 0.02 X10^3/uL; Basophil% 0.3 % (0-1); Eosinophil# 0.13 X10^3/uL; Eosinophils% 1.9 % (0-5); Hematocrit 45.1 % (40-54); Hemoglobin 15.5 g/dL (13.0-16.5); Lymphocyte # 1.47 X10^3/ul (0.83-4.51); Lymphocyte % 21.6 % (19-41); Mean Corp Hgb Conc 34.4 g/dL (32-36); Mean Platelet Vol. 10.9 fl (6.2-12.0); Monocyte# 0.66 X10^3/uL; Monocyte% 9.7 % (0-10); NRBC Flagged by Analyzer 0 % (0-5); Neutrophil # 4.49 X10^3/uL (2.7-7.7); Neutrophil % 66.2 % (47-70); Platelet Count 154 K/mm3 (150-450); RBC Distribution Width CV 12.3 % (11.6-14.6); RBC Distribution Width SD 42.2 fl (35.1-43.9); Red Blood Count 4.85 M/mm3 (4.6-6.2); White Blood Count 6.8 K/mm3 (4.4-11.0)
--- NOTE | 2022-01-11 14:45 | RAD_ITS ---
STUDY: X-RAY CHEST REASON FOR EXAM: Male, 66 years old. chest pain TECHNIQUE: AP COMPARISON: 10/09/2019 FINDINGS: EKG leads project over the chest. The lungs are clear and expanded. There is no demonstrated pleural abnormality. Normal size heart. Normal mediastinum and ana. Normal visualized pulmonary arteries. Normal visualized aortic arch and descending thoracic aorta. Normal visualized thoracic spine. Normal visualized ribs, clavicles, and shoulders. There is no demonstrated abnormality of the visualized soft tissue structures of the upper abdomen. RAD/Chest 1 View (Portable) IMPRESSION: Nonacute portable x-ray examination of the chest. Electronically Signed: Poncho Dhaliwal MD ([place]) at 15:08 EDT ,
[2022-01-11 14:55] LABS: Anion Gap 7 (5-15); BUN 16 mg/dL (7-18); BUN/Creat Ratio 12.1 RATIO (10-20); Calcium,Total 9.2 mg/dL (8.5-10.1); Chloride 105 mmol/L (98-107); Creatinine, Serum 1.32 mg/dL (0.70-1.30); EST Glomerular Filtration Rate 58 mL/min (>60); Est Glom Filt Rate - Afr Amer 70 mL/min (>60); Estimated Creatinine Clearance 63.05 ml/min; Glucose 98 mg/dL (74-106); Magnesium 2.6 mg/dL (1.6-2.6); Sodium Level 141 mmol/L (136-145); Troponin-I HS (w/2H Reflex) 7 pg/mL (3.0-78.0)
[2022-01-11 16:09] VITALS: BP 148/98; PULSE 57; RESP 16; O2SAT 97
[2022-01-11 16:34] LABS: Reflex Troponin-HS? (from REC) Y
== END 2022-01-11 16:43 | disposition home or self-care (01) ==
PROVIDERS: Emergency Provider Student in an Organized Health Care Education/Training Program; PCP Family Medicine; Visit Provider Student in an Organized Health Care Education/Training Program
DX: R00.2 Palpitations (principal); I48.0 Paroxysmal atrial fibrillation; I25.10 Atherosclerotic heart disease of native coronary artery without angina pectoris; I25.2 Old myocardial infarction; Z87.891 Personal history of nicotine dependence; Z79.01 Long term (current) use of anticoagulants; Z95.5 Presence of coronary angioplasty implant and graft
CPT/HCPCS: 71045; 80048; 83735; 84484; 85025; 93005; 99284; A4216

== ENCOUNTER → 2022-05-23 | Outpatient (CLI) | payer MEDICARE, BC, SELFPAY ==
[2020-07-08 07:00] VITALS: BMI 28.6
[2022-05-23 10:41] LABS: Anion Gap 6 (5-15); BUN 20 mg/dL (7-18); BUN/Creat Ratio 15.5 RATIO (10-20); Calcium,Total 9.3 mg/dL (8.5-10.1); Chloride 109 mmol/L (98-107); Cholesterol 142 mg/dL (200); Creatinine, Serum 1.29 mg/dL (0.70-1.30); EST Glomerular Filtration Rate 59 mL/min (>60); Est Glom Filt Rate - Afr Amer 72 mL/min (>60); Glucose 97 mg/dL (74-106); High Density Lipoprotein 41 mg/dL; Potassium 4.9 mmol/L (3.5-5.1); Sodium Level 142 mmol/L (136-145); Triglycerides 95 mg/dL; Very Low Density Lipoprotein 19 mg/dL (5-40)
== END | disposition home or self-care (01) ==
LOC: MFPLAB 08:40
PROVIDERS: PCP Family Medicine; Referring Provider Family Medicine; Visit Provider Family Medicine
DX: I10 Essential (primary) hypertension (principal)
CPT/HCPCS: 36415; 80048; 80061

== ENCOUNTER → 2022-05-30 | Outpatient (CLI) | payer MEDICARE, BC, SELFPAY ==
[2020-07-08 07:00] VITALS: BMI 28.6
== END | disposition home or self-care (01) ==
LOC: MTLAB 08:00
PROVIDERS: PCP Family Medicine; Referring Provider Registered Nurse; Visit Provider Registered Nurse
DX: Z12.5 Encounter for screening for malignant neoplasm of prostate (principal)
CPT/HCPCS: 36415; 84153; G0103

== ENCOUNTER 2022-08-03 08:15 | Day surgery (SDC) | payer MEDICARE, BC, SELFPAY ==
[2020-07-08 07:00] VITALS: BMI 28.6
[2022-08-03] VITALS (7 sets, daily range): BP systolic 85–126; BP diastolic 56–91; PULSE 57–66; RESP 16–18; TEMP 35.8–36.4; O2SAT 96–99; BMI 29.0
[2022-08-03] MEDS: Lactated Ringers 1,000 ML 100 ML IV (09:00)
--- NOTE | 2022-08-03 09:30 | COLBX_PTH ---
PATIENT: TOM HYLTON LOC: EN U#:[id number] AGE/SX: 67/M ROOM: RE08/03/[address]: Dr. Mendel Nathan MD : 1955 BED: DIS: 08/03/2022 SPEC #: [id number] RECD: 08/03/22 12:13 STATUS: DIMITRIS RELinda #: [id number] SANYA: 08/03/22 09:[address]: Mendel Nathan DEPT: SURGICAL PATHOLOGY RECD BY: Maria Isabel Vieira ENTERED: 08/03/22 13:19 SP TYPE: COLON BX OTHR DR: Dr. Pk Caballero MD Tissues: Descending colon Procedures: Surgery Specimen Level IV HEADER OPERATION: Colonoscopy (MAC) PRE-OP DIAGNOSIS: Screening TISSUE SUBMITTED: Descending colon polyp MICROSCOPIC DIAGNOSIS Descending colon polyp, biopsy: Tubular adenoma. SJ:king 08/06/2022 MICROSCOPIC DESCRIPTION Slides are reviewed. GROSS DESCRIPTION Received in fixative is one container labeled with the patient's name and designated descending colon polyp. The specimen consists of two irregular fragments of light jones soft tissue that in aggregate measure 0.6 x 0.5 x 0.1 cm. The specimen is totally submitted in one cassette. / AM:king 08/03/2022 TC:1 CPT: 50084
--- NOTE | 2022-08-03 09:41 | PCM.HP.BLA ---
History and Physical Date of Admission: 08/03/22 Intake Vital Signs ? 01/11/2213:08 07/09/2209:08 Height 6 ft 1 in 6 ft 1 in Weight: ? 220 lb 6 oz BMI ? 29.0 BP ? 147/89 H Blood Pressure Location ? Rt brachial Position ? Sitting Respiration ? 17 Pulse ? 54 L Pulse Source ? Monitor Temp ? 97.4 F L Temp Source ? Temporal Pulse Oximetry (%) ? 54 Oxygen Delivery Method ? room air Intake Visit Reasons:?COLONOSCOPY Chief Complaint: Colonoscopy Labor Relations Worker Required: No Is patient in pain?: No Allergies No Known Allergies Allergy (Verified 07/09/22 09:10) Medications omeprazole 20 mg capsule,delayed release 20 mg PO DAILY GERD 07/29/18 [History Confirmed 07/09/22] coenzyme Q10 100 mg capsule 100 mg PO DAILY supplement 04/17/20 [History Confirmed 07/09/22] magnesium oxide 400 mg PO DAILY supplement 04/17/20 [History Confirmed 07/09/22] multivitamin with folic acid 400 mcg tablet 1 tab PO DAILY vitamin 04/17/20 [History Confirmed 07/09/22] losartan 100 mg tablet 100 mg PO DAILY #90 tabs 05/12/20 [Rx Confirmed 07/09/22] aspirin 81 mg tablet,delayed release (Adult Low Dose Aspirin) 81 mg PO DAILY 07/04/20 [History Confirmed 07/09/22] atorvastatin 40 mg tablet 40 mg PO QHS 30 days #90 tabs 09/08/20 [Rx Confirmed 07/09/22] amiodarone 200 mg tablet 100 mg PO DAILY #90 tabs 07/05/21 [Rx Confirmed 07/09/22] amlodipine 2.5 mg tablet 2.5 mg PO DAILY #90 tabs 01/22/22 [Rx Confirmed 07/09/22] metoprolol tartrate 100 mg tablet 100 mg PO BID #180 tabs 04/09/22 [Rx Confirmed 07/09/22] apixaban 5 mg tablet (Eliquis) See Rx Instructions .Route .COMPLEX #180 tabs 04/27/22 [Rx Confirmed 07/09/22] tadalafil 20 mg tablet (Cialis) 20 mg PO DAILY PRN 07/09/22 [History Confirmed 07/09/22] PFSH Medical History?(Updated 07/09/22 @ 09:[address] Mendel Nathan MD) Atherosclerotic heart disease of [place] coronary artery without angina pectoris Bladder mass Chest pain Essential hypertension GERD (gastroesophageal reflux disease) History of stomach ulcers Hyperlipidemia Hypokalemia NSTEMI (non-ST elevated myocardial infarction) Paroxysmal atrial fibrillation Presence of stent in coronary artery (~04/18/20) Ventricular ectopy Surgical History?(Updated 07/09/22 @ 09:07 by Marlin Saturday) Enlarged prostate History of heart artery stent Family History?(Updated 07/09/22 @ 09:07 by Marlin Saturday) Father Congestive heart failure (CHF)Grandfather CAD (coronary artery disease)Brother Cancer ?? ? esophagealMother Colon cancer Social History?(Updated 07/09/22 @ 09:07 by Marlin Saturday) Smoking Status:? Former smoker pack-years: 20 Tobacco: How many years used:? 20 alcohol intake:? current substance use type:? does not use HPI HPI HPI: Patient reports that his last colonoscopy was over 10 years ago.? He does have a family history of colon cancer in his mother over age 60.? He had a polyp during his last colonoscopy. ROS General General: No weight change, appetite, fatigue, colon cancer, breast cancer or weakness HEENT HEENT: No difficulty swallowing, eye injury, eye surgery, swollen glands or hoarseness Endo Endocrine: No thyroid disease, diabetes mellitus, thyroid cancer, Hair loss, heat intolerance or cold intolerance Skin Skin: No rash or changing moles Musc Musculoskeletal: No back problems, arthritis, rheumatoid arthritis, gout or joint pain Cardio Cardiovascular: Yes heart disease, atrial fibrillation, high blood pressure, heart attack and heart stent; No murmur, pacemaker, palpitations, shortness of breat with exertion or chest pain Psych Psychiatric: No depression, anxiety or hearing voices Resp Respiratory: No shortness of breath, No sleep apnea, No cough, No COPD, No asthma, No emphysema and No wheezing Gastro Gastrointestinal: No abdominal pain, No nausea or vomiting, No diarrhea, No constipation, No blood in stool, Yes acid reflux, No hemorrhoids, No ulcers, No gallbladder problem and No black,tarry stools Homero Hematologic: Yes blood thinners, No blood disorders, No bleeding, No anemia and No blood clots Neuro Neurologic: No system reviewed and no additional complaints, except as documented, No as per HPI, No abnormal gait, No abnormal hearing, No abnormal movements, No abnormal speech, No behavioral changes, No burning sensations, No confusion, No convulsions, No disequilibrium, No dizziness, No localized weakness, No frequent falls, No headache(s), No lack of coordination, No loss of vision, No memory loss, No numbness, No other visual disturbances, No radicular pain, No restless legs, No sensory deficit, No syncope, No tingling, No tremor(s), No weakness and No other Exam Const General: cooperative Orientation: alert and oriented x3 HENMT Head: normal to inspection Neck Neck: normal visual inspection and full ROM Chest Chest palpation & inspection: normal inspection of the chest Resp Effort & Inspection: normal respiratory effort Auscultation: clear to auscultation bilaterally Cardio Rate: regular rate Rhythm: regular rhythm GI Inspection: non-distended Palpation: soft and nontender Skin General: no rashes or lesions noted Neuro General: patient alert and patient oriented x3 Extrem General: full ROM Psych Appearance: grossly normal Mental Status: mental status grossly normal Assessment and Plan Assessment and Plan (1) Screen for colon cancer: ?Status:?Acute ?Plan: The patient is overdue for screening colonoscopy.? His last colonoscopy was over 10 years ago and he did have a polyp.? He also has a family history of colon cancer in his mother but is over age 60.? I will plan for screening colonoscopy for him. I explained endoscopy in detail to the patient.? I explained the risks including but not limited to stroke or heart attack with anesthesia, perforation of the GI tract, bleeding, infection.? I explained that any of these could necessitate further emergency surgery.? The patient understands and all questions were answered sufficiently.? The patient wishes to proceed with procedure. Mendel Nathan MD Pager: [facility] [address] [place] [address], [address] [place] [address] Office: I have examined the patient and the H&P has been reviewed. There are no clinical changes since date of exam.
--- NOTE | 2022-08-03 10:06 | OP.COLON_ITS ---
Patient Name: Joe Gonzalez Procedure Date: 08/03/2022 9:38 AM Date of : 1955 Age: 67 Procedure: Colonoscopy Indications: Screening for colorectal malignant neoplasm Providers: Mendel Nathan MD Medicines: Monitored Anesthesia Care Patient Profile: This is a 67 year old male. Refer to note in patient chart for documentation of history and physical. Last Colonoscopy: more than 10 years ago. Complications: No immediate complications. Procedure: Pre-Anesthesia Assessment: - Prior to the procedure, a History and Physical was performed, and patient medications and allergies were reviewed. The patient's tolerance of previous anesthesia was also reviewed. The risks and benefits of the procedure and the sedation options and risks were discussed with the patient. All questions were answered, and informed consent was obtained. Prior Anticoagulants: The patient has taken no previous anticoagulant or antiplatelet agents. After reviewing the risks and benefits, the patient was deemed in satisfactory condition to undergo the procedure. After I obtained informed consent, the scope was passed under direct vision. Throughout the procedure, the patient's blood pressure, pulse, and oxygen saturations were monitored continuously. The pediatric colonoscope was introduced through the anus and advanced to the cecum, identified by appendiceal orifice and ileocecal valve. The colonoscopy was performed without difficulty. The patient tolerated the procedure well. The quality of the bowel preparation was good. Scope In: 9:48:47 AM Scope Withdrawal Time 0 hours 6 minutes 5 seconds Scope Out: 10:00:54 AM Total Procedure Duration Time 0 hours 12 minutes 7 seconds Findings: A small polyp was found in the descending colon. The polyp was removed with a hot snare. Resection and retrieval were complete. The exam was otherwise without abnormality on direct and retroflexion views. Impression: - One small polyp in the descending colon, removed with a hot snare. Resected and retrieved. - The examination was otherwise normal on direct and retroflexion views. Recommendation: - Discharge patient to home. - Resume previous diet. - Continue present medications. - Resume Eliquis (apixaban) at prior dose tomorrow. - Await pathology results. - Repeat colonoscopy in 5 years for surveillance based on pathology results. Procedure Code(s): --- Professional --- 86421, 33, Colonoscopy, flexible; with removal of tumor(s), polyp(s), or other lesion(s) by snare technique Diagnosis Code(s): --- Professional --- Z12.11, Encounter for screening for malignant neoplasm of colon D12.4, Benign neoplasm of descending colon CPT copyright 2017 [employer]. All rights reserved. The codes documented in this report are preliminary and upon display decorator review may be revised to meet current compliance requirements. Mendel Nathan MD 08/03/2022 10:06:28 AM This report has been signed electronically. Number of Addenda: 0 Note Initiated On: 08/03/2022 9:38 AM
--- NOTE | 2022-08-03 10:07 | OP.CCLET_ITS ---
08/03/2022 Pk Caballero MD [address] [place] [address] Re : Colonoscopy procedure for Joe Carlos Dear Dr. Caballero This procedure was performed on Wednesday, August 03, 2022. My impressions and recommendations are as follows: Impressions : - One small polyp in the descending colon, removed with a hot snare. Resected and retrieved. - The examination was otherwise normal on direct and retroflexion views. Recommendations : - Discharge patient to home. - Resume previous diet. - Continue present medications. - Resume Eliquis (apixaban) at prior dose tomorrow. - Await pathology results. - Repeat colonoscopy in 5 years for surveillance based on pathology results. My findings are described in the full procedure note, which is enclosed. If I can be of further assistance, please feel free to contact me at Doctor phone number(s): , Work: . Sincerely, Mendel Nathan MD 08/03/2022 10:06:28 AM This report has been signed electronically.
== END 2022-08-03 10:54 | disposition home or self-care (01) ==
LOC: EN 08:18 → AC 08:19
PROVIDERS: PCP Family Medicine; Referring Provider Family Medicine; Visit Provider Surgery
PROC: 0DJD8ZZ Inspection of Lower Intestinal Tract, Via Natural or Artificial Opening Endoscopic (ICD-10-PCS; CPT 45378; principal; 2022-08-03 09:25)
DX: Z12.11 Encounter for screening for malignant neoplasm of colon (principal); I48.0 Paroxysmal atrial fibrillation; D12.4 Benign neoplasm of descending colon; I25.10 Atherosclerotic heart disease of native coronary artery without angina pectoris; I25.2 Old myocardial infarction; E78.00 Pure hypercholesterolemia, unspecified; I10 Essential (primary) hypertension; Z79.899 Other long term (current) drug therapy; Z79.01 Long term (current) use of anticoagulants; Z79.82 Long term (current) use of aspirin; Z95.5 Presence of coronary angioplasty implant and graft; Z87.891 Personal history of nicotine dependence; Z80.0 Family history of malignant neoplasm of digestive organs; Z86.010 Personal history of colon polyps
CPT/HCPCS: 45385; 88305; J7120; J2405

== ENCOUNTER → 2023-06-03 | Outpatient (CLI) | payer MEDICARE, BC, SELFPAY ==
[2020-07-08 07:00] VITALS: BMI 28.6
[2023-06-03 10:47] LABS: ALB/GLOB Ratio 1.3 RATIO (0.9-2.4); AST(SGOT) 16 U/L (15-37); Alanine Aminotransfer ALT/SGPT 31 U/L (16-61); Albumin, Serum 3.8 g/dL (3.2-5.0); Alkaline Phosphatase 68 U/L (45-117); Anion Gap 4 (5-15); BUN 18 mg/dL (7-18); Calcium,Total 8.9 mg/dL (8.5-10.1); Chloride 111 mmol/L (98-107); Cholesterol 130 mg/dL (200); EST Glomerular Filtration Rate 64 mL/min (>60); Est Glom Filt Rate - Afr Amer 78 mL/min (>60); Glucose 99 mg/dL (74-106); High Density Lipoprotein 39 mg/dL; Potassium 4.4 mmol/L (3.5-5.1); Protein, Total 6.8 g/dL (6.4-8.2); Sodium Level 143 mmol/L (136-145); Triglycerides 110 mg/dL; Very Low Density Lipoprotein 22 mg/dL (5-40)
== END | disposition home or self-care (01) ==
LOC: MFPLAB 08:15
PROVIDERS: PCP Family Medicine; Visit Provider Family Medicine
DX: I10 Essential (primary) hypertension (principal)
CPT/HCPCS: 36415; 80053; 80061

== ENCOUNTER → 2023-06-10 | Outpatient (CLI) | payer MEDICARE, BC, SELFPAY ==
[2020-07-08 07:00] VITALS: BMI 28.6
[2023-06-10 14:04] LABS: PSA,Total - Annual Screen 3.42 ng/mL (0.00-4.00)
== END | disposition home or self-care (01) ==
LOC: LAB 13:20
PROVIDERS: PCP Family Medicine; Referring Provider Nurse Practitioner; Visit Provider Nurse Practitioner
DX: Z12.5 Encounter for screening for malignant neoplasm of prostate (principal)
CPT/HCPCS: 36415; 84153; G0103

== ENCOUNTER 2023-06-29 22:40 | Emergency (ER) | payer MEDICARE, BC, SELFPAY ==
[2020-07-08 07:00] VITALS: BMI 28.6
--- NOTE | 2023-06-29 | RAD_ITS ---
STUDY: X-RAY CHEST REASON FOR EXAM: Male, 68 years old. Palpitations TECHNIQUE: PA and lateral views of the chest. COMPARISON: 01/11/2022. FINDINGS: The lungs are underexpanded with mild vascular crowding and minimal bilateral basilar atelectasis. Otherwise lung melgar are clear. There is no demonstrated pleural abnormality. Normal size heart. Normal mediastinum and ana. Normal visualized pulmonary arteries. Normal visualized aortic arch and descending thoracic aorta. There are mild degenerative changes of the visualized thoracic spine. Normal visualized ribs, clavicles, and shoulders. There is no demonstrated abnormality of the visualized soft tissue structures of the upper abdomen. RAD/Chest PA and Lateral IMPRESSION: Minimal bilateral basilar atelectasis, otherwise no acute cardiopulmonary disease. Electronically Signed: Sonya Linder MD at 0:23 EST ,
[2023-06-29 22:41] VITALS: BP 151/111; PULSE 116; RESP 18; TEMP 36.3; O2SAT 97; BMI 30.4
[2023-06-29 22:48] VITALS: BP 159/107
--- NOTE | 2023-06-29 22:54 | EX.ED.DYSGE1 ---
HPI History of Present Illness Chief Complaint: Palpitations Informant: patient Onset/Context/Timing Onset: Today and Hours (Approximately 45 minutes prior to arrival) Context: Sudden Onset Timing: Continuous Quality: Racing, fluttering Location: Chest Worsened by: Nothing Relieved by: Nothing Narrative Narrative: Patient presents with palpitations that began approximately 45 minutes prior to arrival. Patient states he was laying down when he felt his heart racing and fluttering. Patient states he has a history of paroxysmal atrial fibrillation. Patient is on Eliquis for this. Patient has not missed any doses of his Eliquis. Patient denies any shortness of breath or cough. Patient denies any nausea or vomiting. Patient denies any diaphoresis. Patient denies any chest pain. 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 Cardiology follow-up encounter Chest pain Essential hypertension Former smoker GERD (gastroesophageal reflux disease) High cholesterol History of atrial fibrillation History of echocardiogram History of hiatal hernia History of stomach ulcers History of stress test Hyperlipidemia Hypertension Hypokalemia NSTEMI (non-ST elevated myocardial infarction) Paroxysmal atrial fibrillation Presence of stent in coronary artery (~04/18/20) Prostate disease Vascular disease Ventricular ectopy Wears dentures Wears glasses Wears hearing aid Wears partial dentures Home Medications omeprazole 20 mg capsule,delayed release 20 mg PO DAILY GERD 07/29/18 [History Last Taken 08/07/20 08:00] coenzyme Q10 100 mg capsule 100 mg PO DAILY supplement 04/17/20 [History Last Taken 08/07/20 08:00] magnesium oxide 400 mg PO DAILY supplement 04/17/20 [History Last Taken 08/07/20 08:00] multivitamin with folic acid 400 mcg tablet 1 tab PO DAILY vitamin 04/17/20 [History Last Taken 08/07/20 08:00] aspirin 81 mg tablet,delayed release (Adult Low Dose Aspirin) 81 mg PO DAILY 07/04/20 [History Last Taken 08/07/20 20:00] tadalafil 20 mg tablet (Cialis) 20 mg PO DAILY PRN Erectile Dysfunction 07/09/22 [History Last Taken Unknown] losartan 100 mg tablet 100 mg PO DAILY #90 tabs 09/25/22 [Rx Last Taken Unknown] metoprolol tartrate 100 mg tablet 100 mg PO BID #180 tabs 09/25/22 [Rx Last Taken Unknown] amlodipine 2.5 mg tablet 2.5 mg PO DAILY #90 tabs 09/26/22 [Rx Last Taken Unknown] apixaban 5 mg tablet (Eliquis) 5 mg PO BID #180 tabs 09/26/22 [Rx Last Taken Unknown] atorvastatin 40 mg tablet 40 mg PO QHS #90 tabs 09/26/22 [Rx Last Taken Unknown] Allergy/AdvReac Type Severity Reaction Status Date / Time No Known Allergies Allergy Verified 06/29/23 22:46 Family History Father Congestive heart failure (CHF) Grandfather CAD (coronary artery disease) Brother Cancer esophageal Mother Colon cancer Surgical History Enlarged prostate History of cardiac catheterization History of heart artery stent History of prostatectomy Social History Smoking Status: Former smoker pack-years: 20 Tobacco: How many years used: 20 alcohol intake: current substance use type: does not use ROS ROS ED Constitutional Constitutional ED: Denies chills or fever(s) Eyes Eyes: Denies blurry vision or change in vision ENT ENT ED: Denies rhinorrhea or sore throat Cardiovascular Cardiovascular: Reports palpitations and racing heartbeat; Denies chest pain Respiratory/Chest Respiratory/Chest: Denies cough or dyspnea Gastrointestinal Gastrointestinal: Denies nausea or vomiting Genitourinary Genitourinary ED: Denies dysuria or hematuria Musculoskeletal Musculoskeletal: Denies back pain or neck pain Integumentary Denies abscess or rash Neurologic Neurologic: Denies headache(s) or weakness Allergic/Immunologic Allergic/Immunologic ED: Denies mouth swelling or urticaria EXAM Physical Exam Const Vital Signs: 06/29/23 22:41 06/29/23 22:48 06/30/23 00:02 Temperature 97.3 F L Temperature Source Oral Pulse Rate 116 H 112 H Respiratory Rate 18 18 Blood Pressure 151/111 H 159/107 H 128/87 H Blood Pressure Mean 124 124 100 Pulse Ox 97 97 Oxygen Delivery Method Room Air Room Air 06/30/23 01:00 Temperature Temperature Source Pulse Rate 70 Respiratory Rate 12 Blood Pressure 120/79 Blood Pressure Mean 92 Pulse Ox 96 Oxygen Delivery Method Room Air Positive well nourished and well developed General Appearance ED: well developed and NAD HEENT Reports moist mucous membranes Neck supple and no JVD Chest Wall inspection of chest normal and palpation of chest normal Resp normal respiratory effort and clear to auscultation bilaterally Cardio no murmurs Rhythm: abnormal rhythm irregularly irregular GI non-tender and non-distended Palpation: soft Extremity normal to inspection General Extremety ED: Negative for edema or tenderness General Extremity: Negative for edema Neuro oriented x3, CN's II-XII intact bilaterally and no sensory deficits noted Sensorium / Orientation: alert Motor Exam: strength 5/5 throughout Psych mental status grossly normal MDM MDM MDM Narrative Medical decision making narrative: Differential diagnosis includes cardiac dysrhythmia, cardiac ischemia, congestive heart failure, pneumonia, pneumothorax, pulmonary embolism, and electrolyte abnormality. EKG will be obtained to assess for cardiac dysrhythmia and cardiac ischemia. Chest x-ray will be obtained to assess for pneumonia and pneumothorax. CBC will be obtained to assess for leukocytosis and anemia. Basic metabolic profile will be obtained to assess for electrolyte abnormality and renal function. High-sensitivity troponin will be obtained to assess for cardiac ischemia. 2-hour repeat high-sensitivity troponin will be obtained to assess for ongoing cardiac ischemia. D-dimer will be obtained to assess for pulmonary embolism. Lab Data Attestation: I reviewed the patient's lab results. Lab results narrative: CBC was reviewed and was within normal limits. PT with INR and PTT were reviewed and were within normal limits. D-dimer was reviewed and was normal basic metabolic profile was reviewed. Initial high-sensitivity troponin was reviewed and was normal at 14. 2-hour repeat high-sensitivity troponin was reviewed and was normal at 25. Labs: Laboratory Results - last 24 hr 06/29/23 06/30/23 22:49 01:40 WBC 6.7 RBC 4.70 Hgb 14.5 Hct 43.6 MCV 92.8 MCH 30.9 MCHC 33.3 RDW Std Deviation 43.4 RDW Coeff of [place] 12.8 Plt Count 117 L MPV 11.5 Immature Gran % (Auto) 0.300 Neut % (Auto) 57.0 Lymph % (Auto) 30.0 [place] % (Auto) 10.9 H Eos % (Auto) 1.5 Baso % (Auto) 0.3 Absolute Neuts (auto) 3.8 Absolute Lymphs (auto) 2.01 Nucleated RBC % 0 PT 14.4 INR 1.1 APTT 35.8 D-Dimer Quant (PE/DVT) < 0.27 L Sodium 141 Potassium 3.3 L Chloride 108 H Carbon Dioxide 28.0 Anion Gap 5 BUN 19 H Creatinine 1.17 Estim Creat Clear Calc 67.25 Est GFR (MDRD) Af Amer 80 Est GFR (MDRD) Non-Af 66 BUN/Creatinine Ratio 16.2 Glucose 126 H Calcium 8.9 Troponin I High Sens 14 25 Radiography Chest X-Ray - ED: 2 View, Read by ED Physician, Read by Radiologist and No Acute Disease Diagnostic Testing: Clinical Impression(s) from Imaging Studies Chest X-Ray 06/29/23 00:00 IMPRESSION: Minimal bilateral basilar atelectasis, otherwise no acute cardiopulmonary disease. Electronically Signed: Sonya Linder MD at 0:23 EST , PA and lateral chest x-ray was obtained. There are 2 views. On my independent interpretation, lung melgar showed mild bibasilar atelectasis. There is normal cardiac silhouette. Bony thorax is normal. There is no acute process noted. Radiologist also interpreted the x-ray and agrees. EKG Initial EKG: Attestation: I personally reviewed and interpreted this EKG as follows: Interpretation: Atrial Fibrillation (103) and Non-Specific ST Changes Comments: EKG was obtained. On my independent interpretation, it shows atrial fibrillation with a rate of 103. QRS interval was normal at 100 ms. QTc interval was normal at 419 ms. There is borderline left axis deviation at -17. There is evidence of left ventricular hypertrophy. There are nonspecific ST-T wave changes noted. Prior EKG tracings: available for review Prior: Changed (Compared to most recent EKG, atrial fibrillation is new.) Follow-up EKG: Attestation: I personally reviewed and interpreted this EKG as follows: Interpretation: Sinus Rhythm and No Acute Injury Pattern Comments: EKG was obtained. On my independent interpretation, it showed a sinus bradycardia with first-degree AV block with a rate of 59. LA interval was prolonged at 220 ms. QRS interval and QTc intervals were normal. [place] was normal. There are nonspecific ST-T wave changes. Prior EKG tracings: available for review Prior: Unchanged Differential Diagnosis Chest pain/SOB: pulmonary embolism Reason(s) PE less likely: Positive for patient taking oral anticoagulants, ACS, pneumothorax Reason(s) pneumothorax less likely: Positive for bilateral breath sounds, pneumonia Reason(s) pneumonia less likely: Positive for no noted fever and symptoms not consistent with acute infection, aortic dissection Reason(s) Aortic dissection less likely:: Positive for normal vascular exam and CHF Reason(s) CHF less likely: Positive for no significant peripheral edema Treatment and Re-Evaluation :: Patient was given a dose of Cardizem here. Patient converted to a normal sinus rhythm. Repeat EKG was obtained. Patient was feeling better on reevaluation. Patient was advised of his findings. Patient was instructed to follow-up with his primary care physician and medical billing representative in 5 to 7 days. Patient was instructed return if worse in any way. Patient understood and was agreeable with the plan. All questions were answered. Discharge Plan Triage Chief Complaint: Palpitations ED Provider: Armando Alexander Dx/Rx/DC Orders Clinical Impression: Palpitations, Paroxysmal atrial fibrillation Instructions: ED AFIB, ED Palpitations Prescriptions: No Action tadalafil [Cialis] 20 mg tablet 20 mg PO DAILY PRN (Reason: Erectile Dysfunction) Rx Instructions: administer approximately 30min before sexual activity; do not use more than 1 dose per 24hrs omeprazole 20 MG capsule 20 mg PO DAILY coenzyme Q10 100 MG capsule 100 mg PO DAILY magnesium oxide 400 MG tablet 400 mg PO DAILY multivitamin with folic acid 1 TABLET tablet 1 tab PO DAILY aspirin [Adult Low Dose Aspirin] 81 mg tablet,delayed release (DR/EC) 81 mg PO DAILY losartan 100 mg tablet 100 mg PO DAILY Qty: 90 3RF metoprolol tartrate 100 mg tablet 100 mg PO BID Qty: 180 4RF amlodipine 2.5 mg tablet 2.5 mg PO DAILY Qty: 90 3RF Eliquis 5 mg tablet 5 mg PO BID Qty: 180 3RF atorvastatin 40 mg tablet 40 mg PO QHS Qty: 90 3RF Primary Care Provider: Pk Caballero Referrals: Jorge Gomez MD [Med Staff - Active Staff] - 5-7 Days Pk Caballero MD [Primary Care Provider] - 5-7 Days Disposition Disposition: Home, Self Care
--- NOTE | 2023-06-29 23:05 | EKG12_ITS ---
Test Reason : CP Blood Pressure : / mmHG Vent. Rate : 103 BPM Atrial Rate : 000 BPM P-R Int : 000 ms QRS Dur : 100 ms QT Int : 320 ms P-R-T Axes : 000 -17 138 degrees QTc Int : 419 ms Atrial fibrillation with rapid ventricular response Moderate voltage criteria for LVH, may be normal variant ( R in aVL , Yovany product ) Septal infarct , age undetermined ST & T wave abnormality, consider lateral ischemia Abnormal ECG Confirmed by FER THOMAS, OTONIEL ([id number]), online content editor АЛЕКСАНДР BARILLAS ([id number]) on 07/10/2023 10:00:39 AM Referred By: RBOYN Confirmed By:OTONIEL MONROE MD
[2023-06-29 23:56] LABS: Anion Gap 5 (5-15); BUN 19 mg/dL (7-18); BUN/Creat Ratio 16.2 RATIO (10-20); Calcium,Total 8.9 mg/dL (8.5-10.1); Chloride 108 mmol/L (98-107); Creatinine, Serum 1.17 mg/dL (0.70-1.30); EST Glomerular Filtration Rate 66 mL/min (>60); Est Glom Filt Rate - Afr Amer 80 mL/min (>60); Estimated Creatinine Clearance 67.25 ml/min; Glucose 126 mg/dL (74-106); Potassium 3.3 mmol/L (3.5-5.1); Sodium Level 141 mmol/L (136-145); Troponin-I HS (w/2H Reflex) 14 pg/mL (3.0-78.0)
[2023-06-29 23:57] LABS: D-Dimer Quantitative (DVT/PE) < 0.27 FEU/ug/m (0.27-0.49)
[2023-06-30 00:02] VITALS: BP 128/87; PULSE 112; RESP 18; O2SAT 97
[2023-06-30 00:04] LABS: International Normalized Ratio 1.1; Prothrombin Time (Protime)PT. 14.4 SECONDS (11.7-14.9)
[2023-06-30 00:05] LABS: Partial Thromboplast Time 35.8 Seconds (24.1-36.2)
[2023-06-30] MEDS: dilTIAZem 25 MG/5 ML Vial IV BOLUS (00:08)
[2023-06-30 00:15] LABS: Absolute Lymphocyte Count 2.01 X10^3/uL (0.83-4.51); Absolute Neutrophil Count 3.8 X10^3/uL (2.0-7.7); Basophil# 0.02 X10^3/uL; Basophil% 0.3 % (0-1); Eosinophils% 1.5 % (0-5); Hematocrit 43.6 % (40-54); Hemoglobin 14.5 g/dL (13.0-16.5); Lymphocyte # 2.01 X10^3/ul (0.83-4.51); Mean Corp Hgb Conc 33.3 g/dL (32-36); Mean Corpuscular Hgb 30.9 pg (27.0-32.0); Mean Corpuscular Volume 92.8 fL (80-94); Mean Platelet Vol. 11.5 fl (6.2-12.0); Monocyte# 0.73 X10^3/uL; Monocyte% 10.9 % (0-10); NRBC Flagged by Analyzer 0 % (0-5); Neutrophil # 3.81 X10^3/uL (2.7-7.7); Platelet Count 117 K/mm3 (150-450); RBC Distribution Width CV 12.8 % (11.6-14.6); RBC Distribution Width SD 43.4 fl (35.1-43.9); White Blood Count 6.7 K/mm3 (4.4-11.0)
[2023-06-30 01:00] VITALS: BP 120/79; PULSE 70; RESP 12; O2SAT 96
[2023-06-30 01:34] LABS: Reflex Troponin-HS? (from REC) Y
[2023-06-30 02:00] VITALS: BP 100/73; PULSE 62; RESP 12; O2SAT 95
[2023-06-30 02:08] LABS: Troponin-I HS 25 pg/mL (3.0-78.0)
--- NOTE | 2023-06-30 02:11 | EKG12_ITS ---
Test Reason : RHYTHM CHANGE Blood Pressure : / mmHG Vent. Rate : 059 BPM Atrial Rate : 059 BPM P-R Int : 220 ms QRS Dur : 088 ms QT Int : 434 ms P-R-T Axes : 053 -14 122 degrees QTc Int : 429 ms Sinus bradycardia with 1st degree A-V block Left ventricular hypertrophy with repolarization abnormality ( R in aVL , Falun product ) Cannot rule out Septal infarct , age undetermined Abnormal ECG Confirmed by FER THOMAS, OTONIEL ([id number]), film or videotape editor АЛЕКСАНДР BARILLAS ([id number]) on 07/10/2023 10:00:51 AM Referred By: ROBYN Confirmed By:OTONIEL MONROE MD
== END 2023-06-30 02:41 | disposition home or self-care (01) ==
PROVIDERS: Emergency Provider Emergency Medicine; PCP Family Medicine; Visit Provider Emergency Medicine
DX: R00.2 Palpitations (principal); I48.0 Paroxysmal atrial fibrillation; I25.10 Atherosclerotic heart disease of native coronary artery without angina pectoris; E78.00 Pure hypercholesterolemia, unspecified; I10 Essential (primary) hypertension; I25.2 Old myocardial infarction; Z79.82 Long term (current) use of aspirin; Z79.01 Long term (current) use of anticoagulants; Z79.899 Other long term (current) drug therapy; Z87.891 Personal history of nicotine dependence; Z95.5 Presence of coronary angioplasty implant and graft
CPT/HCPCS: 71046; 80048; 84484; 85025; 85379; 85610; 85730; 93005; 96374; 99284; A4216

== ENCOUNTER → 2023-12-02 | Outpatient (CLI) | payer MEDICARE, BC, SELFPAY ==
[2020-07-08 07:00] VITALS: BMI 28.6
[2023-12-02 10:39] LABS: Anion Gap 4 (5-15); BUN 21 mg/dL (7-18); BUN/Creat Ratio 18.8 RATIO (10-20); Calcium,Total 9.8 mg/dL (8.5-10.1); Chloride 107 mmol/L (98-107); Creatinine, Serum 1.12 mg/dL (0.70-1.30); EST Glomerular Filtration Rate 69 mL/min (>60); Est Glom Filt Rate - Afr Amer 84 mL/min (>60); Glucose 94 mg/dL (74-106); Potassium 4.4 mmol/L (3.5-5.1); Sodium Level 141 mmol/L (136-145)
== END | disposition home or self-care (01) ==
LOC: MFPLAB 08:20
PROVIDERS: PCP Family Medicine; Visit Provider Family Medicine
DX: I10 Essential (primary) hypertension (principal)
CPT/HCPCS: 36415; 80048

== ENCOUNTER 2023-12-17 12:30 | Outpatient (RCR) | payer MEDICARE, BC, SELFPAY ==
[2023-12-02 08:27] VITALS: BMI 28.6
--- NOTE | 2023-12-06 15:37 | HP.PTEVAL_ITS ---
Patient's Visit Information Visit Information Visit Information: TOM HYLTON is a 68 year old M referred to Physical Therapy by Dr. Pk Caballero MD with a diagnosis of LEFT SHOULDER PAIN. Date of Evaluation: 12/06/23 Physical Therapist: Mauri Nicholson PT, Cert MDT, OCS Visit Plan Frequency: 2x /Week Duration: 4 Weeks Plan: PT INTERVENTIONS POSTURAL EX'S ,RTC/SCAPULAR STRENGTHENING EX'S AND FLEXABILITY Subjective Subjective: This 68 y/o male presents to physical therapy with left shoulder pain. Patient noticed left shoulder pain since Aug 2022 playing golf . Patient progressively worse. Patient seen DR warren HERRERA had x-rays- Aggravating factors lifting ,OH activities ,reaching behind back sleeping on left side. Alleviating factors teylonal . Location pain global shoulder constant ache and intermittent deltoid. Pain can affects sleeping on left. Patient hobbies golfing. Patient pain affects QOL and function and golfing. Patient goals golf without pain. SOCIAL: VOCATION: retired Pain Left Shoulder: Pain Intensity (Out of 10): 3 Pain Intensity Range: 10 Objective Objective: POSTURE: asymmetries' in shoulder uneven left lower ,rounded shoulders ,head forward PALPATION: unremarkable NEURO: denies paresthesia/tingling AROM: shoulder flexion 150 degrees ER pain ,abduction 150 degrees ER pain ,ER 90 end range pain with OP,IR L3 MMT: RTC 4/5 ,supraspinatus 4-/5 ,deltoid 4-/5 no symptoms produced Special Tests C/S Radiculapathy - Left Upper limb tension test: Negative C/S Radiculapathy - Right Upper limb tension test: Negative C/S Radiculapathy - Left Spurlings: Negative C/S Radiculapathy - Right Spurlings: Negative Sharp Sandra: Negative Vertebral Artery Test: Negative Alar Ligament Test: Negative Balance/Special Test Scores Quick DASH Score: 36.3625 Goals Goal 1:: Patient to be I with HEP Goal Time Frame: 4-6 Weeks Goal 2:: Patient to demonstrate 60% improvement with to improve function and golfing Goal Time Frame: 4-6 Weeks Goal 3:: Patient improve AROM full with ER pain to play golf without pain. Goal Time Frame: 4-6 Weeks Goal 4:: Patient improve quick dash by 3-5 points to improve QOL and function Goal Time Frame: 4-6 Weeks Goal 5:: Patient improve deltoid strength to good without symptoms Goal Time Frame: 4-6 Weeks Rehabilitation Potential Physical Therapy Diagnosis: This patient has left shoulder impingement with ER pain with ROM with pain with AROM mild weakness cause impairments with golf and function ADLS thus benefit from skilled PT Rehabilitation Potential: Good Anticipated Interventions Patient/Client Instruction: Educate patient on: Condition and Plan of Care For the Purpose of:: To decrease pain, To increase ROM, To improve muscle performance and motor function, To improve ability to perform ADL's, To increase tolerance to activity/condition/position, To improve ability of physical actions for home/community/work/leisure, To improve health of tissue, To decrease soft tissue restriction, To increase flexibility/ROM, To reduce risk of recurrence and To improve tolerance to ADL's Therapeutic Exercise to Include: Strength training, Postural training, Flexibilty training and Active ROM For the Purpose of:: To decrease pain, To increase ROM, To improve muscle performance and motor function, To improve ability to perform ADL's, To increase tolerance to activity/condition/position, To improve ability of physical actions for home/community/work/leisure, To improve health of tissue, To decrease soft tissue restriction, To increase flexibility/ROM and To improve tolerance to ADL's Text: Thank you for the opportunity to evaluate your patient. For Medicare and Medicare HMO plans, please review the plan of care and approve it. It will need to be FAXED BACK to us at [phone] for Medicare purposes. For Medicare only, by signing this I certify the plan of care. Please let me know if there are questions or concerns regarding this plan of care. Physician Signature: Date:
--- NOTE | 2023-12-17 12:57 | HP.PTDCSUM ---
Discharge Summary D/C summary: It has been my pleasure to treat TOM HYLTON referred by Dr. Pk Caballero MD, with the diagnosis of LEFT SHOULDER PAIN for a total of 4 visit(s). Discharge Date: Please see the following information for a summary of their discharge status. Subjective Subjective: Doing well . No problem with golfing Pain Left Shoulder: Pain Intensity (Out of 10): 0 Overall Improvement % Improvement: 85 Objective Objective/Function: POSTURE: asymmetries' in shoulder uneven left lower ,rounded shoulders ,head forward PALPATION: unremarkable NEURO: denies paresthesia/tingling AROM: shoulder flexion 160 degrees ER pain ,abduction 1600 degrees ER pain ,ER 90 degrees ,IR 10 MMT: RTC 4/5 ,supraspinatus 4/5 ,deltoid 4/5 Goals Goal 1:: Patient to be I with HEP Goal Progress: Goal Met Goal 2:: Patient to demonstrate 60% improvement with to improve function and golfing Goal Progress: Goal Met Goal 3:: Patient improve AROM full with ER pain to play golf without pain. Goal Progress: Goal Met Goal 4:: Patient improve quick dash by 3-5 points to improve QOL and function Goal Progress: Goal Met Goal 5:: Patient improve deltoid strength to good without symptoms Goal Progress: Goal Met Plan Plan: D/C TO HEP RETURN TO GOLF NO PROBLEMS D/C Information d/c sentence: If there are questions or concerns regarding this patient's physical therapy, please feel free to call me at [phone]. Thank you for the referral of this patient. Sincerely, Mauri Nicholson, PT, Cert MDT, OCS Balance/Gait/Functional tests Balance/Special Test Scores Quick DASH Score: 2.2725 Improvement % Improvement: 85
== END 2023-12-17 19:00 | disposition home or self-care (01) ==
LOC: PT 12:30
PROVIDERS: PCP Family Medicine; Visit Provider Family Medicine
DX: M25.512 Pain in left shoulder (principal)
CPT/HCPCS: 97110; 97162

== ENCOUNTER → 2024-06-03 | Outpatient (CLI) | payer MEDICARE, BC, SELFPAY ==
[2023-12-02 08:27] VITALS: BMI 28.6
[2024-06-03 10:32] LABS: Anion Gap 5 (5-15); BUN 19 mg/dL (7-18); BUN/Creat Ratio 19.1 RATIO (10-20); Calcium,Total 9.4 mg/dL (8.5-10.1); Chloride 107 mmol/L (98-107); Cholesterol 133 mg/dL (200); EST Glomerular Filtration Rate 79 mL/min (>60); Est Glom Filt Rate - Afr Amer 96 mL/min (>60); Glucose 101 mg/dL (74-106); High Density Lipoprotein 45 mg/dL; PSA,Total- Diagnostic 4.08 ng/mL (0.0-4.0); Potassium 4.1 mmol/L (3.5-5.1); Sodium Level 141 mmol/L (136-145); Triglycerides 97 mg/dL; Very Low Density Lipoprotein 19 mg/dL (5-40)
== END | disposition home or self-care (01) ==
LOC: MFPLAB 08:25
PROVIDERS: PCP Family Medicine; Visit Provider Family Medicine
DX: I10 Essential (primary) hypertension (principal); Z85.46 Personal history of malignant neoplasm of prostate
CPT/HCPCS: 36415; 80048; 80061; 84153

== ENCOUNTER → 2024-12-10 | Outpatient (CLI) | payer MEDICARE, BC, SELFPAY ==
[2023-12-02 08:27] VITALS: BMI 28.6
[2024-12-10 13:17] LABS: Anion Gap 12 (5-15); BUN 15 mg/dL (4-19); Calcium,Total 9.3 mg/dL (7.6-11.0); Carbon Dioxide 25.5 mmol/L (21.0-32.0); Chloride 106 mmol/L (98-108); Cholesterol 136 mg/dL (<=200); Creatinine, Serum 1.23 mg/dL (0.70-1.20); EST Glomerular Filtration Rate 64 (>60); Glucose 101 mg/dL (70-99); High Density Lipoprotein 33 mg/dL; Low Density Lipoprotein Calc. 85 mg/dL; Potassium 4.4 mmol/L (3.3-5.1); Sodium Level 143 mmol/L (133-145); Triglycerides 90 mg/dL; Very Low Density Lipoprotein 18 mg/dL (5-40); cholesterol:hdl ratio screen 4.15
== END | disposition home or self-care (01) ==
PROVIDERS: PCP Family Medicine; Referring Provider Family Medicine; Visit Provider Family Medicine
DX: I10 Essential (primary) hypertension (principal)
CPT/HCPCS: 36415; 80048; 80061

== ENCOUNTER → 2024-12-21 | Outpatient (CLI) | payer MEDICARE, BC, SELFPAY ==
[2023-12-02 08:27] VITALS: BMI 28.6
== END | disposition home or self-care (01) ==
LOC: PSN 07:35
PROVIDERS: PCP Family Medicine; Referring Provider Internal Medicine Cardiovascular Disease; Visit Provider Internal Medicine Cardiovascular Disease
DX: I48.92 Unspecified atrial flutter (principal)
CPT/HCPCS: 93225; 93226

== ENCOUNTER → 2024-12-25 | Outpatient (CLI) | payer MEDICARE, BC, SELFPAY ==
[2023-12-02 08:27] VITALS: BMI 28.6
--- NOTE | 2024-12-25 13:32 | ECHOD_ITS ---
Reason For Study Reason For Study: A. fib Procedure This was a 2D Doppler, Color Flow transthoracic echocardiogram. Exam performed in department. Left Ventricle Normal LV size. Moderate concentric left ventricular hypertrophy. The LV systolic function is normal. EF is 60 %. Stage 1 diastolic dysfunction. Right Ventricle Normal right ventricle. Atria The left atrium is mildly enlarged. Normal right atrium. Mitral Valve Mild diffuse mitral valve thickening. Mild-Moderate (1-2+) mitral valve insufficiency. Tricuspid Valve Mild tricuspid valve insufficiency. Right ventricular systolic pressure estimated to be 45 mmHg. Aortic Valve Aortic sclerosis, no stenosis. Pulmonic Valve The pulmonic valve is not well visualized. Great Vessels Normal sized aortic root. Pericardium/Pleural No pericardial effusion. MMode/2D Measurements & Calculations LVIDd: 4.2 cm IVSd: 1.4 cm Ao root diam: 3.6 cm LVIDs: 2.4 cm LVPWd: 1.3 cm RVDd: 3.4 cm FS: 42.3 % LAV(MOD-bp): 48.9 ml LVAd ap4: 21.8 cm2 LVAd ap2: 19.4 cm2 LAV(MOD-bp) Indexed: 21.9 ml/m2 LVLd ap4: 8.0 cm LVLd ap2: 7.7 cm LAV(MOD-sp2): 44.3 ml EDV(MOD-sp4): 51.1 ml EDV(MOD-sp2): 43.2 ml LAV(MOD-sp4): 54.5 ml EDV(sp4-el): 50.4 ml EDV(sp2-el): 41.7 ml LVAs ap4: 13.8 cm2 LVAs ap2: 12.0 cm2 LVLs ap4: 7.6 cm LVLs ap2: 7.1 cm ESV(MOD-sp4): 23.5 ml ESV(MOD-sp2): 18.6 ml ESV(sp4-el): 21.1 ml ESV(sp2-el): 17.1 ml EF(MOD-sp4): 53.9 % EF(MOD-sp2): 56.9 % EF(sp4-el): 58.1 % SV(MOD-sp4): 27.5 ml SV(MOD-sp2): 24.6 ml SV(sp4-el): 29.3 ml SI(MOD-sp4): 12.3 ml/m2 SI(MOD-sp2): 11.0 ml/m2 LA A4 area: 19.1 cm2 LA dimension(2D): 3.6 cm RA A4 area: 12.7 cm2 TAPSE: 1.5 cm Doppler Measurements & Calculations MV E max esdras: 112.7 cm/sec Lat Peak E' Esdras: 9.8 cm/sec Med Peak E' Esdras: 5.7 cm/sec E/E' lat: 11.5 E/E' med: 19.9 Ao V2 max: 97.8 cm/sec LV V1 max: 81.2 cm/sec PA V2 max: 72.7 cm/sec Ao max P.9 mmHg LV V1 max P.7 mmHg TR max esdras: 275.5 cm/sec TR max P.4 mmHg ECHO/Echo Complete Interpretation Summary Moderate concentric left ventricular hypertrophy. The LV systolic function is normal. EF is 60 %. Stage 1 diastolic dysfunction. The left atrium is mildly enlarged. Mild-Moderate (1-2+) mitral valve insufficiency. Mild tricuspid valve insufficiency. Right ventricular systolic pressure estimated to be 45 mmHg. Aortic sclerosis, no stenosis. Ordering Physician: Roberth Chew Referring Physician: Pk Caballero Performed By: Jennifer Olvera RDCS
== END | disposition home or self-care (01) ==
LOC: CVS 13:32
PROVIDERS: PCP Family Medicine; Referring Provider Internal Medicine Cardiovascular Disease; Visit Provider Internal Medicine Cardiovascular Disease
DX: I48.0 Paroxysmal atrial fibrillation (principal)
CPT/HCPCS: 93306

== ENCOUNTER → 2025-06-08 | Outpatient (CLI) | payer MEDICARE, BC, SELFPAY ==
[2023-12-02 08:27] VITALS: BMI 28.6
[2025-06-08 14:15] LABS: PSA,Total - Annual Screen 3.92 ng/mL (0.02-4.00)
== END | disposition home or self-care (01) ==
LOC: MFPLAB 09:35
PROVIDERS: PCP Family Medicine
DX: Z12.5 Encounter for screening for malignant neoplasm of prostate (principal)
CPT/HCPCS: 36415; 84153; G0103